=== PATIENT | male | born 1955 | race Caucasian/White ===

== ENCOUNTER 2017-01-03 08:00 | Outpatient (CLI) | payer BC, OTHER ==
[2017-01-03 13:47] LABS: ALBUMIN/GLOBULIN RATIO 1.7 (1.0-2.2); BILIRUBIN,TOTAL 0.7 mg/dL (0.2-1.0); BUN - BLOOD UREA NITROGEN 25 mg/dL (6-20); CALCIUM 9.2 mg/dL (8.5-10.3); CARBON DIOXIDE - CO2 28 mmol/L (21-32); CHLORIDE 103 mmol/L (101-111); CHOL/HDL RATIO 2.6 (<5.0); CHOLESTEROL 190 mg/dL; CREATININE 1.2 mg/dL (0.6-1.2); GFR - MDRD 61 (>89); GLUCOSE 89 mg/dL (70-100); HDL CHOLESTEROL 74 mg/dL; LDL/HDL RATIO 1.4 (<3.6); POTASSIUM 4.2 mmol/L (3.5-5.0); SODIUM 139 mmol/L (135-145); TOTAL PROTEIN 6.9 g/dL (6.7-8.2); TRIGLYCERIDES 58 mg/dL; VLDL CHOLESTEROL 12 mg/dL
== END 2017-01-03 08:01 | disposition home or self-care (01) ==
LOC: LAB.N 08:00
PROVIDERS: ATTEND Internal Medicine
DX: I10 Essential (primary) hypertension (principal); E78.2 Mixed hyperlipidemia; Z79.899 Other long term (current) drug therapy
CPT/HCPCS: 36415; 80053; 80061

== ENCOUNTER 2019-05-10 08:33 | Inpatient (IN) | payer MEDICARE, BC ==
[2019-05-10] MEDS ORDERED: SODIUM CHLORIDE 0.9% 1,000 ML IV ONE ×2 (08:39→09:16)
[2019-05-10] MEDS ORDERED: ONDANSETRON 4 MG/2 ML VIAL IVP STA (08:39)
[2019-05-10 08:54] LABS: BASOPHILS % (AUTO) 0.5 %; EOSINOPHILS % (AUTO) 0.4 %; HGB - HEMOGLOBIN 15.3 g/dL (14.0-18.0); LYMPHOCYTES % (AUTO) 1.9 %; MEAN CORPUSCULAR HEMOGLOBIN 31.7 pg (27.0-31.0); MEAN CORPUSCULAR HGB CONC 33.8 g/dL (32.0-36.0); MONOCYTES % (AUTO) 4.5 %; NEUTROPHILS % (AUTO) 92.2 %; PLT - PLATELET COUNT 323 10^3/uL (130-450); RED BLOOD COUNT 4.82 10^6/uL (4.70-6.10); RED CELL DISTRIBUTION WIDTH 13.5 % (12.0-15.0); WHITE BLOOD COUNT 11.3 x10^3/uL (4.8-10.8)
[2019-05-10 09:04] LABS: ALBUMIN 3.6 g/dL (3.2-5.5); ALBUMIN/GLOBULIN RATIO 0.9 (1.0-2.2); CALCIUM 8.6 mg/dL (8.5-10.3); CREATININE 2.5 mg/dL (0.6-1.2); TOTAL PROTEIN 7.5 g/dL (6.7-8.2)
[2019-05-10 09:29] LABS: ABNORMAL LYMPHS % (MANUAL) 0 %; BAND NEUTROPHILS % (MANUAL) 6 %; EOSINOPHILS # (MANUAL) 0.3 10^3/uL (0-0.7); LYMPHOCYTES # (MANUAL) 0.3 10^3/uL (1.5-3.5); LYMPHOCYTES % (MANUAL) 3 %; METAMYELOCYTES % (MANUAL) 3 %; MONOCYTES # (MANUAL) 0.5 10^3/uL (0.0-1.0); MYELOCYTES % (MANUAL) 1 %
[2019-05-10 09:30] LABS: DIFFERENTIAL COMMENT MANUAL DIFFERENTIAL; PLATELET ESTIMATE, MANUAL NORMAL (130-450,000) (NORMAL); PLATELET MORPHOLOGY NORMAL APPEARANCE (NORMAL); RBC MORPHOLOGY (MULTIPLE) NORMAL APPEARANCE (NORMAL)
[2019-05-10 09:37] LABS: GLUCOSE, URINE (UA) NEGATIVE (NEGATIVE); KETONES,URINE (UA) TRACE mg/dL (NEGATIVE); LEUKOCYTE ESTERASE, URINE NEGATIVE (NEGATIVE); NITRITE,URINE NEGATIVE (NEGATIVE); OCCULT BLOOD,URINE NEGATIVE (NEGATIVE); PROTEIN,URINE TRACE mg/dL (NEGATIVE); UROBILINOGEN,URINE 1 (NORMAL) E.U./dL (NORMAL)
[2019-05-10 09:39] LABS: CLARITY,URINE CLEAR (CLEAR)
[2019-05-10 09:40] LABS: BILIRUBIN,URINE NEGATIVE (NEGATIVE); ICTOTEST,URINE NEGATIVE
[2019-05-10] MEDS ORDERED: PIPERACILLIN/TAZOBACTAM 4.5 GM in SODIUM CHLORIDE 0.9% MINIBAG 100 ML IV STA (09:55)
--- NOTE | 2019-05-10 09:57 | CT Report ---
Reason: abdominal pain with distention. Procedure Date: 05/10/2019 Accession Number: [id number] / [id number] Procedure: CT - Abdomen/Pelvis WO CPT Code: FULL RESULT: EXAM: CT ABDOMEN AND PELVIS (CT KUB) EXAM DATE: 05/10/2019 09:41 AM. CLINICAL HISTORY: Abdominal pain and distention. COMPARISONS: None. TECHNIQUE: Routine axial helical CT imaging was performed through the abdomen and pelvis without IV contrast. Reconstructions: Coronal and sagittal. In accordance with CT protocol optimization, one or more of the following dose reduction techniques were utilized for this exam: automated exposure control, adjustment of mA and/or KV based on patient size, or use of iterative reconstructive technique. FINDINGS: Lung Bases: Mild calcified coronary artery disease is seen. Solid Organs: Noncontrast imaging of the solid organs demonstrates no acute findings. No hydronephrosis or organomegaly. Gallbladder/Bile Ducts: Unremarkable. Peritoneal Cavity: There is moderate free air scattered in the abdomen. The colon is moderately dilated and fluid-filled particularly the cecum. There is some wall thickening and fat stranding seen in the distal descending and proximal sigmoid colon, suspicious. Distal colectomy changes are noted further downstream. Small free fluid is seen in the abdominal quadrants. No loculated fluid collection is identified. Small ventral hernias are seen in the epigastric region containing air. No large hernia defect is seen. No adenopathy. Pelvic Organs: No bladder stones or wall thickening. Noncontrast images of the visualized pelvic organs are unremarkable. Vasculature: Infrarenal abdominal aortic aneurysm up to 3.9 cm is seen. Other: Degenerative changes and grade 1 anterolisthesis is seen at L5-S1 with pars defect. No acute osseous abnormality demonstrated. IMPRESSION: 1. Moderate free air and small free fluid in the abdomen consistent with viscus perforation, likely colonic, although exact location is unclear on the study. Suspicious wall thickening and stranding in the distal descending/proximal sigmoid colon is seen. Underlying colitis or malignancy may be present. 2. Colonic distention particularly the right hemicolon. Findings may represent colonic perforation secondary to underlying obstruction. 3. Infrarenal abdominal aortic and is on 3.9 cm. No evidence for rupture. RADIA The critical result notification system was initiated by Dr. Anne Ram at 09:51 AM on 05/10/2019. The above critical result findings were discussed with Beltran Kelly by Dr. Anne Ram at 09:55 AM on 05/10/2019.
--- NOTE | 2019-05-10 09:57 | ED Physician Documentation ---
PD HPI ABD PAIN - Stated complaint Stated Complaint: SOA/ABD PX - Chief complaint Chief Complaint: Abd Pain - History obtained from History obtained from: Patient - History of Present Illness Timing - onset: How many days ago (4) Timing - duration: Days (4) Timing - details: Still present (getting worse) Quality: Fullness/distended, Pain Location: All over / everywhere (right > left) Associated symptoms: Fever (low grade), Vomiting, Diarrhea Similar symptoms before: Has not had sx before Recently seen: Clinic (He was seen today initially in clinic, and was sent here for further evaluation and treatment.) - Additional information Additional information: The patient is a 64-year-old male who presents with abdominal pain that started 4 days ago and has been getting progressively worse. He has noticed low-grade fever, and has had vomiting and diarrhea. He denies dysuria, chest pain, or shortness of breath. He denies history of similar symptoms in the past. Past surgical history is significant for partial colectomy for diverticulitis. Review of Systems Constitutional: reports: Fever (Low-grade) Nose: denies: Congestion Throat: denies: Sore throat Cardiac: denies: Chest pain / pressure Respiratory: denies: Dyspnea, Cough GI: reports: Abdominal Pain, Nausea, Vomiting, Diarrhea : denies: Dysuria Skin: denies: Rash Musculoskeletal: denies: Back pain, Extremity pain Neurologic: denies: Headache PD PAST MEDICAL HISTORY - Past Medical History Cardiovascular: Hypertension GI: Diverticulitis Musculoskeletal: Other - Past Surgical History Past Surgical History: Yes General: Bowel surgery - Present Medications Home Medications: Ambulatory Orders Medication Instructions Recorded Confirmed Doxazosin Mesylate 4 mg PO DAILY 05/10/19 - Allergies Allergies/Adverse Reactions: Allergies Allergy/AdvReac Type Severity Reaction Status Date / Time No Known Drug Allergies Allergy Verified 05/10/19 08:48 - Social History Does the pt smoke?: No Smoking Status: Former smoker ETOH Use: Liquor Does the pt have substance abuse?: No - Immunizations Immunizations are current?: Yes - POLST Patient has POLST: No PD ED PE NORMAL - Vitals Vital signs reviewed: Yes (Tachycardic) - General General: Alert and oriented X 3, Well developed/nourished - HEENT HEENT: Atraumatic, Moist mucous membranes, Pharynx benign - Neck Neck: No adenopathy, No JVD - Cardiac Cardiac: Other (Rapid rate, regular rhythm.) - Respiratory Respiratory: No respiratory distress, Clear bilaterally, Other (Difficulty taking a full inspiratory breath due to abdominal pain.) - Abdomen Abdomen: Soft, Other (Bowel sounds present abdomen soft, distended, with tympany to percussion. Tenderness more on the right than the left.) - Back Back: No CVA TTP - Derm Derm: No rash - Extremities Extremities: No edema, No calf tenderness / cord - Neuro Neuro: Alert and oriented X 3, No motor deficit, Normal speech Results - Vitals Vitals: Vital Signs - 24 hr 05/10/19 05/10/19 05/10/19 08:36 08:59 09:15 Temperature 36.2 C L Heart Rate 103 H 102 H 101 H Heart Rate [ Monitoring electrodes] Respiratory 24 20 24 Rate Blood Pressure 151/83 H 151/83 H 142/81 H Blood Pressure [Right Brachial artery] O2 Saturation 96 96 98 05/10/19 05/10/19 05/10/19 09:46 10:08 10:32 Temperature Heart Rate 99 101 H 102 H Heart Rate [ Monitoring electrodes] Respiratory 25 H 23 21 Rate Blood Pressure 153/84 H 146/88 H 149/77 H Blood Pressure [Right Brachial artery] O2 Saturation 98 97 96 05/10/19 05/10/19 05/10/19 11:18 12:11 16:30 Temperature 37.1 C 36.6 C Heart Rate 109 H 108 H Heart Rate [ 102 H Monitoring electrodes] Respiratory 22 27 H 12 Rate Blood Pressure 147/87 H 141/82 H Blood Pressure 105/62 [Right Brachial artery] O2 Saturation 94 95 100 05/10/19 16:55 Temperature 36.8 C Heart Rate 98 Heart Rate [ Monitoring electrodes] Respiratory 14 Rate Blood Pressure 115/71 Blood Pressure [Right Brachial artery] O2 Saturation 100 Oxygen O2 Source Room air - Labs Labs: Laboratory Tests 05/10/19 05/10/19 05/10/19 08:44 08:44 09:22 WBC 11.3 H RBC 4.82 Hgb 15.3 Hct 45.3 MCV 94.0 MCH 31.7 H MCHC 33.8 RDW 13.5 Plt Count 323 MPV 9.0 Neut # (Auto) Not Reportable Lymph # (Auto) Not Reportable [place] # (Auto) Not Reportable Eos # (Auto) Not Reportable Baso # (Auto) Not Reportable Absolute Nucleated RBC Not Reportable Total Counted 100 Band Neuts % (Manual) 6 Abnorm Lymph % (Manual) 0 Metamyelocytes % 3 H Myelocytes % 1 H Nucleated RBC % Not Reportable Neutrophils # (Manual) 9.7 H Lymphocytes # (Manual) 0.3 L Monocytes # (Manual) 0.5 Eosinophils # (Manual) 0.3 Basophils # (Manual) 0.0 Differential Comment MANUAL DIFFERENTIAL Manual Slide Review Indicated Platelet Estimate NORMAL (130-450,000) Platelet Morphology NORMAL APPEARANCE RBC Morph Micro Appear NORMAL APPEARANCE Sodium 134 L Potassium 3.2 L Chloride 95 L Carbon Dioxide 25 Anion Gap 14.0 H BUN 34 H Creatinine 2.5 H Estimated GFR (MDRD) 26 L Glucose 139 H Lactic Acid Calcium 8.6 Total Bilirubin 1.0 AST 17 ALT 12 Alkaline Phosphatase 64 Total Protein 7.5 Albumin 3.6 Globulin 3.9 Albumin/Globulin Ratio 0.9 L Lipase 21 L Urine Color DARK YELLOW Urine Clarity CLEAR Urine pH 5.0 Ur Specific [place] >=1.030 H Urine Protein TRACE Urine Glucose (UA) NEGATIVE Urine Ketones TRACE Urine Occult Blood NEGATIVE Urine Nitrite NEGATIVE Urine Bilirubin NEGATIVE Urine Urobilinogen 1 (NORMAL) Ur Leukocyte Esterase NEGATIVE Ur Microscopic Review NOT INDICATED Urine Culture Comments NOT INDICATED 05/10/19 10:03 WBC RBC Hgb Hct MCV MCH MCHC RDW Plt Count MPV Neut # (Auto) Lymph # (Auto) [place] # (Auto) Eos # (Auto) Baso # (Auto) Absolute Nucleated RBC Total Counted Band Neuts % (Manual) Abnorm Lymph % (Manual) Metamyelocytes % Myelocytes % Nucleated RBC % Neutrophils # (Manual) Lymphocytes # (Manual) Monocytes # (Manual) Eosinophils # (Manual) Basophils # (Manual) Differential Comment Manual Slide Review Platelet Estimate Platelet Morphology RBC Morph Micro Appear Sodium Potassium Chloride Carbon Dioxide Anion Gap BUN Creatinine Estimated GFR (MDRD) Glucose Lactic Acid 1.9 Calcium Total Bilirubin AST ALT Alkaline Phosphatase Total Protein Albumin Globulin Albumin/Globulin Ratio Lipase Urine Color Urine Clarity Urine pH Ur Specific [place] Urine Protein Urine Glucose (UA) Urine Ketones Urine Occult Blood Urine Nitrite Urine Bilirubin Urine Urobilinogen Ur Leukocyte Esterase Ur Microscopic Review Urine Culture Comments - Rads (name of study) CT abd/pelvis Radiology: Prelim report reviewed, EMP read contemporaneously, See rad report (1) Moderate free air and small free fluid in the abdomen consistent with viscus perforation, likely colonic, although exact location is unclear on the study. Suspicious wall thickening and stranding in the distal descending/proximal sigmoid colon is seen. Underlying colitis or malignancy may be present. 2) Colonic distention particularly the right hemicolon. Findings may represent colonic perforation secondary to underlying obstruction. 3) Infrarenal abdominal aorta is 3.9 cm. No evidence for rupture.) PD MEDICAL DECISION MAKING - ED course Complexity details: reviewed results, re-evaluated patient, considered differential, d/w patient, d/w net developer consultant ED course: The patient's presentation is significant for bowel perforation with free air seen on CT scan. He is mildly tachycardic, but does not appear septic. His white count is mildly elevated at 11.3, with a normal lactate of 1.9. His BUN and creatinine are elevated at 34 and 2.5. Treatment in the emergency department included administration of normal saline IV, Zofran 4 mg IV, and Zosyn 4.5 g IV. I discussed his condition with Dr. Lopez who plans operative intervention. Departure - Departure Disposition: ED Transfer to [facility] Clinical Impression: Perforated bowel Condition: Serious Discharge Date/Time: 05/10/19 13:14
--- NOTE | 2019-05-10 11:19 | CONSULTATION NOTE ---
Referring Provider Name of Referring Provider:: Dr. Kelly Consult Date: 05/10/19 Chief Complaint - Chief Complaint Chief Complaint: Abdominal pain secondary to free air (perforated bowel) History of Present Illness - Admitted From Admitted From:: [facility]'s Emergency Department Room 7 - History Obtained From Records Reviewed: Yes History obtained from: Patient and Dr. Kelly Exam Limitations: None - History of Present Illness HPI Comment/Other: Patient is a very pleasant 64-year-old gentleman evaluated in room 7 at [facility]'s emergency department at the request of Dr. Kelly for free air. The patient had the abrupt onset of abdominal pain and distention. There is been no nausea and or vomiting. The pain is unremitting. The pain is less than one would expect with perforated bowel in the sense that motion does not exacerbate the pain tremendously. Additionally, percussion does not produce significant pain. In fact, the patient states he is having more difficulty breathing with the abdominal distention than anything else. Importantly, the patient had a previous colon resection by Dr. Edgar for diverticular disease in the distant past. History - Past Medical History Cardiovascular: reports: Hypertension GI: reports: Diverticulitis Musculoskeletal: reports: Other MRSA Hx?: No - Past Surgical History General: reports: Bowel surgery - POLST Patient has POLST: No Meds/Allgy - Home Medications Home Medications: Ambulatory Orders Medication Instructions Recorded Confirmed Doxazosin [Cardura] DAILY 05/10/19 - Allergies Allergies/Adverse Reactions: Allergies Allergy/AdvReac Type Severity Reaction Status Date / Time No Known Drug Allergies Allergy Verified 05/10/19 08:48 Review of Systems - Constitutional Constitutional: denies: Fatigue, Fever, Chills - Eyes Eyes: denies: Pain - Ears, Nose & Throat Ears, Nose & Throat: denies: Ear pain - Cardiovascular Cariovascular: denies: Irregular heart rate, Palpitations, Chest pain - Respiratory Respiratory: denies: Cough, Sputum production, Wheezing - Gastrointestinal Gastrointestinal: reports: Abdominal pain - Musculoskeletal Musculoskeletal: denies: Muscle pain, Back pain - Integumentary Integumentary: denies: Rash - Neurological Neurological: denies: General weakness, Focal weakness Exam - Vital Signs Reviewed Vital Signs: Yes Vital Signs: Vital Signs x48h Temp Pulse Resp BP Pulse Ox 05/10/19 10:32 102 H 21 149/77 H 96 05/10/19 10:08 101 H 23 146/88 H 97 05/10/19 09:46 99 25 H 153/84 H 98 05/10/19 09:15 101 H 24 142/81 H 98 05/10/19 08:59 102 H 20 151/83 H 96 05/10/19 08:36 36.2 C L 103 H 24 151/83 H 96 - Physical Exam General Appearance: positive: No acute distress Eyes Bilateral: positive: No lid inflammation, Conjunctivae nml, No scleral icterus ENT: positive: Dry mucous membranes Neck: positive: Trachea midline Respiratory: positive: Chest non-tender, No respiratory distress, Breath sounds nml Cardiovascular: positive: Regular rate & rhythm, Tachycardia Abdomen: positive: No organomegaly (Cannot appreciate due to distention), Abnml bowel sounds (Decreased), Other (Massively distended tympanitic abdomen with a ventral hernia supraumbilically, midline incision umbilically and infraumbilically well-healed without evidence of infection) Skin: positive: Color nml Extremities: positive: Non-tender, Nml appearance Neurologic/Psychiatric: positive: Oriented x3, Motor nml, Sensation nml, Mood/affect nml Conclusion/Plan - Diagnosis Diagnosis: Free air likely secondary to perforated viscus (exact reason for the perforated viscus is unclear) - Plan Plan: Exploratory laparotomy with possible ileostomy, possible colostomy, possible bowel resection (large and small), repair ventral hernia (primary). The indications, alternatives (none), and possible complications including but not limited to infection, bleeding with all of its risks including transfusion, and were fully explained to the patient and all questions answered. I explained that there is a high probability of the patient will have a nasogastric tube at the end of surgery. Additionally he will be admitted to the hospital postoperatively and he can expect a 3 to 7-day hospital stay awaiting to have bowel function return prior to feeding him. I explained that this will be dependent on how much he ambulates. I have asked him to let me know if there is any way we can make his stay at [facility] more comfortable. Additionally, he has already received 3.375 g Zosyn for prophylaxis against surgical infection. He will have teds and Venodyne's placed for prophylax against deep venous thrombosis. Dragon disclaimer: This document was created in part using voice recognition technology. Because of the inherent limitations of the system ([employer] user manual states that the licensee understands that speech recognition is a statistical p rocess and that recognition errors are inherent in the process), occasional same sounding word substitutions and grammatical errors do occur and persist despite proofreading. Please read this document for context. - Lab Results Lab results reviewed: Yes Fish Bones: 05/10/19 08:44 05/10/19 08:44
--- NOTE | 2019-05-10 11:33 | ANESTHESIA ---
Pre-Anesthesia VS, & Labs - Diagnosis Diagnosis Free air likely secondary to perforated viscus ( exact reason for the perforated viscus is unclear) - Procedure exploratory laparotomy, possible bowel resection, possible ileostomy, possible colostomy Vital Signs: Temp Pulse Resp BP Pulse Ox 36.2 C L 109 H 22 147/87 H 94 05/10/19 08:36 05/10/19 11:18 05/10/19 11:18 05/10/19 11:18 05/10/19 11:18 Height 5 ft 11 in Weight (kg) 72.575 kg Body Mass Index 22.3 - NPO >8 hours - Lab Results Current Lab Results: Laboratory Tests 05/10/19 10:03: Lactic Acid 1.9 05/10/19 08:44: Sodium 134 L, Potassium 3.2 L, Chloride 95 L, Carbon Dioxide 25, Anion Gap 14.0 H, BUN 34 H, Creatinine 2.5 H, Estimated GFR (MDRD) 26 L, Glucose 139 H, Calcium 8.6, Total Bilirubin 1.0, AST 17, ALT 12, Alkaline Phosphatase 64, Total Protein 7.5, Albumin 3.6, Globulin 3.9, Albumin/Globulin Ratio 0.9 L, Lipase 21 L 05/10/19 08:44: WBC 11.3 H, RBC 4.82, Hgb 15.3, Hct 45.3, MCV 94.0, MCH 31.7 H, MCHC 33.8, RDW 13.5, Plt Count 323, MPV 9.0, Neut # (Auto) Not Reportable, Lymph # (Auto) Not Reportable, [place] # (Auto) Not Reportable, Eos # (Auto) Not Reportable, Baso # (Auto) Not Reportable, Absolute Nucleated RBC Not Reportable, Total Counted 100, Band Neuts % (Manual) 6, Abnorm Lymph % (Manual) 0, Metamyelocytes % 3 H, Myelocytes % 1 H, Nucleated RBC % Not Reportable, Neutrophils # (Manual) 9.7 H, Lymphocytes # (Manual) 0.3 L, Monocytes # (Manual) 0.5, Eosinophils # (Manual) 0.3, Basophils # (Manual) 0.0, Differential Comment MANUAL DIFFERENTIAL, Manual Slide Review Indicated, Platelet Estimate NORMAL (130-450,000), Platelet Morphology NORMAL APPEARANCE, RBC Morph Micro Appear NORMAL APPEARANCE Fish Bones: 05/10/19 08:44 05/10/19 08:44 Home Medications and Allergies Home Medications: Ambulatory Orders Doxazosin Mesylate 4 mg PO DAILY 05/10/19 Active Medications Sodium Chloride (Normal Saline 0.9%) 1,000 mls @ 250 mls/hr IV .Q4H ONE Stop: 05/10/19 13:15 Last Admin: 05/10/19 09:42 Dose: 250 mls/hr Doxazosin Mesylate 4 mg PO DAILY 05/10/19 Allergies/Adverse Reactions: Allergies Allergy/AdvReac Type Severity Reaction Status Date / Time No Known Drug Allergies Allergy Verified 05/10/19 08:48 Anes History & Medical History - Anesthetic History Anesthesia Complications: reports: No previous complications - Medical History Cardiovascular: reports: Hypertension Gastrointestinal: reports: Diverticulitis Musculoskeletal: reports: Other Smoking Status: Former smoker - Surgical History General: Bowel surgery Exam General: Alert Dental: Loose/Frag (two on front bottom), Poor dentition Mouth Opening: Greater than 4 Fingerbreadths Neck Mobility: Normal Mallampati classification: II Thyromental Distance: greater than 6 cm Plan Anesthesia Type: General Consent for Procedure(s) Verified and Reviewed: Yes Code Status: Attempt Resuscitation ASA classification: 2-Mild systemic disease Is this case an emergency?: Yes
[2019-05-10] MEDS ORDERED: BUPIVACAINE 0.5%-EPI 1:200000 PF 10 ML VIAL ONE ×2 (12:03→12:05)
[2019-05-10] MEDS ORDERED: BUPIVACAINE 0.5% PF 10 ML VIAL ONE (12:04)
[2019-05-10] MEDS ORDERED: LACTATED RINGERS 1,000 ML IV ONE ×6 (14:04→15:57)
[2019-05-10] MEDS ORDERED: BUPIVACAINE 0.5% PF 30 ML VIAL INFIL ONE (14:04)
[2019-05-10] MEDS ORDERED: ONDANSETRON 4 MG/2 ML VIAL IVP PRN (14:39)
[2019-05-10] MEDS ORDERED: NALBUPHINE 10 MG/ML AMP IVP PRN (14:39)
[2019-05-10] MEDS ORDERED: diphenhydrAMINE INJ 50 MG/ML VIAL IVP PRN (14:39)
[2019-05-10] MEDS ORDERED: fent/BUPIV 2 MCG/0.125% 250 ML EP PRN (14:39)
[2019-05-10] MEDS ORDERED: fentaNYL 100 MCG/2 ML VIAL IVP ONE (15:19)
[2019-05-10] MEDS ORDERED: GLYCOPYRROLATE 1 MG/5 ML VIAL IVP ONE (15:19)
[2019-05-10] MEDS ORDERED: DEXMEDETOMIDINE 400 MCG/100 ML IV ONE (15:46)
[2019-05-10] MEDS ORDERED: SUGAMMADEX 200 MG/2 ML VIAL IVP ONE (15:49)
--- NOTE | 2019-05-10 16:53 | OPERATIVE REPORT ---
Operative Report - General Admit Date: 05/10/19 Planned Procedure: Exploratory laparotomy, possible bowel resection, possible ileostomy, possible colostomy Pre-Op Diagnosis: Free air, perforated viscus Procedure Performed: Extended right hemicolectomy to include the proximal transverse colon with end ileostomy Post Op Diagnosis: Perforated hepatic flexure with feculent peritonitis - Procedure Note Primary Surgeon: Jose Main MD Anesthesia Provider: Bony Lawrence MD IV Fluids (mL): 3,000 Estimated Blood Loss (mL): 200 Urine Output (mL): 175 Drain/Tube Type: Other (None.) Complications: None. - Other Other Information/Narrative: OPERATIVE DESCRIPTION/REPORT: After verbal and written informed consent was obtained detailing the risks of infection, bleeding requiring transfusion with its risks, nerve injury, and , and after I met with the patient confirming the surgery and the site of the surgery, the patient was brought to the operative suite and placed supine on the operating table. Great care was taken to avoid pressure points to prevent pressure necrosis or nerve injury. Monitoring devices were applied along with TEDs and pneumatic compressive stockings (to prevent DVT). The patient received preoperative antibiotics for surgical prophylaxis. Bony Lawrence MD sedated and anesthetized the patient for the entire procedure. The patient was prepped and draped in the usual sterile manner. A "time in" then confirmed that the patient was identified with 3 identifiers (name, date and medical record number), the history and physical was in the chart, the signed consent confirming the procedure was in the chart, the patient was in the correct position, the aforementioned prophylactic measures were in place or given, we had the correct personnel and equipment to complete the procedure and that anesthesia, surgery and nursing were given an opportunuty to express any concerns. With the agreement of everyone in the room, we proceeded with the o peration. Please note that an epidural was placed by anesthesia for long-term pain control. A midline incision was made encompassing the previous infraumbilical incision and tracing it up and over the umbilicus to approximately fpc to the xiphoid. Sharp dissection using scalpel as well as Bovie electrocautery was used to get down to the linea alba. The linea alba was incised using Bovie el ectrocautery and the peritoneum was incised using a knife getting entry into the abdomen without incident. The incision in the linea alba and the peritoneum were then lengthened to the length of my skin incision using Bovie electrocautery using my fingers to protect the bowel. Upon entering the abdomen, there was a significant amount of turbid fluid but it was not particularly foul-smelling. In addition there is quite a bit of fibrinous exudate throughout the abdomen but it was concentrated in the right upper quadrant. My initial thought was that the patient had perforated an ulcer due to these findings I commenced examining the epigastrium and right upper quadrant. The anterior portion of the stomach, liver, gallbladder, and duodenum were visibly and palpably normal. It was when I was examining the right colon that a small fecalith that was plugging a hole in the colon dislodged and the abdomen quickly filled with liquid stool. As best as we could we removed the stool and with the perforation found, set about resecting the right colon and performing an end ileostomy. A mesenteric opening was created at the very distal terminal ileum and a TRUDI 75 stapler was used to transect the very terminal ileum. I do wish note that the base of the appendix was included in the staple line and it was clear that he would need to be resected separately. With the terminal ileum able to be packed away the right colon was dissected free from the right abdominal wall along the white line of Toldt. This was done primarily using traction and counter-traction as well as Bovie electrocautery. In this manner I proceeded up the right colon, came across the hepatic flexure protecting the underlying bowel with my fingers and transected the omentum at the level of the of the middle colic in order to preserve the omentum with the distal colon resected with the proximal colon. And the middle colic vessel an application of the TRUDI-75 stapler transected the colon, and the mesentery bet ween the transected terminal ileum and the transected colon was taken using sequential application of the LigaSure device. The colon was then delivered from the operative field. The abdomen was then copiously irrigated using 3 L of warm sterile saline. The staple line on the distal portion of the transverse colon was then visually inspected noted be intact. The skin was then grasped in the right lower quadrant taking care to position the ileostomy away from any bony prominence and the wound. A small circular hole was made using a scalpel and the subcutaneous tissue was excised using Bovie electrocautery. A cruciate incision was made in the anterior fascia using Bovie electrocautery. The muscle was split and did not cut. A linear incision was made in the posterior fascia as well as the peritoneum. Please note my fingers were used on the inside to ensure that there was no injury to the bowel. This opening was opened to admit 2-1/2 of my fingers. The stapled end of the terminal ileum was then grasped through this ileostomy opening using 2 Babcocks and brought out through the skin taking care not to twist the bowel. The bowel was left in position in order to mature the ileostomy following wound closure. Please note the terminal ileum appeared to be pink and viable but it was a slightly darker color pink. It was peristalsing. The fascia at the midline wound was then closed using looped 0 PDS, starting superiorly and inferiorly and running to form complete fascial closure just below the umbilicus. The suture was tied, cut, and the knot was dunked. The subcutaneous tissues were then copiously irrigated using warm sterile saline and the skin was loosely approximated using interrupted 3-0 nylon mattress sutures. In between the sutures, cut 1 inch iodophor gauze was placed and this closure was covered so as maturing the ileostomy would not reseed this area with bowel contents. Now I directed my attention towards maturing the ileostomy and this was done in a circumferential manner using 3-0 Vicryl to create a Jocelyn ileostomy. Please note that the ostomy itself was dark pink at the completion of the ileostomy formation. An ileostomy device was placed and a dressing was applied on the midline wound. At this point a time out was performed that confirmed that all the counts were correct, the procedure that was performed, the blood loss, the IV fluids administered, and the patients condition. Having tolerated the procedure well, the patient was subsequently extubated and taken to recovery room in good and stable condition. Roamer disclaimer: This document was created in part using voice recognition technology. Because of the inherent limitations of the system ([employer]amer D[employer] user manual states that the licensee understands that speech recognition is a statistical process and that recognition errors are inherent in the process), occasional same sounding word substitutions and grammatical errors do occur and persist despite proofreading. Please read this document for context.
[2019-05-10] MEDS ORDERED: SODIUM CHLORIDE FLUSH 0.9% 10 ML SYRINGE ONE (17:17)
[2019-05-10] MEDS: D5NS W/20 MEQ KCL 1,000 ML IV SCH (17:44)
[2019-05-10] MEDS: SODIUM CHLORIDE FLUSH 0.9% 10 ML SYRINGE IVP SCH (17:45)
[2019-05-10] MEDS: ACETAMINOPHEN 1,000 MG/100 ML 100 ML IV SCH (17:50)
[2019-05-10] MEDS ORDERED: ROCURONIUM 50 MG/5 ML VIAL IVP ONE (17:57)
[2019-05-10] MEDS ORDERED: ONDANSETRON 4 MG/2 ML VIAL IVP ONE (17:57)
[2019-05-10] MEDS ORDERED: SUCCINYLCHOLINE 200 MG/10 ML VIAL IVP ONE (17:57)
[2019-05-10] MEDS ORDERED: MIDAZOLAM 2 MG/2 ML VIAL IVP ONE (17:57)
[2019-05-10] MEDS ORDERED: fentaNYL 250 MCG/5 ML VIAL IVP ONE (17:57)
[2019-05-10] MEDS ORDERED: NEOSTIGMINE 1 MG/1 ML 10 ML MDV IVP ONE (17:57)
[2019-05-10] MEDS ORDERED: PROPOFOL 200 MG/20 ML VIAL IVP ONE (17:57)
[2019-05-10] MEDS: PIPERACILLIN/TAZOBACTAM 3.375 GM in SODIUM CHLORIDE 0.9% MINIBAG 100 ML IV SCH (18:25)
[2019-05-10 18:38] LABS: CALCIUM 7.1 mg/dL (8.5-10.3); CREATININE 2.4 mg/dL (0.6-1.2)
--- NOTE | 2019-05-10 18:47 | XRAY Report ---
Reason: CENTRAL LINE PLACEMENT Procedure Date: 05/10/2019 Accession Number: [id number] / [id number] Procedure: XR - Chest for Line Placement CPT Code: FULL RESULT: EXAM: CHEST RADIOGRAPHY EXAM DATE: 05/10/2019 05:05 PM. CLINICAL HISTORY: CENTRAL LINE PLACEMENT. COMPARISON: 07/08/2010 12:45 PM. TECHNIQUE: 1 view. FINDINGS: Lungs/Pleura: No focal opacities evident. No pleural effusion. No pneumothorax. Mediastinum: Within exam limitations, the cardiomediastinal contour is normal. Other: None. IMPRESSION: 1. Right IJ line tip projects over the mid SVC. 2. Orogastric tube tip extends beyond the inferior margin of the film. 3. No evidence of lobar infiltrate or pneumothorax. RADIA
--- NOTE | 2019-05-10 21:04 | CONSULTATION NOTE ---
DATE OF SERVICE: 05/10/2019 Physician: Mickie Luna MD PRIMARY CARE PROVIDER: Dr. Bennett. ADMITTING PROVIDER: Mickie Luna MD REASON FOR CONSULTATION: General Surgery asking for overview of a postoperative patient who had a perforated viscus. HISTORY OF PRESENT ILLNESS: Patient is a 64-year-old white male who I am meeting as he is coming out of the operating room and going to ICU. He has had a previous colon resection due to diverticulitis in the with Dr. Edgar. His colon resection was done under elective conditions and he was out of the hospital in 3 days. With this admission, patient said that he started having abdominal pain on Monday, 05/05. Between Monday and now, he has gotten increasingly more uncomfortable. Almost no appetite, has been able to eat some soup maybe 1 day. Less and less flatus. On , his looked at his belly and said he is going to the doctor no matter what. He went to the urgent care clinic today and was sent to the emergency room. His belly was described as distended, bloated, with no bowel sounds. In our emergency room, he was evaluated and underwent CT scan, which showed a perforated viscus on the right side and abdominal contents full of stool and air. He was taken to the operating room by Dr. Main. He has undergone an extended right hemicolectomy to include the proximal transverse colon with end ileostomy. He was found to have a perforated hepatic flexure with feculent peritonitis. Dr. Main has asked me to see the patient in consultation. At this time, he is not on any pressors. He is maintaining a very good blood pressure in the 120 systolic. He does have an epidural in place with fentanyl and bupivacaine. Says that the main thing is feeling his lack of sensation in the left leg and "it feels weird." He is afebrile. Normal pulse. He says that other than being really tired and having a funny tingling sensation from the waist down he feels good. PAST MEDICAL HISTORY 1. Hypertension. 2. Right knee meniscus surgery. 3. Tonsillectomy. 4. History of palpitations 20 years ago with a normal sinus rhythm and right bundle-branch block on EKG. 5. Diverticulitis with elective sigmoid resection over 25 years ago. ALLERGIES: NO KNOWN DRUG ALLERGIES. MEDICATIONS: Doxazosin 4 mg daily. He was on vasopressin in the OR. SOCIAL HISTORY: He started smoking at the age of 11. That will be 1965. Smoked until 2014. Smokes up to 2 packs per day. He drinks about 3 to 4 beers a day. His primary care provider chart does note alcohol abuse. He has no history of recreational substance abuse. He is a second generation [place] man. 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 to his first . They have their own home. He is completely independent with his activities of daily living. PREVIOUS LEVEL OF FUNCTION: Completely independent with activities of daily living. Drives a car, pays his own bills, and his said that he is in excellent condition. FAMILY HISTORY: Father is 90. He has hypertension and glaucoma. Mother at age 58 of brain cancer. He has 1 sister who has thyroid disease and diabetes. He has 1 son who is healthy. REVIEW OF SYSTEMS GENERAL: Patient says that he is usually pretty healthy juan antonio. concurs. He has had no fevers, sweats, chills, unexpected weight changes until this last week. ENT: Denies glaucoma, cataracts, blurred vision. He denies problems with swallowing, teeth, or facial dysesthesias. PULMONARY: Denies coughing, wheezing, chest congestion. No phlegm production. CARDIOVASCULAR: Had the palpitations once many years ago, but he denies angina, valvular heart disease, was told that he had a heart murmur as a baby, but it went away. Denies edema, orthopnea. He did have some leg edema once when he was on Doxazosin and Norvasc. Norvasc was stopped. GASTROINTESTINAL: Usually has a great appetite and eats well. No recent change in bowel habits until this week. No blood in his stool. No history of ulcers. GENITOURINARY: Nocturia rarely. Occasional slow urine, but no dribbling, no urgency, no incontinence. No blood in his urine. No flank pain. 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 Said he has a few aches and pains in his back, hand joints, knee joints. He says it is well controlled. Really does not slow him down, just feels like he is getting older. DERMATOLOGIC: Denies rule out rashes, new lesions. PSYCHIATRIC: Denies depression, anxiety, hallucinations. 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 No seizures. No gait ataxia. No falling down episodes. No focal deficits. No facial paresthesias. PHYSICAL EXAMINATION VITAL SIGNS: Blood pressure is 134/70. Pulse is 106. Temperature is 36.9, respirations 13, and he is 97% on room air. On recorded urine output. At this time, over 500 mL are in his Rocha catheter bag. GENERAL: He is a lean, lanky male. Looks stated age. HEAD AND NECK: Unremarkable. Oral mucosa is little dry and he keeps on licking his lips to speak to me. Occasionally his lips we will get stuck on his teeth or gums. He has normal facial symmetry. Good skin color. Pupils are reactive. Sclerae nonicteric. Neck is supple with shotty anterior cervical adenopathy. No goiter or bruits. LUNGS: Clear to auscultation and percussion with slow, shallow and unlabored, respiration. ABDOMEN: Ostomy in place. No bowel sounds. EXTREMITIES: Without clubbing, cyanosis or edema. Good dorsalis pedis pulses. Capillary refill is less than 2 seconds, this is on his great toes. NEUROLOGIC: He is alert and oriented to person, place, time. He can follow 2- step directions. He is doing amazingly well mentally considering he has just come out of anesthesia and a major abdominal surgery. He cannot move his legs because they are numb, but toes are downgoing. LABORATORY DATA: Preoperatively, sodium was 134, potassium 3.2, BUN 34, creatinine 2.5. His usual baseline creatinine is 1.7. GFR is usually 41 to 61. Random glucose 139. Lactic acid 1.9. Liver enzymes normal. White cell count is 11.3. Hemoglobin 15.3. Usual hemoglobin is 13.2. MCV is 94. Platelets are 323. He has 3% metamyelocytes, 1% myelocytes, 6% bands. Urinalysis is dark yellow, negative for infection. IMAGING: CT of the abdomen and pelvis has lung bases showing mild calcified coronary artery disease. Moderate free air in the abdomen, moderately dilated and fluid filled, particularly in the cecum. Some wall thickening and fat stranding seen in the distal descending and proximal sigmoid colon. Distal colectomy. Small ventral hernias in the epigastric region containing air. Infrarenal abdominal aortic aneurysm at 3.9 cm. ASSESSMENT PLAN 1. Perforated viscus of the right bowel, hepatic flexure. Patient has already been seen by general surgery, taken to the operating room, and now in ICU. He has amazing hemodynamic stability now in spite of being on neosynephrine in the OR. Considering he is not on pressors and presented as a very sick gentleman. PLAN: We will continue to see this patient in consultation on a daily basis as surgery requests. We will be glad to follow the patient with you. ATTESTATION: The patient will be discharged within 96 hours. At this time, he is postop day 0. MEDICATIONS: Zosyn and Protonix and those will continue. 2. [id number] kidney disease, stage 3. We will follow daily. Avoid nephrotoxic agents. He should be able to recover this kidney function with hydration. No evidence of shock. 3. Hypertension history. At this time, no antihypertensives. His blood pressure is controlled. If he does not need any hypertensive medication, we will give topical Catapres. In the past, the patient does not seem to be tolerating Norvasc or Lisinopril. HE DOES NOT HAVE TRUE ALLERGIES, JUST NOT TOLERATED. 4. History of alcohol abuse. We will give a banana bag. Monitor CIWA protocol for withdrawal. He has never had a history of withdrawal or shakes. He has been seen in the past by Dr. Remington Lu, Oncology, for macrocytic anemia that Dr. Lu attributed to his alcohol use. 5. Macrocytic anemia. Already seen by Dr. Remington Lu in the past. His highest MCV has been 98, currently 94. As above we will supplement folate and vitamin B12 in a banana bag. 6. Hypokalemia seen preoperatively. He has gotten potassium in the bags that he had in the anesthesia suite. We will check stat BMP and replace if necessary. 7. Deep venous thrombosis prophylaxis will be with RAFAEL montesinos and Lovenox. 8. FULL CODE STATUS. TD: 05/10/2019 18:16 MTDAly
[2019-05-11] MEDS: ACETAMINOPHEN 1,000 MG/100 ML 100 ML IV SCH ×4 (00:15→19:55)
[2019-05-11] MEDS: PIPERACILLIN/TAZOBACTAM 3.375 GM in SODIUM CHLORIDE 0.9% MINIBAG 100 ML IV SCH ×3 (00:53→19:41)
[2019-05-11] MEDS: D5NS W/20 MEQ KCL 1,000 ML IV SCH ×2 (03:37→19:32)
[2019-05-11] MEDS: SODIUM CHLORIDE FLUSH 0.9% 10 ML SYRINGE IVP SCH ×3 (03:38→21:10)
[2019-05-11 04:37] LABS: BASOPHILS % (AUTO) 0.3 %; EOSINOPHILS # (AUTO) 0.3 10^3/uL (0.0-0.7); EOSINOPHILS % (AUTO) 4.2 %; LYMPHOCYTES # (AUTO) 0.2 10^3/uL (1.5-3.5); LYMPHOCYTES % (AUTO) 2.2 %; MEAN CORPUSCULAR HEMOGLOBIN 30.8 pg (27.0-31.0); MEAN CORPUSCULAR HGB CONC 32.4 g/dL (32.0-36.0); MEAN CORPUSCULAR VOLUME 95.1 fL (80.0-94.0); MEAN PLATELET VOLUME 9.1 fL (7.4-11.4); MONOCYTES # (AUTO) 0.5 10^3/uL (0.0-1.0); NEUTROPHILS # (AUTO) 5.7 10^3/uL (1.5-6.6); NEUTROPHILS % (AUTO) 85.6 %; PLT - PLATELET COUNT 211 10^3/uL (130-450); RED BLOOD COUNT 3.89 10^6/uL (4.70-6.10); RED CELL DISTRIBUTION WIDTH 13.9 % (12.0-15.0); WHITE BLOOD COUNT 6.7 x10^3/uL (4.8-10.8)
[2019-05-11 04:54] LABS: ALBUMIN 2.1 g/dL (3.2-5.5); ALBUMIN/GLOBULIN RATIO 0.7 (1.0-2.2); BILIRUBIN,TOTAL 0.5 mg/dL (0.2-1.0); CREATININE 2.4 mg/dL (0.6-1.2)
[2019-05-11] MEDS: PANTOPRAZOLE 40 MG VIAL IVP SCH (07:13)
[2019-05-11] MEDS: SODIUM CHLORIDE FLUSH 0.9% 10 ML SYRINGE IVP PRN ×3 (07:13→12:53)
--- NOTE | 2019-05-11 08:38 | PROVIDER PROGRESS NOTE ---
Subjective - General Admit Date: 05/10/19 Procedure Date: 05/10/19 Post Op Days: 1 Procedure Performed: Extended Right hemicolectomy with end ileostomy - Review of Systems Wound/Incisions: positive: Dressing dry and intact General: positive: No symptoms (States that he feels great - no complaints. Joking when he says "can I go home?") HEENT: positive: No symptoms Pulmonary: positive: No symptoms Cardiovascular: positive: No symptoms Gastrointestinal: positive: No symptoms Genitourinary: positive: No symptoms Musculoskeletal: positive: No symptoms Skin: positive: No symptoms Psychiatric: positive: No symptoms Objective - Patient Data Reviewed Vital Signs: Yes Vital Signs: Vital Signs x48h Temp Pulse Resp BP Pulse Ox 05/11/19 08:00 37.3 C 95 19 121/66 95 05/11/19 07:00 93 19 120/70 95 05/11/19 06:00 93 20 121/69 95 05/11/19 05:00 94 17 116/65 95 05/11/19 04:00 36.8 C 97 19 114/70 96 05/11/19 03:00 36.6 C 90 16 116/62 95 05/11/19 02:00 95 16 116/69 93 05/11/19 01:00 93 19 116/69 96 Weight: Weight 05/09/19 05/10/19 05/11/19 23:59 23:59 23:59 Weight (kg) 79 kg Intake & Output: Intake and Output Totals x24h 05/09/19 05/10/19 05/11/19 23:59 23:59 23:59 Intake Total 2426.667 1161.667 Output Total 485 580 Balance 1941.667 581.667 - Lab Results Lab Results: 05/11/19 04:25 05/11/19 04:25 Other Lab Results: Lab Results x24hrs 05/11/19 05/11/19 05/10/19 Range/Units 04:25 04:25 18:23 WBC 6.7 (4.8-10.8) x10^3/uL RBC 3.89 L (4.70-6.10) 10^6/uL Hgb 12.0 L (14.0-18.0) g/dL Hct 37.0 L (42.0-52.0) % MCV 95.1 H (80.0-94.0) fL MCH 30.8 (27.0-31.0) pg MCHC 32.4 (32.0-36.0) g/dL RDW 13.9 (12.0-15.0) % Plt Count 211 (130-450) 10^3/uL MPV 9.1 (7.4-11.4) fL Neut # (Auto) 5.7 Lymph # (Auto) 0.2 L [place] # (Auto) 0.5 Eos # (Auto) 0.3 Baso # (Auto) 0.0 Absolute Nucleated RBC 0.00 Total Counted Band Neuts % (Manual) (0 - 10) % Abnorm Lymph % (Manual) % Metamyelocytes % ( - 0) % Myelocytes % ( - 0) % Nucleated RBC % 0.0 Neutrophils # (Manual) (1.5-6.6) 10^3/uL Lymphocytes # (Manual) (1.5-3.5) 10^3/uL Monocytes # (Manual) (0.0-1.0) 10^3/uL Eosinophils # (Manual) (0-0.7) 10^3/uL Basophils # (Manual) (0-0.1) 10^3/uL Differential Comment Manual Slide Review Platelet Estimate (NORMAL) Platelet Morphology (NORMAL) RBC Morph Micro Appear (NORMAL) Sodium 138 135 (135-145) mmol/L Potassium 3.9 3.9 (3.5-5.0) mmol/L Chloride 105 100 L (101-111) mmol/L Carbon Dioxide 24 24 (21-32) mmol/L Anion Gap 9.0 11.0 (6-13) BUN 39 H 39 H (6-20) mg/dL Creatinine 2.4 H 2.4 H (0.6-1.2) mg/dL Estimated GFR (MDRD) 27 L 27 L (>89) Glucose 144 H 143 H (70-100) mg/dL Lactic Acid (0.5-2.2) mmol/L Calcium 7.0 L 7.1 L (8.5-10.3) mg/dL Total Bilirubin 0.5 (0.2-1.0) mg/dL AST 28 (10-42) IU/L ALT 38 (10-60) IU/L Alkaline Phosphatase 32 L (42-121) IU/L Total Protein 5.0 L (6.7-8.2) g/dL Albumin 2.1 L (3.2-5.5) g/dL Globulin 2.9 (2.1-4.2) g/dL Albumin/Globulin Ratio 0.7 L (1.0-2.2) Lipase (22-51) U/L Urine Color Urine Clarity (CLEAR) Urine pH (5.0-7.5) PH Ur Specific [place] (1.002-1.030) Urine Protein (NEGATIVE) mg/dL Urine Glucose (UA) (NEGATIVE) mg/dL Urine Ketones (NEGATIVE) mg/dL Urine Occult Blood (NEGATIVE) Urine Nitrite (NEGATIVE) Urine Bilirubin (NEGATIVE) Urine Urobilinogen (NORMAL) E.U./dL Ur Leukocyte Esterase (NEGATIVE) Ur Microscopic Review Urine Culture Comments Nasal Screen MRSA (PCR) (NEGATIVE) 05/10/19 05/10/19 05/10/19 Range/Units 17:15 10:03 09:22 WBC (4.8-10.8) x10^3/uL RBC (4.70-6.10) 10^6/uL Hgb (14.0-18.0) g/dL Hct (42.0-52.0) % MCV (80.0-94.0) fL MCH (27.0-31.0) pg MCHC (32.0-36.0) g/dL RDW (12.0-15.0) % Plt Count (130-450) 10^3/uL MPV (7.4-11.4) fL Neut # (Auto) Lymph # (Auto) [place] # (Auto) Eos # (Auto) Baso # (Auto) Absolute Nucleated RBC Total Counted Band Neuts % (Manual) (0 - 10) % Abnorm Lymph % (Manual) % Metamyelocytes % ( - 0) % Myelocytes % ( - 0) % Nucleated RBC % Neutrophils # (Manual) (1.5-6.6) 10^3/uL Lymphocytes # (Manual) (1.5-3.5) 10^3/uL Monocytes # (Manual) (0.0-1.0) 10^3/uL Eosinophils # (Manual) (0-0.7) 10^3/uL Basophils # (Manual) (0-0.1) 10^3/uL Differential Comment Manual Slide Review Platelet Estimate (NORMAL) Platelet Morphology (NORMAL) RBC Morph Micro Appear (NORMAL) Sodium (135-145) mmol/L Potassium (3.5-5.0) mmol/L Chloride (101-111) mmol/L Carbon Dioxide (21-32) mmol/L Anion Gap (6-13) BUN (6-20) mg/dL Creatinine (0.6-1.2) mg/dL Estimated GFR (MDRD) (>89) Glucose (70-100) mg/dL Lactic Acid 1.9 (0.5-2.2) mmol/L Calcium (8.5-10.3) mg/dL Total Bilirubin (0.2-1.0) mg/dL AST (10-42) IU/L ALT (10-60) IU/L Alkaline Phosphatase (42-121) IU/L Total Protein (6.7-8.2) g/dL Albumin (3.2-5.5) g/dL Globulin (2.1-4.2) g/dL Albumin/Globulin Ratio (1.0-2.2) Lipase (22-51) U/L Urine Color DARK YELLOW Urine Clarity CLEAR (CLEAR) Urine pH 5.0 (5.0-7.5) PH Ur Specific [place] >=1.030 H (1.002-1.030) Urine Protein TRACE (NEGATIVE) mg/dL Urine Glucose (UA) NEGATIVE (NEGATIVE) mg/dL Urine Ketones TRACE (NEGATIVE) mg/dL Urine Occult Blood NEGATIVE (NEGATIVE) Urine Nitrite NEGATIVE (NEGATIVE) Urine Bilirubin NEGATIVE (NEGATIVE) Urine Urobilinogen 1 (NORMAL) (NORMAL) E.U./dL Ur Leukocyte Esterase NEGATIVE (NEGATIVE) Ur Microscopic Review NOT INDICATED Urine Culture Comments NOT INDICATED Nasal Screen MRSA (PCR) NEGATIVE (NEGATIVE) 05/10/19 05/10/19 Range/Units 08:44 08:44 WBC 11.3 H (4.8-10.8) x10^3/uL RBC 4.82 (4.70-6.10) 10^6/uL Hgb 15.3 (14.0-18.0) g/dL Hct 45.3 (42.0-52.0) % MCV 94.0 (80.0-94.0) fL MCH 31.7 H (27.0-31.0) pg MCHC 33.8 (32.0-36.0) g/dL RDW 13.5 (12.0-15.0) % Plt Count 323 (130-450) 10^3/uL MPV 9.0 (7.4-11.4) fL Neut # (Auto) Not Reportable Lymph # (Auto) Not Reportable [place] # (Auto) Not Reportable Eos # (Auto) Not Reportable Baso # (Auto) Not Reportable Absolute Nucleated RBC Not Reportable Total Counted 100 Band Neuts % (Manual) 6 (0 - 10) % Abnorm Lymph % (Manual) 0 % Metamyelocytes % 3 H ( - 0) % Myelocytes % 1 H ( - 0) % Nucleated RBC % Not Reportable Neutrophils # (Manual) 9.7 H (1.5-6.6) 10^3/uL Lymphocytes # (Manual) 0.3 L (1.5-3.5) 10^3/uL Monocytes # (Manual) 0.5 (0.0-1.0) 10^3/uL Eosinophils # (Manual) 0.3 (0-0.7) 10^3/uL Basophils # (Manual) 0.0 (0-0.1) 10^3/uL Differential Comment MANUAL DIFFERENTIAL Manual Slide Review Indicated Platelet Estimate NORMAL (130-450,000) (NORMAL) Platelet Morphology NORMAL APPEARANCE (NORMAL) RBC Morph Micro Appear NORMAL APPEARANCE (NORMAL) Sodium 134 L (135-145) mmol/L Potassium 3.2 L (3.5-5.0) mmol/L Chloride 95 L (101-111) mmol/L Carbon Dioxide 25 (21-32) mmol/L Anion Gap 14.0 H (6-13) BUN 34 H (6-20) mg/dL Creatinine 2.5 H (0.6-1.2) mg/dL Estimated GFR (MDRD) 26 L (>89) Glucose 139 H (70-100) mg/dL Lactic Acid (0.5-2.2) mmol/L Calcium 8.6 (8.5-10.3) mg/dL Total Bilirubin 1.0 (0.2-1.0) mg/dL AST 17 (10-42) IU/L ALT 12 (10-60) IU/L Alkaline Phosphatase 64 (42-121) IU/L Total Protein 7.5 (6.7-8.2) g/dL Albumin 3.6 (3.2-5.5) g/dL Globulin 3.9 (2.1-4.2) g/dL Albumin/Globulin Ratio 0.9 L (1.0-2.2) Lipase 21 L (22-51) U/L Urine Color Urine Clarity (CLEAR) Urine pH (5.0-7.5) PH Ur Specific [place] (1.002-1.030) Urine Protein (NEGATIVE) mg/dL Urine Glucose (UA) (NEGATIVE) mg/dL Urine Ketones (NEGATIVE) mg/dL Urine Occult Blood (NEGATIVE) Urine Nitrite (NEGATIVE) Urine Bilirubin (NEGATIVE) Urine Urobilinogen (NORMAL) E.U./dL Ur Leukocyte Esterase (NEGATIVE) Ur Microscopic Review Urine Culture Comments Nasal Screen MRSA (PCR) (NEGATIVE) - Current Medications Current Medications: Current Medications Generic Name Dose Route Start Last Admin Trade Name Freq PRN Reason Stop Dose Admin Potassium Chloride/Dextrose/Sod Cl 1,000 mls @ 100 mls/hr 05/10/19 17:00 05/11/19 03:37 IV 100 mls/hr .Q10H ELEAZAR Administration Acetaminophen 100 mls @ 400 mls/hr 05/10/19 18:00 05/11/19 06:13 Ofirmev IV Infused Q6H ELEAZAR Infusion Piperacillin Sod/Tazobactam 100 mls @ 25 mls/hr 05/10/19 17:00 05/11/19 04:53 Sod 3.375 gm/ Sodium Chloride IV Infused Q8H ELEAZAR Infusion Pantoprazole Sodium 40 mg 05/11/19 07:00 05/11/19 07:13 Protonix IVP 40 mg QDAC ELEAZAR Administration Sodium Chloride 10 ml 05/10/19 17:00 05/11/19 03:38 Normal Saline Flush 0.9% IVP 10 ml 0100,0900,1700 ELEAZAR Administration Sodium Chloride 10 ml 05/10/19 16:57 05/11/19 07:13 Normal Saline Flush 0.9% IVP 10 ml PRN PRN Administration NEEDED PER PROVIDER ORDERS - Physical Exam General Appearance: positive: No acute distress Eyes Bilateral: positive: No lid inflammation, Conjunctivae nml, No scleral icterus ENT: positive: Dry mucous membranes, Other (NG in place.) Neck: positive: Trachea midline Respiratory: positive: Chest non-tender, Breath sounds nml Cardiovascular: positive: Regular rate & rhythm Abdomen: positive: Non-tender, No distention, Other (Ileosotmy appears dark and compromised. Still productive of succus entericus.) Skin: positive: Color nml Extremities: positive: Non-tender, Full ROM, Nml appearance Neurologic/Psychiatric: positive: Oriented x3, Motor nml, Sensation nml, Mood/affect nml ABX Reporting Has patient been on IV antibiotics over the past 48 hours?: Yes Impression/Plan - Problem List Problem List: D1 s/p extended RIGHT hemicolectomy for perforation and fecalent peritonitis, end ileostomy 1) FEN Continue IVF as written 2) ID D2/10 antibiotics (Zosyn) 3) DVT prophylaxis Continue TEDs and venadynes 4) Pain Excellent response to epidural 5) Pathology Pending. 6) Activity Out of bed today 7) Compromised ileostomy Whether due to the use of pressors, whether due to compromised vascular support, whether due to swelling leading to compromise vascular support the ileostomy does not appear as it should. Although this could just be mucosal sloughing, I am not willing to take that chance and explained this to the patient and his . Verbal and written consent was obtained for revision of the ileostomy. I explained that I would likely be using the same I would need to resect some small bowel.
[2019-05-11] MEDS ORDERED: D5NS W/20 MEQ KCL 1,000 ML IV SCH (09:00)
[2019-05-11] MEDS: MULTIVITAMIN 10 ML, THIAMINE INJ 100 MG, FOLIC ACID INJ 1 MG in D5.45NS W/20 MEQ KCL 1,... IV SCH (10:54)
[2019-05-11] MEDS ORDERED: LACTATED RINGERS 1,000 ML IV ONE ×2 (13:35→14:56)
[2019-05-11] MEDS ORDERED: SODIUM CHLORIDE FLUSH 0.9% 10 ML SYRINGE IVP PRN (15:11)
--- NOTE | 2019-05-11 15:22 | OPERATIVE REPORT ---
Operative Report - General Admit Date: 05/10/19 Procedure Date: 05/11/19 Planned Procedure: Revision ileostomy Pre-Op Diagnosis: Compromised ileostomy (looking necrotic) Procedure Performed: Exploratory laparotomy, adhesiolysis, revision ileostomy Post Op Diagnosis: Same - Procedure Note Primary Surgeon: Jose Main MD Anesthesia Provider: Brett Lawrence MD Anesthesia Technique: General ET tube, Other (Please note that an epidural was already in place) IV Fluids (mL): 1,000 Estimated Blood Loss (mL): 100 Urine Output (mL): 200 Drain/Tube Type: Other (None.) Complications: None. - Other Other Information/Narrative: OPERATIVE DESCRIPTION/REPORT: After verbal and written informed consent was obtained detailing the risks of infection, bleeding requiring transfusion with its risks, nerve injury, and , and after I met with the patient confirming the surgery and the site of the surgery, the patient was brought to the operative suite and placed supine on the operating table. Great care was taken to avoid pressure points to prevent pressure necrosis or nerve injury. Monitoring devices were applied along with TEDs and pneumatic compressive stockings (to prevent DVT). The patient received preoperative antibiotics for surgical prophylaxis. Bony Lawrence MD sedated and anesthetized the patient for the entire procedure. The packing in the midline wound was removed and the ostomy appliance was removed and the patient was prepped and draped in the usual sterile manner. A "time in" then confirmed that the paitient was identified with 3 identifiers (name, date and medical record number), the history and physical was in the chart, the signed consent confirming the procedure was in the chart, the patient was in the correct position, the aforementioned prophylactic measures were in place or given, we had the correct personnel and equipment to complete the procedure and that anesthesia, surgery and nursing were given an opportunuty to express any concerns. With the agreement of everyone in the room, we proceeded with the operation. The sutures holding the ostomy in place were cut with Metzenbaum scissors. At the skin level the base of the ostomy appeared to be necrotic or compromised. The sutures holding the fascia together at the midline or cut and the abdomen was opened without incident. Notably there was no soilage or pus in the abdomen. There was a small amount of fluid which was clean and clear and whether this was irrigant and that I did not remove from yesterday's operation or just serous fluid from the patient was unclear. The open ileostomy was resected using an application of a TRUDI-75 stapler in order to minimize spillage. Once it had been stapled the ostomy was then brought back into the abdomen. A [place] retractor was placed for improved visualization and the incision was lengthened inferiorly approximately an inch and a half for better visualization. In order to get additional length for the terminal ileum it was clear that every adhesion would have to be taken down. This was done using combination of sharp dissection with Metzenbaum scissors, finger dissection, and Bovie electrocautery. The ileum was adhesed into the patient's pelvis and these adhesions were difficult to free but were ultimately freed up and then it was clear that the ileum was now stuck to the left side of the patient's abdominal wall. Similarly these adhesions were taken down freeing the entire ileum. The bowel could be run from the ligament of Treitz all the way to the terminal ileum. Once these adhesions have been taken down it was clear that the distal 6 to 8 inches of ileum although not compromised were clearly far from "normal" with the numerous adhesions taken down. Rather than risk another compromised ileostomy I opted to resect this portion of the ileum. This was done using an application of the TRUDI 75 stapler and the mesentery was taken using serial application of the LigaSure. The cut end of the ileum was pink without ecchymosis or bruising or any indication that it would be or was compromised. The opening in the right lower quadrant was dilated just a bit more with my fingers to ensure that stenosis at this opening was not the cause of the ileostomy compromise. Just as it was yesterday the end of the ileum was grasped with a [place] and brought up through the opening in the right lower quadrant without any tension. Once this was through the opening it was clear that the mucosa was pink. The abdomen was then copiously irrigated using warm sterile saline and the effluent was noted to be clear. The nasogastric tube was again noted to be in good position in the stomach. Close examination of the abdomen failed to reveal anything that required any more surgical intervention. The fascia was closed using oh looped PDS starting inferiorly and superiorly and running to meet in the middle using a malleable retractor to protect the underlying bowel. Once these 2 sutures were tied together and the knot was dunked. The skin was loosely approximated using 3-0 nylon sutures and several areas in order to decrease how large the open wound was. In between the sutures this was packed with an antibacterial packing. A dressing was applied over this. The ileostomy was then matured using 2-0 Vicryl sutures circumferentially and an ostomy appliance was applied. Again, the ostomy was noted to be pink and patent. At this point a time out was performed that confirmed that all the counts were correct, the procedure that was performed, the blood loss, the IV fluids administered, and the patients condition. Having tolerated the procedure well, the patient was subsequently extubated and taken to the ICU in good and stable condition. [employer] disclaimer: This document was created in part using voice recognition technology. Because of the inherent limitations of the system ([employer] user manual states that the licensee understands that speech recognition is a statistical process and that recognition errors are inherent in the process), occasional same sounding word substitutions and grammatical errors do occur and persist despite proofreading. Please read this document for context.
[2019-05-11] MEDS ORDERED: LABETALOL 20 MG/4 ML SYRINGE IVP ONE (15:28)
[2019-05-11] MEDS ORDERED: SODIUM CHLORIDE FLUSH 0.9% 10 ML SYRINGE IVP SCH (17:00)
--- NOTE | 2019-05-11 18:13 | PROVIDER PROGRESS NOTE ---
Subjective - Prog Note Date Prog Note Date: 05/11/19 Prog Note Time: 18:11 - Subjective Subjective: this morning he was awake, alert, no real pain. But on exam his ostomy was dark and general surgery took him back to OR. His ileum had dropped into the left lower quadrant and was coming across the lower abdomen in a sharp angle. Then that was into his ostomy. More small bowel was resected, and a new ostomy was put in place. Current Medications - Current Medications Current Medications: Active Medications Diphenhydramine HCl (Benadryl Inj) 12.5 - 25 mg IVP Q6HR PRN PRN Reason: ITCHING Acetaminophen (Ofirmev) 100 mls @ 400 mls/hr IV Q6H [facility] Last Infusion: 05/11/19 12:14 Dose: Infused Piperacillin Sod/Tazobactam (Sod 3.375 gm/ Sodium Chloride) 100 mls @ 25 mls/hr IV Q8H [facility] Last Infusion: 05/11/19 13:00 Dose: Infused Fentanyl/Bupivacaine/Sodium Chlor (Fent/Bupiv 2 Mcg/0.125%) 250 mls @ 0 mls/hr EP .Q0M PRN; Protocol PRN Reason: PAIN Multivitamins 10 ml/ Thiamine HCl 100 mg/ Folic Acid 1 mg/Potassium Chloride/Dextrose/Sod Cl 1,011.2 mls @ 100 mls/hr IV DAILY [facility] Stop: 05/13/19 19:07 Last Infusion: 05/11/19 12:51 Dose: 0 mls/hr Potassium Chloride/Dextrose/Sod Cl () 1,000 mls @ 100 mls/hr IV .Q10H ELEAZAR Nalbuphine HCl (Nubain) 2.5 - 5 mg IVP Q4H PRN PRN Reason: Severe Itching Ondansetron HCl (Zofran Inj) 4 mg IVP Q6HR PRN PRN Reason: Nausea / Vomiting Pantoprazole Sodium (Protonix) 40 mg IVP QDAC [facility] Last Admin: 05/11/19 07:13 Dose: 40 mg Sodium Chloride (Normal Saline Flush 0.9%) 10 ml IVP 0100,0900,1700 [facility] Last Admin: 05/11/19 09:15 Dose: 30 ml Sodium Chloride (Normal Saline Flush 0.9%) 10 ml IVP PRN PRN PRN Reason: NEEDED PER PROVIDER ORDERS Last Admin: 05/11/19 12:53 Dose: 20 ml Doxazosin Mesylate 4 mg PO DAILY 05/10/19 Objective - Vital Signs/Intake & Output Reviewed Vital Signs: Yes Vital Signs: Vital Signs Temp Pulse Pulse Resp BP BP Pulse Ox 05/11/19 17:00 92 15 145/81 H 98 05/11/19 16:00 37.3 C 90 14 147/81 H 99 05/11/19 15:41 37.3 C 95 21 155/90 H 98 05/11/19 15:30 37.1 C 99 16 159/94 H 97 05/11/19 15:25 37.1 C 99 15 147/82 H 99 05/11/19 15:15 101 H 15 147/84 H 96 05/11/19 15:05 37.6 C H 128 H 17 168/96 H 130 H 05/11/19 14:55 122 H 20 172/82 H 100 05/11/19 14:50 37.5 C 122 H 17 183/85 H 100 Intake & Output: Intake & Output 05/08/19 05/09/19 05/10/19 05/11/19 23:59 23:59 23:59 23:59 Intake Total 2426.667 2282.267 Output Total 485 1130 Balance 6853.053 6614.267 - Objective General Appearance: positive: Alert Eyes Bilateral: positive: PERRL ENT: positive: Pharynx nml Neck: positive: No JVD. negative: Stiff neck, Carotid bruit Respiratory: positive: Chest non-tender. negative: Wheezes, Rales, Rhonchi Cardiovascular: positive: Regular rate & rhythm. negative: Systolic murmur, Gallop/S4, Friction rub Abdomen: positive: Other (no bowel sounds) Skin: positive: Warm, Dry Extremities: positive: Non-tender, No pedal edema Neurologic/Psychiatric: positive: Oriented x3, CN's nml (2-12), Motor nml - Lab Results Fish Bones: 05/11/19 04:25 05/11/19 04:25 Other Labs: Lab Results x24hrs 05/11/19 05/11/19 05/10/19 Range/Units 04:25 04:25 18:23 WBC 6.7 (4.8-10.8) x10^3/uL RBC 3.89 L (4.70-6.10) 10^6/uL Hgb 12.0 L (14.0-18.0) g/dL Hct 37.0 L (42.0-52.0) % MCV 95.1 H (80.0-94.0) fL MCH 30.8 (27.0-31.0) pg MCHC 32.4 (32.0-36.0) g/dL RDW 13.9 (12.0-15.0) % Plt Count 211 (130-450) 10^3/uL MPV 9.1 (7.4-11.4) fL Neut # (Auto) 5.7 (1.5-6.6) 10^3/uL Lymph # (Auto) 0.2 L (1.5-3.5) 10^3/uL [place] # (Auto) 0.5 (0.0-1.0) 10^3/uL Eos # (Auto) 0.3 (0.0-0.7) 10^3/uL Baso # (Auto) 0.0 (0.0-0.1) 10^3/uL Absolute Nucleated RBC 0.00 x10^3/uL Nucleated RBC % 0.0 /100WBC Sodium 138 135 (135-145) mmol/L Potassium 3.9 3.9 (3.5-5.0) mmol/L Chloride 105 100 L (101-111) mmol/L Carbon Dioxide 24 24 (21-32) mmol/L Anion Gap 9.0 11.0 (6-13) BUN 39 H 39 H (6-20) mg/dL Creatinine 2.4 H 2.4 H (0.6-1.2) mg/dL Estimated GFR (MDRD) 27 L 27 L (>89) Glucose 144 H 143 H (70-100) mg/dL Calcium 7.0 L 7.1 L (8.5-10.3) mg/dL Total Bilirubin 0.5 (0.2-1.0) mg/dL AST 28 (10-42) IU/L ALT 38 (10-60) IU/L Alkaline Phosphatase 32 L (42-121) IU/L Total Protein 5.0 L (6.7-8.2) g/dL Albumin 2.1 L (3.2-5.5) g/dL Globulin 2.9 (2.1-4.2) g/dL Albumin/Globulin Ratio 0.7 L (1.0-2.2) Nasal Screen MRSA (PCR) (NEGATIVE) 05/10/19 Range/Units 17:15 WBC (4.8-10.8) x10^3/uL RBC (4.70-6.10) 10^6/uL Hgb (14.0-18.0) g/dL Hct (42.0-52.0) % MCV (80.0-94.0) fL MCH (27.0-31.0) pg MCHC (32.0-36.0) g/dL RDW (12.0-15.0) % Plt Count (130-450) 10^3/uL MPV (7.4-11.4) fL Neut # (Auto) (1.5-6.6) 10^3/uL Lymph # (Auto) (1.5-3.5) 10^3/uL [place] # (Auto) (0.0-1.0) 10^3/uL Eos # (Auto) (0.0-0.7) 10^3/uL Baso # (Auto) (0.0-0.1) 10^3/uL Absolute Nucleated RBC x10^3/uL Nucleated RBC % /100WBC Sodium (135-145) mmol/L Potassium (3.5-5.0) mmol/L Chloride (101-111) mmol/L Carbon Dioxide (21-32) mmol/L Anion Gap (6-13) BUN (6-20) mg/dL Creatinine (0.6-1.2) mg/dL Estimated GFR (MDRD) (>89) Glucose (70-100) mg/dL Calcium (8.5-10.3) mg/dL Total Bilirubin (0.2-1.0) mg/dL AST (10-42) IU/L ALT (10-60) IU/L Alkaline Phosphatase (42-121) IU/L Total Protein (6.7-8.2) g/dL Albumin (3.2-5.5) g/dL Globulin (2.1-4.2) g/dL Albumin/Globulin Ratio (1.0-2.2) Nasal Screen MRSA (PCR) NEGATIVE (NEGATIVE) Assessment/Plan - Problem List (1) Perforated bowel Impression: POD #1 for first surgery and POD #0 for second surgery. Plan: continued close monitoring of bowel and vitals (2) Acute worsening of stage 3 chronic kidney disease Impression: creatinine on admit 2.5>2.4>2.4 today. stable avoid nephrotoxic agents continue to monitor (3) HTN (hypertension) Impression: systolic 145-155. he usually takes doxazosiin and has reaction of TARI. will use prn hydralazine. (4) Alcohol abuse Impression: banana bag (5) Hypokalemia Impression: resolved with supplementation
[2019-05-12] MEDS: fent/BUPIV 2 MCG/0.125% 250 ML EP PRN (01:35)
[2019-05-12] MEDS: SODIUM CHLORIDE FLUSH 0.9% 10 ML SYRINGE IVP SCH ×3 (02:03→17:47)
[2019-05-12] MEDS: ACETAMINOPHEN 1,000 MG/100 ML 100 ML IV SCH ×4 (02:06→20:13)
[2019-05-12] MEDS: PIPERACILLIN/TAZOBACTAM 3.375 GM in SODIUM CHLORIDE 0.9% MINIBAG 100 ML IV SCH ×3 (03:30→17:45)
[2019-05-12 05:26] LABS: BASOPHILS % (AUTO) 0.5 %; EOSINOPHILS # (AUTO) 0.1 10^3/uL (0.0-0.7); EOSINOPHILS % (AUTO) 0.7 %; HGB - HEMOGLOBIN 10.7 g/dL (14.0-18.0); LYMPHOCYTES # (AUTO) 0.3 10^3/uL (1.5-3.5); LYMPHOCYTES % (AUTO) 3.7 %; MEAN CORPUSCULAR HEMOGLOBIN 31.8 pg (27.0-31.0); MEAN CORPUSCULAR HGB CONC 33.2 g/dL (32.0-36.0); MEAN CORPUSCULAR VOLUME 95.5 fL (80.0-94.0); MEAN PLATELET VOLUME 9.4 fL (7.4-11.4); MONOCYTES # (AUTO) 0.6 10^3/uL (0.0-1.0); MONOCYTES % (AUTO) 8.2 %; NEUTROPHILS # (AUTO) 6.5 10^3/uL (1.5-6.6); NEUTROPHILS % (AUTO) 85.8 %; PLT - PLATELET COUNT 268 10^3/uL (130-450); RED BLOOD COUNT 3.37 10^6/uL (4.70-6.10); RED CELL DISTRIBUTION WIDTH 14.1 % (12.0-15.0); WHITE BLOOD COUNT 7.6 x10^3/uL (4.8-10.8)
[2019-05-12 05:45] LABS: ALBUMIN/GLOBULIN RATIO 0.6 (1.0-2.2); BILIRUBIN,TOTAL 0.3 mg/dL (0.2-1.0); CALCIUM 7.1 mg/dL (8.5-10.3); CREATININE 2.1 mg/dL (0.6-1.2); TOTAL PROTEIN 5.4 g/dL (6.7-8.2)
[2019-05-12] MEDS: PANTOPRAZOLE 40 MG VIAL IVP SCH (08:49)
--- NOTE | 2019-05-12 12:49 | ANESTHESIA POST OP EVALUATION ---
Anesthesia Post Eval - Post Anesthesia Eval CV Function Including HR & BP: positive: Stable Pain Control: positive: Adequate Nausea & Vomiting: positive: Negative Mental Status: positive: Appropriate Anesthesia Complications: positive: None (Epidural infusion at 8cc/hr, patient has minimal discomfort. Encouraged to use PCEA button when needed. Epidural catheter intact and site dry with intact tegaderm tape. Plan: will discuss with surgeon tomorrow if he would like D/C tomorrow or Monday.)
[2019-05-12] MEDS: MULTIVITAMIN 10 ML, THIAMINE INJ 100 MG, FOLIC ACID INJ 1 MG in D5.45NS W/20 MEQ KCL 1,... IV SCH (14:01)
--- NOTE | 2019-05-12 16:23 | PROVIDER PROGRESS NOTE ---
Subjective - General Admit Date: 05/10/19 Procedure Date: 05/11/19 Post Op Days: 1 Procedure Performed: Revision of ileostomy with adhesiolysis, POD 2 Extended RIGHT hemicolectomy - Review of Systems Wound/Incisions: positive: Dressing dry and intact General: positive: No symptoms (States that he feels great - no complaints. Joking when he says "can I go home?") HEENT: positive: No symptoms Pulmonary: positive: No symptoms Cardiovascular: positive: No symptoms Gastrointestinal: positive: No symptoms Genitourinary: positive: No symptoms Musculoskeletal: positive: No symptoms Skin: positive: No symptoms Psychiatric: positive: No symptoms Objective - Patient Data Reviewed Vital Signs: Yes Vital Signs: Vital Signs x48h Pulse Resp BP Pulse Ox 05/12/19 16:00 93 18 140/93 H 96 05/12/19 15:00 95 14 142/83 H 96 05/12/19 14:00 97 18 151/82 H 96 05/12/19 12:00 90 18 155/81 H 97 05/12/19 11:00 87 17 139/79 H 98 05/12/19 10:00 90 19 136/70 H 97 05/12/19 09:00 87 14 143/81 H 98 Weight: Weight 05/10/19 05/11/19 05/12/19 23:59 23:59 23:59 Weight (kg) 79 kg Intake & Output: Intake and Output Totals x24h 05/10/19 05/11/19 05/12/19 23:59 23:59 23:59 Intake Total 2426.667 2382.267 2416.2 Output Total 485 1325 920 Balance 9348.383 7718.267 1496.2 - Lab Results Lab Results: 05/12/19 04:45 05/12/19 04:45 Other Lab Results: Lab Results x24hrs 05/12/19 05/12/19 Range/Units 04:45 04:45 WBC 7.6 (4.8-10.8) x10^3/uL RBC 3.37 L (4.70-6.10) 10^6/uL Hgb 10.7 L (14.0-18.0) g/dL Hct 32.2 L (42.0-52.0) % MCV 95.5 H (80.0-94.0) fL MCH 31.8 H (27.0-31.0) pg MCHC 33.2 (32.0-36.0) g/dL RDW 14.1 (12.0-15.0) % Plt Count 268 (130-450) 10^3/uL MPV 9.4 (7.4-11.4) fL Neut # (Auto) 6.5 (1.5-6.6) 10^3/uL Lymph # (Auto) 0.3 L (1.5-3.5) 10^3/uL Burke # (Auto) 0.6 (0.0-1.0) 10^3/uL Eos # (Auto) 0.1 (0.0-0.7) 10^3/uL Baso # (Auto) 0.0 (0.0-0.1) 10^3/uL Absolute Nucleated RBC 0.00 x10^3/uL Nucleated RBC % 0.0 /100WBC Sodium 140 (135-145) mmol/L Potassium 4.1 (3.5-5.0) mmol/L Chloride 108 (101-111) mmol/L Carbon Dioxide 23 (21-32) mmol/L Anion Gap 9.0 (6-13) BUN 43 H (6-20) mg/dL Creatinine 2.1 H (0.6-1.2) mg/dL Estimated GFR (MDRD) 32 L (>89) Glucose 108 H (70-100) mg/dL Calcium 7.1 L (8.5-10.3) mg/dL Total Bilirubin 0.3 (0.2-1.0) mg/dL AST 21 (10-42) IU/L ALT 28 (10-60) IU/L Alkaline Phosphatase 37 L (42-121) IU/L Total Protein 5.4 L (6.7-8.2) g/dL Albumin 2.0 L (3.2-5.5) g/dL Globulin 3.4 (2.1-4.2) g/dL Albumin/Globulin Ratio 0.6 L (1.0-2.2) - Current Medications Current Medications: Current Medications Generic Name Dose Route Start Last Admin Trade Name Freq PRN Reason Stop Dose Admin Acetaminophen 100 mls @ 400 mls/hr 05/10/19 18:00 05/12/19 14:35 Ofirmev IV Infused Q6H E[facility] Infusion Piperacillin Sod/Tazobactam 100 mls @ 25 mls/hr 05/10/19 17:00 05/12/19 14:35 Sod 3.375 gm/ Sodium Chloride IV Infused Q8H [facility] Infusion Fentanyl/Bupivacaine/Sodium Chlor 250 mls @ 0 mls/hr 05/11/19 08:53 05/12/19 01:35 Fent/Bupiv 2 Mcg/0.125% EP 8 mls/hr .Q0M PRN Administration PAIN Protocol Per Protocol Multivitamins 10 ml/ Thiamine 1,011.2 mls @ 100 mls/hr 05/11/19 10:00 05/12/19 14:01 HCl 100 mg/ Folic Acid 1 mg/ IV 05/13/19 19:07 100 mls/hr Potassium Chloride/Dextrose/ DAILY ELEAZAR Administration Sod Cl Potassium Chloride/Dextrose/Sod Cl 1,000 mls @ 100 mls/hr 05/11/19 16:00 05/12/19 05:34 IV Infused .Q10H [facility] Infusion Pantoprazole Sodium 40 mg 05/11/19 07:00 05/12/19 08:49 Protonix IVP Not Given QDAC [facility] Sodium Chloride 10 ml 05/10/19 17:00 05/12/19 08:17 Normal Saline Flush 0.9% IVP 10 ml 0100,0900,1700 ELE[facility]AR Administration Sodium Chloride 10 ml 05/10/19 16:57 05/11/19 12:53 Normal Saline Flush 0.9% IVP 20 ml PRN PRN Administration NEEDED PER PROVIDER ORDERS - Physical Exam Wound/Incisions: positive: Dressing dry and intact General Appearance: positive: No acute distress, Other (Patient sitting in chair comfortably with his father sitting on the bed.) Eyes Bilateral: positive: No lid inflammation, Conjunctivae nml, No scleral icterus ENT: positive: Dry mucous membranes, Other (NG in place in RIGHT nostril.) Neck: positive: Trachea midline Respiratory: positive: Chest non-tender, Breath sounds nml Cardiovascular: positive: Regular rate & rhythm Abdomen: positive: Non-tender, No distention, Abnml bowel sounds (Slightly decreased.) Extremities: positive: Non-tender, Nml appearance Neurologic/Psychiatric: positive: Oriented x3, Motor nml, Sensation nml, Mood/affect nml ABX Reporting Has patient been on IV antibiotics over the past 48 hours?: Yes Impression/Plan - Problem List Problem List: D2 s/p extended RIGHT hemicolectomy for perforation and fecalent peritonitis, end ileostomy D1 s/p revision of ileostomy and adhesiolysis 1) FEN Continue IVF as written 2) ID D3/10 antibiotics (Zosyn) 3) DVT prophylaxis Continue TEDs and venadynes 4) Pain Excellent response to epidural. 5) Pathology Pending. 6) Activity Out of bed today - patient doing well. 7) Ileostomy Clearly no longer compromised. 8) EtOH Appears not to be going into withdrawal but [facility] decrease in his intake is definitely in his best interest. 9) Wound Start wet to dry dressing changes. Patient doing well enough to transfer to medical surgical floor from ICU.
--- NOTE | 2019-05-12 16:24 | PROVIDER PROGRESS NOTE ---
Subjective - Prog Note Date Prog Note Date: 05/12/19 Prog Note Time: 16:22 - Subjective Pt reports feeling: Improved Current Medications - Current Medications Current Medications: Active Medications Diphenhydramine HCl (Benadryl Inj) 12.5 - 25 mg IVP Q6HR PRN PRN Reason: ITCHING Hydromorphone HCl (Dilaudid (Vial)) 2 mg IVP Q2H PRN PRN Reason: PAIN Acetaminophen (Ofirmev) 100 mls @ 400 mls/hr IV Q6H [facility] Last Infusion: 05/12/19 14:35 Dose: Infused Piperacillin Sod/Tazobactam (Sod 3.375 gm/ Sodium Chloride) 100 mls @ 25 mls/hr IV Q8H [facility] Last Infusion: 05/12/19 14:35 Dose: Infused Fentanyl/Bupivacaine/Sodium Chlor (Fent/Bupiv 2 Mcg/0.125%) 250 mls @ 0 mls/hr EP .Q0M PRN; Protocol PRN Reason: PAIN Last Admin: 05/12/19 01:35 Dose: 8 mls/hr Multivitamins 10 ml/ Thiamine HCl 100 mg/ Folic Acid 1 mg/Potassium Chloride/Dextrose/Sod Cl 1,011.2 mls @ 100 mls/hr IV DAILY [facility] Stop: 05/13/19 19:07 Last Admin: 05/12/19 14:01 Dose: 100 mls/hr Potassium Chloride/Dextrose/Sod Cl () 1,000 mls @ 100 mls/hr IV .Q10H [facility] Last Infusion: 05/12/19 05:34 Dose: Infused Nalbuphine HCl (Nubain) 2.5 - 5 mg IVP Q4H PRN PRN Reason: Severe Itching Ondansetron HCl (Zofran Inj) 4 mg IVP Q6HR PRN PRN Reason: Nausea / Vomiting Pantoprazole Sodium (Protonix) [address] [facility] Last Admin: 05/12/19 08:49 Dose: Not Given Sodium Chloride (Normal Saline Flush 0.9%) 10 ml IVP 0100,0900,1700 [facility] Last Admin: 05/12/19 08:17 Dose: 10 ml Sodium Chloride (Normal Saline Flush 0.9%) 10 ml IVP PRN PRN PRN Reason: NEEDED PER PROVIDER ORDERS Last Admin: 05/11/19 12:53 Dose: 20 ml Doxazosin Mesylate 4 mg PO DAILY 05/10/19 Objective - Vital Signs/Intake & Output Reviewed Vital Signs: Yes Vital Signs: Vital Signs x48h Pulse Resp BP Pulse Ox 05/12/19 16:00 93 18 140/93 H 96 05/12/19 15:00 95 14 142/83 H 96 05/12/19 14:00 97 18 151/82 H 96 05/12/19 12:00 90 18 155/81 H 97 05/12/19 11:00 87 17 139/79 H 98 05/12/19 10:00 90 19 136/70 H 97 05/12/19 09:00 87 14 143/81 H 98 Intake & Output: Intake & Output 05/09/19 05/10/19 05/11/19 05/12/19 23:59 23:59 23:59 23:59 Intake Total 2426.667 2382.267 2416.2 Output Total 485 1325 920 Balance 2223.353 3660.267 1496.2 - Objective General Appearance: positive: No acute distress, Alert, Other (he is sitting in chair. feels a little weak in the legs but able to get up.) Eyes Bilateral: positive: PERRL, EOMI ENT: positive: Pharynx nml, Other (hates the NG) Neck: positive: No JVD Respiratory: positive: Chest non-tender. negative: Wheezes, Rales, Rhonchi Cardiovascular: positive: Regular rate & rhythm. negative: Bradycardia, JVD present, Gallop/S4, Friction rub Abdomen: positive: Non-tender, Other (no bowel sounds) Skin: positive: Warm, Dry Extremities: positive: Full ROM, No pedal edema Neurologic/Psychiatric: positive: Oriented x3, CN's nml (2-12), Motor nml - Lab Results Fish Bones: 05/12/19 04:45 05/12/19 04:45 Other Labs: Lab Results x24hrs 05/12/19 05/12/19 Range/Units 04:45 04:45 WBC 7.6 (4.8-10.8) x10^3/uL RBC 3.37 L (4.70-6.10) 10^6/uL Hgb 10.7 L (14.0-18.0) g/dL Hct 32.2 L (42.0-52.0) % MCV 95.5 H (80.0-94.0) fL MCH 31.8 H (27.0-31.0) pg MCHC 33.2 (32.0-36.0) g/dL RDW 14.1 (12.0-15.0) % Plt Count 268 (130-450) 10^3/uL MPV 9.4 (7.4-11.4) fL Neut # (Auto) 6.5 (1.5-6.6) 10^3/uL Lymph # (Auto) 0.3 L (1.5-3.5) 10^3/uL Benzie # (Auto) 0.6 (0.0-1.0) 10^3/uL Eos # (Auto) 0.1 (0.0-0.7) 10^3/uL Baso # (Auto) 0.0 (0.0-0.1) 10^3/uL Absolute Nucleated RBC 0.00 x10^3/uL Nucleated RBC % 0.0 /100WBC Sodium 140 (135-145) mmol/L Potassium 4.1 (3.5-5.0) mmol/L Chloride 108 (101-111) mmol/L Carbon Dioxide 23 (21-32) mmol/L Anion Gap 9.0 (6-13) BUN 43 H (6-20) mg/dL Creatinine 2.1 H (0.6-1.2) mg/dL Estimated GFR (MDRD) 32 L (>89) Glucose 108 H (70-100) mg/dL Calcium 7.1 L (8.5-10.3) mg/dL Total Bilirubin 0.3 (0.2-1.0) mg/dL AST 21 (10-42) IU/L ALT 28 (10-60) IU/L Alkaline Phosphatase 37 L (42-121) IU/L Total Protein 5.4 L (6.7-8.2) g/dL Albumin 2.0 L (3.2-5.5) g/dL Globulin 3.4 (2.1-4.2) g/dL Albumin/Globulin Ratio 0.6 L (1.0-2.2) ABX Reporting Has patient been on IV antibiotics over the past 48 hours?: Yes Assessment/Plan - Problem List (1) Perforated bowel Impression: POD #2 for first surgery and POD #1 for second surgery. Plan: Zosyn is since 05/10. Day 3 of 10. continued close monitoring of bowel and vitals he has scant output in the bag. pain is controlled. up in chair (2) Acute worsening of stage 3 chronic kidney disease Impression: creatinine on admit 2.5>2.4>2.4>2.1 today. stable avoid nephrotoxic agents continue to monitor (3) HTN (hypertension) Impression: systolic 139-155. he usually takes doxazosin and has reaction of TARI. will use prn hydralazine if needed. Since he is stable from a Medicine Service perspective we will sign off the case. Discussed with Dr. Main. (4) Alcohol abuse Impression: banana bag for 3 bags then dc patient encouraged to stop or at least cut back to 2/day (5) Hypokalemia Impression: resolved with supplementation
[2019-05-12] MEDS: D5NS W/20 MEQ KCL 1,000 ML IV SCH (19:35)
[2019-05-12] MEDS: SODIUM CHLORIDE FLUSH 0.9% 10 ML SYRINGE IVP PRN (20:14)
[2019-05-13] MEDS: PIPERACILLIN/TAZOBACTAM 3.375 GM in SODIUM CHLORIDE 0.9% MINIBAG 100 ML IV SCH ×3 (00:09→16:30)
[2019-05-13] MEDS: SODIUM CHLORIDE FLUSH 0.9% 10 ML SYRINGE IVP SCH ×3 (00:10→21:44)
[2019-05-13] MEDS: D5NS W/20 MEQ KCL 1,000 ML IV SCH ×3 (00:10→16:08)
[2019-05-13] MEDS: ACETAMINOPHEN 1,000 MG/100 ML 100 ML IV SCH ×3 (01:39→14:28)
[2019-05-13 05:50] LABS: BASOPHILS % (AUTO) 0.2 %; EOSINOPHILS # (AUTO) 0.3 10^3/uL (0.0-0.7); EOSINOPHILS % (AUTO) 2.3 %; HGB - HEMOGLOBIN 10.3 g/dL (14.0-18.0); LYMPHOCYTES # (AUTO) 0.5 10^3/uL (1.5-3.5); LYMPHOCYTES % (AUTO) 4.4 %; MEAN CORPUSCULAR HEMOGLOBIN 30.7 pg (27.0-31.0); MEAN CORPUSCULAR HGB CONC 31.8 g/dL (32.0-36.0); MEAN CORPUSCULAR VOLUME 96.7 fL (80.0-94.0); MEAN PLATELET VOLUME 9.4 fL (7.4-11.4); MONOCYTES # (AUTO) 0.9 10^3/uL (0.0-1.0); NEUTROPHILS # (AUTO) 9.7 10^3/uL (1.5-6.6); NEUTROPHILS % (AUTO) 84.1 %; PLT - PLATELET COUNT 276 10^3/uL (130-450); RED BLOOD COUNT 3.35 10^6/uL (4.70-6.10); RED CELL DISTRIBUTION WIDTH 14.7 % (12.0-15.0); WHITE BLOOD COUNT 11.5 x10^3/uL (4.8-10.8)
[2019-05-13 06:02] LABS: ALBUMIN 2.1 g/dL (3.2-5.5); ALBUMIN/GLOBULIN RATIO 0.6 (1.0-2.2); BILIRUBIN,TOTAL 0.4 mg/dL (0.2-1.0); CREATININE 1.6 mg/dL (0.6-1.2); TOTAL PROTEIN 5.6 g/dL (6.7-8.2)
[2019-05-13] MEDS: PANTOPRAZOLE 40 MG VIAL IVP SCH (06:21)
[2019-05-13] MEDS: SODIUM CHLORIDE FLUSH 0.9% 10 ML SYRINGE IVP PRN ×3 (06:22→20:22)
[2019-05-13] MEDS: fent/BUPIV 2 MCG/0.125% 250 ML EP PRN (06:43)
[2019-05-13] MEDS: MULTIVITAMIN 10 ML, THIAMINE INJ 100 MG, FOLIC ACID INJ 1 MG in D5.45NS W/20 MEQ KCL 1,... IV SCH (10:54)
--- NOTE | 2019-05-13 15:34 | ANESTHESIA POST OP EVALUATION ---
Anesthesia Post Eval - Post Anesthesia Eval CV Function Including HR & BP: positive: Stable Pain Control: positive: Adequate Nausea & Vomiting: positive: Negative Mental Status: positive: Appropriate Anesthesia Complications: positive: None (POD 2, pt wishes to have epidural removed so that he may regain full feeling to legs and abdomen (T10 sensory appreciated). Pt with no complaints of pain for the last 12 hours, has not used PCEA or had an oral pain medication. Pt able to lean up and forward in bed without assitance for epidural removal. Tape removed without incident and epidural removed with tip intact. Site is without redness/swelling. Pt tolerated the procedure without complaint/complication.)
--- NOTE | 2019-05-13 15:39 | PROVIDER PROGRESS NOTE ---
Subjective - General Admit Date: 05/10/19 Procedure Date: 05/11/19 Post Op Days: 2 Procedure Performed: Revision of ileostomy with adhesiolysis, POD 3 Extended RIGHT hemicolectomy - Review of Systems Wound/Incisions: positive: Dressing dry and intact (Jon straps in place.) General: positive: No symptoms (States that he feels great - no complaints. Joking when he says "can I go home?"), Other (Patient is hungry and wants to eat.) HEENT: positive: No symptoms Pulmonary: positive: No symptoms Cardiovascular: positive: No symptoms Gastrointestinal: positive: No symptoms Genitourinary: positive: No symptoms Musculoskeletal: positive: No symptoms Skin: positive: No symptoms Psychiatric: positive: No symptoms Objective - Patient Data Reviewed Vital Signs: Yes Vital Signs: Vital Signs x48h Temp Pulse Resp BP Pulse Ox 05/13/19 08:10 37.5 C 99 18 156/78 H 96 Intake & Output: Intake and Output Totals x24h 05/11/19 05/12/19 05/13/19 23:59 23:59 23:59 Intake Total 2382.267 3481.2 1546.2 Output Total 1325 1920 1875 Balance 2584.310 9366.2 -328.8 - Lab Results Lab Results: 05/13/19 05:30 05/13/19 05:30 Other Lab Results: Lab Results x24hrs 05/13/19 05/13/19 Range/Units 05:30 05:30 WBC 11.5 H (4.8-10.8) x10^3/uL RBC 3.35 L (4.70-6.10) 10^6/uL Hgb 10.3 L (14.0-18.0) g/dL Hct 32.4 L (42.0-52.0) % MCV 96.7 H (80.0-94.0) fL MCH 30.7 (27.0-31.0) pg MCHC 31.8 L (32.0-36.0) g/dL RDW 14.7 (12.0-15.0) % Plt Count 276 (130-450) 10^3/uL MPV 9.4 (7.4-11.4) fL Neut # (Auto) 9.7 H (1.5-6.6) 10^3/uL Lymph # (Auto) 0.5 L (1.5-3.5) 10^3/uL [place] # (Auto) 0.9 (0.0-1.0) 10^3/uL Eos # (Auto) 0.3 (0.0-0.7) 10^3/uL Baso # (Auto) 0.0 (0.0-0.1) 10^3/uL Absolute Nucleated RBC 0.00 x10^3/uL Nucleated RBC % 0.0 /100WBC Sodium 139 (135-145) mmol/L Potassium 3.9 (3.5-5.0) mmol/L Chloride 110 (101-111) mmol/L Carbon Dioxide 25 (21-32) mmol/L Anion Gap 4.0 L (6-13) BUN 32 H (6-20) mg/dL Creatinine 1.6 H (0.6-1.2) mg/dL Estimated GFR (MDRD) 44 L (>89) Glucose 106 H (70-100) mg/dL Calcium 8.0 L (8.5-10.3) mg/dL Total Bilirubin 0.4 (0.2-1.0) mg/dL AST 17 (10-42) IU/L ALT 23 (10-60) IU/L Alkaline Phosphatase 49 (42-121) IU/L Total Protein 5.6 L (6.7-8.2) g/dL Albumin 2.1 L (3.2-5.5) g/dL Globulin 3.5 (2.1-4.2) g/dL Albumin/Globulin Ratio 0.6 L (1.0-2.2) - Current Medications Current Medications: Current Medications Generic Name Dose Route Start Last Admin Trade Name Freq PRN Reason Stop Dose Admin Piperacillin Sod/Tazobactam 100 mls @ 25 mls/hr 05/10/19 17:00 05/13/19 14:30 Sod 3.375 gm/ Sodium Chloride IV Infused Q8H [facility] Infusion Fentanyl/Bupivacaine/Sodium Chlor 250 mls @ 0 mls/hr 05/11/19 08:53 05/13/19 06:43 Fent/Bupiv 2 Mcg/0.125% EP 8 mls/hr .Q0M PRN Administration PAIN Protocol Per Protocol Multivitamins 10 ml/ Thiamine 1,011.2 mls @ 100 mls/hr 05/11/19 10:00 05/13/19 10:54 HCl 100 mg/ Folic Acid 1 mg/ IV 05/13/19 19:07 100 mls/hr Potassium Chloride/Dextrose/ DAILY ELE[facility] Administration Sod Cl Potassium Chloride/Dextrose/Sod Cl 1,000 mls @ 100 mls/hr 05/11/19 16:00 05/13/19 11:14 IV Not Given .Q10H [facility] Acetaminophen 100 mls @ 400 mls/hr 05/12/19 20:00 05/13/19 14:28 Ofirmev IV Not Given Q6H [facility] Pantoprazole Sodium 40 mg 05/11/19 07:00 05/13/19 06:21 Protonix IVP 40 mg QDAC [facility] Administration Sodium Chloride 10 ml 05/10/19 17:00 05/13/19 11:15 Normal Saline Flush 0.9% IVP 20 ml 0100,0900,1700 E[facility] Administration Sodium Chloride 10 ml 05/10/19 16:57 05/13/19 06:22 Normal Saline Flush 0.9% IVP 10 ml PRN PRN Administration NEEDED PER PROVIDER ORDERS - Physical Exam Wound/Incisions: positive: Other (Mongomery straps in place. No erythema. No granulaion tissue yet.) General Appearance: positive: No acute distress (Again hungry.) Eyes Bilateral: positive: No lid inflammation, Conjunctivae nml, No scleral icterus ENT: positive: No signs of dehydration Neck: positive: Trachea midline Respiratory: positive: Chest non-tender, No respiratory distress, Breath sounds nml Cardiovascular: positive: Regular rate & rhythm Abdomen: positive: Nml bowel sounds, Other (Slight distention with tympany.) Skin: positive: Color nml Extremities: positive: Non-tender, Nml appearance Neurologic/Psychiatric: positive: Oriented x3, Motor nml, Sensation nml, Mood/affect nml ABX Reporting Has patient been on IV antibiotics over the past 48 hours?: Yes Impression/Plan - Problem List Problem List: D3 s/p extended RIGHT hemicolectomy for perforation and fecalent peritonitis, end ileostomy D2 s/p revision of ileostomy and adhesiolysis 1) FEN Decrease IVF and start regular diet. 2) ID D4/10 antibiotics (Zosyn) 3) DVT prophylaxis Continue TEDs and venadynes 4) Pain Epidural out - will switch to po pain medications. 5) Pathology Pending. 6) Activity Out of bed today - patient doing well. 7) Ileostomy Clearly no longer compromised. 8) EtOH Appears not to be going into withdrawal but assisted decrease in his intake is definitely in his best interest. 9) Wound Continue wet to dry dressing changes.
[2019-05-13] MEDS ORDERED: ACETAMINOPHEN 500 MG TABLET PO PRN (15:43)
[2019-05-13] MEDS: oxyCODONE 5 MG TABLET PO PRN (16:08)
[2019-05-14] MEDS: PIPERACILLIN/TAZOBACTAM 3.375 GM in SODIUM CHLORIDE 0.9% MINIBAG 100 ML IV SCH ×3 (00:31→17:16)
[2019-05-14] MEDS: SODIUM CHLORIDE FLUSH 0.9% 10 ML SYRINGE IVP SCH ×3 (02:48→17:24)
[2019-05-14] MEDS: SODIUM CHLORIDE FLUSH 0.9% 10 ML SYRINGE IVP PRN ×2 (05:36→21:26)
[2019-05-14] MEDS: PANTOPRAZOLE 40 MG VIAL IVP SCH (05:36)
[2019-05-14 06:15] LABS: BASOPHILS % (AUTO) 0.5 %; EOSINOPHILS % (AUTO) 1.6 %; HGB - HEMOGLOBIN 10.6 g/dL (14.0-18.0); LYMPHOCYTES % (AUTO) 4.7 %; MEAN PLATELET VOLUME 9.5 fL (7.4-11.4); MONOCYTES % (AUTO) 11.3 %; PLT - PLATELET COUNT 259 10^3/uL (130-450); RED BLOOD COUNT 3.31 10^6/uL (4.70-6.10); RED CELL DISTRIBUTION WIDTH 14.8 % (12.0-15.0); WHITE BLOOD COUNT 13.5 x10^3/uL (4.8-10.8)
[2019-05-14 06:18] LABS: ALBUMIN/GLOBULIN RATIO 0.5 (1.0-2.2); BILIRUBIN,TOTAL 0.5 mg/dL (0.2-1.0); CALCIUM 8.3 mg/dL (8.5-10.3); CREATININE 1.4 mg/dL (0.6-1.2); TOTAL PROTEIN 5.7 g/dL (6.7-8.2)
[2019-05-14 06:37] LABS: ABNORMAL LYMPHS % (MANUAL) 0 %; BAND NEUTROPHILS % (MANUAL) 0 %
[2019-05-14 06:52] LABS: EOSINOPHILS # (MANUAL) 0.1 10^3/uL (0-0.7); LYMPHOCYTES # (MANUAL) 1.5 10^3/uL (1.5-3.5); LYMPHOCYTES % (MANUAL) 11 %; MONOCYTES # (MANUAL) 1.4 10^3/uL (0.0-1.0); PLATELET ESTIMATE, MANUAL NORMAL (130-450,000) (NORMAL); PLATELET MORPHOLOGY NORMAL APPEARANCE (NORMAL); RBC MORPHOLOGY (MULTIPLE) NORMAL APPEARANCE (NORMAL)
[2019-05-14 06:53] LABS: DIFFERENTIAL COMMENT MANUAL DIFFERENTIAL
--- NOTE | 2019-05-14 10:36 | PROVIDER PROGRESS NOTE ---
Subjective - General Admit Date: 05/10/19 Procedure Date: 05/11/19 Post Op Days: 3 Procedure Performed: Revision of ileostomy with adhesiolysis, POD 3 Extended RIGHT hemicolectomy - Review of Systems Wound/Incisions: positive: Healing well, Other (Mongomery straps in place. No erythema. No granulaion tissue yet.) General: positive: No symptoms (States that he feels great - no complaints. Joking when he says "can I go home?"), Other (Patient is hungry and wants to eat.) HEENT: positive: No symptoms Pulmonary: positive: No symptoms Cardiovascular: positive: No symptoms Gastrointestinal: positive: No symptoms, Abdominal pain (Slightly increased today.) Genitourinary: positive: No symptoms Musculoskeletal: positive: No symptoms Skin: positive: No symptoms Psychiatric: positive: No symptoms Objective - Patient Data Reviewed Vital Signs: Yes Vital Signs: Vital Signs x48h Temp Pulse Resp BP Pulse Ox 05/14/19 07:45 36.7 C 99 18 184/79 H 96 05/14/19 03:25 37.6 C H 99 16 166/82 H 95 Intake & Output: Intake and Output Totals x24h 05/12/19 05/13/19 05/14/19 23:59 23:59 23:59 Intake Total 3481.2 3082.4 460 Output Total 1920 3200 1425 Balance 1561.2 -117.6 -965 - Lab Results Lab Results: 05/14/19 05:40 05/14/19 05:40 Other Lab Results: Lab Results x24hrs 05/14/19 05/14/19 Range/Units 05:40 05:40 WBC 13.5 H (4.8-10.8) x10^3/uL RBC 3.31 L (4.70-6.10) 10^6/uL Hgb 10.6 L (14.0-18.0) g/dL Hct 32.1 L (42.0-52.0) % MCV 97.0 H (80.0-94.0) fL MCH 32.0 H (27.0-31.0) pg MCHC 33.0 (32.0-36.0) g/dL RDW 14.8 (12.0-15.0) % Plt Count 259 (130-450) 10^3/uL MPV 9.5 (7.4-11.4) fL Neut # (Auto) Not Reportable Lymph # (Auto) Not Reportable [place]cl[place] # (Auto) Not Reportable Eos # (Auto) Not Reportable Baso # (Auto) Not Reportable Absolute Nucleated RBC Not Reportable Total Counted 100 Band Neuts % (Manual) 0 (0 - 10) % Abnorm Lymph % (Manual) 0 % Nucleated RBC % Not Reportable Neutrophils # (Manual) 10.5 H (1.5-6.6) 10^3/uL Lymphocytes # (Manual) 1.5 (1.5-3.5) 10^3/uL Monocytes # (Manual) 1.4 H (0.0-1.0) 10^3/uL Eosinophils # (Manual) 0.1 (0-0.7) 10^3/uL Basophils # (Manual) 0.0 (0-0.1) 10^3/uL Differential Comment MANUAL DIFFERENTIAL WBC Morphology NORMAL APPEARANCE (NORMAL) Platelet Estimate NORMAL (130-450,000) (NORMAL) Platelet Morphology NORMAL APPEARANCE (NORMAL) RBC Morph Micro Appear NORMAL APPEARANCE (NORMAL) Sodium 141 (135-145) mmol/L Potassium 3.8 (3.5-5.0) mmol/L Chloride 110 (101-111) mmol/L Carbon Dioxide 23 (21-32) mmol/L Anion Gap 8.0 (6-13) BUN 21 H (6-20) mg/dL Creatinine 1.4 H (0.6-1.2) mg/dL Estimated GFR (MDRD) 51 L (>89) Glucose 101 H (70-100) mg/dL Calcium 8.3 L (8.5-10.3) mg/dL Total Bilirubin 0.5 (0.2-1.0) mg/dL AST 22 (10-42) IU/L ALT 18 (10-60) IU/L Alkaline Phosphatase 65 (42-121) IU/L Total Protein 5.7 L (6.7-8.2) g/dL Albumin 2.0 L (3.2-5.5) g/dL Globulin 3.7 (2.1-4.2) g/dL Albumin/Globulin Ratio 0.5 L (1.0-2.2) - Current Medications Current Medications: Current Medications Generic Name Dose Route Start Last Admin Trade Name Freq PRN Reason Stop Dose Admin Piperacillin Sod/Tazobactam 100 mls @ 25 mls/hr 05/10/19 17:00 05/14/19 08:35 Sod 3.375 gm/ Sodium Chloride IV 25 mls/hr Q8H [facility] Administration Potassium Chloride/Dextrose/Sod Cl 1,000 mls @ 50 mls/hr 05/13/19 15:42 05/13/19 16:08 IV 50 mls/hr .Q20H [facility] Administration Oxycodone HCl 5 mg 05/13/19 15:42 05/13/19 16:08 Roxicodone PO 5 mg Q4HR PRN Administration PAIN Pantoprazole Sodium 40 mg 05/11/19 07:00 05/14/19 05:36 Protonix IVP 40 mg QDAC [facility] Administration Sodium Chloride 10 ml 05/10/19 17:00 05/14/19 08:35 Normal Saline Flush 0.9% IVP 20 ml 0100,0900,1700 ELEAZAR Administration Sodium Chloride 10 ml 05/10/19 16:57 05/13/19 06:22 Normal Saline Flush 0.9% IVP 10 ml PRN PRN Administration NEEDED PER PROVIDER ORDERS Sodium Chloride 20 ml 05/13/19 20:07 05/14/19 05:36 Normal Saline Flush 0.9% IVP 20 ml PRN PRN Administration After Blood Draw - Physical Exam Wound/Incisions: positive: Healing well, Other (W to D dressing change done.) General Appearance: positive: No acute distress Eyes Bilateral: positive: No lid inflammation, Conjunctivae nml, No scleral icterus ENT: positive: Dry mucous membranes Neck: positive: Trachea midline Respiratory: positive: Chest non-tender, No respiratory distress, Breath sounds nml Cardiovascular: positive: Regular rate & rhythm Abdomen: positive: Nml bowel sounds. negative: Tenderness Skin: positive: Color nml Extremities: positive: Non-tender, Nml appearance Neurologic/Psychiatric: positive: Oriented x3, Motor nml, Sensation nml, Mood/affect nml ABX Reporting Has patient been on IV antibiotics over the past 48 hours?: Yes Impression/Plan - Problem List Problem List: D4 s/p extended RIGHT hemicolectomy for perforation and fecalent peritonitis, end ileostomy D3 s/p revision of ileostomy and adhesiolysis 1) FEN Decrease IVF and start regular diet. 2) ID D5/10 antibiotics (Zosyn) WBC is the highest since the patient was hosp italized and patientis at risk for an abscess but it is too soon to repeat a CT scan. 3) DVT prophylaxis Continue TEDs and venadynes 4) Pain Slightly more pain iwth pain medication. 5) Pathology Pending. 6) Activity Out of bed today - patient doing well. 7) Ileostomy Clearly no longer compromised. 8) EtOH Appears not to be going into withdrawal but [facility] decrease in his intake is definitely in his best interest. 9) Wound Continue wet to dry dressing changes. 10) HTN Retarted his regular medication.
[2019-05-14] MEDS ORDERED: DOXAZOSIN 4 MG TABLET PO SCH (11:00)
[2019-05-14] MEDS: D5NS W/20 MEQ KCL 1,000 ML IV SCH (12:50)
[2019-05-14 13:03] LABS: MAGNESIUM 2.1 mg/dL (1.7-2.8); PHOSPHORUS 1.6 mg/dL (2.5-4.6)
[2019-05-15] MEDS: PIPERACILLIN/TAZOBACTAM 3.375 GM in SODIUM CHLORIDE 0.9% MINIBAG 100 ML IV SCH ×3 (00:40→17:04)
[2019-05-15] MEDS: oxyCODONE 5 MG TABLET PO PRN ×2 (00:58→17:13)
[2019-05-15] MEDS: SODIUM CHLORIDE FLUSH 0.9% 10 ML SYRINGE IVP SCH ×3 (02:11→17:11)
[2019-05-15] MEDS: PANTOPRAZOLE 40 MG VIAL IVP SCH (06:16)
[2019-05-15] MEDS: SODIUM CHLORIDE FLUSH 0.9% 10 ML SYRINGE IVP PRN (06:17)
[2019-05-15 06:39] LABS: BASOPHILS % (AUTO) 0.3 %; EOSINOPHILS # (AUTO) 0.2 10^3/uL (0.0-0.7); HGB - HEMOGLOBIN 10.4 g/dL (14.0-18.0); LYMPHOCYTES # (AUTO) 0.8 10^3/uL (1.5-3.5); MEAN CORPUSCULAR HEMOGLOBIN 31.5 pg (27.0-31.0); MEAN CORPUSCULAR HGB CONC 32.7 g/dL (32.0-36.0); MEAN CORPUSCULAR VOLUME 96.4 fL (80.0-94.0); MEAN PLATELET VOLUME 9.3 fL (7.4-11.4); MONOCYTES # (AUTO) 1.4 10^3/uL (0.0-1.0); MONOCYTES % (AUTO) 11.6 %; NEUTROPHILS # (AUTO) 9.1 10^3/uL (1.5-6.6); PLT - PLATELET COUNT 285 10^3/uL (130-450); RED CELL DISTRIBUTION WIDTH 14.7 % (12.0-15.0); WHITE BLOOD COUNT 11.8 x10^3/uL (4.8-10.8)
[2019-05-15 06:51] LABS: ALBUMIN 2.1 g/dL (3.2-5.5); ALBUMIN/GLOBULIN RATIO 0.5 (1.0-2.2); BILIRUBIN,TOTAL 0.4 mg/dL (0.2-1.0); CALCIUM 8.4 mg/dL (8.5-10.3); CREATININE 1.2 mg/dL (0.6-1.2); TOTAL PROTEIN 6.1 g/dL (6.7-8.2)
[2019-05-15] MEDS: D5NS W/20 MEQ KCL 1,000 ML IV SCH (09:20)
[2019-05-15] MEDS: DOXAZOSIN 4 MG TABLET PO SCH (20:27)
--- NOTE | 2019-05-16 00:12 | PROVIDER PROGRESS NOTE ---
Subjective - General Admit Date: 05/10/19 Procedure Date: 05/11/19 Post Op Days: 5 Procedure Performed: Revision of ileostomy with adhesiolysis, POD 3 Extended RIGHT hemicolectomy - Review of Systems Wound/Incisions: positive: Healing well, Other (W to D dressing change done.) General: positive: No symptoms (States that he feels great - no complaints. Joking when he says "can I go home?"), Other (Patient is feeling tired with all the activity) HEENT: positive: No symptoms Pulmonary: positive: No symptoms Cardiovascular: positive: No symptoms Gastrointestinal: positive: No symptoms, Abdominal pain (Slightly increased today.) Genitourinary: positive: No symptoms Musculoskeletal: positive: No symptoms Skin: positive: No symptoms Psychiatric: positive: No symptoms Objective - Patient Data Reviewed Vital Signs: Yes Vital Signs: Vital Signs x48h Temp Pulse Resp BP Pulse Ox 05/15/19 20:27 37.5 C 165/78 H 05/15/19 19:10 37.5 C 99 16 158/73 H 95 Intake & Output: Intake and Output Totals x24h 05/14/19 05/15/19 05/16/19 23:59 23:59 23:59 Intake Total 1920 2553.333 Output Total 3125 2925 Balance -1205 -371.667 - Lab Results Lab Results: 05/15/19 06:20 05/15/19 06:20 Other Lab Results: Lab Results x24hrs 05/15/19 05/15/19 05/15/19 Range/Units 06:20 06:20 06:20 WBC 11.8 H (4.8-10.8) x10^3/uL RBC 3.30 L (4.70-6.10) 10^6/uL Hgb 10.4 L (14.0-18.0) g/dL Hct 31.8 L (42.0-52.0) % MCV 96.4 H (80.0-94.0) fL MCH 31.5 H (27.0-31.0) pg MCHC 32.7 (32.0-36.0) g/dL RDW 14.7 (12.0-15.0) % Plt Count 285 (130-450) 10^3/uL MPV 9.3 (7.4-11.4) fL Neut # (Auto) 9.1 H (1.5-6.6) 10^3/uL Lymph # (Auto) 0.8 L (1.5-3.5) 10^3/uL Gulf # (Auto) 1.4 H (0.0-1.0) 10^3/uL Eos # (Auto) 0.2 (0.0-0.7) 10^3/uL Baso # (Auto) 0.0 (0.0-0.1) 10^3/uL Absolute Nucleated RBC 0.00 x10^3/uL Nucleated RBC % 0.0 /100WBC Sodium 141 (135-145) mmol/L Potassium 3.6 (3.5-5.0) mmol/L Chloride 109 (101-111) mmol/L Carbon Dioxide 23 (21-32) mmol/L Anion Gap 9.0 (6-13) BUN 18 (6-20) mg/dL Creatinine 1.2 (0.6-1.2) mg/dL Estimated GFR (MDRD) 61 L (>89) Glucose 103 H (70-100) mg/dL Calcium 8.4 L (8.5-10.3) mg/dL Total Bilirubin 0.4 (0.2-1.0) mg/dL AST 21 (10-42) IU/L ALT 20 (10-60) IU/L Alkaline Phosphatase 61 (42-121) IU/L Total Protein 6.1 L (6.7-8.2) g/dL Albumin 2.1 L (3.2-5.5) g/dL Globulin 4.0 (2.1-4.2) g/dL Albumin/Globulin Ratio 0.5 L (1.0-2.2) Vitamin B12 565 (180-914) pg/mL - Current Medications Current Medications: Current Medications Generic Name Dose Route Start Last Admin Trade Name Freq PRN Reason Stop Dose Admin Acetaminophen 500 mg 05/13/19 15:43 05/14/19 19:22 Tylenol PO 500 mg Q4HR PRN Administration Pain or Fever > 38C (100.4F) Doxazosin Mesylate 4 mg 05/15/19 21:00 05/15/19 20:27 Cardura PO 4 mg QPM ELEAZAR Administration Piperacillin Sod/Tazobactam 100 mls @ 25 mls/hr 05/10/19 17:00 05/15/19 20:59 Sod 3.375 gm/ Sodium Chloride IV Infused Q8H ELEAZAR Infusion Potassium Chloride/Dextrose/Sod Cl 1,000 mls @ 50 mls/hr 05/13/19 15:42 05/15/19 21:00 IV 50 mls/hr .Q20H ELEAZAR Infusion Oxycodone HCl 5 mg 05/13/19 15:42 05/15/19 17:13 Roxicodone PO 5 mg Q4HR PRN Administration PAIN Pantoprazole Sodium 40 mg 05/11/19 07:00 05/15/19 06:16 Protonix IVP 40 mg QDAC ELEAZAR Administration Sodium Chloride 10 ml 05/10/19 17:00 05/15/19 17:11 Normal Saline Flush 0.9% IVP Not Given 0100,0900,1700 ELEAZAR Sodium Chloride 10 ml 05/10/19 16:57 05/14/19 21:26 Normal Saline Flush 0.9% IVP 20 ml PRN PRN Administration NEEDED PER PROVIDER ORDERS Sodium Chloride 20 ml 05/13/19 20:07 05/15/19 06:17 Normal Saline Flush 0.9% IVP 20 ml PRN PRN Administration After Blood Draw - Physical Exam Wound/Incisions: positive: Healing well, No drainage General Appearance: positive: No acute distress, Other (Patient is tired feels little bit depressed.) Eyes Bilateral: positive: No lid inflammation, Conjunctivae nml, No scleral icterus ENT: positive: No signs of dehydration Neck: positive: Trachea midline Respiratory: positive: Chest non-tender, No respiratory distress, Breath sounds nml Cardiovascular: positive: Regular rate & rhythm Abdomen: positive: Non-tender, Nml bowel sounds, No distention Skin: positive: Color nml Extremities: positive: Non-tender, Nml appearance Neurologic/Psychiatric: positive: Oriented x3, Motor nml, Sensation nml, Depressed mood/affect ABX Reporting Has patient been on IV antibiotics over the past 48 hours?: Yes Impression/Plan - Problem List Problem List: D5 s/p extended RIGHT hemicolectomy for perforation and fecalent peritonitis, end ileostomy D4 s/p revision of ileostomy and adhesiolysis 1) FEN Continue IVF as patient is not terribly hungry and is not eating well. 2) ID D6/10 antibiotics (Zosyn) WBC decreased again today and I will hold off obtaining a CT scan to determine what the possible cause of the elevated white blood cell count is. Generally speaking patients do not have good bowel function if there is an intra-abdominal infectious process brewing. 3) DVT prophylaxis Continue TEDs and venadynes. Increase ambulation. 4) Pain Controlled with oral pain medication. 5) Pathology Pending. 6) Activity Out of bed today - patient doing well. 7) Ileostomy Clearly no longer compromised. 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 9) Wound Continue wet to dry dressing changes. 10) HTN Restarted his regular medication, but still with some systolic hypertension. Marcos disclaimer: This document was created in part using voice recognition technology. Because of the inherent limitations of the system ([employer]'s Dragon Dict[employer] user manual states that the licensee understands that speech recognition is a statistical process and that recognition errors are inherent in the process), occasional same sounding word substitutions and grammatical errors do occur and persist despite proofreading. Please read this document for context.
[2019-05-16] MEDS: PIPERACILLIN/TAZOBACTAM 3.375 GM in SODIUM CHLORIDE 0.9% MINIBAG 100 ML IV SCH ×3 (00:36→17:18)
[2019-05-16] MEDS: SODIUM CHLORIDE FLUSH 0.9% 10 ML SYRINGE IVP SCH ×3 (04:43→19:36)
[2019-05-16] MEDS: PANTOPRAZOLE 40 MG VIAL IVP SCH (06:21)
[2019-05-16] MEDS: D5NS W/20 MEQ KCL 1,000 ML IV SCH (06:25)
[2019-05-16] MEDS: HYDROmorphone 2 MG/ML VIAL IVP PRN ×2 (11:16→20:23)
--- NOTE | 2019-05-16 15:27 | PROVIDER PROGRESS NOTE ---
Subjective - General Admit Date: 05/10/19 Procedure Date: 05/11/19 Post Op Days: 9 Procedure Performed: Revision of ileostomy with adhesiolysis, POD 3 Extended RIGHT hemicolectomy - Review of Systems Wound/Incisions: positive: Healing well, No drainage General: positive: No symptoms (States that he feels great - no complaints. Joking when he says "can I go home?"), Other (Patient is feeling tired with all the activity) HEENT: positive: No symptoms Pulmonary: positive: No symptoms Cardiovascular: positive: No symptoms Gastrointestinal: positive: No symptoms, Abdominal pain (Slightly increased today.) Genitourinary: positive: No symptoms Musculoskeletal: positive: No symptoms Skin: positive: No symptoms Psychiatric: positive: No symptoms Objective - Patient Data Reviewed Vital Signs: Yes Vital Signs: Vital Signs x48h Temp Pulse Resp BP Pulse Ox 05/16/19 12:46 36.7 C 95 18 138/62 H 96 05/16/19 08:00 37.1 C 99 18 155/66 H 96 Intake & Output: Intake and Output Totals x24h 05/14/19 05/15/19 05/16/19 23:59 23:59 23:59 Intake Total 1920 2553.333 687.500 Output Total 3125 2925 1700 Balance -1205 -371.667 -1012.500 - Lab Results Lab Results: 05/17/19 05:05 05/17/19 05:05 - Current Medications Current Medications: Current Medications Generic Name Dose Route Start Last Admin Trade Name Freq PRN Reason Stop Dose Admin Acetaminophen 500 mg 05/13/19 15:43 05/14/19 19:22 Tylenol PO 500 mg Q4HR PRN Administration Pain or Fever > 38C (100.4F) Doxazosin Mesylate 4 mg 05/15/19 21:00 05/15/19 20:27 Cardura PO 4 mg QPM ELEAZAR Administration Hydromorphone HCl 2 mg 05/11/19 22:45 05/16/19 11:16 Dilaudid (Vial) IVP 2 mg Q2H PRN Administration PAIN Piperacillin Sod/Tazobactam 100 mls @ 25 mls/hr 05/10/19 17:00 05/16/19 12:56 Sod 3.375 gm/ Sodium Chloride IV Infused Q8H ELEAZAR Infusion Potassium Chloride/Dextrose/Sod Cl 1,000 mls @ 50 mls/hr 05/13/19 15:42 05/16/19 06:25 IV 50 mls/hr .Q20H ELEAZAR Administration Oxycodone HCl 5 mg 05/13/19 15:42 05/15/19 17:13 Roxicodone PO 5 mg Q4HR PRN Administration PAIN Pantoprazole Sodium 40 mg 05/11/19 07:00 05/16/19 06:21 Protonix IVP 40 mg QDAC ELEAZAR Administration Sodium Chloride 10 ml 05/10/19 17:00 05/16/19 08:52 Normal Saline Flush 0.9% IVP 10 ml 0100,0900,1700 ELEAZAR Administration Sodium Chloride 10 ml 05/10/19 16:57 05/14/19 21:26 Normal Saline Flush 0.9% IVP 20 ml PRN PRN Administration NEEDED PER PROVIDER ORDERS Sodium Chloride 20 ml 05/13/19 20:07 05/15/19 06:17 Normal Saline Flush 0.9% IVP 20 ml PRN PRN Administration After Blood Draw - Physical Exam General Appearance: positive: Mild distress Eyes Bilateral: positive: No lid inflammation, Conjunctivae nml, No scleral icterus ABX Reporting Has patient been on IV antibiotics over the past 48 hours?: Yes Impression/Plan - Problem List Problem List: D6 s/p extended RIGHT hemicolectomy for perforation and fecalent peritonitis, end ileostomy D5 s/p revision of ileostomy and adhesiolysis 1) FEN Continue IVF as patient is not terribly hungry and is not eating well. 2) ID D6/10 antibiotics (Zosyn) Did not check WBC today butpatient afebrile. Will check labs tomorrow. 3) DVT prophylaxis Continue TEDs and venadynes. Increase ambulation. 4) Pain Controlled with oral pain medication. 5) Pathology Diverticular perforation without malignancy. Ileostomy was clearly necrotic likely compromised surgically as a reason. Discussed with patient. 6) Activity Out of bed today - patient doing well. 7) Ileostomy Clearly no longer compromised. 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 9) Wound Continue wet to dry dressing changes. 10) HTN Markedly improved. Marcos disclaimer: This document was created in part using voice recognition technology. Because of the inherent limitations of the system ([employer]'s Dragon Dictate user manual states that the licensee understands that speech recognition is a statistical process and that recognition errors are inherent in the process), occasional same sounding word substitutions and grammatical errors do occur and persist despite proofreading. Please read this document for context.
[2019-05-16] MEDS: PRENATAL VITAMIN TABLET PO SCH (16:18)
[2019-05-16] MEDS: THIAMINE 100 MG TABLET PO SCH (17:18)
[2019-05-16] MEDS: DOXAZOSIN 4 MG TABLET PO SCH (20:24)
[2019-05-16] MEDS: SODIUM CHLORIDE FLUSH 0.9% 10 ML SYRINGE IVP PRN (20:25)
[2019-05-17] MEDS: D5NS W/20 MEQ KCL 1,000 ML IV SCH (01:22)
[2019-05-17] MEDS: PIPERACILLIN/TAZOBACTAM 3.375 GM in SODIUM CHLORIDE 0.9% MINIBAG 100 ML IV SCH ×2 (01:22→08:33)
[2019-05-17] MEDS: SODIUM CHLORIDE FLUSH 0.9% 10 ML SYRINGE IVP SCH ×2 (01:23→06:49)
[2019-05-17 05:24] LABS: BASOPHILS # (AUTO) 0.1 10^3/uL (0.0-0.1); BASOPHILS % (AUTO) 0.4 %; EOSINOPHILS # (AUTO) 0.3 10^3/uL (0.0-0.7); EOSINOPHILS % (AUTO) 1.7 %; HGB - HEMOGLOBIN 10.1 g/dL (14.0-18.0); LYMPHOCYTES # (AUTO) 0.8 10^3/uL (1.5-3.5); LYMPHOCYTES % (AUTO) 4.9 %; MEAN CORPUSCULAR HEMOGLOBIN 30.5 pg (27.0-31.0); MEAN CORPUSCULAR HGB CONC 31.1 g/dL (32.0-36.0); MEAN CORPUSCULAR VOLUME 98.2 fL (80.0-94.0); MEAN PLATELET VOLUME 9.8 fL (7.4-11.4); MONOCYTES # (AUTO) 1.1 10^3/uL (0.0-1.0); MONOCYTES % (AUTO) 6.6 %; NEUTROPHILS # (AUTO) 13.6 10^3/uL (1.5-6.6); NEUTROPHILS % (AUTO) 84.9 %; PLT - PLATELET COUNT 436 10^3/uL (130-450); RED BLOOD COUNT 3.31 10^6/uL (4.70-6.10); RED CELL DISTRIBUTION WIDTH 14.6 % (12.0-15.0)
[2019-05-17 05:35] LABS: ALBUMIN 2.2 g/dL (3.2-5.5); ALBUMIN/GLOBULIN RATIO 0.6 (1.0-2.2); BILIRUBIN,TOTAL 0.3 mg/dL (0.2-1.0); CALCIUM 8.9 mg/dL (8.5-10.3); CREATININE 1.2 mg/dL (0.6-1.2); TOTAL PROTEIN 5.9 g/dL (6.7-8.2)
[2019-05-17] MEDS: PANTOPRAZOLE 40 MG VIAL IVP SCH (06:49)
[2019-05-17] MEDS: THIAMINE 100 MG TABLET PO SCH (08:33)
[2019-05-17] MEDS: PRENATAL VITAMIN TABLET PO SCH (08:33)
[2019-05-17] MEDS ORDERED: IOVERSOL 320 100 ML VIAL IVP ONE ×2 (09:14→09:45)
--- NOTE | 2019-05-17 10:17 | CT Report ---
Reason: Leukocytosis following bowel perforation-R colecto Procedure Date: 05/17/2019 Accession Number: [id number] / [id number] Procedure: CT - Abdomen/Pelvis W CPT Code: FULL RESULT: EXAM: CT ABDOMEN AND PELVIS WITH IV CONTRAST EXAM DATE: 05/17/2019 09:44 AM. CLINICAL HISTORY: Leukocytosis following bowel perforation. Right colectomy. COMPARISONS: ABDOMEN/PELVIS W/O 05/10/2019 9:35 AM. TECHNIQUE: Routine helical CT imaging was performed through the abdomen and pelvis. IV contrast: OPTI 320, 90 mL. Enteric contrast: No. Reconstructions: Coronal and sagittal. In accordance with CT protocol optimization, one or more of the following dose reduction techniques were utilized for this exam: automated exposure control, adjustment of mA and/or KV based on patient size, or use of iterative reconstructive technique. FINDINGS: Lung Bases: Small to moderate low-density right pleural effusion with associated consolidation. Liver: Normal. No masses. Gallbladder/Bile Ducts: Cholelithiasis. Spleen: Normal. Pancreas: Normal. Adrenal Glands: Normal. Kidneys: Normal. No masses or hydronephrosis. Peritoneal Cavity/Bowel: There is free fluid, predominantly perihepatic and right lower quadrant with small quantities of extraperitoneal gas. Additionally, there is a loculated component to the fluid with peritoneal enhancement predominantly in the right lower quadrant, not a discretely formed fluid collection as yet. Pericolonic stranding is seen along the descending and sigmoid colon, abundant diverticulosis. The patient is status post interval right colectomy with ileostomy formation. Unchanged is an anastomotic chain suture in the low sigmoid colon, previous surgery. Prominent lymph nodes which do not meet size criteria are felt to be reactive. Pelvic Organs: Gas is seen within the bladder, and the left-sided superior bladder dome is intimately associated with the thickened sigmoid colon, see coronal image 28. Vasculature: At least moderate atherosclerotic disease of the abdominal aorta which is ectatic, up to 3.7 cm just below the level of the renal arteries. Bones: Grade 1 anterolisthesis of L5 on S1, unchanged from 05/10/2019. Other: None. IMPRESSION: Gas within the bladder with intimate relationship between bladder dome and sigmoid colon, inflamed-appearing sigmoid colon. Correlate to urinalysis and recent instrumentation to determine whether workup for potential fistulization is warranted. Minimal extraintestinal gas and mild to moderate free fluid predominantly in the right hemiabdomen. Partial loculation and peritoneal enhancement support degree of peritonitis. No discrete drainable fluid collection as yet. Ectatic abdominal atherosclerotic aorta. RADIA
[2019-05-17 12:15] VITALS: BP 149/58
--- NOTE | 2019-05-17 13:19 | DISCHARGE SUMMARY ---
"Discharge Summary Admit Date: 05/10/19 Discharge Date: 05/17/19 Discharging Provider: Jose Main MD Code Status: Attempt Resuscitation Condition at Discharge: Good Discharge Disposition: 01 Home, Self Care - DIAGNOSES Admission Diagnoses: Perforated colon - resected with end ileostomy Necrotic ileostomy - revised - HPI History of Present Illness: Patient is a 64 year old make who presented acutely with free air and clear bowelperforation. Patient taken urgently to OR where perforated colon was identified and resected. End ileostomy formed and abdomen washed out. Ileostomy 24 hours later was clearly compromised and patient returned to OR for revision of his ileostomy. Patient maintained on antibiotics throughout. Patient now wishes to go home despite WBC climbing to 16. Discussed the fact that this could mean that an abscess is forming. Discussed the fact that po antibiotics may not be as effective as IV. Discussed the fact that patient may need to return to the hospital for re-admission. Discussed the fact that his white blood cell count could be higher tomorrow. Patient would still like to go home. - CONSULTS | PROCEDURES Consultations: Etelvina Procedures: Extended RIGHT hemicolectomy with end ileostomy Revision of ileostomy - HOSPITAL COURSE Hospital Course: Slow but steady progress. Patient desperately wishes to go home. - ALLERGIES Allergies/Adverse Reactions: Allergies Allergy/AdvReac Type Severity Reaction Status Date / Time No Known Drug Allergies Allergy Verified 05/10/19 08:48 - MEDICATIONS Home Medications: Ambulatory Orders Medication Instructions Recorded Confirmed Doxazosin Mesylate 4 mg PO QPM 05/10/19 05/14/19 Home Medications Other | Comments: Patient will be sent home on a 10 day couse of [facility] . Pain medications ([place]) - PHYSICAL EXAM AT DISCHARGE General Appearance: positive: No acute distress Eyes Bilateral: positive: No lid inflammation, Conjunctivae nml, No scleral icterus ENT: positive: No signs of dehydration, Other (Extremely poor dentition - teeth should be removed and dentures fitted.) Neck: positive: Nml inspection, Trachea midline Respiratory: positive: Chest non-tender, No respiratory distress, Breath sounds nml Cardiovascular: positive: Regular rate & rhythm Abdomen: positive: Nml bowel sounds, Other (Mild distention.) Skin: positive: Color nml Extremities: positive: Non-tender, Nml appearance Neurologic/Psychiatric: positive: Oriented x3, Motor nml, Sensation nml, Depressed mood/affect (Mild.) - LABS Result Diagrams: 05/17/19 05:05 05/17/19 05:05 - DIAGNOSTIC IMAGING Diagnostic Imaging Results: Final report reviewed - SEPSIS Possible source of Sepsis: GI tract/intra-abdominal Sepsis Criteria: WBC count greater than 12,000 or less than 4000 - FOLLOW UP Follow Up: [facility] in 7-10 days - TIME SPENT Time Spent in Discharge (Minutes): 60"
--- NOTE | 2019-05-17 13:36 | Discharge Plan ---
Discharge Plan Problem Reviewed?: Yes Disposition: Home, Self Care Condition: Good Prescriptions: oxyCODONE [Roxicodone] 5 mg PO Q4HR PRN #20 tablet PRN Reason: Pain Levofloxacin [Levaquin] 500 mg PO DAILY 10 Days #10 tablet metroNIDAZOLE [Flagyl] 250 mg PO Q6H 10 Days #40 tablet Diet: Regular Activity Restrictions: No lifting >15 pounds. Shower Restrictions: No Driving Restrictions: Yes Weight Bearing: Full Weight Additional Instructions or Follow Up instructions: Can shower letting wound get wet. Follow-Up Care: [facility] - Wound/Ostomy No Smoking: If you smoke, Please STOP! Call for help. Follow-up with: Jose Main MD [Provider Admit Priv/Credential] -
== END 2019-05-17 15:20 | disposition home or self-care (01) | DRG 329 ==
LOC: ED 08:33 → ICU 11:15 → SDS 11:15 → ICU 16:57 → UNDOADMIN 16:57 → MS2 05-12 16:30 → ICU 05-12 17:17 → UNDODISIN 05-17 15:20
PROVIDERS: ADMIT Surgery; ATTEND Surgery
PROC: 0D1B0Z4 Bypass Ileum to Cutaneous, Open Approach (ICD-10-PCS; 2019-05-10)
PROC: 0DTF0ZZ Resection of Right Large Intestine, Open Approach (ICD-10-PCS; principal; 2019-05-10 12:00)
PROC: 0DBB0ZZ Excision of Ileum, Open Approach (ICD-10-PCS; 2019-05-11)
PROC: 0D1B0Z4 Bypass Ileum to Cutaneous, Open Approach (ICD-10-PCS; 2019-05-11)
DX: K63.1 Perforation of intestine (nontraumatic) (principal); I10 Essential (primary) hypertension; K57.20 Diverticulitis of large intestine with perforation and abscess without bleeding; K55.021 Focal (segmental) acute infarction of small intestine; Z87.891 Personal history of nicotine dependence; K65.9 Peritonitis, unspecified; K66.0 Peritoneal adhesions (postprocedural) (postinfection); K43.9 Ventral hernia without obstruction or gangrene; I12.9 Hypertensive chronic kidney disease with stage 1 through stage 4 chronic kidney disease, or unspecified chronic kidney disease; N18.3 Chronic kidney disease, stage 3 (moderate); D53.9 Nutritional anemia, unspecified; E87.6 Hypokalemia; F10.10 Alcohol abuse, uncomplicated; I71.4 Abdominal aortic aneurysm, without rupture; Z90.49 Acquired absence of other specified parts of digestive tract; Z79.899 Other long term (current) drug therapy; Z87.898 Personal history of other specified conditions
CPT/HCPCS: 36415; 74176; 74177; 80048; 80053; 81003; 82607; 83605; 83690; 83735; 84100; 85025; 87040; 87150; 88307; 96361; 96365; 96375; 99284; 99285; A9270; J0131; J0330; J1170; J3411; J7120; Q9967; 71045; 81001; 87086

== ENCOUNTER 2019-09-09 11:26 | Day surgery (SDC) | payer MEDICARE, BC ==
[2019-09-09] MEDS ORDERED: LACTATED RINGERS 1,000 ML IV ONE (11:42)
[2019-09-09] MEDS ORDERED: MIDAZOLAM 2 MG/2 ML VIAL IVP ONE (12:23)
[2019-09-09] MEDS ORDERED: fentaNYL 250 MCG/5 ML VIAL IVP ONE (12:23)
[2019-09-09 13:22] VITALS: BP 136/71
[2019-09-09] MEDS ORDERED: IOVERSOL 320 100 ML VIAL IVP ONE (17:01)
== END 2019-09-09 11:27 | disposition home or self-care (01) ==
LOC: SDS 11:26
PROVIDERS: ATTEND Internal Medicine Gastroenterology
PROC: 0DBE8ZX Excision of Large Intestine, Via Natural or Artificial Opening Endoscopic, Diagnostic (ICD-10-PCS; 2019-09-09)
PROC: 0DBN8ZZ Excision of Sigmoid Colon, Via Natural or Artificial Opening Endoscopic (ICD-10-PCS; principal; 2019-09-09 12:45)
DX: Z12.11 Encounter for screening for malignant neoplasm of colon (principal); Z09 Encounter for follow-up examination after completed treatment for conditions other than malignant neoplasm; K63.5 Polyp of colon; K52.89 Other specified noninfective gastroenteritis and colitis; I10 Essential (primary) hypertension; N28.9 Disorder of kidney and ureter, unspecified; Z93.2 Ileostomy status; Z90.49 Acquired absence of other specified parts of digestive tract; Z87.19 Personal history of other diseases of the digestive system; Z87.891 Personal history of nicotine dependence
CPT/HCPCS: 45380; J3010; J7120

== ENCOUNTER 2020-06-15 10:30 | Outpatient (CLI) | payer MEDICARE, BC ==
[2020-06-15 16:39] LABS: BASOPHILS # (AUTO) 0.1 10^3/uL (0.0-0.1); EOSINOPHILS # (AUTO) 0.3 10^3/uL (0.0-0.7); EOSINOPHILS % (AUTO) 5.2 %; HGB - HEMOGLOBIN 10.6 g/dL (14.0-18.0); LYMPHOCYTES # (AUTO) 1.2 10^3/uL (1.5-3.5); LYMPHOCYTES % (AUTO) 19.8 %; MEAN CORPUSCULAR HEMOGLOBIN 31.7 pg (27.0-31.0); MEAN CORPUSCULAR HGB CONC 32.7 g/dL (32.0-36.0); MEAN PLATELET VOLUME 10.2 fL (7.4-11.4); MONOCYTES # (AUTO) 0.7 10^3/uL (0.0-1.0); MONOCYTES % (AUTO) 11.4 %; NEUTROPHILS # (AUTO) 3.7 10^3/uL (1.5-6.6); NEUTROPHILS % (AUTO) 61.4 %; PLT - PLATELET COUNT 281 10^3/uL (130-450); RED BLOOD COUNT 3.34 10^6/uL (4.70-6.10); RED CELL DISTRIBUTION WIDTH 15.3 % (12.0-15.0)
[2020-06-15 16:55] LABS: ALBUMIN 3.5 g/dL (3.2-5.5); ALBUMIN/GLOBULIN RATIO 1.1 (1.0-2.2); BILIRUBIN,TOTAL 0.6 mg/dL (0.2-1.0); CALCIUM 9.1 mg/dL (8.5-10.3); CREATININE 1.4 mg/dL (0.6-1.2); MAGNESIUM 1.6 mg/dL (1.7-2.8); PHOSPHORUS 4.2 mg/dL (2.5-4.6); TOTAL PROTEIN 6.8 g/dL (6.7-8.2)
== END 2020-06-15 23:59 | disposition home or self-care (01) ==
LOC: LAB.R 10:30
PROVIDERS: ATTEND Surgery
DX: K55.019 Acute (reversible) ischemia of small intestine, extent unspecified (principal)
CPT/HCPCS: 80053; 83735; 84100; 85025

== ENCOUNTER 2020-06-25 07:13 | Day surgery (SDC) | payer MEDICARE, BC ==
[2020-06-25] MEDS ORDERED: MIDAZOLAM 2 MG/2 ML VIAL IVP ONE (07:14)
[2020-06-25] MEDS ORDERED: fentaNYL 250 MCG/5 ML VIAL IVP ONE (07:14)
[2020-06-25] MEDS ORDERED: LACTATED RINGERS 1,000 ML IV ONE ×2 (07:43→09:38)
[2020-06-25 10:05] VITALS: BP 124/65
[2020-06-25] MEDS ORDERED: IOVERSOL 320 100 ML VIAL IVP ONE (10:09)
[2020-06-25] MEDS ORDERED: IOVERSOL 320 50 ML VIAL ONE (10:09)
--- NOTE | 2020-06-25 12:51 | CT Report ---
PROCEDURE: Abdomen/Pelvis WO INDICATIONS: HX ISCHEMIC BOWEL, OBSTRUCTION AT 25CM ON COLONOSCOPY TECHNIQUE: Noncontrast 5 mm thick sections acquired from the diaphragms to the symphysis. 5 mm coronal and sagi ttal reformats were then performed. For radiation dose reduction, the following was used: automated exposure control, adjustment of mA and/or kV according to patient size. COMPARISON: None. FINDINGS: Image quality: Excellent. ABDOMEN: Lung bases: Included portions of the lung bases are clear. Solid organs: The unenhanced liver, spleen, pancreas, adrenal glands, and kidneys demonstrate no acut e abnormality. No significant change when compared with the patient's recent contrast enhanced CT of the abdomen and pelvis (04/22/2020). Peritoneum and bowel: Post surgical changes of partial small bowel resection with right lower quadran t ileostomy. Rectal contrast was administered. This opacifies the knee entirety of the colon to the l evel of the ileostomy. There is an approximately 8 cm length of sigmoid colon which demonstrates wall thickening and submucosal edema, in addition to adjacent fat stranding and inflammatory change. This is best appreciated on coronal series 6 images 27-35 and axial series 3 images 47-58. The wall thick ening and submucosal edema contribute to luminal narrowing. Thin wisp/strain of contrast does kameron e the stenotic segment of sigmoid colon, however. Nodes and vessels: Supra renal abdominal aortic aneurysm measuring approximately 4.2 cm (series 3 roger ge 35 and series 6 image 31). Diffuse aortic atherosclerosis. Unremarkable unenhanced IVC. No thresho ld enlarged retroperitoneal lymph node. Miscellaneous: No ventral hernias. PELVIS: Genitourinary: Bladder wall thickness is normal. Miscellaneous: No threshold enlarged pelvic or inguinal lymph node. No inguinal hernia.. Bones: No suspicious bony lesions. No vertebral body compression fractures. IMPRESSION: Approximately 8 cm length of sigmoid colon which demonstrates wall thickening with submucosal edema a nd adjacent inflammatory change, contributing to significant narrowing of the colon at this level. Th e findings are presumably infectious/inflammatory, although given the history of prior bowel ischemia , an ischemic cause cannot be strictly excluded. Neoplasm is considered unlikely given the lack of a discrete mass, long segment involvement, and adjacent inflammatory change. Reviewed by: Gil Khan MD on 06/25/2020 12:50 PM PST Approved by: Gil Khan MD on 06/25/2020 12:50 PM PST Station ID: [id number]
== END 2020-06-25 07:14 | disposition home or self-care (01) ==
LOC: SDS 07:13
PROVIDERS: ATTEND Surgery
DX: Z08 Encounter for follow-up examination after completed treatment for malignant neoplasm (principal); K56.609 Unspecified intestinal obstruction, unspecified as to partial versus complete obstruction; Z85.038 Personal history of other malignant neoplasm of large intestine; Z93.6 Other artificial openings of urinary tract status
CPT/HCPCS: 45330; 74176; J3010; J7120

== ENCOUNTER 2020-07-13 11:02 | Day surgery (SDC) | payer MEDICARE, BC ==
[2020-07-13] MEDS ORDERED: KETAMINE 500 MG/10 ML VIAL IVP ONE (11:03)
[2020-07-13] MEDS ORDERED: PROPOFOL 200 MG/20 ML VIAL IVP ONE (11:03)
[2020-07-13] MEDS ORDERED: LACTATED RINGERS 1,000 ML IV ONE ×2 (11:52→14:20)
--- NOTE | 2020-07-13 12:17 | ANESTHESIA ---
Pre-Anesthesia VS, & Labs - Diagnosis Iliostomy with stricture - Procedure Colonoscopy with Dilation Vital Signs: Temp Pulse Resp BP Pulse Ox 36.2 C L 94 12 159/81 H 97 07/13/20 11:52 07/13/20 11:52 07/13/20 11:52 07/13/20 11:52 07/13/20 11:52 Height: 6 ft Weight (kg): 83.7 kg Body Mass Index: 25.0 BMI Classification: Overweight - NPO >8 hours Home Medications and Allergies Doxazosin Mesylate 8 mg PO QPM 03/30/20 Allergies/Adverse Reactions: Allergies Allergy/AdvReac Type Severity Reaction Status Date / Time hydrochlorothiazide AdvReac lightheaded Verified 04/16/20 10:22 lisinopril AdvReac lightheaded Verified 04/16/20 10:22 lorazepam AdvReac Anxiety Verified 04/09/20 06:27 Anes History & Medical History - Anesthetic History Anesthesia Complications: reports: No previous complications Family history of Anesthesia Complications: Denies Family history of Malignant Hyperthermia: Denies - Medical History Cardiovascular: reports: Hypertension, Murmur Pulmonary: reports: None Gastrointestinal: reports: Diverticulitis, Other Urinary: reports: None Musculoskeletal: reports: Other Endocrine/Autoimmune: reports: None Skin: reports: None Smoking Status: Former smoker (Quit x6 years) Psychosocial: reports: Substance abuse, Alcohol (4-6 drinks a night at least) - Surgical History General: Bowel surgery, Colonoscopy Exam General: Alert, Oriented x3, Cooperative, No acute distress Dental: WNL Mouth Openin Fingerbreadth Neck Mobility: Reduced Mallampati classification: I Thyromental Distance: 4-6 cm Respiratory: Lungs clear Plan Anesthesia Type: MAC Consent for Procedure(s) Verified and Reviewed: Yes Code Status: Attempt Resuscitation ASA classification: 3-Severe systemic disease Is this case an emergency?: No (Discussed anesthetic, consent signed.)
--- NOTE | 2020-07-13 14:30 | ANESTHESIA POST OP EVALUATION ---
Anesthesia Post Eval - Post Anesthesia Eval Vitals: Last Vital Signs Temp 36.6 C 07/13/20 14:19 Pulse 91 07/13/20 14:19 Resp 12 07/13/20 14:19 BP 130/67 07/13/20 14:19 Pulse Ox 98 07/13/20 14:19 CV Function Including HR & BP: positive: Stable Pain Control: positive: Satisfactory Nausea & Vomiting: positive: Negative Mental Status: positive: Baseline Respiratory Status: Airway Patent Hydration Status: Satisfactory Anesthesia Complications: positive: None (Awake and alert.)
[2020-07-13 14:37] VITALS: BP 135/58
== END 2020-07-13 11:03 | disposition home or self-care (01) ==
LOC: SDS 11:02
PROVIDERS: ATTEND Surgery
PROC: 0DBP8ZZ Excision of Rectum, Via Natural or Artificial Opening Endoscopic (ICD-10-PCS; principal; 2020-07-13 12:45)
DX: K91.30 Postprocedural intestinal obstruction, unspecified as to partial versus complete (principal); Y83.6 Removal of other organ (partial) (total) as the cause of abnormal reaction of the patient, or of later complication, without mention of misadventure at the time of the procedure; K62.1 Rectal polyp; Z93.2 Ileostomy status; K57.32 Diverticulitis of large intestine without perforation or abscess without bleeding; I10 Essential (primary) hypertension; F10.10 Alcohol abuse, uncomplicated; Z20.828 Contact with and (suspected) exposure to other viral communicable diseases; Z79.82 Long term (current) use of aspirin; Z87.19 Personal history of other diseases of the digestive system; Z87.891 Personal history of nicotine dependence
CPT/HCPCS: 44388; 45380; 45386; 88305; J7120; U0004

== ENCOUNTER 2020-07-15 08:42 | Outpatient (CLI) | payer MEDICARE, BC ==
[2020-07-15] MEDS ORDERED: IOVERSOL 320 100 ML VIAL IVP ONE (08:52)
[2020-07-15] MEDS ORDERED: IOVERSOL 320 50 ML VIAL ONE (08:52)
--- NOTE | 2020-07-15 10:45 | CT Report ---
PROCEDURE: Abdomen/Pelvis W INDICATIONS: ILEOSTOMY REVERSAL CONTRAST: IV CONTRAST: Optiray 320 ml: 100 PO CONTRAST: *NO PO CONTRAST TECHNIQUE: After the administration of nonionic contrast, 5 mm thick sections acquired from the diaphragms to th e symphysis. 5 mm thick coronal and sagittal reformats were acquired. For radiation dose reduction, the following was used: automated exposure control, adjustment of mA and/or kV according to patient size. Rectal contrast was administered as discussed below. COMPARISON: Prior CT abdomen/pelvis 06/25/2020 and 04/22/2020. Also, prior CT angiogram of the abdomen/ pelvis 04/14/2020. FINDINGS: Image quality: Excellent. ABDOMEN: Lung bases: Lung bases are clear. Heart size is normal. Solid organs: Liver and spleen are normal in size and enhancement. Gallbladder appears normal Bili sameer system is non dilated. Pancreas enhances normally. No adrenal nodules. Kidneys demonstrate nor mal size and enhancement, without hydronephrosis. Peritoneum and bowel: Small bowel loops demonstrate normal wall thickness and caliber. There appears to have been a prior right colonic and transverse colonic resection, with a portion of the descending colon shifted diagonally within the peritoneal space to a ileocolonic anastomosis. Retrograde rectal contrast extends through that anastomosis and further rightward, cephalad, to intersect the subcutan eous course of what appears to be a [id number] anastomosis of the small bowel at the right upp er abdomen. Rectal contrast extended virtually to the ostomy opening, but is not seen extending direc tly into the ileostomy bag externally. See pelvis section below also. No free fluid or air. Nodes and vessels: No retroperitoneal or mesenteric adenopathy by size criteria. Lower aorta and inf erior vena cava are normal in size. The infrarenal mid aorta is aneurysmal, fusiform in morphology, m easuring up to 4.4 cm transverse and 4.1 cm AP. Miscellaneous: No ventral hernias. PELVIS: Genitourinary: Bladder wall thickness is normal. Miscellaneous: No inguinal hernias or adenopathy. Prior CT scanning has raises concern for inflamma tory or ischemic stricture of the sigmoid colon, versus coincidental detection of a sigmoid colon mas s lesion. The rectal contrast was administered and traversed cephalad 10 cm leftward and then cephala d. The descending colon at this point (2 a normal caliber, seen on CT series 3 image 47, and then ext ends cephalad through the area of the splenic flexure with what appears to be an end-to-and ileocolon ic anastomosis at the left upper quadrant, seen centered on series 3 image 30. Bones: No suspicious bony lesions. No vertebral body compression fractures. IMPRESSION: 1. This study involves intravenous contrast and retrograde rectal contrast with the retrograde extent of the contrast migration through the sigmoid colon cephalad within the left colon and rightward wit hin the splenic flexure of the transverse colon, where what appears to be an ileocolonic anastomosis can be seen. At that point the contrast traverses further rightward to the surface layer of the ileos jose at the left upper quadrant. 2. Along this retrograde course of the contrast note is made of a region of persistent proximal sigmo id colon stricturing with normal caliber of the sigmoid and below and above that site as discussed ab ove, potentially representing stricturing related to ischemic injury but also conceivably a manifesta tion of malignancy. 3. Infrarenal mid abdominal aortic aneurysm again noted, fusiform, measuring up to 4.4 cm without yanet dence of dissection or perianeurysmal fibrosis or aneurysm leak. Reviewed by: Phil Aviles MD on 07/15/2020 10:43 AM PST Approved by: Phil Aviles MD on 07/15/2020 10:43 AM PST Station ID: [id number]
[2020-07-15] MEDS: IOVERSOL 320 50 ML VIAL PO ONE (14:19)
[2020-07-15] MEDS: IOVERSOL 320 100 ML VIAL IVP ONE (14:19)
== END 2020-07-15 08:43 | disposition home or self-care (01) ==
LOC: DI 08:42
PROVIDERS: ATTEND Surgery
DX: K56.699 Other intestinal obstruction unspecified as to partial versus complete obstruction (principal); I71.4 Abdominal aortic aneurysm, without rupture
CPT/HCPCS: 74177; Q9967

== ENCOUNTER 2020-07-17 08:58 | Inpatient (IN) | payer MEDICARE, BC ==
[~2020-07-17 08:58] MED LIST: ACETAMINOPHEN 1,000 MG/100 ML 100 ML IV ONE; CELECOXIB 100 MG CAPSULE PO ONE; CIPROFLOXACIN 400 MG/200 ML 400 MG/200 ML BAG IV ONE; GABAPENTIN 400 MG CAPSULE ONE; metroNIDAZOLE 500 MG/100 ML 500 MG/100 ML BAG ONE
[2020-07-17] MEDS ORDERED: LACTATED RINGERS 1,000 ML IV ONE ×2 (09:00→14:04)
--- NOTE | 2020-07-17 10:35 | PHARMACY PROGRESS NOTE ---
- Best Possible Medication History Admit Date and Time: 07/17/20 0858 Processed by: Nursing Medication History completed: Yes Patient Interview: Completed As the person ultimately responsible for medication therapy, providers are able to order a medication from an existing home medication list in [facility] via the "Reconcile Routine" prior to Confirmation of that medication by product support sales representative. Such practice is discouraged except when the physician, in their clinical judg ment, deems that a medical need exists for a medication without regard to previous use.
--- NOTE | 2020-07-17 11:02 | ANESTHESIA ---
Pre-Anesthesia VS, & Labs - Diagnosis presence of ileostomy - Procedure ileostomy takedown Vital Signs: Temp Pulse Resp BP Pulse Ox 36.5 C 94 16 138/67 H 97 07/17/20 09:05 07/17/20 09:05 07/17/20 09:05 07/17/20 09:05 07/17/20 09:05 Height: 6 ft Weight (kg): 83.9 kg Body Mass Index: 25.0 BMI Classification: Overweight - NPO >8 hours - Lab Results Current Lab Results: Laboratory Tests 07/17/20 09:33: POC Whole Bld Glucose 101 H 06/16 10.6/32 hgb/hct: Cr-1.4 Lab results reviewed: Yes Home Medications and Allergies Doxazosin Mesylate 8 mg PO QPM 03/30/20 TPN at home Allergies/Adverse Reactions: Allergies Allergy/AdvReac Type Severity Reaction Status Date / Time hydrochlorothiazide AdvReac lightheaded Verified 07/17/20 09:49 lisinopril AdvReac lightheaded Verified 07/17/20 09:49 lorazepam AdvReac Anxiety Verified 07/17/20 09:49 Anes History & Medical History - Anesthetic History Anesthesia Complications: reports: No previous complications - Medical History Cardiovascular: reports: Hypertension, Murmur Pulmonary: reports: None Gastrointestinal: reports: Diverticulitis, Other Urinary: reports: Benign prostate hypertrophy, Other (Chronic kidney disease) Neuro: reports: None Musculoskeletal: reports: Other Endocrine/Autoimmune: reports: None Blood Disorders: reports: None Skin: reports: None Smoking Status: Former smoker (Quit x6 years) Psychosocial: reports: Alcohol (4-6 drinks per day) - Surgical History General: Bowel surgery, Colonoscopy Exam General: Alert, Oriented x3, Cooperative, No acute distress Dental: Poor dentition Mouth Openin Fingerbreadth Neck Mobility: Normal Mallampati classification: II Thyromental Distance: 4-6 cm Mental/Cognitive Status: Alert/Oriented X3, Normal for patient Plan Anesthesia Type: General Consent for Procedure(s) Verified and Reviewed: Yes Code Status: Attempt Resuscitation ASA classification: 3-Severe systemic disease Is this case an emergency?: No
[2020-07-17] MEDS ORDERED: BUPIVACAINE 0.5% PF 30 ML VIAL ONE (11:26)
[2020-07-17] MEDS ORDERED: BUPIVACAINE 0.5% PF 30 ML VIAL SUBQ ONE ×2 (11:46→13:41)
[2020-07-17] MEDS ORDERED: MORPHINE 2 MG/ML CARPUJECT IVP PRN (12:42)
[2020-07-17] MEDS ORDERED: ATROPINE ABBOJECT 1 MG/10 ML SYRINGE IVP PRN (12:42)
[2020-07-17] MEDS ORDERED: HYDROmorphone 0.5 MG/0.5 ML SYRINGE IVP PRN (12:42)
[2020-07-17] MEDS ORDERED: fentaNYL 100 MCG/2 ML VIAL IVP PRN (12:42)
[2020-07-17] MEDS ORDERED: ONDANSETRON 4 MG/2 ML VIAL IVP PRN ×3 (12:42→13:55)
[2020-07-17] MEDS ORDERED: NALOXONE 0.4 MG/ML VIAL IVP PRN (12:42)
[2020-07-17] MEDS ORDERED: LACTATED RINGERS 1,000 ML IV SCH (13:00)
[2020-07-17] MEDS ORDERED: polyethylene glycoL 3350 17 GM PACKET PO PRN (13:55)
[2020-07-17] MEDS ORDERED: oxyCODONE 5 MG TABLET PO PRN (13:55)
[2020-07-17] MEDS ORDERED: METOCLOPRAMIDE 10 MG/2 ML VIAL IVP PRN (13:55)
[2020-07-17] MEDS ORDERED: ACETAMINOPHEN 1,000 MG/100 ML 100 ML IV ONE (13:55)
[2020-07-17] MEDS ORDERED: MAGNESIUM SULFATE 2 GRAM 2 GM/50 ML BAG IV ONE (14:05)
[2020-07-17] MEDS ORDERED: diazePAM INJ 5 MG/ML SYRINGE IVP PRN (14:08)
--- NOTE | 2020-07-17 14:27 | OPERATIVE REPORT ---
Operative Report - General Admit Date: 07/17/20 Procedure Date: 07/17/20 Planned Procedure: 1. Loop ileostomy takedown 2. Small bowel resection 3. Parastomal hernia repair 4. Adhesiolysis Pre-Op Diagnosis: DLI, hx of multiple abdominal surgeries, hx of intestinal ischemia Procedure Performed: 1. Loop ileostomy takedown 2. Small bowel resection 3. Parastomal hernia repair 4. Adhesiolysis Post Op Diagnosis: Same, viable enteroenterostomy - Procedure Note Primary Surgeon: Oscar Secondary Surgeon: Sarai Anesthesia Provider: Walter Anesthesia Technique: General ET tube, Local Pathology: Loop ileostomy Estimated Blood Loss (mL): 50 Drain/Tube Type: Elton drain Indications: History of diverting loop ileostomy. Findings: 1. Adhesions, diffuse 2. Necessary adhesiolysis performed with no complications either by serosal or other bowel injury 3. Ileostomy taken down with functional end-to-end [id number] antiperistaltic enteroenterostomy constructed with stapler and common enterotomy is closed handsewn with running canal and Lembert's 4. Parastomal hernia repaired Complications: None - Other Other Information/Narrative: Final report pending
--- NOTE | 2020-07-17 14:48 | ANESTHESIA POST OP EVALUATION ---
Anesthesia Post Eval - Post Anesthesia Eval Vitals: Last Vital Signs Temp 36.4 C L 07/17/20 14:33 Pulse 77 07/17/20 14:33 Resp 11 L 07/17/20 14:33 BP 130/74 07/17/20 14:33 Pulse Ox 96 07/17/20 14:33 CV Function Including HR & BP: positive: Stable Pain Control: positive: Satisfactory Nausea & Vomiting: positive: Negative Mental Status: positive: Baseline Respiratory Status: Airway Patent Hydration Status: Satisfactory Anesthesia Complications: positive: None
[2020-07-17] MEDS: D5NS W/20 MEQ KCL 1,000 ML IV SCH (15:14)
[2020-07-17 15:20] LABS: BASOPHILS % (AUTO) 0.3 %; EOSINOPHILS # (AUTO) 0.1 10^3/uL (0.0-0.7); EOSINOPHILS % (AUTO) 1.6 %; HGB - HEMOGLOBIN 10.3 g/dL (14.0-18.0); LYMPHOCYTES # (AUTO) 0.5 10^3/uL (1.5-3.5); LYMPHOCYTES % (AUTO) 8.4 %; MEAN CORPUSCULAR HEMOGLOBIN 30.7 pg (27.0-31.0); MEAN CORPUSCULAR HGB CONC 32.2 g/dL (32.0-36.0); MEAN CORPUSCULAR VOLUME 95.2 fL (80.0-94.0); MONOCYTES # (AUTO) 0.3 10^3/uL (0.0-1.0); MONOCYTES % (AUTO) 4.4 %; NEUTROPHILS # (AUTO) 5.4 10^3/uL (1.5-6.6); NEUTROPHILS % (AUTO) 84.8 %; PLT - PLATELET COUNT 180 10^3/uL (130-450); RED BLOOD COUNT 3.36 10^6/uL (4.70-6.10); RED CELL DISTRIBUTION WIDTH 13.9 % (12.0-15.0); WHITE BLOOD COUNT 6.3 x10^3/uL (4.8-10.8)
[2020-07-17 15:26] LABS: INR 1.1 (0.8-1.2); PT - PROTHROMBIN TIME 12.5 secs (9.9-12.6)
[2020-07-17 15:41] LABS: ALBUMIN 3.2 g/dL (3.2-5.5); ALBUMIN/GLOBULIN RATIO 0.9 (1.0-2.2); BILIRUBIN,TOTAL 0.6 mg/dL (0.2-1.0); CALCIUM 8.4 mg/dL (8.5-10.3); CREATININE 1.5 mg/dL (0.6-1.2); TOTAL PROTEIN 6.7 g/dL (6.7-8.2)
[2020-07-17] MEDS: METOCLOPRAMIDE 10 MG/2 ML VIAL IVP SCH ×2 (18:01→23:30)
[2020-07-17] MEDS: methocarbamoL 500 MG TABLET PO SCH ×2 (18:01→23:33)
[2020-07-17] MEDS: KETOROLAC 30 MG/ML VIAL IVP SCH ×2 (18:02→23:28)
[2020-07-17] MEDS: metroNIDAZOLE 500 MG/100 ML 500 MG/100 ML BAG IV SCH (19:50)
[2020-07-17] MEDS: DOCUSATE SODIUM 100 MG CAPSULE PO SCH (20:14)
[2020-07-17] MEDS: polyethylene glycoL 3350 17 GM PACKET PO SCH (20:14)
[2020-07-17] MEDS: CIPROFLOXACIN 400 MG/200 ML 400 MG/200 ML BAG IV SCH (23:28)
[2020-07-18] MEDS: D5NS W/20 MEQ KCL 1,000 ML IV SCH ×4 (00:57→22:13)
[2020-07-18] MEDS: methocarbamoL 500 MG TABLET PO SCH ×4 (00:57→17:03)
[2020-07-18] MEDS: metroNIDAZOLE 500 MG/100 ML 500 MG/100 ML BAG IV SCH ×2 (03:56→12:41)
[2020-07-18] MEDS: PANTOPRAZOLE 40 MG TABLET PO SCH (06:22)
[2020-07-18] MEDS: METOCLOPRAMIDE 10 MG/2 ML VIAL IVP SCH ×3 (06:23→17:03)
[2020-07-18] MEDS: KETOROLAC 30 MG/ML VIAL IVP SCH ×3 (06:23→17:03)
[2020-07-18] MEDS: PRENATAL VITAMIN TABLET PO SCH (08:23)
[2020-07-18] MEDS: ENOXAPARIN 40 MG/0.4 ML SYRINGE SUBQ SCH (08:24)
[2020-07-18] MEDS: THIAMINE 100 MG TABLET PO SCH (08:24)
[2020-07-18] MEDS: DOCUSATE SODIUM 100 MG CAPSULE PO SCH ×2 (08:24→20:16)
[2020-07-18] MEDS: polyethylene glycoL 3350 17 GM PACKET PO SCH ×2 (08:25→20:16)
[2020-07-18] MEDS: CIPROFLOXACIN 400 MG/200 ML 400 MG/200 ML BAG IV SCH (11:33)
[2020-07-18] MEDS: MULTIVITAMIN 10 ML, THIAMINE INJ 100 MG, FOLIC ACID INJ 1 MG in SODIUM CHLORIDE 0.9% 1,... IV SCH (12:34)
[2020-07-18] MEDS: HYDROmorphone 0.5 MG/0.5 ML SYRINGE IVP PRN (17:55)
--- NOTE | 2020-07-18 19:10 | PROVIDER PROGRESS NOTE ---
Progress Note Subjective Postoperative day #1 status post below listed procedures. Patient without nausea without vomiting. Patient voiding spontaneously. Patient out of bed. Patient with single bowel movement this a.m. Distended. Procedure Performed: 1. Ileostomy takedown 2. Small bowel resection 3. Adhesiolysis 4. Hernia pair for parastomal hernia at site of historic loop ileostomy Objective Hypertension. No tachycardia. General Appearance: positive: No acute distress Eyes Bilateral: positive: Normal inspection ENT: positive: ENT inspection nml Neck: positive: Nml inspection Respiratory: positive: Chest non-tender, No respiratory distress, Breath sounds nml. negative: Wheezes, Rales, Rhonchi Cardiovascular: positive: Regular rate & rhythm Abdomen: positive: No distention, Other. negative: Guarding, Rebound Extremities: positive: Non-tender, Full ROM, Nml appearance Neurologic/Psychiatric: positive: Oriented x3, CN's nml (2-12) Historic ileostomy site dressed with serosanguineous drainage. No palpable hernia. Dressing intact. Impression/Plan Postoperative day #1 status post above listed procedure. Distended thus will avoid advancing diet. No episodes of delirium tremens; both patient and have confirmed patient has not been consuming alcohol recently. We will likely transfer out of the ICU tomorrow morning. Awaiting full resumption of bowel function. (1) GI - DC IVF, bowel regimen, anticipate ileus, slowly advance diet as tolerated and will maintain on clears at this time. GI ppx. Opiate sparring analgesia. (2) SURGERY - Daily wound packing to historic ileostomy site with iodoform . (3) Renal/Lytes - continue IVF. Renal indices at baseline. Will discontinue Toradol given historic chronic renal failure. (4) Respiratory - O2 as necessary. Continue IS. (5) Heme - Will continue with DVT ppx. H/H stable. (6) Cardiovascular - hemodynamically acceptable will resume patient's Cardura.. (7) Neuro - Opiate sparring analgesia. Antispasmodics with Robaxin. Discontinued Toradol secondary to the patient's history of chronic renal insufficiency. Neuropathic agents. No evidence of delirium tremens during ICU evaluation. (8) Immune/Infectious Disease - 24 hours of antibiotics discontinued. (9) DISPO - will likely transfer out of the ICU in the a.m. Awaiting full resumption of bowel function thus unable to determine anticipated discharge at this time.
[2020-07-19] MEDS: methocarbamoL 500 MG TABLET PO SCH ×4 (00:43→17:31)
[2020-07-19] MEDS: PREGABALIN 100 MG CAPSULE PO SCH ×3 (00:44→21:14)
[2020-07-19] MEDS: ACETAMINOPHEN 325 MG TABLET PO SCH ×6 (00:44→21:14)
[2020-07-19] MEDS: METOCLOPRAMIDE 10 MG/2 ML VIAL IVP SCH ×4 (00:44→17:31)
[2020-07-19] MEDS: HYDROmorphone 0.5 MG/0.5 ML SYRINGE IVP PRN (04:19)
[2020-07-19] MEDS: PANTOPRAZOLE 40 MG TABLET PO SCH (06:15)
[2020-07-19] MEDS ORDERED: MIDAZOLAM 2 MG/2 ML VIAL IVP ONE (08:04)
[2020-07-19] MEDS ORDERED: DEXAMETHASONE 4 MG/ML VIAL IVP ONE (08:04)
[2020-07-19] MEDS ORDERED: KETAMINE 500 MG/10 ML VIAL IVP ONE (08:04)
[2020-07-19] MEDS ORDERED: ROCURONIUM 50 MG/5 ML VIAL IVP ONE (08:04)
[2020-07-19] MEDS ORDERED: LIDOCAINE-MPF 2% 5 ML VIAL IM ONE (08:04)
[2020-07-19] MEDS ORDERED: ONDANSETRON 4 MG/2 ML VIAL IVP ONE (08:04)
[2020-07-19] MEDS ORDERED: KETOROLAC 30 MG/ML VIAL IVP ONE (08:04)
[2020-07-19] MEDS ORDERED: ePHEDrine 50 MG/ML VIAL IVP ONE (08:04)
[2020-07-19] MEDS ORDERED: SUCCINYLCHOLINE 200 MG/10 ML VIAL IVP ONE (08:04)
[2020-07-19] MEDS ORDERED: fentaNYL 100 MCG/2 ML VIAL IVP ONE (08:04)
[2020-07-19] MEDS ORDERED: PROPOFOL 200 MG/20 ML VIAL IVP ONE (08:04)
[2020-07-19] MEDS ORDERED: ACETAMINOPHEN 1,000 MG/100 ML 100 ML IV ONE (08:04)
[2020-07-19] MEDS: ENOXAPARIN 40 MG/0.4 ML SYRINGE SUBQ SCH (08:57)
[2020-07-19] MEDS: DOCUSATE SODIUM 100 MG CAPSULE PO SCH ×2 (08:58→21:14)
[2020-07-19] MEDS: THIAMINE 100 MG TABLET PO SCH (08:59)
[2020-07-19] MEDS: PRENATAL VITAMIN TABLET PO SCH (08:59)
[2020-07-19] MEDS: polyethylene glycoL 3350 17 GM PACKET PO SCH ×2 (09:00→21:14)
[2020-07-19 13:13] LABS: BASOPHILS % (AUTO) 0.5 %; EOSINOPHILS # (AUTO) 0.2 10^3/uL (0.0-0.7); EOSINOPHILS % (AUTO) 3.5 %; HGB - HEMOGLOBIN 11.2 g/dL (14.0-18.0); LYMPHOCYTES % (AUTO) 15.2 %; MEAN CORPUSCULAR HEMOGLOBIN 31.1 pg (27.0-31.0); MEAN CORPUSCULAR HGB CONC 32.1 g/dL (32.0-36.0); MEAN CORPUSCULAR VOLUME 96.9 fL (80.0-94.0); MEAN PLATELET VOLUME 9.4 fL (7.4-11.4); MONOCYTES # (AUTO) 0.7 10^3/uL (0.0-1.0); MONOCYTES % (AUTO) 10.5 %; NEUTROPHILS # (AUTO) 4.6 10^3/uL (1.5-6.6); NEUTROPHILS % (AUTO) 69.4 %; PLT - PLATELET COUNT 245 10^3/uL (130-450); RED CELL DISTRIBUTION WIDTH 13.7 % (12.0-15.0); WHITE BLOOD COUNT 6.7 x10^3/uL (4.8-10.8)
[2020-07-19] MEDS: MULTIVITAMIN 10 ML, THIAMINE INJ 100 MG, FOLIC ACID INJ 1 MG in SODIUM CHLORIDE 0.9% 1,... IV SCH (13:24)
--- NOTE | 2020-07-19 18:50 | PROVIDER PROGRESS NOTE ---
Progress Note Subjective Postoperative day #2 status post below listed procedures. Patient With nausea and episodic emesis with resolution of symptoms. Feeling increasing distention. CHIP in place. Patient voiding spontaneously. Patient out of bed. Patient Continues with bowel movements. Procedure Performed: 1. Ileostomy takedown 2. Small bowel resection 3. Adhesiolysis 4. Hernia pair for parastomal hernia at site of historic loop ileostomy Objective Hypertension. No tachycardia. General Appearance: positive: No acute distress Eyes Bilateral: positive: Normal inspection ENT: positive: ENT inspection nml Neck: positive: Nml inspection Respiratory: positive: Chest non-tender, No respiratory distress, Breath sounds nml. negative: Wheezes, Rales, Rhonchi Cardiovascular: positive: Regular rate & rhythm Abdomen: positive: INCREASED distention, Other. negative: Guarding, Rebound Extremities: positive: Non-tender, Full ROM, Nml appearance Neurologic/Psychiatric: positive: Oriented x3, CN's nml (2-12) Historic ileostomy site dressed with serosanguineous drainage. No palpable hernia. Dressing intact. Impression/Plan Postoperative day #2 status post above listed procedure. Distended thus will avoid advancing diet. No episodes of delirium tremens; both patient and have confirmed patient has not been consuming alcohol recently. Transfer out of the ICU tomorrow morning. Awaiting full resumption of bowel function. (1) GI - DC IVF, bowel regimen, anticipate ileus, slowly advance diet as tolerated and will maintain on clears at this time. GI ppx. Opiate sparring analgesia. (2) SURGERY - Daily wound packing to historic ileostomy site with iodoform . (3) Renal/Lytes - Discontinue IV fluids. Renal indices at baseline. No Toradol given chronic renal insufficiency. (4) Respiratory - O2 as necessary. Continue IS. (5) Heme - Will continue with DVT ppx. H/H stable. (6) Cardiovascular - hemodynamically acceptable will resume patient's Cardura.. (7) Neuro - Opiate sparring analgesia. Antispasmodics with Robaxin. Discontinued Toradol secondary to the patient's history of chronic renal insufficiency. Neuropathic agents. No evidence of delirium tremens during ICU evaluation. (8) Immune/Infectious Disease - 24 hours of antibiotics discontinued. (9) DISPO - transfer out of the ICU in the a.m. Awaiting full resumption of bowel function thus unable to determine anticipated discharge at this time.
[2020-07-19] MEDS: DOXAZOSIN 4 MG TABLET PO SCH (21:18)
[2020-07-20] MEDS: methocarbamoL 500 MG TABLET PO SCH ×5 (00:08→23:51)
[2020-07-20] MEDS: ACETAMINOPHEN 325 MG TABLET PO SCH ×6 (00:18→21:07)
[2020-07-20] MEDS: METOCLOPRAMIDE 10 MG/2 ML VIAL IVP SCH ×5 (00:18→23:59)
[2020-07-20 05:11] LABS: ALBUMIN 3.3 g/dL (3.2-5.5); ALBUMIN/GLOBULIN RATIO 0.9 (1.0-2.2); BILIRUBIN,TOTAL 0.9 mg/dL (0.2-1.0); CALCIUM 9.1 mg/dL (8.5-10.3); CREATININE 1.4 mg/dL (0.6-1.2); TOTAL PROTEIN 6.8 g/dL (6.7-8.2)
[2020-07-20] MEDS: PANTOPRAZOLE 40 MG TABLET PO SCH (06:53)
[2020-07-20] MEDS: THIAMINE 100 MG TABLET PO SCH (08:26)
[2020-07-20] MEDS: PRENATAL VITAMIN TABLET PO SCH (08:26)
[2020-07-20] MEDS: PREGABALIN 100 MG CAPSULE PO SCH ×2 (08:26→21:08)
[2020-07-20] MEDS: DOCUSATE SODIUM 100 MG CAPSULE PO SCH ×2 (08:26→21:07)
[2020-07-20] MEDS: polyethylene glycoL 3350 17 GM PACKET PO SCH ×2 (08:26→21:07)
[2020-07-20] MEDS: ENOXAPARIN 40 MG/0.4 ML SYRINGE SUBQ SCH (08:51)
[2020-07-20] MEDS ORDERED: NON FORMULARY MED PO SCH (09:00)
[2020-07-20] MEDS ORDERED: LUBIPROSTONE 24 MCG CAPSULE PO ONE (09:00)
[2020-07-20] MEDS: DOXAZOSIN 4 MG TABLET PO SCH (21:12)
[2020-07-21] MEDS ORDERED: SODIUM CHLORIDE FLUSH 0.9% 10 ML SYRINGE IVP PRN ×2 (01:21)
[2020-07-21] MEDS: ACETAMINOPHEN 325 MG TABLET PO SCH ×6 (01:23→20:53)
[2020-07-21] MEDS: PANTOPRAZOLE 40 MG TABLET PO SCH (06:51)
[2020-07-21] MEDS: methocarbamoL 500 MG TABLET PO SCH ×3 (06:51→17:00)
[2020-07-21] MEDS: METOCLOPRAMIDE 10 MG/2 ML VIAL IVP SCH ×3 (06:51→17:00)
[2020-07-21] MEDS: DOCUSATE SODIUM 100 MG CAPSULE PO SCH ×2 (08:23→20:54)
[2020-07-21] MEDS: THIAMINE 100 MG TABLET PO SCH (08:24)
[2020-07-21] MEDS: PRENATAL VITAMIN TABLET PO SCH (08:25)
[2020-07-21] MEDS: PREGABALIN 100 MG CAPSULE PO SCH ×2 (08:25→20:54)
[2020-07-21] MEDS: ENOXAPARIN 40 MG/0.4 ML SYRINGE SUBQ SCH (08:26)
[2020-07-21] MEDS: polyethylene glycoL 3350 17 GM PACKET PO SCH ×2 (08:26→20:54)
[2020-07-21] MEDS: SACCHAROMYCES BOULARDII 250 MG CAPSULE PO SCH (16:35)
--- NOTE | 2020-07-21 17:31 | PROVIDER PROGRESS NOTE ---
Progress Note Subjective Postoperative day #3 status post below listed procedures. Feeling much much better today. Reports copious liquid stool and no longer has the feeling of "backing up". Very hungry and very much wants to try food. Denies feeling distended. Procedure Performed: 1. Ileostomy takedown 2. Small bowel resection 3. Adhesiolysis 4. Hernia pair for parastomal hernia at site of historic loop ileostomy Objective Hypertension. No tachycardia. General Appearance: positive: No acute distress Eyes Bilateral: positive: Normal inspection ENT: positive: ENT inspection nml Neck: positive: Nml inspection Respiratory: positive: Chest non-tender, No respiratory distress, Breath sounds nml. negative: Wheezes, Rales, Rhonchi Cardiovascular: positive: Regular rate & rhythm Abdomen: positive: INCREASED distention, Other. negative: Guarding, Rebound Extremities: positive: Non-tender, Full ROM, Nml appearance Neurologic/Psychiatric: positive: Oriented x3, CN's nml (2-12) Historic ileostomy site dressed with serosanguineous drainage. No palpable hernia. Dressing intact. Impression/Plan Postoperative day #2 status post above listed procedure. Distended thus will avoid advancing diet. No episodes of delirium tremens; both patient and have confirmed patient has not been consuming alcohol recently. Transfer out of the ICU tomorrow morning. Awaiting full resumption of bowel function. (1) GI - DC IVF, symkptoms are much improved - will advance diet and add a probiotic (2) SURGERY - Daily wound packing to historic ileostomy site with iodoform . Healing well (3) Renal/Lytes - Discontinue IV fluids. Renal indices at baseline. No Toradol given chronic renal insufficiency. (4) Respiratory - O2 as necessary. Continue IS. (5) Heme - Will continue with DVT ppx. H/H stable. (6) Cardiovascular - hemodynamically acceptable will resume patient's Cardura.. (7) Neuro - Opiate sparring analgesia. Antispasmodics with Robaxin. Discontinued Toradol secondary to the patient's history of chronic renal insufficiency. Neuropathic agents. No evidence of delirium tremens during ICU evaluation. Pain is well controlled (8) Immune/Infectious Disease - 24 hours of antibiotics discontinued.
[2020-07-21] MEDS: DOXAZOSIN 4 MG TABLET PO SCH (20:47)
[2020-07-22] MEDS: METOCLOPRAMIDE 10 MG/2 ML VIAL IVP SCH ×3 (01:18→14:21)
[2020-07-22] MEDS: ACETAMINOPHEN 325 MG TABLET PO SCH ×4 (01:18→14:19)
[2020-07-22] MEDS: methocarbamoL 500 MG TABLET PO SCH ×3 (01:18→14:20)
[2020-07-22] MEDS: PANTOPRAZOLE 40 MG TABLET PO SCH (06:12)
[2020-07-22] MEDS: DOCUSATE SODIUM 100 MG CAPSULE PO SCH (10:50)
[2020-07-22] MEDS: PREGABALIN 100 MG CAPSULE PO SCH (10:50)
[2020-07-22] MEDS: polyethylene glycoL 3350 17 GM PACKET PO SCH (10:50)
[2020-07-22] MEDS: ENOXAPARIN 40 MG/0.4 ML SYRINGE SUBQ SCH (10:52)
[2020-07-22] MEDS: THIAMINE 100 MG TABLET PO SCH (10:52)
[2020-07-22] MEDS: SACCHAROMYCES BOULARDII 250 MG CAPSULE PO SCH (10:52)
[2020-07-22] MEDS: PRENATAL VITAMIN TABLET PO SCH (10:52)
--- NOTE | 2020-07-22 12:47 | Discharge Plan ---
Discharge Plan Problem Reviewed?: Yes Disposition: Home, Self Care Condition: Stable Prescriptions: Saccharomyces Boulardii [Florastor] 250 mg PO BIDWM #60 capsule Diet: Regular Activity Restrictions: 10 pound lifting restrict Shower Restrictions: No Driving Restrictions: Yes (2 weeks) Weight Bearing: Full Weight No Smoking: If you smoke, Please STOP! Call for help. Follow-up with: Genaro Carreon MD [Provider Admit Priv/Credential] -
--- NOTE | 2020-07-22 12:48 | DISCHARGE SUMMARY ---
"Discharge Summary Admit Date: 08/16/20 Discharge Date: 07/22/20 Discharging Provider: Lauri Code Status: Attempt Resuscitation Condition at Discharge: Stable Discharge Disposition: 01 Home, Self Care - DIAGNOSES Admission Diagnoses: Ileostomy status Discharge Diagnoses with Status of Each Condition: Ileostomy status - continuity of the GI tract re-established - HPI History of Present Illness: 65 year old gentleman with a history of intra-abdominal catastrophe necessitating ileostomy. Admitted for uneventful reversal procedure following colonoscopy revealing a patent anastamosis - CONSULTS | PROCEDURES Consultations: None Procedures: Ileostomy reversal - HOSPITAL COURSE Hospital Course: Surgery took place on the date of admission and was uneventful. The patient was returned to the med surg unit for convalescence and supportive care. Nausea was initially an issue but resolved after a couple of days. Mr. Zacarias denies any nausea or pain and is tolerating a general diet and having regular bowel movements. He has a right lower quadrant wound at the historic ostomy site and has been taught to pack it at home. He states his is comfortable with this and has plenty of supplies. He is discharged to his home in the care of his family. He will follow up with me in 1 week at my office. - ALLERGIES Allergies/Adverse Reactions: Allergies Allergy/AdvReac Type Severity Reaction Status Date / Time hydrochlorothiazide AdvReac lightheaded Verified 07/17/20 09:49 lisinopril AdvReac lightheaded Verified 07/17/20 09:49 lorazepam AdvReac Anxiety Verified 07/17/20 09:49 - MEDICATIONS Home Medications: Ambulatory Orders Medication Instructions Recorded Confirmed Doxazosin Mesylate 8 mg PO QPM 03/30/20 07/17/20 Docusate Sodium 100Mg Capsule 100 mg PO BID capsule 07/22/20 [Colace 100Mg Capsule] Saccharomyces Boulardii [Florastor] 250 mg PO BIDWM #60 capsule 07/22/20 - PHYSICAL EXAM AT DISCHARGE General Appearance: positive: No acute distress, Alert Eyes Bilateral: positive: Normal inspection, PERRL, EOMI ENT: positive: ENT inspection nml, No signs of dehydration Neck: positive: Nml inspection, Trachea midline Respiratory: positive: Chest non-tender, No respiratory distress, Breath sounds nml Cardiovascular: positive: Regular rate & rhythm, No murmur, No gallop Peripheral Pulses: positive: 0 Abdomen: positive: Nml bowel sounds, No distention, Other (Wounds clean and dry and dressed. Drain removed) Extremities: positive: Non-tender Neurologic/Psychiatric: positive: Oriented x3 - LABS Result Diagrams: 07/19/20 13:08 07/20/20 04:50 - QUALITY (Female Hip Fx Only) Was patient sent home on osteoporosis medication?: No - FOLLOW UP Follow Up: Dr. Carreon in 2 weeks - TIME SPENT Time Spent in Discharge (Minutes): 20"
[2020-07-22] MEDS ORDERED: METOCLOPRAMIDE 10 MG/2 ML VIAL IVP SCH (13:00)
[2020-07-22 16:04] VITALS: BP 155/83
== END 2020-07-22 16:00 | disposition home or self-care (01) | DRG 331 ==
LOC: MS2 08:58 → ICU 14:05 → MS2 07-20 16:17
PROVIDERS: ADMIT Surgery; ATTEND Surgery
PROC: 0WQF0ZZ Repair Abdominal Wall, Open Approach (ICD-10-PCS; 2020-07-17)
PROC: 0DSB0ZZ Reposition Ileum, Open Approach (ICD-10-PCS; principal; 2020-07-17 10:00)
DX: Z43.2 Encounter for attention to ileostomy (principal); Z87.19 Personal history of other diseases of the digestive system; I10 Essential (primary) hypertension; K91.0 Vomiting following gastrointestinal surgery; Z87.891 Personal history of nicotine dependence; Z20.828 Contact with and (suspected) exposure to other viral communicable diseases
CPT/HCPCS: 36415; 80053; 85025; 85610; 87150; A9270; J0131; J0330; J1170; J1650; J2765; J3411; J7120

== ENCOUNTER 2020-08-03 08:24 | Inpatient (IN) | payer MEDICARE, BC ==
[2020-08-03] MEDS ORDERED: SODIUM CHLORIDE FLUSH 0.9% 10 ML SYRINGE IVP PRN (08:25)
[2020-08-03] MEDS ORDERED: ONDANSETRON 4 MG/2 ML VIAL IVP PRN (08:25)
[2020-08-03] MEDS: SODIUM CHLORIDE FLUSH 0.9% 10 ML SYRINGE IVP SCH ×2 (09:29→22:07)
[2020-08-03] MEDS: DEXTROSE 5%-0.45% NACL 1,000 ML IV SCH ×2 (09:29→20:16)
[2020-08-03] MEDS ORDERED: IOVERSOL 320 100 ML VIAL IVP ONE ×2 (09:30→15:15)
[2020-08-03] MEDS ORDERED: IOVERSOL 320 50 ML VIAL ONE (11:57)
--- NOTE | 2020-08-03 12:56 | PHARMACY PROGRESS NOTE ---
- Best Possible Medication History Admit Date and Time: 08/03/20 0844 Processed by: Pharmacy Medication History completed: Yes Patient Interview: Completed Secondary Source(s): Pharmacy records (PATIENT INTERVIEWED BY ASSEMBLER CARDS AND ANNOUNCEMENTS. PATIENT ABLE TO CONFIRM HOME MEDICATIONS ), Insurance records As the person ultimately responsible for medication therapy, providers are able to order a medication from an existing home medication list in [facility] via the "Reconcile Routine" prior to Confirmation of that medication by support service tech. Such practice is discouraged except when the physician, in their clinical judgment, deems that a medical need exists for a medication without regard to previous use.
--- NOTE | 2020-08-03 13:29 | ANESTHESIA PROCEDURE NOTE ---
Anesth Central Line Template - Central Line Central Line Preparation: Consent Obtained, Time out completed, Ultrasound used, Sterile prep and drape Central line location: Right Basilic Central line type: PICC Double Lumen Central line catheter tip site resides: Superior vena cava (SVC) Central line aftercare: Secured, Placement confirmed, No complications, Bundle checklist complete, Pt tolerated well
--- NOTE | 2020-08-03 13:34 | XRAY Report ---
PROCEDURE: Chest for Line Placement INDICATIONS: Check PICC line placement TECHNIQUE: One view of the chest was acquired. COMPARISON: 04/10/2020 FINDINGS: Surgical changes and devices: Right upper extremity PICC terminates at the cavoatrial junction. Lungs and pleura: No pleural effusions or pneumothorax. Lungs are clear. Mediastinum: Mediastinal contours appear normal. Heart size is normal. Bones and chest wall: No suspicious bony lesions. Overlying soft tissues appear unremarkable. IMPRESSION: Adequate position of right upper extremity PICC Reviewed by: Gil Khan MD on 08/03/2020 12:32 PM [place] Approved by: Gil Khan MD on 08/03/2020 12:32 PM [place] Station ID: [id number]
--- NOTE | 2020-08-03 14:52 | SURGERY HX AND PHYSICAL(T) ---
Surgical History & Physical - Chief Complaint/HPI Chief Complaint: Wound problem History of Present Illness: Mars is a pleasant 65-year-old gentleman who is well-known to our service. He was initially admitted some months ago for a perforated colon. He subsequently Underwent ostomy reversal which reverse resulted in a prolonged hospital stay due to ileal , repeat operation, sepsis, and diverting ostomy. 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 Approximately 2 weeks ago he was readmitted To address the protective diversion from his Third operation and to reestablish continuity of the GI tract. This was done and he initially did well. Unfortunately, he reports that he is began to drain stool from one of his historic ostomy sites in the right lower quadrant. He is not been febrile at home.He has been able to control the drainage with ostomy pouch. - PMH/PSH/Social Hx Does the pt have a hx of MRSA?: No Neurological History: None Eyes, Ears, Nose, Throat: Chronic vision loss Cardiovascular: Hypertension, Murmur Respiratory: None Skin: None Endocrine/Autoimmune: None Gastrointestinal: Diverticulitis, Other Urinary: Benign prostate hypertrophy, Other Musculoskeletal: Other Blood Disorders: None Psychiatric: None General: Bowel surgery, Colonoscopy Smoking Status: Former smoker Frequency: Daily Number: 2 Amount/day: Drinks/day Does the pt have substance abuse?: No - Home Meds and Allergies Home Medications: Doxazosin Mesylate 8 mg PO QPM 03/30/20 Allergies/Adverse Reactions: Allergies Allergy/AdvReac Type Severity Reaction Status Date / Time hydrochlorothiazide AdvReac lightheaded Verified 07/17/20 09:49 lisinopril AdvReac lightheaded Verified 07/17/20 09:49 lorazepam AdvReac Anxiety Verified 07/17/20 09:49 - Vital Signs Temperature: 37.3 C Respiratory Rate: 20 O2 Saturation: 95 Weight (kg): 72.5 kg Height: 1.83 m - Physical Exam General Appearance: positive: No acute distress, Alert Eyes Bilatera: positive: Normal inspection, PERRL, EOMI ENT: positive: ENT inspection nml, Pharynx nml Neck: positive: Nml inspection Respiratory: positive: Chest non-tender, No respiratory distress, Breath sounds nml Cardiovascular: positive: Regular rate & rhythm Peripheral Pulses: positive: 0 Abdomen: positive: Other (Rotund but soft. Active bowel sounds. The right upper quadrant ostomy site is healing with granulation tissue at the base. The right lower quadrant ostomy site is covered with an ostomy device. There is scant drainage in the bag.Patient reports it was just changed.) Neurologic/Psychiatric: positive: Oriented x3 - Patient Review Patient Review: Problems were reviewed with the patient during this visit. Medications were reviewed with the patient during this visit. Allergies were reviewed this patient during this visit. Pertinent Tests Reviewed: All pertitent test for this patient were reviewed. 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 I reviewed the CAT scan with the radiologist and this appears to be a's very tiny small bowel fistula at the site of the prior ostomy. He will be admitted today with PICC line placement, labs, and plans for discharge hopefully tomorrow with total parenteral nutrition. The wound ostomy nurses also been consulted and has already seen him today. Dietitian Glen and nutrition will address his TPN later today.
[2020-08-03 15:15] LABS: BASOPHILS % (AUTO) 0.5 %; EOSINOPHILS # (AUTO) 0.2 10^3/uL (0.0-0.7); EOSINOPHILS % (AUTO) 3.1 %; LYMPHOCYTES # (AUTO) 1.3 10^3/uL (1.5-3.5); LYMPHOCYTES % (AUTO) 17.5 %; MEAN CORPUSCULAR HEMOGLOBIN 29.5 pg (27.0-31.0); MEAN CORPUSCULAR HGB CONC 32.4 g/dL (32.0-36.0); MEAN CORPUSCULAR VOLUME 91.2 fL (80.0-94.0); MONOCYTES % (AUTO) 13.5 %; NEUTROPHILS # (AUTO) 4.9 10^3/uL (1.5-6.6); NEUTROPHILS % (AUTO) 64.2 %; PLT - PLATELET COUNT 381 10^3/uL (130-450); RED BLOOD COUNT 3.73 10^6/uL (4.70-6.10); RED CELL DISTRIBUTION WIDTH 13.4 % (12.0-15.0); WHITE BLOOD COUNT 7.7 x10^3/uL (4.8-10.8)
[2020-08-03] MEDS ORDERED: IOVERSOL 320 50 ML VIAL PO ONE (15:16)
[2020-08-03 15:23] LABS: ALBUMIN 2.9 g/dL (3.2-5.5); ALBUMIN/GLOBULIN RATIO 0.7 (1.0-2.2); BILIRUBIN,TOTAL 0.5 mg/dL (0.2-1.0); CALCIUM 8.7 mg/dL (8.5-10.3); CREATININE 1.5 mg/dL (0.6-1.2); TOTAL PROTEIN 6.8 g/dL (6.7-8.2)
--- NOTE | 2020-08-03 15:23 | CT Report ---
PROCEDURE: Abdomen/Pelvis W INDICATIONS: New enterocutaneous fistula CONTRAST: IV CONTRAST: Optiray 320 ml: 100 PO CONTRAST: Optiray 320 ml50 TECHNIQUE: After the administration of oral and intravenous contrast, 5 mm thick sections acquired from the diap hragms to the symphysis. 5 mm thick coronal and sagittal reformats were acquired. For radiation dos e reduction, the following was used: automated exposure control, adjustment of mA and/or kV accordin g to patient size. COMPARISON: CT abdomen pelvis 04/22/2020, 07/15/2020 FINDINGS: Image quality: Excellent. ABDOMEN: Lung bases: Lung bases are clear. Heart size is normal. Solid organs: Liver and spleen are normal in size and enhancement. Gallbladder is contracted. Bili sameer system is non dilated. Pancreas enhances normally. No adrenal nodules. Kidneys demonstrate nor mal size and enhancement, without hydronephrosis. Peritoneum and bowel: Surgical changes reflecting prior partial small bowel resection is noted. There is a thickened appearance with stranding within the descending colon with punctate areas of adjacent soft tissue nodularity. Superior slightly more prominent when compared to prior exam. There are flui d-filled loops of mildly prominent both small and large bowel. A right lower quadrant ostomy site is present. There appears to be a small punctate appearance of contrast adjacent to the small bowel at t he inferior right lower quadrant ostomy site extending to the skin surface. 9 mm focus of fat containing lesion within the jejunum, unchanged and suggestive of small lipoma. Nodes and vessels: No retroperitoneal or mesenteric adenopathy by size criteria. Aorta and inferior vena cava are normal in size. Miscellaneous: No ventral hernias. PELVIS: Genitourinary: Bladder wall thickness is normal. Miscellaneous: No inguinal hernias or adenopathy. Bones: No suspicious bony lesions. No vertebral body compression fractures. IMPRESSION: 1. Postsurgical changes as above. Mild appearance of contrast appearing to extend from small bowel ad jacent to the inferior right lower quadrant ostomy site suggestive of enteric cutaneous fistula. No v isualized associated abscess. 2. Interval worsening of thickening and surrounding inflammatory change and adjacent nodules within a focal loop of descending colon as above. This could be secondary to colitis. However, chronic underl ariana inflammatory condition they also account for appearance. Additionally, appearance of thickened b owel with adjacent nodules always raises concern for neoplasm and further evaluation is recommended a s indicated. The above findings were discussed with Dr. Concepción Carreon on 08/03/2028 at 2:30 PM. Reviewed by: Yaa An MD on 08/03/2020 3:22 PM PST Approved by: Yaa An MD on 08/03/2020 3:22 PM PST Station ID: [id number]
[2020-08-04] MEDS: SODIUM CHLORIDE FLUSH 0.9% 10 ML SYRINGE IVP SCH ×2 (01:01→10:12)
[2020-08-04] MEDS: DEXTROSE 5%-0.45% NACL 1,000 ML IV SCH (05:54)
[2020-08-04 06:10] LABS: BASOPHILS % (AUTO) 0.6 %; EOSINOPHILS # (AUTO) 0.3 10^3/uL (0.0-0.7); EOSINOPHILS % (AUTO) 3.8 %; HGB - HEMOGLOBIN 10.8 g/dL (14.0-18.0); LYMPHOCYTES % (AUTO) 14.8 %; MEAN CORPUSCULAR HEMOGLOBIN 30.1 pg (27.0-31.0); MEAN CORPUSCULAR HGB CONC 33.3 g/dL (32.0-36.0); MEAN CORPUSCULAR VOLUME 90.3 fL (80.0-94.0); MONOCYTES # (AUTO) 1.1 10^3/uL (0.0-1.0); MONOCYTES % (AUTO) 15.8 %; NEUTROPHILS # (AUTO) 4.4 10^3/uL (1.5-6.6); NEUTROPHILS % (AUTO) 63.4 %; PLT - PLATELET COUNT 356 10^3/uL (130-450); RED BLOOD COUNT 3.59 10^6/uL (4.70-6.10); RED CELL DISTRIBUTION WIDTH 13.3 % (12.0-15.0); WHITE BLOOD COUNT 6.9 x10^3/uL (4.8-10.8)
[2020-08-04 06:40] LABS: ALBUMIN 2.7 g/dL (3.2-5.5); ALBUMIN/GLOBULIN RATIO 0.7 (1.0-2.2); BILIRUBIN,TOTAL 0.3 mg/dL (0.2-1.0); CALCIUM 8.7 mg/dL (8.5-10.3); CREATININE 1.3 mg/dL (0.6-1.2); MAGNESIUM 1.8 mg/dL (1.7-2.8); TOTAL PROTEIN 6.4 g/dL (6.7-8.2)
[2020-08-04 08:29] VITALS: BP 122/62
--- NOTE | 2020-08-04 12:32 | Discharge Plan ---
Discharge Plan Problem Reviewed?: Yes Disposition: Home Health Service Condition: Stable Prescriptions: Saccharomyces Boulardii [Florastor] 250 mg PO BIDWM #60 capsule Simethicone 180 mg PO BID PRN #60 capsule PRN Reason: Gas Activity Restrictions: 10# lifting limit Shower Restrictions: No Driving Restrictions: No Weight Bearing: Full Weight Follow-Up Care: Home Health - RN, [facility] - Wound/Ostomy (Monday with Jaky Noriega) No Smoking: If you smoke, Please STOP! Call for help. Follow-up with: Genaro Carreon MD [Provider Admit Priv/Credential] -
--- NOTE | 2020-08-04 12:36 | DISCHARGE SUMMARY ---
"Discharge Summary Admit Date: 08/03/20 Discharge Date: 08/04/20 Discharging Provider: Lauri Code Status: Attempt Resuscitation Condition at Discharge: Stable Discharge Disposition: Home Health Service - DIAGNOSES Admission Diagnoses: 1. Enterocutaneous fistula 2. Malnutrition Discharge Diagnoses with Status of Each Condition: Controlled - HPI History of Present Illness: Mars is a pleasant 65-year-old gentleman who is well-known to our service. He was initially admitted some months ago for a perforated colon. He subsequently Underwent ostomy reversal which reverse resulted in a prolonged hospital stay due to ileal , repeat operation, sepsis, and diverting ostomy. 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 Approximately 2 weeks ago he was readmitted To address the protective diversion from his Third operation and to reestablish continuity of the GI tract. This was done and he initially did well. Unfortunately, he reports that he is began to drain stool from one of his historic ostomy sites in the right lower quadrant. He is not been febrile at home.He has been able to control the drainage with ostomy pouch. - CONSULTS | PROCEDURES Consultations: Wound ostomy nurse, Medical nutrition and dietetics Procedures: CT scan of abd and pelvis - HOSPITAL COURSE Hospital Course: The patient was admitted and labs and imaging obtained. CT shows mid to distal ileal fistula and otherwise no evidence of infection or abscess and no additional intra-abdominal pathology. PICC line was established to facilitate TPN and the Dietetics and Nutrition consulted. TPN formulation was recommended. The wound ostomy nurse saw the patient in house and placed a more fitted and controlling device. Our plan is to continue TPN with clear liquid diet until the wound closes. This will take approximately 3-4 months. No additional surgical intervention is planned. - ALLERGIES Allergies/Adverse Reactions: Allergies Allergy/AdvReac Type Severity Reaction Status Date / Time hydrochlorothiazide AdvReac lightheaded Verified 07/17/20 09:49 lisinopril AdvReac lightheaded Verified 07/17/20 09:49 lorazepam AdvReac Anxiety Verified 07/17/20 09:49 - MEDICATIONS Home Medications: Ambulatory Orders Medication Instructions Recorded Confirmed Doxazosin Mesylate 8 mg PO QPM 03/30/20 08/03/20 Saccharomyces Boulardii [Florastor] 250 mg PO BIDWM #60 capsule 08/04/20 Simethicone 180 mg PO BID PRN #60 capsule 08/04/20 Home Medications Other | Comments: TPN for at least 3 months with [facility] - PHYSICAL EXAM AT DISCHARGE General Appearance: positive: No acute distress, Alert Eyes Bilateral: positive: Normal inspection, PERRL, EOMI ENT: positive: ENT inspection nml Neck: positive: Thyroid nml, Trachea midline Respiratory: positive: Chest non-tender, No respiratory distress. negative: Wheezes, Rales Cardiovascular: positive: Regular rate & rhythm Peripheral Pulses: positive: 0 Abdomen: positive: Nml bowel sounds, Tenderness, Other (Fistula is noted in the right lower quadrant. Right upper quadrant wound is healing. ) Back: negative: CVA tenderness (R), CVA tenderness (L) Skin: positive: Color nml Extremities: positive: Non-tender - LABS Result Diagrams: 08/04/20 06:00 08/04/20 06:00 - DIAGNOSTIC IMAGING Diagnostic Imaging Results: Final report reviewed Diagnostic Imaging Results Comments: CT as discussed above - QUALITY (Female Hip Fx Only) Was patient sent home on osteoporosis medication?: No - FOLLOW UP Follow Up: Follow up with the wound ostomy nurse on Monday Follow up in surgery clinic in 2 weeks. - TIME SPENT Time Spent in Discharge (Minutes): 25"
== END 2020-08-04 13:30 | disposition home health service (06) | DRG 394 ==
LOC: MS2 08:44
PROVIDERS: ADMIT Surgery; ATTEND Surgery
PROC: 02HV33Z Insertion of Infusion Device into Superior Vena Cava, Percutaneous Approach (ICD-10-PCS; principal; 2020-08-03)
DX: K63.2 Fistula of intestine (principal); E46 Unspecified protein-calorie malnutrition; Z68.21 Body mass index [BMI] 21.0-21.9, adult; I10 Essential (primary) hypertension; R01.1 Cardiac murmur, unspecified; H54.7 Unspecified visual loss; N40.0 Benign prostatic hyperplasia without lower urinary tract symptoms; Z90.49 Acquired absence of other specified parts of digestive tract; Z87.19 Personal history of other diseases of the digestive system; Z87.891 Personal history of nicotine dependence; Z79.899 Other long term (current) drug therapy
CPT/HCPCS: 36415; 71045; 74177; 80053; 82607; 82746; 83735; 84134; 85025; C1751; Q9967

== ENCOUNTER 2020-09-03 12:55 | Inpatient (IN) | payer MEDICARE, BC ==
[~2020-09-03 12:55] MED LIST changes: -ACETAMINOPHEN 1,000 MG/100 ML 100 ML IV ONE; -CELECOXIB 100 MG CAPSULE PO ONE; -CIPROFLOXACIN 400 MG/200 ML 400 MG/200 ML BAG IV ONE; -GABAPENTIN 400 MG CAPSULE ONE; +KETAMINE 500 MG/10 ML VIAL ONE; +LIDOCAINE-MPF 2% 5 ML VIAL ONE; +MIDAZOLAM 2 MG/2 ML VIAL ONE; +PROPOFOL 200 MG/20 ML VIAL IVP ONE; -metroNIDAZOLE 500 MG/100 ML 500 MG/100 ML BAG ONE
[2020-09-03] MEDS ORDERED: LACTATED RINGERS 1,000 ML IV ONE ×3 (13:25→15:54)
--- NOTE | 2020-09-03 14:10 | ANESTHESIA ---
Pre-Anesthesia VS, & Labs - Diagnosis anal stricture - Procedure colonoscopy w/dilitation Vital Signs: Temp Pulse Resp BP Pulse Ox 36.1 C L 85 16 162/86 H 97 09/03/20 13:10 09/03/20 13:10 09/03/20 13:10 09/03/20 13:10 09/03/20 13:10 Height: 6 ft Weight (kg): 79.3 kg Body Mass Index: 23.7 BMI Classification: Healthy weight - NPO >8 hours - Lab Results Lab results reviewed: Yes Home Medications and Allergies Doxazosin Mesylate 8 mg PO DAILY 03/30/20 Allergies/Adverse Reactions: Allergies Allergy/AdvReac Type Severity Reaction Status Date / Time hydrochlorothiazide AdvReac lightheaded Verified 07/17/20 09:49 lisinopril AdvReac lightheaded Verified 07/17/20 09:49 lorazepam AdvReac Anxiety Verified 07/17/20 09:49 Anes History & Medical History - Anesthetic History Anesthesia Complications: reports: No previous complications Family history of Anesthesia Complications: Denies Family history of Malignant Hyperthermia: Denies - Medical History Cardiovascular: reports: Hypertension, Murmur Pulmonary: reports: None Gastrointestinal: reports: Diverticulitis, Other Urinary: reports: Benign prostate hypertrophy, Other Neuro: reports: None Musculoskeletal: reports: Other Endocrine/Autoimmune: reports: None Blood Disorders: reports: None Skin: reports: None Smoking Status: Former smoker - Surgical History General: Bowel surgery, Colonoscopy, Other Exam General: Alert, Oriented x3, Cooperative Dental: Poor dentition Mouth Openin Fingerbreadth Neck Mobility: Normal Mallampati classification: II Thyromental Distance: greater than 6 cm Respiratory: Lungs clear, Normal breath sounds, No respiratory distress Cardiovascular: Regular rate Neurological: Normal speech Cognitive Status: Within normal limits Plan Anesthesia Type: MAC Consent for Procedure(s) Verified and Reviewed: Yes Code Status: Attempt Resuscitation ASA classification: 3-Severe systemic disease Is this case an emergency?: No
--- NOTE | 2020-09-03 14:32 | SURGERY HX AND PHYSICAL(T) ---
Surgical History & Physical - Chief Complaint/HPI History of Present Illness: 65-year-old male with a complicated surgical history. Multiple comorbid states. Please note the patient is significant for past history of sigmoid resection which ultimately was a [id number] functional end-to-end colocolostomy. Thereafter the patient presented with acute peritonitis unrelated that was addressed with a right colectomy patient had necessary reoperative intervention in the acute setting as a function of what was reported as stoma dysfunction and ischemia. He was referred for ileostomy reversal this was performed laparoscopically with an ileotransverse colostomy. Patient developed a postoperative fistula presumably's secondary to ischemic complications in the setting of an end enterostomy although there was no evidence of vascular compromise. Reoperative intervention consisted of anastomotic revision and proximal loop ileostomy for which the patient was evaluated in anticipation of anabaptism of continuity and stool per anus by CT scan. CAT scan showed anastomotic stricture and patient was necessarily dilated endoscopically. Interval CAT scan per rectum showed no evidence of anastomotic leak and patient was taken to the operating room for ileostomy takedown and was advised of the risk as it relates to incontinence, need for further anastomotic dilation amongst others. He is status post ileostomy takedown. He has developed a fistula in the interim. Maintained on TPN. He has been intolerant of food recently likely secondary to his historic colocolostomy and associated anastomotic/colonic stricture. He is presented for endoscopic evaluation and possible dilation. - PMH/PSH/Social Hx Does the pt have a hx of MRSA?: No Neurological History: None Eyes, Ears, Nose, Throat: Chronic vision loss Cardiovascular: Hypertension, Murmur Respiratory: None Skin: None Endocrine/Autoimmune: None Gastrointestinal: Diverticulitis, Other Urinary: Benign prostate hypertrophy, Other Musculoskeletal: Other Blood Disorders: None Psychiatric: None General: Bowel surgery, Colonoscopy, Other Smoking Status: Former smoker Frequency: Daily Number: 2 Amount/day: Drinks/day Does the pt have substance abuse?: No - Home Meds and Allergies Home Medications: Doxazosin Mesylate 8 mg PO DAILY 03/30/20 Allergies/Adverse Reactions: Allergies Allergy/AdvReac Type Severity Reaction Status Date / Time hydrochlorothiazide AdvReac lightheaded Verified 07/17/20 09:49 lisinopril AdvReac lightheaded Verified 07/17/20 09:49 lorazepam AdvReac Anxiety Verified 07/17/20 09:49 - Review of Systems Gastrointestinal: Nausea, Vomiting, Other (Right lower quadrant fistula, worsening distention.) - Vital Signs Heart Rate: 85 Blood Pressure: 162/86 Temperature: 36.1 C Respiratory Rate: 16 O2 Saturation: 97 Weight (kg): 79.3 kg Height: 1.83 m - Physical Exam General Appearance: positive: No acute distress, Alert, Mild distress Eyes Bilatera: positive: Normal inspection, PERRL, EOMI ENT: positive: ENT inspection nml Neck: positive: Nml inspection Respiratory: positive: Chest non-tender, No respiratory distress, Breath sounds nml. negative: Wheezes, Rales, Rhonchi Cardiovascular: positive: Regular rate & rhythm Abdomen: positive: Non-tender, No organomegaly, Nml bowel sounds, No distention, Other (Right lower quadrant fistula Large ventral hernia). negative: Tenderness Extremities: positive: Non-tender, Full ROM, Nml appearance Neurologic/Psychiatric: positive: Oriented x3, CN's nml (2-12), Motor nml, Sensation nml, Mood/affect nml, Disoriented to person - Patient Review Patient Review: Problems were reviewed with the patient during this visit. Medications were reviewed with the patient during this visit. Allergies were reviewed this patient during this visit. Pertinent Tests Reviewed: All pertitent test for this patient were reviewed. - Assessment & Plan Assessment and Plan: Colonic stricture indicated for endoscopic evaluation. Colonoscopy indicated for likely pneumatic dilation. Symptoms are as follows distention, decreased bowel movements, and propagation of proximal fistula. Risks and benefits discussed at length. Informed consent obtained. Risks include but are not limited to, bleeding, infection, perforation, missed lesions, injury to local structures, need for further surgeries, and the periprocedural/sedation risks of heart attack stroke and . Patient was advised if any concerning areas were noted these would be sampled if too big to resect or performed for excision if within reasonable limits for endoscopic intervention. Please note that voice recognition software was used to transcribe this note and inadvertent errors might persist in spite of review and editing. I am obliged to you for your attention. I am thankful to you for allowing me to participate with you in this care of this patient.
[2020-09-03] MEDS ORDERED: PROPOFOL 200 MG/20 ML VIAL IVP ONE (14:53)
[2020-09-03] MEDS ORDERED: HYDROmorphone 0.5 MG/0.5 ML SYRINGE IVP PRN (15:40)
[2020-09-03] MEDS ORDERED: PEG 3350/NA SULF,BICARB,CL/KCL 4,000 ML BOTTLE PO ONE (15:40)
[2020-09-03] MEDS ORDERED: ALBUTEROL NEB 2.5 MG/3 ML INH PRN (15:47)
--- NOTE | 2020-09-03 15:47 | PROVIDER PROGRESS NOTE ---
Progress Note 65-year-old male patient with complex surgical history to include left colectomy with historic side to side colocolostomy; he is had history of ischemic colitis, requiring segmental colectomy with right-sided enterostomy, post operative course complicated by recurrent peritonitis necessitating reoperative intervention. He ultimately underwent stoma takedown, laparoscopic, complicated by fistula which required reoperative intervention with temporary loop ileostomy. He ultimately was evaluated preoperatively endoscopically and by CT imaging; the former was worrisome for stricturing which was addressed by pneumatic dilation with ultimate uatsdin of bowel function following stoma reversal. 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 He was attempted today for colonoscopy and dilatation of his historic left colonic anastomosis. Findings were as follows: 1. Area of stricturing easily traversed with wire pneumatically dilated without any complication 2. Dilated area of concern which was traversed with extensive retained stool upstream; this was achieved with a 15mm to 18 mm [id number] balloon dilator. 3. During insufflation and dilation patient was already placed for NG tube prophylactically given his abdominal distention however he has been n.p.o. on TPN for several weeks. 4. He did indeed suffer emesis in spite of nasogastric decompression and ultimately procedure was aborted. 5. Plan for admission, full bowel prep, and reattempt at endoscopic evaluation. Plan going forward is as follows: A. Continue n.p.o. with NG tube decompression B. Bowel prep done NG tube with MiraLAX C. Antibiotics prophylactically for aspiration; x-rays without any infiltrates or evidence of pneumonitis D. Reattempt colonoscopy tomorrow; will likely require endotracheal intubation to protect airway. Please note that voice recognition software was used to transcribe this note and inadvertent errors might persist in spite of review and editing. I am obliged to you for your attention. I am thankful to you for allowing me to participate with you in this care of this patient.
--- NOTE | 2020-09-03 16:02 | XRAY Report ---
PROCEDURE: No-Charge 1V Abdomen INDICATIONS: POST NGT ABDOMINAL XR TECHNIQUE: 1 view of the abdomen were acquired. COMPARISON: 08/03/2020 CT abdomen pelvis FINDINGS: Enteric tube terminates in the proximal stomach. Multiple dilated loops of bowel are present. IMPRESSION: Appropriate position of enteric tube. Multiple dilated loops of bowel, nonspecific Reviewed by: Gil Khan MD on 09/03/2020 4:01 PM PST Approved by: Gil Khan MD on 09/03/2020 4:01 PM PST Station ID: [id number]
--- NOTE | 2020-09-03 16:02 | XRAY Report ---
PROCEDURE: Chest 1 View X-Ray INDICATIONS: Evaluation for aspiration, bowel obstruction TECHNIQUE: One view of the chest was acquired. COMPARISON: 08/03/2020 chest radiograph FINDINGS: Surgical changes and devices: Right upper extremity PICC is unchanged terminating in the right atrium . Enteric tube terminates below the diaphragm and out of the field of view Lungs and pleura: No pleural effusions or pneumothorax. Lungs are clear. Mediastinum: Mediastinal contours appear normal. Heart size is normal. Bones and chest wall: No suspicious bony lesions. Overlying soft tissues appear unremarkable. IMPRESSION: No acute cardiopulmonary process demonstrated radiographically. Reviewed by: Gil Khan MD on 09/03/2020 4:00 PM PST Approved by: Gil Khan MD on 09/03/2020 4:00 PM PST Station ID: [id number]
[2020-09-03 16:45] LABS: MAGNESIUM 1.8 mg/dL (1.7-2.8); PHOSPHORUS 4.3 mg/dL (2.5-4.6)
[2020-09-03] MEDS: PIPERACILLIN/TAZOBACTAM 3.375 GM in SODIUM CHLORIDE 0.9% MINIBAG 100 ML IV SCH ×2 (16:58→23:17)
[2020-09-03] MEDS: polyethylene glycoL 3350 17 GM PACKET NG SCH ×7 (16:58→23:17)
[2020-09-03] MEDS: D5NS W/20 MEQ KCL 1,000 ML IV SCH (16:58)
[2020-09-03] MEDS: SODIUM CHLORIDE FLUSH 0.9% 10 ML SYRINGE IVP SCH (16:59)
[2020-09-03] MEDS ORDERED: ACETAMINOPHEN 1,000 MG/100 ML 100 ML IV PRN (18:00)
[2020-09-03] MEDS: METOCLOPRAMIDE 10 MG/2 ML VIAL IVP SCH (18:16)
[2020-09-03] MEDS ORDERED: IPRATROPIUM 0.2 MG/ML NEB INH SCH (19:00)
[2020-09-03] MEDS: HEPARIN 5,000 UNIT/ML VIAL SUBQ SCH (22:00)
[2020-09-04] MEDS: polyethylene glycoL 3350 17 GM PACKET NG SCH ×7 (00:13→06:43)
[2020-09-04] MEDS: METOCLOPRAMIDE 10 MG/2 ML VIAL IVP SCH ×4 (00:13→17:55)
[2020-09-04] MEDS: SODIUM CHLORIDE FLUSH 0.9% 10 ML SYRINGE IVP SCH ×3 (00:14→16:47)
[2020-09-04] MEDS: D5NS W/20 MEQ KCL 1,000 ML IV SCH ×3 (02:17→21:17)
[2020-09-04 05:17] LABS: BASOPHILS % (AUTO) 0.6 %; EOSINOPHILS # (AUTO) 0.2 10^3/uL (0.0-0.7); EOSINOPHILS % (AUTO) 2.9 %; HCT - HEMATOCRIT 33.5 % (42.0-52.0); HGB - HEMOGLOBIN 10.6 g/dL (14.0-18.0); LYMPHOCYTES # (AUTO) 0.8 10^3/uL (1.5-3.5); LYMPHOCYTES % (AUTO) 11.2 %; MEAN CORPUSCULAR HEMOGLOBIN 28.3 pg (27.0-31.0); MEAN CORPUSCULAR HGB CONC 31.6 g/dL (32.0-36.0); MEAN CORPUSCULAR VOLUME 89.3 fL (80.0-94.0); MONOCYTES # (AUTO) 0.8 10^3/uL (0.0-1.0); MONOCYTES % (AUTO) 11.3 %; NEUTROPHILS % (AUTO) 73.6 %; PLT - PLATELET COUNT 259 10^3/uL (130-450); RED BLOOD COUNT 3.75 10^6/uL (4.70-6.10); RED CELL DISTRIBUTION WIDTH 14.1 % (12.0-15.0); WHITE BLOOD COUNT 6.8 x10^3/uL (4.8-10.8)
[2020-09-04] MEDS: PIPERACILLIN/TAZOBACTAM 3.375 GM in SODIUM CHLORIDE 0.9% MINIBAG 100 ML IV SCH ×3 (05:22→16:47)
[2020-09-04 05:30] LABS: ALBUMIN 2.8 g/dL (3.2-5.5); ALBUMIN/GLOBULIN RATIO 0.9 (1.0-2.2); BILIRUBIN,TOTAL 0.8 mg/dL (0.2-1.0); CALCIUM 8.5 mg/dL (8.5-10.3); CREATININE 1.3 mg/dL (0.6-1.2); MAGNESIUM 1.9 mg/dL (1.7-2.8); POTASSIUM 3.7 mmol/L (3.5-5.0)
[2020-09-04] MEDS: HEPARIN 5,000 UNIT/ML VIAL SUBQ SCH ×2 (09:29→21:10)
--- NOTE | 2020-09-04 10:06 | ANESTHESIA ---
Pre-Anesthesia VS, & Labs - Diagnosis Colon strictures - Procedure colonoscopy with dilation Vital Signs: Temp Pulse Resp BP Pulse Ox 36.9 C 80 16 140/71 H 95 09/04/20 08:00 09/04/20 08:00 09/04/20 08:00 09/04/20 08:00 09/04/20 08:00 Height: 6 ft Weight (kg): 79.3 kg Body Mass Index: 23.7 BMI Classification: Healthy weight - NPO >8 hours, Other (NGT to suction. Bowel prep) - Lab Results Current Lab Results: Laboratory Tests 09/04/20 04:23: Sodium 136, Potassium 3.7, Chloride 103, Carbon Dioxide 26, Anion Gap 7.0, BUN 27 H, Creatinine 1.3 H, Estimated GFR (MDRD) 55 L, Glucose 135 H, Calcium 8.5, Phosphorus 4.0, Magnesium 1.9, Total Bilirubin 0.8, AST 23, ALT 22, Alkaline Phosphatase 78, Total Protein 6.0 L, Albumin 2.8 L, Globulin 3.2, Albumin/Globulin Ratio 0.9 L 09/04/20 04:23: WBC 6.8, RBC 3.75 L, Hgb 10.6 L, Hct 33.5 L, MCV 89.3, MCH 28.3, MCHC 31.6 L, RDW 14.1, Plt Count 259, MPV 10.0, Neut # (Auto) 5.0, Lymph # (Auto) 0.8 L, [place] # (Auto) 0.8, Eos # (Auto) 0.2, Baso # (Auto) 0.0, Absolute Nucleated RBC 0.00, Nucleated RBC % 0.0 09/03/20 14:09: Phosphorus 4.3, Magnesium 1.8 Fish Bones: 09/04/20 04:23 09/04/20 04:23 Home Medications and Allergies Home Medications: Ambulatory Orders Aspirin [Artur] 325 mg PO DAILY 09/03/20 Active Medications Albuterol (Albuterol Neb 2.5 Mg/3 Ml) 2.5 mg INH RTQ4H PRN PRN Reason: Wheezing Heparin Sodium (Porcine) (Heparin 5,000 Unit/Ml Vial) 5,000 unit SUBQ BID ELEAZAR Last Admin: 09/04/20 09:29 Dose: 5,000 unit Documented by: Hydromorphone HCl (Hydromorphone 0.5 Mg/0.5 Ml Syringe) 0.5 mg IVP Q2H PRN PRN Reason: PAIN Piperacillin Sod/Tazobactam (Sod 3.375 gm/ Sodium Chloride) 100 mls @ 200 mls/hr IV Q6H [facility] Last Infusion: 09/04/20 05:52 Dose: Infused Documented by: Acetaminophen (Ofirmev) 100 mls @ 400 mls/hr IV Q6HR PRN PRN Reason: PAIN Potassium Chloride/Dextrose/Sod Cl () 1,000 mls @ 125 mls/hr IV .Q8H [facility] Last Admin: 09/04/20 09:31 Dose: 125 mls/hr Documented by: Metoclopramide HCl (Metoclopramide 10 Mg/2 Ml Vial) 10 mg IVP Q6HR [facility] Last Admin: 09/04/20 06:43 Dose: 10 mg Documented by: Sodium Chloride (Sodium Chloride Flush 0.9% 10 Ml Syringe) 10 ml IVP 0100,0900,1700 [facility] Last Admin: 09/04/20 09:33 Dose: Not Given Documented by: Sodium Chloride (Sodium Chloride Flush 0.9% 10 Ml Syringe) 10 ml IVP PRN PRN PRN Reason: NEEDED PER PROVIDER ORDERS Doxazosin Mesylate 8 mg PO DAILY 03/30/20 Aspirin [Artur] 325 mg PO DAILY 09/03/20 Allergies/Adverse Reactions: Allergies Allergy/AdvReac Type Severity Reaction Status Date / Time hydrochlorothiazide AdvReac lightheaded Verified 07/17/20 09:49 lisinopril AdvReac lightheaded Verified 07/17/20 09:49 lorazepam AdvReac Anxiety Verified 07/17/20 09:49 Anes History & Medical History - Anesthetic History Anesthesia Complications: reports: No previous complications - Medical History Cardiovascular: reports: Hypertension, Murmur Pulmonary: reports: None Gastrointestinal: reports: Diverticulitis, Other (Abdominal distension) Urinary: reports: Benign prostate hypertrophy, Other Neuro: reports: None Musculoskeletal: reports: Other Endocrine/Autoimmune: reports: None Blood Disorders: reports: None Skin: reports: None Smoking Status: Former smoker - Surgical History General: Bowel surgery, Colonoscopy, Other Exam General: Alert, Oriented x3, Cooperative, No acute distress Dental: Poor dentition Mouth Openin Fingerbreadth Neck Mobility: Normal Mallampati classification: II Thyromental Distance: greater than 6 cm Respiratory: Lungs clear, Normal breath sounds, No respiratory distress, No accessory muscle use Cardiovascular: Regular rate, Normal S1, Normal S2, No murmurs Abdomen: Other (Abdomen distended, NGT) Mental/Cognitive Status: Alert/Oriented X3, Normal for patient Cognitive Status: Within normal limits Plan Anesthesia Type: General (RSI with NG decompression.) Consent for Procedure(s) Verified and Reviewed: Yes Code Status: Attempt Resuscitation ASA classification: 3-Severe systemic disease Is this case an emergency?: No
--- NOTE | 2020-09-04 11:25 | PHARMACY PROGRESS NOTE ---
- Best Possible Medication History Admit Date and Time: 09/03/20 1533 Processed by: Pharmacy Medication History completed: Yes Patient Interview: Completed Secondary Source(s): Physician records, Pharmacy records, Insurance records (PATIENT INTERVIEWED BY REAL ESTATE SPECIALIST. PATIENT ABLE TO CONFIRM HOME MEDICATIONS ) As the person ultimately responsible for medication therapy, providers are able to order a medication from an existing home medication list in [facility] via the "Reconcile Routine" prior to Confirmation of that medication by child support officer. Such practice is discouraged except when the physician, in their clinical judgment, deems that a medical need exists for a medication without regard to previous use.
[2020-09-04] MEDS ORDERED: fentaNYL 100 MCG/2 ML VIAL ONE (11:42)
[2020-09-04] MEDS ORDERED: MIDAZOLAM 2 MG/2 ML VIAL ONE (11:42)
[2020-09-04] MEDS ORDERED: LIDOCAINE-MPF 2% 5 ML VIAL ONE (11:46)
[2020-09-04] MEDS ORDERED: PROPOFOL 200 MG/20 ML VIAL IVP ONE (11:46)
[2020-09-04] MEDS ORDERED: ONDANSETRON 4 MG/2 ML VIAL ONE (11:47)
--- NOTE | 2020-09-04 13:36 | PROVIDER PROGRESS NOTE ---
Progress Note S/P attempted C scope yesterday, however aborted secondary to emesis, absent prep. Concern for aspiration. Prepped overnight. NGT in place. Plane GETA for procedure. Agree with initial H&P, no others changes. Risks & Benefits discussed.
--- NOTE | 2020-09-04 14:22 | PROVIDER PROGRESS NOTE ---
Progress Note 65-year-old male patient with complex surgical history to include left colectomy with historic side to side colocolostomy; he is had history of ischemic colitis, requiring segmental colectomy with right-sided enterostomy, post operative course complicated by recurrent peritonitis necessitating reoperative intervention. He ultimately underwent stoma takedown, laparoscopic, complicated by fistula which required reoperative intervention with temporary loop ileostomy. He ultimately was evaluated preoperatively endoscopically and by CT imaging; the former was worrisome for stricturing which was addressed by pneumatic dilation with ultimate denominational of bowel function following stoma reversal. 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 He was attempted yesterday for colonoscopy and dilatation of his historic left colonic anastomosis. Findings were as follows: 1. Area of stricturing easily traversed with wire pneumatically dilated without any complication 2. Dilated area of concern which was traversed with extensive retained stool upstream; this was achieved with a 15mm to 18 mm [id number] balloon dilator. 3. During insufflation and dilation patient was already placed for NG tube prophylactically given his abdominal distention however he has been n.p.o. on TPN for several weeks. 4. He did indeed suffer emesis in spite of nasogastric decompression and ultimately procedure was aborted. 5. Plan for admission, full bowel prep, and reattempt at endoscopic evaluation. Today he underwent repeat colonoscopy, it was noted that the patient's prep failed to progress to the colon or rectum the majority was noted within the fistula. He was intubated to protect against aspiration and findings are as per below: 1. Colocolonic anastomosis with associated stricturing traverse following dilation yesterday. 2. Descending colonic stricturing which was traversed and ultimately dilated upon completion 3. Ileal colonic anastomosis widely patent ultimately biopsied 4. The small bowel enteroenterostomy status post loop ileostomy takedown 5. Proximal small bowel was clipped and biopsied however without any enteritis. 6. Multiple clips placed as follows as markers in anticipation of CT scan abdomen pelvis: A. Proximal ileum at extent reach B. Clip at small bowel enteroenterostomy likely site of the patient's historic ileostomy takedown C. No further clips placed 7. Biopsies as follows: A. Proximal ileum biopsy B. Ileocolonic anastomosis C. Proximal colonic biopsy D. Descending colonic stricture biopsy E. Colocolonic anastomotic biopsy Plan going forward is as follows: A. Continue n.p.o. with NG tube decompression B. CT scan p.o. and IV contrast C. Antibiotics prophylactically for aspiration; x-rays without any infiltrates or evidence of pneumonitis D. Continue TPN with nutrition consult. Please note that voice recognition software was used to transcribe this note and inadvertent errors might persist in spite of review and editing. I am obliged to you for your attention. I am thankful to you for allowing me to participate with you in this care of this patient.
[2020-09-04] MEDS ORDERED: IOVERSOL 320 50 ML VIAL ONE (14:50)
--- NOTE | 2020-09-04 15:14 | ANESTHESIA POST OP EVALUATION ---
Anesthesia Post Eval - Post Anesthesia Eval Vitals: Last Vital Signs Temp 36.8 C 09/04/20 14:45 Pulse 90 09/04/20 14:45 Resp 18 09/04/20 14:45 BP 145/76 H 09/04/20 14:45 Pulse Ox 96 09/04/20 14:45 CV Function Including HR & BP: positive: Stable Pain Control: positive: Satisfactory Nausea & Vomiting: positive: Negative Mental Status: positive: Baseline Respiratory Status: Airway Patent Hydration Status: Satisfactory Anesthesia Complications: positive: None
[2020-09-04] MEDS ORDERED: IOVERSOL 320 100 ML VIAL IVP ONE ×2 (17:31→18:46)
[2020-09-04] MEDS ORDERED: IOVERSOL 320 50 ML VIAL PO ONE (18:47)
--- NOTE | 2020-09-04 18:47 | CT Report ---
PROCEDURE: Abdomen/Pelvis W INDICATIONS: EVALUATE FOR FISTULA AND OBSTRUCTION CONTRAST: IV CONTRAST: Optiray 320 ml: 100 PO CONTRAST: Optiray 320 ml50 TECHNIQUE: After the administration of intravenous contrast, 5 mm thick sections acquired from the diaphragms to the symphysis. 5 mm thick coronal and sagittal reformats were acquired. For radiation dose reducti on, the following was used: automated exposure control, adjustment of mA and/or kV according to stephanie ent size. COMPARISON: 08/03/2020 CT abdomen and pelvis.. FINDINGS: Image quality: Excellent. ABDOMEN: Included portions of the lung bases are clear. There are numerous dilated loops of small bowel measuring up to 6 cm. Small bowel is dilated to the l evel of the right lower quadrant anastomosis and ostomy. Beyond the anastomosis the bowel is relative ly decompressed. Contrast does not progress beyond the distal small bowel. There is no pneumoperitone um. Trace fluid fluid in the right lower quadrant abdomen. Mild fat stranding adjacent to this short segment of mid sigmoid colon. There is no or definitive CT evidence of into enterocutaneous or entero enteric fistula formation. Normal CT appearance of the liver, spleen, gallbladder, pancreas, adrenal glands, and kidneys. Infrar enal abdominal aortic aneurysm measuring up to 4.5 cm. Atherosclerotic disease at the aortic bifurcat ion extending into the iliac artery branches. PELVIS: Urinary bladder is distended but otherwise unremarkable. Prostate is within normal limits no structur al enlarged pelvic or inguinal lymph nodes. No suspicious lytic or blastic osseous lesion. Degenerati ve changes of the lumbar spine. IMPRESSION: Numerous threshold dilated loops of small bowel proximal to anastomosis an ostomy in the right lower quadrant, consistent with obstruction. No evidence of fistula formation by CT. Mildly enlarged mesenteric lymph nodes are presumably reactive. Reviewed by: Gil Khan MD on 09/04/2020 6:46 PM PST Approved by: Gil Khan MD on 09/04/2020 6:46 PM PST Station ID: [id number]
[2020-09-04] MEDS: TPN IV SCH ×3 (19:19)
[2020-09-04] MEDS: FAT EMULSION 20% 250 ML IV SCH (19:19)
[2020-09-04] MEDS: TRACE ELEMENTS V IV SCH ×3 (19:19)
[2020-09-04] MEDS: MULTIVITAMIN IV SCH ×3 (19:19)
[2020-09-05] MEDS: METOCLOPRAMIDE 10 MG/2 ML VIAL IVP SCH ×4 (00:55→17:20)
[2020-09-05] MEDS: PIPERACILLIN/TAZOBACTAM 3.375 GM in SODIUM CHLORIDE 0.9% MINIBAG 100 ML IV SCH ×5 (00:55→22:53)
[2020-09-05] MEDS: SODIUM CHLORIDE FLUSH 0.9% 10 ML SYRINGE IVP SCH ×3 (00:56→17:20)
[2020-09-05] MEDS: D5NS W/20 MEQ KCL 1,000 ML IV SCH ×4 (05:17→20:57)
[2020-09-05 05:23] LABS: BASOPHILS % (AUTO) 0.5 %; EOSINOPHILS # (AUTO) 0.3 10^3/uL (0.0-0.7); EOSINOPHILS % (AUTO) 5.7 %; HCT - HEMATOCRIT 35.4 % (42.0-52.0); HGB - HEMOGLOBIN 11.3 g/dL (14.0-18.0); LYMPHOCYTES # (AUTO) 0.9 10^3/uL (1.5-3.5); LYMPHOCYTES % (AUTO) 16.4 %; MEAN CORPUSCULAR HGB CONC 31.9 g/dL (32.0-36.0); MEAN CORPUSCULAR VOLUME 90.8 fL (80.0-94.0); MEAN PLATELET VOLUME 9.5 fL (7.4-11.4); MONOCYTES # (AUTO) 0.7 10^3/uL (0.0-1.0); MONOCYTES % (AUTO) 12.3 %; NEUTROPHILS # (AUTO) 3.6 10^3/uL (1.5-6.6); NEUTROPHILS % (AUTO) 64.4 %; PLT - PLATELET COUNT 255 10^3/uL (130-450); RED CELL DISTRIBUTION WIDTH 13.9 % (12.0-15.0); WHITE BLOOD COUNT 5.6 x10^3/uL (4.8-10.8)
[2020-09-05 05:42] LABS: ALBUMIN 2.8 g/dL (3.2-5.5); ALBUMIN/GLOBULIN RATIO 0.9 (1.0-2.2); BILIRUBIN,TOTAL 0.5 mg/dL (0.2-1.0); CALCIUM 8.3 mg/dL (8.5-10.3); CREATININE 1.3 mg/dL (0.6-1.2); MAGNESIUM 1.9 mg/dL (1.7-2.8); POTASSIUM 3.9 mmol/L (3.5-5.0); TOTAL PROTEIN 5.9 g/dL (6.7-8.2)
[2020-09-05] MEDS: SODIUM CHLORIDE FLUSH 0.9% 10 ML SYRINGE IVP PRN (06:27)
--- NOTE | 2020-09-05 10:14 | PROVIDER PROGRESS NOTE ---
Progress Note Subjective 65-year-old male patient with complex surgical history to include left colectomy with historic side to side colocolostomy; he is had history of ischemic colitis, requiring segmental colectomy with right-sided enterostomy, post operative course complicated by recurrent peritonitis necessitating reoperative intervention. He ultimately underwent stoma takedown, laparoscopic, complicated by fistula which required reoperative intervention with temporary loop ileostomy. He ultimately was evaluated preoperatively endoscopically and by CT imaging; the former was worrisome for stricturing which was addressed by pneumatic dilation with ultimate restorationism of bowel function following stoma reversal. 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 He was attempted yesterday for colonoscopy and dilatation of his historic left colonic anastomosis. Findings were as follows: 1. Area of stricturing easily traversed with wire pneumatically dilated without any complication 2. Dilated area of concern which was traversed with extensive retained stool upstream; this was achieved with a 15mm to 18 mm [id number] balloon dilator. 3. During insufflation and dilation patient was already placed for NG tube prophylactically given his abdominal distention however he has been n.p.o. on TPN for several weeks. 4. He did indeed suffer emesis in spite of nasogastric decompression and ultimately procedure was aborted. 5. Plan for admission, full bowel prep, and reattempt at endoscopic evaluation. Today he underwent repeat colonoscopy, it was noted that the patient's prep failed to progress to the colon or rectum the majority was noted within the fistula. He was intubated to protect against aspiration and findings are as per below: 1. Colocolonic anastomosis with associated stricturing traverse following dilation yesterday. 2. Descending colonic stricturing which was traversed and ultimately dilated upon completion 3. Ileal colonic anastomosis widely patent ultimately biopsied 4. The small bowel enteroenterostomy status post loop ileostomy takedown 5. Proximal small bowel was clipped and biopsied however without any enteritis. 6. Multiple clips placed as follows as markers in anticipation of CT scan a bdomen pelvis: A. Proximal ileum at extent reach B. Clip at small bowel enteroenterostomy likely site of the patient's historic ileostomy takedown C. No further clips placed 7. Biopsies as follows: A. Proximal ileum biopsy B. Ileocolonic anastomosis C. Proximal colonic biopsy D. Descending colonic stricture biopsy E. Colocolonic anastomotic biopsy Interval history: Still denies any stool per rectum. Status post CT scan with evident small bowel obstruction. NG tube in place with no nausea no vomiting. Patient denies any abdominal pain. Ordered plain abdominal film to evaluate for migration of contrast. Objective General Appearance: positive: No acute distress Eyes Bilateral: positive: Normal inspection ENT: positive: ENT inspection nml Neck: positive: Nml inspection Respiratory: positive: Chest non-tender, No respiratory distress, Breath sounds nml. negative: Wheezes, Rales, Rhonchi Cardiovascular: positive: Regular rate & rhythm Abdomen: positive: positive distention, Other. 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 Complex surgical history. Discussed case with spouse today. Will need to be on chronic TPN. Plan going forward is as follows. (1) GI - TPN, bowel rest with NGT, advance diet as tolerated. GI ppx. N.p.o. notably in the setting of the patient's historic fistula (2) SURGERY - Hostile abdomen with complicated surgical history. Would defer any acute intervention given the patient is stable. Attempt to manage nonoperatively. Chronic obstruction with fistula. (3) Renal/Lytes - continue IVF. Renal indices within normal limits. (4) Respiratory - O2 as necessary. Continue IS. (5) Heme - Will continue with DVT ppx. H/H stable. (6) Cardiovascular - HD acceptable. (7) Neuro - Opiate sparring analgesia. (8) Immune/Infectious Disease - Antibiotics empirically for presumptive aspiration. (9) May consider discharge planning with some resolution of obstructive symptoms and restorationism of bowel function per anus. Patient however understands that we will need to be n.p.o. towards addressing fistula long-term.
[2020-09-05] MEDS: HEPARIN 5,000 UNIT/ML VIAL SUBQ SCH ×2 (10:22→20:54)
--- NOTE | 2020-09-05 11:12 | XRAY Report ---
PROCEDURE: Abdomen 1 View X-Ray INDICATIONS: evaluate for migration of contrast from CT scan TECHNIQUE: 1 view of the abdomen were acquired. COMPARISON: CT abdomen pelvis 09/04/2020 FINDINGS: Surgical changes and devices: Nasogastric tube is present with distal tip projecting below the left h emidiaphragm. Bowel: No pneumoperitoneum. The bowel gas pattern demonstrates moderate dilation of small bowel loo ps with air-fluid levels. Overall appearance is similar versus minimally less prominent compared to p rior exam. Soft tissues: No masses; visualized solid organ contours appear normal in size. No suspicious abdom inal calcifications. Bones: No suspicious bony abnormalities. IMPRESSION: Persistent appearance of partial small bowel obstruction similar versus minimally improv ed compared to prior exam. The above findings are concordant with preliminary report. Reviewed by: Yaa An MD on 09/05/2020 11:11 AM PST Approved by: Yaa An MD on 09/05/2020 11:11 AM PST Station ID: [id number]
[2020-09-05] MEDS: MULTIVITAMIN IV SCH ×3 (18:24)
[2020-09-05] MEDS: TRACE ELEMENTS V IV SCH ×3 (18:24)
[2020-09-05] MEDS: TPN IV SCH ×3 (18:24)
[2020-09-05] MEDS: FAT EMULSION 20% 250 ML IV SCH (18:29)
[2020-09-06] MEDS: SODIUM CHLORIDE FLUSH 0.9% 10 ML SYRINGE IVP SCH ×3 (01:05→17:04)
[2020-09-06] MEDS: METOCLOPRAMIDE 10 MG/2 ML VIAL IVP SCH ×4 (01:05→18:20)
[2020-09-06] MEDS: PIPERACILLIN/TAZOBACTAM 3.375 GM in SODIUM CHLORIDE 0.9% MINIBAG 100 ML IV SCH ×4 (05:18→23:04)
[2020-09-06] MEDS: D5NS W/20 MEQ KCL 1,000 ML IV SCH ×3 (05:19→22:43)
[2020-09-06 05:27] LABS: BASOPHILS % (AUTO) 0.5 %; EOSINOPHILS # (AUTO) 0.4 10^3/uL (0.0-0.7); EOSINOPHILS % (AUTO) 6.4 %; HCT - HEMATOCRIT 35.4 % (42.0-52.0); HGB - HEMOGLOBIN 10.8 g/dL (14.0-18.0); LYMPHOCYTES # (AUTO) 0.8 10^3/uL (1.5-3.5); LYMPHOCYTES % (AUTO) 14.1 %; MEAN CORPUSCULAR HEMOGLOBIN 28.3 pg (27.0-31.0); MEAN CORPUSCULAR HGB CONC 30.5 g/dL (32.0-36.0); MEAN CORPUSCULAR VOLUME 92.7 fL (80.0-94.0); MEAN PLATELET VOLUME 9.8 fL (7.4-11.4); MONOCYTES # (AUTO) 0.7 10^3/uL (0.0-1.0); MONOCYTES % (AUTO) 11.7 %; NEUTROPHILS # (AUTO) 3.9 10^3/uL (1.5-6.6); NEUTROPHILS % (AUTO) 66.6 %; PLT - PLATELET COUNT 259 10^3/uL (130-450); RED BLOOD COUNT 3.82 10^6/uL (4.70-6.10); WHITE BLOOD COUNT 5.8 x10^3/uL (4.8-10.8)
[2020-09-06 05:50] LABS: ALBUMIN 2.5 g/dL (3.2-5.5); ALBUMIN/GLOBULIN RATIO 0.8 (1.0-2.2); BILIRUBIN,TOTAL 0.4 mg/dL (0.2-1.0); CALCIUM 8.3 mg/dL (8.5-10.3); CREATININE 1.2 mg/dL (0.6-1.2); MAGNESIUM 1.8 mg/dL (1.7-2.8); PHOSPHORUS 3.9 mg/dL (2.5-4.6); POTASSIUM 3.9 mmol/L (3.5-5.0); TOTAL PROTEIN 5.8 g/dL (6.7-8.2)
[2020-09-06] MEDS: SODIUM CHLORIDE FLUSH 0.9% 10 ML SYRINGE IVP PRN ×2 (06:42→12:32)
[2020-09-06] MEDS: HEPARIN 5,000 UNIT/ML VIAL SUBQ SCH ×2 (08:37→21:10)
--- NOTE | 2020-09-06 12:01 | PROVIDER PROGRESS NOTE ---
Subjective - Subjective Pt reports feeling: No change (would like to go home. comfortable) Objective - Vital Signs/Intake & Output Reviewed Vital Signs: Yes Vital Signs: Vital Signs x48h Temp Pulse Pulse Resp BP Pulse Ox 09/06/20 11:27 36.5 C 75 16 97 09/06/20 09:00 75 16 09/06/20 07:49 36.5 C 80 17 158/66 H 95 09/06/20 05:50 36.7 C 81 20 145/69 H 95 Intake & Output: Intake & Output 09/03/20 09/04/20 09/05/20 09/06/20 23:59 23:59 23:59 23:59 Intake Total 9829.442 3927.000 6108.117 2121.117 Output Total 725 1225 4100 2300 Balance 8085.569 5536.000 2008.117 -178.883 - Objective General Appearance: positive: No acute distress, Alert Eyes Bilateral: positive: Normal inspection, PERRL, EOMI Respiratory: positive: No respiratory distress Abdomen: positive: Non-tender, Other (soft however moderately distended no erythema) - Lab Results Fish Bones: 09/06/20 04:42 09/06/20 04:42 Other Labs: Lab Results x24hrs 09/06/20 09/06/20 09/06/20 Range/Units 05:45 04:42 04:42 WBC 5.8 (4.8-10.8) x10^3/uL RBC 3.82 L (4.70-6.10) 10^6/uL Hgb 10.8 L (14.0-18.0) g/dL Hct 35.4 L (42.0-52.0) % MCV 92.7 (80.0-94.0) fL MCH 28.3 (27.0-31.0) pg MCHC 30.5 L (32.0-36.0) g/dL RDW 14.0 (12.0-15.0) % Plt Count 259 (130-450) 10^3/uL MPV 9.8 (7.4-11.4) fL Neut # (Auto) 3.9 (1.5-6.6) 10^3/uL Lymph # (Auto) 0.8 L (1.5-3.5) 10^3/uL [place] # (Auto) 0.7 (0.0-1.0) 10^3/uL Eos # (Auto) 0.4 (0.0-0.7) 10^3/uL Baso # (Auto) 0.0 (0.0-0.1) 10^3/uL Absolute Nucleated RBC 0.00 x10^3/uL Nucleated RBC % 0.0 /100WBC Sodium 137 (135-145) mmol/L Potassium 3.9 (3.5-5.0) mmol/L Chloride 103 (101-111) mmol/L Carbon Dioxide 28 (21-32) mmol/L Anion Gap 6.0 (6-13) BUN 17 (6-20) mg/dL Creatinine 1.2 (0.6-1.2) mg/dL Estimated GFR (MDRD) 61 L (>89) Glucose 142 H (70-100) mg/dL POC Whole Bld Glucose 133 H (70 - 100) mg/dL Calcium 8.3 L (8.5-10.3) mg/dL Phosphorus 3.9 (2.5-4.6) mg/dL Magnesium 1.8 (1.7-2.8) mg/dL Total Bilirubin 0.4 (0.2-1.0) mg/dL AST 10 (10-42) IU/L ALT 18 (10-60) IU/L Alkaline Phosphatase 70 (42-121) IU/L Total Protein 5.8 L (6.7-8.2) g/dL Albumin 2.5 L (3.2-5.5) g/dL Globulin 3.3 (2.1-4.2) g/dL Albumin/Globulin Ratio 0.8 L (1.0-2.2) 09/05/20 09/05/20 09/05/20 Range/Units 23:57 17:32 14:20 WBC (4.8-10.8) x10^3/uL RBC (4.70-6.10) 10^6/uL Hgb (14.0-18.0) g/dL Hct (42.0-52.0) % MCV (80.0-94.0) fL MCH (27.0-31.0) pg MCHC (32.0-36.0) g/dL RDW (12.0-15.0) % Plt Count (130-450) 10^3/uL MPV (7.4-11.4) fL Neut # (Auto) (1.5-6.6) 10^3/uL Lymph # (Auto) (1.5-3.5) 10^3/uL [place] # (Auto) (0.0-1.0) 10^3/uL Eos # (Auto) (0.0-0.7) 10^3/uL Baso # (Auto) (0.0-0.1) 10^3/uL Absolute Nucleated RBC x10^3/uL Nucleated RBC % /100WBC Sodium (135-145) mmol/L Potassium (3.5-5.0) mmol/L Chloride (101-111) mmol/L Carbon Dioxide (21-32) mmol/L Anion Gap (6-13) BUN (6-20) mg/dL Creatinine (0.6-1.2) mg/dL Estimated GFR (MDRD) (>89) Glucose (70-100) mg/dL POC Whole Bld Glucose 128 H 128 H 136 H (70 - 100) mg/dL Calcium (8.5-10.3) mg/dL Phosphorus (2.5-4.6) mg/dL Magnesium (1.7-2.8) mg/dL Total Bilirubin (0.2-1.0) mg/dL AST (10-42) IU/L ALT (10-60) IU/L Alkaline Phosphatase (42-121) IU/L Total Protein (6.7-8.2) g/dL Albumin (3.2-5.5) g/dL Globulin (2.1-4.2) g/dL Albumin/Globulin Ratio (1.0-2.2) Assessment/Plan - Problem List (1) Cutaneous fistula Impression: He currently has high ng tube output. He is comfortable, no fever, normal wbc. Plan d/c home with home tpn once the ngt output is improved. I explained, I don't believe he will do well at this time without the ngt to suction
[2020-09-06] MEDS: FAT EMULSION 20% 250 ML IV SCH (19:03)
[2020-09-06] MEDS: TRACE ELEMENTS V IV SCH ×3 (19:08)
[2020-09-06] MEDS: TPN IV SCH ×3 (19:08)
[2020-09-06] MEDS: MULTIVITAMIN IV SCH ×3 (19:08)
[2020-09-07] MEDS: METOCLOPRAMIDE 10 MG/2 ML VIAL IVP SCH ×4 (01:05→17:52)
[2020-09-07] MEDS: SODIUM CHLORIDE FLUSH 0.9% 10 ML SYRINGE IVP SCH ×3 (01:05→16:35)
[2020-09-07] MEDS: SODIUM CHLORIDE FLUSH 0.9% 10 ML SYRINGE IVP PRN ×3 (01:14→17:52)
[2020-09-07] MEDS: PIPERACILLIN/TAZOBACTAM 3.375 GM in SODIUM CHLORIDE 0.9% MINIBAG 100 ML IV SCH ×4 (05:13→22:56)
[2020-09-07 05:53] LABS: BASOPHILS % (AUTO) 0.7 %; EOSINOPHILS # (AUTO) 0.5 10^3/uL (0.0-0.7); EOSINOPHILS % (AUTO) 8.9 %; HCT - HEMATOCRIT 35.2 % (42.0-52.0); HGB - HEMOGLOBIN 11.1 g/dL (14.0-18.0); LYMPHOCYTES # (AUTO) 0.8 10^3/uL (1.5-3.5); LYMPHOCYTES % (AUTO) 13.9 %; MEAN CORPUSCULAR HEMOGLOBIN 28.7 pg (27.0-31.0); MEAN CORPUSCULAR HGB CONC 31.5 g/dL (32.0-36.0); MEAN PLATELET VOLUME 9.7 fL (7.4-11.4); MONOCYTES # (AUTO) 0.6 10^3/uL (0.0-1.0); MONOCYTES % (AUTO) 10.9 %; NEUTROPHILS # (AUTO) 3.6 10^3/uL (1.5-6.6); NEUTROPHILS % (AUTO) 64.7 %; PLT - PLATELET COUNT 264 10^3/uL (130-450); RED BLOOD COUNT 3.87 10^6/uL (4.70-6.10); RED CELL DISTRIBUTION WIDTH 13.8 % (12.0-15.0); WHITE BLOOD COUNT 5.6 x10^3/uL (4.8-10.8)
[2020-09-07 06:06] LABS: ALBUMIN 2.4 g/dL (3.2-5.5); ALBUMIN/GLOBULIN RATIO 0.8 (1.0-2.2); BILIRUBIN,TOTAL 0.4 mg/dL (0.2-1.0); CALCIUM 8.4 mg/dL (8.5-10.3); CREATININE 1.1 mg/dL (0.6-1.2); MAGNESIUM 1.6 mg/dL (1.7-2.8); PHOSPHORUS 3.9 mg/dL (2.5-4.6); POTASSIUM 4.1 mmol/L (3.5-5.0); TOTAL PROTEIN 5.6 g/dL (6.7-8.2)
[2020-09-07] MEDS: D5NS W/20 MEQ KCL 1,000 ML IV SCH ×2 (08:00→15:58)
[2020-09-07] MEDS: HEPARIN 5,000 UNIT/ML VIAL SUBQ SCH ×2 (08:01→20:49)
--- NOTE | 2020-09-07 12:02 | OPERATIVE REPORT ---
Operative Report - General Admit Date: 09/04/20 Procedure Date: 09/03/20 Planned Procedure: 1. Therapeutic colonoscopy 2. Nasogastric tube placement 3. Planned pneumatic dilatation Pre-Op Diagnosis: Large bowel obstruction; complicated surgical history Procedure Performed: 1. Therapeutic colonoscopy; aborted 2. Nasogastric tube placement 3. Anastomotic pneumatic dilatation Post Op Diagnosis: Suspected aspiration; successful dilation of anastomotic stricture - Procedure Note Primary Surgeon: Oscar Secondary Surgeon: Sarai Anesthesia Provider: Daniel Anesthesia Technique: MAC Pathology: None Estimated Blood Loss (mL): 0 Indications: 65-year-old male patient with complex surgical history to include left colectomy with historic side to side colocolostomy; he is had history of ischemic colitis, requiring segmental colectomy with right-sided enterostomy, post operative course complicated by recurrent peritonitis necessitating reoperative intervention. He ultimately underwent stoma takedown, laparoscopic, complicated by fistula which required reoperative intervention with temporary loop ileostomy. He ultimately was evaluated preoperatively endoscopically and by CT imaging; the former was worrisome for stricturing which was addressed by pneumatic dilation with ultimate adventist of bowel function following stoma reversal. 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 Findings: He was attempted today for colonoscopy and dilatation of his historic left colonic anastomosis. Findings were as follows: 1. Area of stricturing easily traversed with wire pneumatically dilated without any complication 2. Dilated area of concern which was traversed with extensive retained stool upstream; this was achieved with a 15mm to 18 mm [id number] balloon dilator. 3. During insufflation and dilation patient was already placed for NG tube prophylactically given his abdominal distention however he has been n.p.o. on TPN for several weeks. 4. He did indeed suffer emesis in spite of nasogastric decompression and ultimately procedure was aborted. 5. Plan for admission, full bowel prep, and reattempt at endoscopic evaluation. Complications: None - Other Other Information/Narrative: Please note we attempted to perform documentation through [employer] software however this was not accessible. Also this program is in-house only and not available remotely. Thus this report is dictated. Images will be uploaded at the soonest. Patient was taken to the endoscopy suite. Timeout was called and agreed to by all the room. Informed consent was already obtained. Patient was placed for an nasogastric tube given his obvious distention. The patient was deferred for bowel prep given anticipated intolerance of it. At this time, the patient was performed for a digital rectal, which was notable for pertinent positives as listed above under brief procedural findings. The patient, thereafter, was then inserted for the colonoscope, which was passed as stated above with noted necessary postural changes or counter-pressure as mentioned in the above listed procedural findings. Prep was as noted above as well. Findings were see below. Biopsies were not taken. Please note the patient was attempted for dilation of the historic left sided anastomotic stricture from his remote segmental colectomy with subsequent colocolostomy anastomosis. It appeared that this area was interfering with his ability to resume normal bowel function per anus and had been evaluated preoperatively as well. Patient was already placed from nasogastric tube. After dilating as per below patient started with some emesis and although we successfully traversed this historic anastomosis and progressed to the patient's descending colonic stricture as well we deferred further and aborted the procedure to avoid any risk of aspiration and anticipated reattempt with general endotracheal. Patient underwent x-ray postoperatively with no evidence of aspiration. He was attempted today for colonoscopy and dilatation of his historic left colonic anastomosis. Findings were as follows: 1. Area of stricturing easily traversed with wire pneumatically dilated without any complication 2. Dilated area of concern which was traversed with extensive retained stool upstream; this was achieved with a 15mm to 18 mm [id number] balloon dilator. 3. During insufflation and dilation patient was already placed for NG tube prophylactically given his abdominal distention however he has been n.p.o. on TPN for several weeks. 4. He did indeed suffer emesis in spite of nasogastric decompression and ultimately procedure was aborted. 5. Plan for admission, full bowel prep, and reattempt at endoscopic evaluation. Plan going forward is as follows: A. Continue n.p.o. with NG tube decompression B. Bowel prep done NG tube with MiraLAX C. Antibiotics prophylactically for aspiration; x-rays without any infiltrates or evidence of pneumonitis D. Reattempt colonoscopy tomorrow; will likely require endotracheal intubation to protect airway. Please note that voice recognition software was used to transcribe this note and inadvertent errors might persist in spite of review and editing. I am obliged to you for your attention. I am thankful to you for allowing me to participate with you in this care of this patient.
--- NOTE | 2020-09-07 12:18 | OPERATIVE REPORT ---
Operative Report - General Admit Date: 09/04/20 Procedure Date: 09/04/20 Planned Procedure: 1. General endotracheal anesthesia 2. Therapeutic endoscopy 3. Ileoscopy 4. Random multiple biopsies 5. Multiple planned dilations of both anastomosis of the colocolostomy and descending colon stricture Pre-Op Diagnosis: Chronic bowel obstruction; complex surgical history Procedure Performed: 1. General endotracheal anesthesia 2. Therapeutic endoscopy 3. Ileoscopy 4. Random multiple biopsies 5. Multiple dilations of both anastomosis of the colocolostomy and descending colon stricture Post Op Diagnosis: Chronic bowel obstruction; complex surgical history - Procedure Note Primary Surgeon: Oscar Secondary Surgeon: Sarai Anesthesia Provider: Peng Anesthesia Technique: General ET tube Pathology: Biopsies as follows: A. Proximal ileum biopsy B. Ileocolonic anastomosis C. Proximal colonic biopsy D. Descending colonic stricture biopsy E. Colocolonic anastomotic biopsy Estimated Blood Loss (mL): 0 Indications: 65-year-old male patient with complex surgical history to include left colectomy with historic side to side colocolostomy; he is had history of ischemic colitis, requiring segmental colectomy with right-sided enterostomy, post operative course complicated by recurrent peritonitis necessitating reoperative intervention. He ultimately underwent stoma takedown, laparoscopic, complicated by fistula which required reoperative intervention with temporary loop ileostomy. He ultimately was evaluated preoperatively endoscopically and by CT imaging; the former was worrisome for stricturing which was addressed by pneumatic dilation with ultimate buddhist of bowel function following stoma reversal. 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 He was attempted yesterday for colonoscopy and dilatation of his historic left colonic anastomosis. Findings were as follows: 1. Area of stricturing easily traversed with wire pneumatically dilated without any complication 2. Dilated area of concern which was traversed with extensive retained stool upstream; this was achieved with a 15mm to 18 mm [id number]-[id number] balloon dilator. 3. During insufflation and dilation patient was already placed for NG tube prophylactically given his abdominal distention however he has been n.p.o. on TPN for several weeks. 4. He did indeed suffer emesis in spite of nasogastric decompression and ultimately procedure was aborted. 5. Plan for admission, full bowel prep, and reattempt at endoscopic evaluation. Again attempted therapeutic colonoscopy however failed to tolerate secondary to partial bowel obstruction, emesis in spite of nasogastric tube and concern for aspiration. Thus deferred for today. Findings: He was intubated to protect against aspiration and findings are as per below: 1. Colocolonic anastomosis with associated stricturing traverse following dilation yesterday. 2. Descending colonic stricturing which was traversed and ultimately dilated upon completion 3. Ileal colonic anastomosis widely patent ultimately biopsied 4. The small bowel enteroenterostomy status post loop ileostomy takedown 5. Proximal small bowel was clipped and biopsied however without any enteritis. 6. Multiple clips placed as follows as markers in anticipation of CT scan abdomen pelvis: A. Proximal ileum at extent reach B. Clip at small bowel enteroenterostomy likely site of the patient's historic ileostomy takedown C. No further clips placed 7. Biopsies as follows: A. Proximal ileum biopsy B. Ileocolonic anastomosis C. Proximal colonic biopsy D. Descending colonic stricture biopsy E. Colocolonic anastomotic biopsy Complications: NONE - Other Other Information/Narrative: Please note we attempted to perform documentation through [employer] software however this was not accessible. Also this program is in-house alone and not available remotely. Thus this report is dictated. Images will be uploaded at the soonest. Patient was taken to the endoscopy suite. Timeout was called and agreed to by all the room. Informed consent was already obtained. Today he underwent repeat colonoscopy, it was noted that the patient's prep failed to progress to the colon or rectum the majority was noted within the fistula. Patient was taken to the endoscopy suite. Informed consent was already obtained and confirmed. H&P update was achieved. At this time, the patient was performed for a digital rectal, which was notable for pertinent positives as listed above under brief procedural findings. The patient, thereafter, was then inserted for the colonoscope, which was passed as stated above with noted necessary postural changes or counter-pressure as mentioned in the above listed procedural findings. Prep was as noted above as well. We achieved proximal enteroenterostomy from the historic ileostomy takedown site. This was widely patent. The proximal small bowel was viable biopsies taken to rule out any occult pathology. We slowly withdrew having already dilated the colocolostomy from the patient's historic anastomosis during the day prior therapeutic endoscopy. We also plan t o perform dilation of the descending colonic stricture as well. We proceeded to evaluate the patient's historic enterocolostomy which was without any complication. Please see below for further interventions and findings. Thereafter, careful circumferential colonoscopic evaluation commenced starting at the level of the caecum and continuing through to the rectosigmoid junction with notable findings as reported above, and polyps or biopsies performed as per above as well. On continued slow withdrawal of the colonoscope the rectosigmoid junction was achieved and rectal findings are as listed above as well. Retroflexion if performed was noted for above listed findings. Findings on retroflexion unremarkable. The patient tolerated the procedure well for which there was no complication. He was intubated to protect against aspiration and findings are as per below: 1. Colocolonic anastomosis with associated stricturing traverse following dilation yesterday. 2. Descending colonic stricturing which was traversed and ultimately dilated upon completion 3. Ileal colonic anastomosis widely patent ultimately biopsied 4. The small bowel enteroenterostomy status post loop ileostomy takedown 5. Proximal small bowel was clipped and biopsied however without any enteritis. 6. Multiple clips placed as follows as markers in anticipation of CT scan abdomen pelvis: A. Proximal ileum at extent reach B. Clip at small bowel enteroenterostomy likely site of the patient's historic ileostomy takedown C. No further clips placed 7. Biopsies as follows: A. Proximal ileum biopsy B. Ileocolonic anastomosis C. Proximal colonic biopsy D. Descending colonic stricture biopsy E. Colocolonic anastomotic biopsy At the conclusion of this case the patient was taken extubated to postanesthesia care unit. The plan was to perform CT scan with slow administration of enteric contents through the nasogastric tube. Plan going forward is as follows: A. Continue n.p.o. with NG tube decompression B. CT scan p.o. and IV contrast C. Antibiotics prophylactically for aspiration; x-rays without any infiltrates or evidence of pneumonitis D. Continue TPN with nutrition consult. Please note that voice recognition software was used to transcribe this note and inadvertent errors might persist in spite of review and editing. I am obliged to you for your attention. I am thankful to you for allowing me to participate with you in this care of this patient.
[2020-09-07] MEDS ORDERED: TPN (CLINIMIX E 5/15) 2,000 ML IV SCH (16:05)
--- NOTE | 2020-09-07 17:04 | PROVIDER PROGRESS NOTE ---
Subjective - Prog Note Date Prog Note Date: 09/07/20 - Subjective Pt reports feeling: No change (no complaints other than wants to go home. he is comfortable) Objective - Vital Signs/Intake & Output Vital Signs: Vital Signs x48h Temp Pulse Resp BP Pulse Ox 09/07/20 16:08 36.7 C 77 20 146/73 H 96 09/07/20 10:00 36.6 C 81 17 140/75 H 96 Intake & Output: Intake & Output 09/04/20 09/05/20 09/06/20 09/07/20 23:59 23:59 23:59 23:59 Intake Total 2505.000 6108.117 5294.217 4070.134 Output Total 1225 4100 3250 1195 Balance 2669.371 4170.117 2044.217 2875.134 - Objective General Appearance: positive: No acute distress, Alert Eyes Bilateral: positive: Normal inspection ENT: positive: No signs of dehydration Neck: positive: No JVD Respiratory: positive: No respiratory distress Abdomen: positive: Other (soft however distended ngt fairly thick brown) Neurologic/Psychiatric: positive: Oriented x3 - Lab Results Fish Bones: 09/07/20 05:24 09/07/20 05:24 Other Labs: Lab Results x24hrs 09/07/20 09/07/20 09/06/20 Range/Units 05:24 05:24 23:37 WBC 5.6 (4.8-10.8) x10^3/uL RBC 3.87 L (4.70-6.10) 10^6/uL Hgb 11.1 L (14.0-18.0) g/dL Hct 35.2 L (42.0-52.0) % MCV 91.0 (80.0-94.0) fL MCH 28.7 (27.0-31.0) pg MCHC 31.5 L (32.0-36.0) g/dL RDW 13.8 (12.0-15.0) % Plt Count 264 (130-450) 10^3/uL MPV 9.7 (7.4-11.4) fL Neut # (Auto) 3.6 (1.5-6.6) 10^3/uL Lymph # (Auto) 0.8 L (1.5-3.5) 10^3/uL [place] # (Auto) 0.6 (0.0-1.0) 10^3/uL Eos # (Auto) 0.5 (0.0-0.7) 10^3/uL Baso # (Auto) 0.0 (0.0-0.1) 10^3/uL Absolute Nucleated RBC 0.00 x10^3/uL Nucleated RBC % 0.0 /100WBC Sodium 139 (135-145) mmol/L Potassium 4.1 (3.5-5.0) mmol/L Chloride 106 (101-111) mmol/L Carbon Dioxide 25 (21-32) mmol/L Anion Gap 8.0 (6-13) BUN 16 (6-20) mg/dL Creatinine 1.1 (0.6-1.2) mg/dL Estimated GFR (MDRD) 67 L (>89) Glucose 133 H (70-100) mg/dL POC Whole Bld Glucose 98 (70 - 100) mg/dL Calcium 8.4 L (8.5-10.3) mg/dL Phosphorus 3.9 (2.5-4.6) mg/dL Magnesium 1.6 L (1.7-2.8) mg/dL Total Bilirubin 0.4 (0.2-1.0) mg/dL AST 16 (10-42) IU/L ALT 18 (10-60) IU/L Alkaline Phosphatase 67 (42-121) IU/L Total Protein 5.6 L (6.7-8.2) g/dL Albumin 2.4 L (3.2-5.5) g/dL Globulin 3.2 (2.1-4.2) g/dL Albumin/Globulin Ratio 0.8 L (1.0-2.2) Prealbumin 16 L (18-45) mg/dL Triglycerides 121 ( - 149) mg/dL 09/06/20 Range/Units 19:02 WBC (4.8-10.8) x10^3/uL RBC (4.70-6.10) 10^6/uL Hgb (14.0-18.0) g/dL Hct (42.0-52.0) % MCV (80.0-94.0) fL MCH (27.0-31.0) pg MCHC (32.0-36.0) g/dL RDW (12.0-15.0) % Plt Count (130-450) 10^3/uL MPV (7.4-11.4) fL Neut # (Auto) (1.5-6.6) 10^3/uL Lymph # (Auto) (1.5-3.5) 10^3/uL [place] # (Auto) (0.0-1.0) 10^3/uL Eos # (Auto) (0.0-0.7) 10^3/uL Baso # (Auto) (0.0-0.1) 10^3/uL Absolute Nucleated RBC x10^3/uL Nucleated RBC % /100WBC Sodium (135-145) mmol/L Potassium (3.5-5.0) mmol/L Chloride (101-111) mmol/L Carbon Dioxide (21-32) mmol/L Anion Gap (6-13) BUN (6-20) mg/dL Creatinine (0.6-1.2) mg/dL Estimated GFR (MDRD) (>89) Glucose (70-100) mg/dL POC Whole Bld Glucose 81 (70 - 100) mg/dL Calcium (8.5-10.3) mg/dL Phosphorus (2.5-4.6) mg/dL Magnesium (1.7-2.8) mg/dL Total Bilirubin (0.2-1.0) mg/dL AST (10-42) IU/L ALT (10-60) IU/L Alkaline Phosphatase (42-121) IU/L Total Protein (6.7-8.2) g/dL Albumin (3.2-5.5) g/dL Globulin (2.1-4.2) g/dL Albumin/Globulin Ratio (1.0-2.2) Prealbumin (18-45) mg/dL Triglycerides ( - 149) mg/dL Assessment/Plan - Problem List (1) Cutaneous fistula Impression: He continues to have too high ng tube output to go home. will check with d/c planning if home ng tube care is possible
[2020-09-07] MEDS: FAT EMULSION 20% 250 ML IV SCH (18:46)
[2020-09-08] MEDS: SODIUM CHLORIDE FLUSH 0.9% 10 ML SYRINGE IVP SCH ×4 (00:30→23:56)
[2020-09-08] MEDS: D5NS W/20 MEQ KCL 1,000 ML IV SCH ×3 (00:30→18:53)
[2020-09-08] MEDS: METOCLOPRAMIDE 10 MG/2 ML VIAL IVP SCH ×4 (00:30→18:54)
[2020-09-08] MEDS: PIPERACILLIN/TAZOBACTAM 3.375 GM in SODIUM CHLORIDE 0.9% MINIBAG 100 ML IV SCH ×4 (05:21→23:49)
[2020-09-08] MEDS: HEPARIN 5,000 UNIT/ML VIAL SUBQ SCH ×2 (08:10→20:41)
[2020-09-08] MEDS: SODIUM CHLORIDE FLUSH 0.9% 10 ML SYRINGE IVP PRN ×2 (10:38→12:49)
--- NOTE | 2020-09-08 18:56 | CONSULTATION NOTE ---
Consultation Report: Called to evaluate PICC line by manager data warehouse. Reported pt pulled PICC line out slightly. Old PICC line dressing d/c'd and PICC line and right upper arm cleaned with chloraprep. Sterile technique used to advance PICC line approximately 3cm. PICC secured and new sterile dressing applied. Pt tolerated well. STAT portable CXR ordered. Dr. Moore at the bedside and portable CXR reviewed. tip of PICC at Aortocaval junction.
[2020-09-08] MEDS: FAT EMULSION 20% 250 ML IV SCH (19:00)
[2020-09-08] MEDS ORDERED: TPN IV SCH ×3 (19:00)
[2020-09-08] MEDS ORDERED: TRACE ELEMENTS IV SCH ×3 (19:00)
--- NOTE | 2020-09-08 19:05 | XRAY Report ---
PROCEDURE: Abdomen 1 View X-Ray INDICATIONS: sbo follow up TECHNIQUE: 1 view of the abdomen were acquired. COMPARISON: Abdomen x-ray 09/05/2020 FINDINGS: Surgical changes and devices: Nasogastric tube. Bowel: No pneumoperitoneum. The bowel gas pattern demonstrates interval resolution of previous air- fluid levels. Left hemiabdomen is not fully included within the [id number]. There is minimal promi nence of bowel loops. Soft tissues: No masses; visualized solid organ contours appear normal in size. No suspicious abdom inal calcifications. Bones: No suspicious bony abnormalities. IMPRESSION: Minimal nonspecific prominence of bowel loops with interval resolution of previous fluid levels. Reviewed by: Yaa An MD on 09/08/2020 7:04 PM PST Approved by: Yaa An MD on 09/08/2020 7:04 PM PST Station ID: [id number]
--- NOTE | 2020-09-08 19:07 | XRAY Report ---
PROCEDURE: Chest for Line Placement INDICATIONS: verify tip of PICC line placement TECHNIQUE: One view of the chest was acquired. COMPARISON: Chest x-ray 09/03/2020 FINDINGS: Surgical changes and devices: Right-sided PICC line is present with distal tip projecting over the di stal SVC.Nasogastric tube is noted slightly coiled back on itself near the gastroesophageal junction. Lungs and pleura: No pleural effusions or pneumothorax. Lungs are clear. Mediastinum: Mediastinal contours appear normal. Heart size is normal. Bones and chest wall: No suspicious bony lesions. Overlying soft tissues appear unremarkable. IMPRESSION: 1. Right-sided PICC line as above. 2. Nasogastric tube appears to be somewhat coiled back upon itself at the gastroesophageal junction. Forward advancement is recommended. Reviewed by: Yaa An MD on 09/08/2020 7:05 PM PST Approved by: Yaa An MD on 09/08/2020 7:05 PM PST Station ID: [id number]
--- NOTE | 2020-09-08 20:13 | PROVIDER PROGRESS NOTE ---
Progress Note Subjective Hospital day 6 admitted following complex colonoscopy and enteroscopy with ultimate diagnosis of likely chronic small bowel obstruction after large bowel obstruction ruled out endoscopically and by imaging. and patient frustrated with regard to reported lack of communication among members of the surgical team. A great deal of time was spent addressing these concerns and reassuring the patient and his spouse, Concepción. Objective Afebrile hemodynamically acceptable General Appearance: positive: No acute distress Eyes Bilateral: positive: Normal inspection ENT: positive: ENT inspection nml Neck: positive: Nml inspection Respiratory: positive: Chest non-tender, No respiratory distress, Breath sounds nml. negative: Wheezes, Rales, Rhonchi Cardiovascular: positive: Regular rate & rhythm Abdomen: positive: Softly distended, fistula stoma appliance with trace output, no rebound, no guarding, no tenderness to palpation, super umbilical ventral hernia with no tenderness, or concerns for complication. Nasogastric tube in place Extremities: positive: Non-tender, Full ROM, Nml appearance Neurologic/Psychiatric: positive: Oriented x3, CN's nml (2-12) Labs: No leukocytosis with normal white count, stable H&H, and no thrombocytopenia or other evidence of acute inflammatory response. Imaging: Repeat abdominal x-ray with resolution of the patient's air-fluid levels. 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 He ultimately underwent laparoscopic ileostomy reversal with ileotransverse colostomy that was complicated by contained leak with fistula necessitating anastomotic revision and proximal diversion; patient developed fistula proximal to loop ileostomy at potentially an stricturoplasty site. He ultimately was worked up prior to ileostomy takedown with no evidence of recurrent fistula clinically or radiographically and preop colonoscopy. Postoperatively he has had late recurrence of enterocutaneous fistula and progressive intolerance of oral intake. He was attempted for endoscopic intervention for presumptive's large bowel obstruction however after the colon was cleared in approximately clipped at the mid ileum there was no evidence of residual colonic stricturing following endoscopic intervention. CT scan ultimately revealed high-grade small bowel obstruction with associated obstipation. No peritoneal signs at this time. It is very likely that the patient had chronic signs of small bowel obstruction which propagated his fistula which currently has no output. Patient has high NG tube output and our plan going forward is as follows. Plan as follows: 1. Bowel rest, nasogastric decompression, IV fluid resuscitation. Will proceed with clamping trial this evening. 2. Serial abdominal exams, plain film imaging, possible repeat imaging with CT and contrast challenge. 3. Will defer any acute operative intervention as long as possible given an anticipated hostile abdomen and potentially undiagnosed inflammatory bowel disease given recent small bowel biopsies. We will also seek to forward all historic pathology for second opinion. Will follow closely. 4. Electrolytes normal at this time we will continue to monitor them with daily lab draws. 5. Nearly 90 minutes were spent answering questions with the patient and his on speaker phone through conference, addressing concerns as a relates to team communication and answering all questions as well as reassuring them of their concerns.
[2020-09-09] MEDS: METOCLOPRAMIDE 10 MG/2 ML VIAL IVP SCH ×3 (00:44→11:27)
[2020-09-09] MEDS: D5NS W/20 MEQ KCL 1,000 ML IV SCH ×2 (02:51→11:32)
[2020-09-09] MEDS: PIPERACILLIN/TAZOBACTAM 3.375 GM in SODIUM CHLORIDE 0.9% MINIBAG 100 ML IV SCH ×2 (05:47→11:31)
[2020-09-09 05:55] LABS: ALBUMIN 2.7 g/dL (3.2-5.5); ALBUMIN/GLOBULIN RATIO 0.8 (1.0-2.2); BILIRUBIN,TOTAL 0.4 mg/dL (0.2-1.0); CALCIUM 8.6 mg/dL (8.5-10.3); CREATININE 1.2 mg/dL (0.6-1.2); MAGNESIUM 1.9 mg/dL (1.7-2.8); PHOSPHORUS 4.4 mg/dL (2.5-4.6); POTASSIUM 4.3 mmol/L (3.5-5.0)
[2020-09-09] MEDS: HEPARIN 5,000 UNIT/ML VIAL SUBQ SCH (08:51)
[2020-09-09] MEDS: SODIUM CHLORIDE FLUSH 0.9% 10 ML SYRINGE IVP SCH (08:52)
[2020-09-09] MEDS: SODIUM CHLORIDE FLUSH 0.9% 10 ML SYRINGE IVP PRN ×3 (11:27→15:17)
[2020-09-09 15:13] VITALS: BP 148/72
--- NOTE | 2020-09-09 15:24 | Discharge Plan ---
Discharge Plan Problem Reviewed?: Yes Disposition: Home, Self Care Condition: Good Prescriptions: Metoclopramide [Reglan] 10 mg PO AC #90 tablet Activity Restrictions: No Restrictions Shower Restrictions: No Driving Restrictions: No Weight Bearing: Full Weight Instruction Topics: Obstruction Sm Bowel, Obstruction Large Bowel Health Concerns: 1. Dehydration 2. Severe protein malnutrition 3. Bowel obstruction, chronic 4. Small bowel fistula Plan of Treatment: Patient with complex surgical history. Admitted with small bowel obstruction. Managed with nasogastric decompression and bowel rest. Passed clamping trial. No nausea no vomiting at this time. Appropriate for discharge to home with continued bowel rest and continued home TPN. Plan is as follows: 1. Strict n.p.o. until advance to clears on follow-up 2. Follow-up with me next week in the clinic 3. Outpatient sits marker study then thereafter small bowel follow-through with fluoroscopy to be scheduled 4. Continue home TPN 5. Continue Reglan 6. Call first concerning features. Assessment: Subjective NG tube clamped. Residual 40 cc after 4 hours. NG tube removed. No nausea no vomiting overnight. Continues with bowel function. Objective Afebrile hemodynamically acceptable General Appearance: positive: No acute distress Eyes Bilateral: positive: Normal inspection ENT: positive: ENT inspection nml Neck: positive: Nml inspection Respiratory: positive: Chest non-tender, No respiratory distress, Breath sounds nml. negative: Wheezes, Rales, Rhonchi Cardiovascular: positive: Regular rate & rhythm Abdomen: positive: No distention, Other. negative: Guarding, Rebound Extremities: positive: Non-tender, Full ROM, Nml appearance Neurologic/Psychiatric: positive: Oriented x3, CN's nml (2-12) No leukocytosis. CMP within normal limits other than severe protein malnutrition. Impression/Plan 65yo M Patient with complex surgical history. Admitted with small bowel obstruction. Managed with nasogastric decompression and bowel rest. Passed clamping trial. No nausea no vomiting at this time. Appropriate for discharge to home with continued bowel rest and continued home TPN. Plan is as follows: 1. Strict n.p.o. until advance to clears on follow-up 2. Follow-up with me next week in the clinic 3. Outpatient sits marker study then thereafter small bowel follow-through with fluoroscopy to be scheduled 4. Continue home TPN 5. Continue Reglan 6. Call first concerning features. Additional Instructions or Follow Up instructions: DISCHARGE INSTRUCTIONS TEMPLATE: No heavy lifting, pushing, or pulling. Stairs are allowed, no strenuous/exertional activities. 5-10lbs weight carrying limit (i.e. gallon of milk) If provided, abdominal binder while out of bed and while ambulating. Call or proceed to clinic/ER for fevers, severe pain, nausea, vomiting, inability to pass flatus/stool, bleeding, wound redness/discharge, weakness, exc essively loose stool/diarrhea, or for any other reasonably worrisome symptom or concern. STRICT NPO EXCEPT FOR MEDICATIONS. HOLD CLEAR LIQUIDS UNTIL DISCUSS. May shower, no submersive bathing. Follow up in clinic in [address] while taking narcotic pain medications. Follow up with primary care provider and/or medical subspecialist following discharge as well. No Smoking: If you smoke, Please STOP! Call for help. Follow-up with: Thomas Moore MD [Provider Admit Priv/Credential] -
--- NOTE | 2020-09-09 15:41 | DISCHARGE SUMMARY ---
"Discharge Summary Admit Date: 09/03/20 Discharge Date: 09/09/20 Discharging Provider: Oscar Code Status: Attempt Resuscitation Condition at Discharge: Good Discharge Disposition: 06 Home Health Service - DIAGNOSES Admission Diagnoses: 1. Dehydration 2. Severe protein malnutrition 3. Bowel obstruction, chronic 4. Small bowel fistula Discharge Diagnoses with Status of Each Condition: 1. Dehydration - RESOLVED 2. Severe protein malnutrition - RESOLVED 3. Bowel obstruction, chronic - RESOLVED 4. Small bowel fistula - FOLLOWING/PERSISTENT - HPI History of Present Illness: 65-year-old male with a complicated surgical history. Multiple comorbid states. Please note the patient is significant for past history of sigmoid resection which ultimately was a [id number] functional end-to-end colocolostomy. Thereafter the patient presented with acute peritonitis unrelated that was addressed with a right colectomy patient had necessary reoperative intervention in the acute setting as a function of what was reported as stoma dysfunction and ischemia. He was referred for ileostomy reversal this was performed laparoscopically with an ileotransverse colostomy. Patient developed a postoperative fistula presumably's secondary to ischemic complications in the setting of an end enterostomy although there was no evidence of vascular compromise. Reoperative intervention consisted of anastomotic revision and proximal loop ileostomy for which the patient was evaluated in anticipation of quaker of continuity and stool per anus by CT scan. CAT scan showed anastomotic stricture and patient was necessarily dilated endoscopically. Interval CAT scan per rectum showed no evidence of anastomotic leak and patient was taken to the operating room for ileostomy takedown and was advised of the risk as it relates to incontinence, need for further anastomotic dilation amongst others. He is status post ileostomy takedown. He has developed a fistula in the interim. Maintained on TPN. He has been intolerant of food recently likely secondary to his historic colocolostomy and associated anastomotic/colonic stricture. He presents for endoscopic evaluation and possible dilation. Colonic stricture suspected and indicated for endoscopic evaluation. Colonoscopy indicated for likely pneumatic dilation. Symptoms are as follows d istention, decreased bowel movements, and propagation of proximal fistula. Risks and benefits discussed at length. Informed consent obtained. Risks include but are not limited to, bleeding, infection, perforation, missed lesions, injury to local structures, need for further surgeries, and the per iprocedural/sedation risks of heart attack stroke and . Patient was advised if any concerning areas were noted these would be sampled if too big to resect or performed for excision if within reasonable limits for endoscopic intervention. Please note that voice recognition software was used to transcribe this note and inadvertent errors might persist in spite of review and editing. I am obliged to you for your attention. I am thankful to you for allowing me to participate with you in this care of this patient. - CONSULTS | PROCEDURES Consultations: NONE Procedures: Inititial diagnostic/therapeutic colonoscopy with findings were as follows: 1. Area of stricturing easily traversed with wire pneumatically dilated without any complication 2. Dilated area of concern which was traversed with extensive retained stool upstream; this was achieved with a 15mm to 18 mm [id number]-[id number] balloon dilator. 3. During insufflation and dilation patient was already placed for NG tube prophylactically given his abdominal distention however he has been n.p.o. on TPN for several weeks. 4. He did indeed suffer emesis in spite of nasogastric decompression and ultimately procedure was aborted. 5. Plan for admission, full bowel prep, and reattempt at endoscopic evaluation. Admitted; plan going forward is as follows: A. Continue n.p.o. with NG tube decompression B. Bowel prep done NG tube with MiraLAX C. Antibiotics prophylactically for aspiration; x-rays without any infiltrates or evidence of pneumonitis D. Reattempt colonoscopy tomorrow; will likely require endotracheal intubation to protect airway. Subsequent colonsocopy: Pre-Op Diagnosis: Chronic bowel obstruction; complex surgical history Procedure Performed: 1. General endotracheal anesthesia 2. Therapeutic endoscopy 3. Ileoscopy 4. Random multiple biopsies 5. Multiple dilations of both anastomosis of the colocolostomy and descending colon stricture Post Op Diagnosis: Chronic bowel obstruction; complex surgical history Findings: He was intubated to protect against aspiration and findings are as per below: 1. Colocolonic anastomosis with associated stricturing traverse following dilation yesterday. 2. Descending colonic stricturing which was traversed and ultimately dilated upon completion 3. Ileal colonic anastomosis widely patent ultimately biopsied 4. The small bowel enteroenterostomy status post loop ileostomy takedown 5. Proximal small bowel was clipped and biopsied however without any enteritis. 6. Multiple clips placed as follows as markers in anticipation of CT scan abdomen pelvis: A. Proximal ileum at extent reach B. Clip at small bowel enteroenterostomy likely site of the patient's historic ileostomy takedown C. No further clips placed 7. Biopsies as follows: A. Proximal ileum biopsy B. Ileocolonic anastomosis C. Proximal colonic biopsy D. Descending colonic stricture biopsy E. Colocolonic anastomotic biopsy Please note that voice recognition software was used to transcribe this note and inadvertent errors might persist in spite of review and editing. I am obliged to you for your attention. I am thankful to you for allowing me to participate with you in this care of this patient. - HOSPITAL COURSE Hospital Course: 65-year-old male patient with complex surgical history to include left colectomy with historic side to side colocolostomy; had history of ischemic colitis, requiring segmental colectomy with right-sided enterostomy, post operative course complicated by recurrent peritonitis necessitating reoperative intervention. He ultimately underwent stoma takedown, laparoscopic, complicated by fistula which required reoperative intervention with temporary loop ileostomy. He ultimately was evaluated preoperatively endoscopically and by CT imaging; the former was worrisome for stricturing which was addressed by pneumatic dilation with ultimate quaker of bowel function following stoma reversal. 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 Uncertain whether any element of inflammatory bowel disease. Initial diagnostic and therapeutic colonoscopy deferred secondary to emesis during this admission. Presumptive bowel obstruction. After prep through NGT, he was attempted for endoscopic intervention for presumptive's large bowel obstruction however after the colon was cleared in approximately clipped at the mid ileum there was no evidence of residual colonic stricturing following endoscopic intervention. CT scan ultimately revealed high-grade small bowel obstruction with associated obstipation. No peritoneal signs at this time. It is very likely that the patient had chronic signs of small bowel obstruction which propagated his fistula which currently has no output. Patient has high NG tube output and our plan going forward is as follows. He was admitted with the following for acute on chronic small bowel obstruction: 1. Bowel rest, nasogastric decompression, IV fluid resuscitation. Will proceed with clamping trial this evening. 2. Serial abdominal exams, plain film imaging, possible repeat imaging with CT and contrast challenge. 3. Will defer any acute operative intervention as long as possible given an anticipated hostile abdomen and potentially undiagnosed inflammatory bowel disease given recent small bowel biopsies. 4. We will also seek to forward all historic pathology for second opinion. Will follow closely. 5. Electrolytes normal at this time we will continue to monitor them with daily lab draws. 6. Nearly 90 minutes were spent answering questions with the patient and his on speaker phone through conference, addressing concerns as a relates to team communication. He was maintained bowel rest and nasogastric tube decompression. For several days he was continued for parenteral nutrition. He was monitored for his fistula output as well as his NG tube output which remained elevated. He was maintained and monitored and managed in the manner consistent with a small bowel obstruction which was noted on imaging. His imaging was reviewed with radiology at length. He was ultimately plan for his NG tube with tolerance and minimal residual. He was performed for serial abdominal x-rays with resolution. At this time the patient was advised of the importance of maintaining nothing p.o. and continuing parenteral nutrition in anticipation of resolution of his chronic obstruction and healing of his fistula. This was discussed at length with the patient and his . - ALLERGIES Allergies/Adverse Reactions: Allergies Allergy/AdvReac Type Severity Reaction Status Date / Time hydrochlorothiazide AdvReac lightheaded Verified 07/17/20 09:49 lisinopril AdvReac lightheaded Verified 07/17/20 09:49 lorazepam AdvReac Anxiety Verified 07/17/20 09:49 - MEDICATIONS Home Medications: Ambulatory Orders Medication Instructions Recorded Confirmed Doxazosin Mesylate 8 mg PO DAILY 03/30/20 09/03/20 Aspirin [Artur] 325 mg PO DAILY 09/03/20 09/04/20 Metoclopramide [Reglan] 10 mg PO AC #90 tablet 09/09/20 - PHYSICAL EXAM AT DISCHARGE General Appearance: positive: No acute distress, Alert Eyes Bilateral: positive: Normal inspection, PERRL, EOMI ENT: positive: ENT inspection nml Neck: positive: Nml inspection Respiratory: positive: Chest non-tender. negative: Wheezes, Rales, Rhonchi Cardiovascular: positive: Regular rate & rhythm Abdomen: positive: Non-tender, Other (Distended with palpable upper midline hernia, no tenderness, no rebound, no guarding. Well-healed scar. Right lower quadrant sinus tract placed for stoma appliance.). negative: Guarding, Rebound Skin: positive: Color nml Extremities: positive: Non-tender, Full ROM, Nml appearance Neurologic/Psychiatric: positive: Oriented x3, CN's nml (2-12), Motor nml, Sensation nml, Mood/affect nml - LABS Result Diagrams: 09/07/20 05:24 09/09/20 04:40 - DIAGNOSTIC IMAGING Diagnostic Imaging Results: Discussed with radiologist - SEPSIS Current Stage of Sepsis: Ruled out - FOLLOW UP Follow Up: 65yo M Patient with complex surgical history. Admitted with small bowel obstruction. Managed with nasogastric decompression and bowel rest. Passed clamping trial. No nausea no vomiting at this time. Appropriate for discharge to home with continued bowel rest and continued home TPN. Plan is as follows: 1. Strict n.p.o. until advance to clears on follow-up 2. Follow-up with me next week in the clinic 3. Outpatient sits marker study then thereafter small bowel follow-through with fluoroscopy to be scheduled 4. Continue home TPN 5. Continue Reglan 6. Call first concerning features. - TIME SPENT Time Spent in Discharge (Minutes): 90"
== END 2020-09-09 15:45 | disposition home health service (06) | DRG 388 ==
LOC: SDS 12:55 → MS3 15:33 → SDS 15:33 → OBSVTOIN 09-04 22:48
PROVIDERS: ADMIT Surgery; ATTEND Surgery
PROC: 0DBM8ZX Excision of Descending Colon, Via Natural or Artificial Opening Endoscopic, Diagnostic (ICD-10-PCS; principal; 2020-09-04 12:15)
DX: K91.89 Other postprocedural complications and disorders of digestive system (principal); Y83.2 Surgical operation with anastomosis, bypass or graft as the cause of abnormal reaction of the patient, or of later complication, without mention of misadventure at the time of the procedure; K56.609 Unspecified intestinal obstruction, unspecified as to partial versus complete obstruction; K56.600 Partial intestinal obstruction, unspecified as to cause; E43 Unspecified severe protein-calorie malnutrition; T81.83XA Persistent postprocedural fistula, initial encounter; K63.2 Fistula of intestine; R11.10 Vomiting, unspecified; I10 Essential (primary) hypertension; N40.0 Benign prostatic hyperplasia without lower urinary tract symptoms; H54.7 Unspecified visual loss; R01.1 Cardiac murmur, unspecified; E86.0 Dehydration; Z79.899 Other long term (current) drug therapy; Z87.891 Personal history of nicotine dependence; Z87.19 Personal history of other diseases of the digestive system; Z68.22 Body mass index [BMI] 22.0-22.9, adult; Z90.49 Acquired absence of other specified parts of digestive tract
CPT/HCPCS: 36415; 45380; 45386; 71045; 74018; 74177; 80053; 83735; 84100; 84134; 84478; 85025; 88305; 96372; A9270; G0378; J2765; J3490; J7120; Q9967

== ENCOUNTER 2020-10-15 13:43 | Day surgery (SDC) | payer MEDICARE, BC ==
[2020-10-15 15:50] VITALS: BP 160/74
--- NOTE | 2020-10-15 15:55 | ANESTHESIA PROCEDURE NOTE ---
Diagnosis: enterocutanous fistula Procedure: PICC Insertion Consent for Procedure(s) Verified and Reviewed: Yes Height and Weight: Height 6 ft Body Mass Index 23.7 Vital Signs: Temp Pulse Resp BP Pulse Ox 36.4 C L 81 16 160/74 H 98 10/15/20 15:47 10/15/20 15:47 10/15/20 15:47 10/15/20 15:47 10/15/20 15:47 Allergies hydrochlorothiazide Adverse Reaction (Verified 07/17/20 09:49) lightheaded lisinopril Adverse Reaction (Verified 07/17/20 09:49) lightheaded lightheaded lorazepam Adverse Reaction (Verified 07/17/20 09:49) Anxiety Requesting Provider: Oscar Location: Preop Is this case an emergency?: No Anes. Procedure Start Time: 14:35 Anes. Procedure Stop Time: 15:35 Procedure Notes: attempted to rewire over existing Right picc, met resistance so pulled existing Right picc. Placed new 5 Fr, double lumen PICC in left basilic vein with US guidance. Trimmed catheter to 45 cm, 0 cm exposed at skin. PICC dressed, good blood return and flush. CXR confirmed placement. Pt tolerated procedure well.
--- NOTE | 2020-10-16 10:56 | XRAY Report ---
PROCEDURE: Chest for Line Placement INDICATIONS: PICC TECHNIQUE: One view of the chest was acquired. COMPARISON: 09/08/2020 FINDINGS: Surgical changes and devices: The tip of the left upper extremity PICC projects over the inferior por tion of the SVC, at a location just superior to the expected location of the cavoatrial junction. Lungs and pleura: No pleural effusions or pneumothorax. Lungs are clear. Mediastinum: Mediastinal contours appear normal. Heart size is normal. Bones and chest wall: No suspicious bony lesions. Overlying soft tissues appear unremarkable. IMPRESSION: Left upper extremity PICC tip projects over the inferior SVC. Reviewed by: Gil Khan MD on 10/16/2020 10:55 AM [facility] Approved by: Gil Khan MD on 10/16/2020 10:55 AM [facility] Station ID: [id number]
== END 2020-10-15 13:44 | disposition home or self-care (01) ==
LOC: SDS 13:43
PROVIDERS: ATTEND Surgery
DX: K63.2 Fistula of intestine (principal)
CPT/HCPCS: 36569; 71045; C1751

== ENCOUNTER 2022-01-18 15:25 | Outpatient (CLI) | payer MEDICARE, BC ==
[2022-01-18] MEDS ORDERED: DIATR MEGLU/DIATRIZOATE SODIUM 120 ML BOTTLE PO ONE (17:05)
--- NOTE | 2022-01-18 18:51 | CT Report ---
PROCEDURE: CT abdomen and pelvis without contrast INDICATIONS: ABD SURGICAL WOUND INFECTION, pain TECHNIQUE: Noncontrast 5 mm thick sections acquired from the diaphragms to the symphysis. 5 mm coronal and sagi ttal reformats were then performed. For radiation dose reduction, the following was used: automated exposure control, adjustment of mA and/or kV according to patient size. COMPARISON: None. FINDINGS: Lower thorax: The lung bases are clear. Heart size normal. No hiatal hernia. Liver: Normal in size and attenuation. No contour deformity present. Biliary system: No calcified cholelithiasis or pericholecystic inflammation. No evidence of bile du ct dilatation. Pancreas: Unremarkable without mass or inflammation evident. Spleen: Normal in size and density. Adrenals: Normal morphology and density. Reproductive system: Unremarkable as visualized. Urinary system: Normal renal size and attenuation. No renal calculi, hydronephrosis, or solid mass p resent. Urinary bladder unremarkable. Gastrointestinal system: Colectomy with ileorectal anastomosis. Right upper quadrant ostomy present a s well. No evidence of bowel obstruction. Appendix: No findings to suggest acute appendicitis. Peritoneal spaces: There is now a presacral encapsulated fluid collection measuring 8.5 x 6.4 x 11.0 cm, posterior to the rectum Vasculature: Stable infrarenal abdominal aortic aneurysm. Bowel wall: Right upper quadrant ileostomy noted. There is a midline dehiscent wound associated with minimal soft tissue air and inflammatory change, but no significant abscess. The deep fascia appears intact. Musculoskeletal: Normal bone mineralization. No acute fractures. L5 spondylolysis with grade 2 ant erior spinal listhesis present at L5-S1, similar to the prior IMPRESSION: Encapsulated pelvic presacral fluid collection, most consistent with abscess. Fluid would be amendabl e to percutaneous CT-guided drainage Dehiscent anterior abdominal wall wound with minimal soft tissue air and inflammatory change, but no significant drainable abscess Intrarenal abdominal aortic aneurysm, stable Reviewed by: Julio Cesar Warner MD on 01/18/2022 5:50 PM [facility] Approved by: Julio Cesar Warner MD on 01/18/2022 5:50 PM [facility] Station ID: [id number]
== END 2022-01-18 15:26 | disposition home or self-care (01) ==
LOC: DI 15:25
PROVIDERS: ATTEND Surgery
DX: T81.89XA Other complications of procedures, not elsewhere classified, initial encounter (principal); I71.4 Abdominal aortic aneurysm, without rupture
CPT/HCPCS: 74176; Q9963

== ENCOUNTER 2022-05-18 13:16 | Outpatient (CLI) | payer MEDICARE, BC ==
[2022-05-18] MEDS ORDERED: DIATRIZOATE MEGLU/DIATRIZO SOD 30 ML BOTTLE PO ONE (14:27)
--- NOTE | 2022-05-18 17:37 | CT Report ---
PROCEDURE: Abdomen/Pelvis WO INDICATIONS: ABDOMINAL DISTENSION TECHNIQUE: Noncontrast 5 mm thick sections acquired from the diaphragms to the symphysis. 5 mm coronal and sagi ttal reformats were then performed. For radiation dose reduction, the following was used: automated exposure control, adjustment of mA and/or kV according to patient size. COMPARISON: None. FINDINGS: Image quality: Excellent. ABDOMEN: Lower thorax: Cluster of nodular consolidation of the right lower lobe with surrounding infiltrate an d associated small right pleural effusion suggests infectious etiology Liver: There is a suggestion of intrahepatic mass lesions which are difficult to evaluate without con trast. Small subcapsular left hepatic fluid noted as well. Biliary system: No calcified cholelithiasis or pericholecystic inflammation. No evidence of bile du ct dilatation. Pancreas: Unremarkable without mass or inflammation evident. Spleen: Normal in size and density. Adrenals: Normal morphology and density. Reproductive system: Unremarkable as visualized. Urinary system: Normal renal size and attenuation. No renal calculi, hydronephrosis, or solid mass p resent. Urinary bladder unremarkable. Gastrointestinal system: The bowel appears unremarkable with no evidence of bowel obstruction or inf lammation. The stomach appears unremarkable. Multiple diverticula arise from the sigmoid colon withou t evidence of diverticulitis. Colectomy noted with reversal prior right-sided ostomy. Appendix: No findings to suggest acute appendicitis. Peritoneal spaces: Presacral fluid has nearly resolved and now measures 4.3 x 1.1 cm Vasculature: Stable infrarenal abdominal aortic aneurysm measures up to 5 cm Musculoskeletal: Normal bone mineralization. No acute fractures. Abdominal wall intact without yanet dence of ventral or inguinal hernias. Grade 2 anterior spinal listhesis at L5-S1 associated with L5 l ateral pars defects IMPRESSION: 1. Hepatic distention with possible underlying mass lesions. Recommend follow-up contrast CT or MRI. 2. Right lower lobe nodular consolidation with surrounding infiltrate. Infectious and/or neoplastic e tiologies considered. Associated right lower lobe pleural effusion. 3. Infrarenal abdominal aortic aneurysm, 5 cm stable Reviewed by: Julio Cesar Warner MD on 05/18/2022 4:36 PM [facility] Approved by: Julio Cesar Warner MD on 05/18/2022 4:36 PM [facility] Station ID: [id number]
== END 2022-05-18 13:17 | disposition home or self-care (01) ==
LOC: LAB 13:16
PROVIDERS: ATTEND Surgery
DX: K76.89 Other specified diseases of liver (principal); R91.8 Other nonspecific abnormal finding of lung field; J90 Pleural effusion, not elsewhere classified; I71.4 Abdominal aortic aneurysm, without rupture; R14.0 Abdominal distension (gaseous)
CPT/HCPCS: 36415; 74176; 82565; Q9963

== ENCOUNTER 2022-05-20 11:34 | Inpatient (IN) | payer MEDICARE, BC ==
[2022-05-20 12:06] LABS: BASOPHILS % (AUTO) 0.2 %; HCT - HEMATOCRIT 32.9 % (42.0-52.0); HGB - HEMOGLOBIN 10.9 g/dL (14.0-18.0); LYMPHOCYTES # (AUTO) 0.4 10^3/uL (1.5-3.5); LYMPHOCYTES % (AUTO) 6.9 %; MEAN CORPUSCULAR HEMOGLOBIN 29.4 pg (27.0-31.0); MEAN CORPUSCULAR HGB CONC 33.1 g/dL (32.0-36.0); MEAN CORPUSCULAR VOLUME 88.7 fL (80.0-94.0); MEAN PLATELET VOLUME 9.7 fL (7.4-11.4); MONOCYTES # (AUTO) 0.8 10^3/uL (0.0-1.0); MONOCYTES % (AUTO) 15.5 %; NEUTROPHILS # (AUTO) 4.2 10^3/uL (1.5-6.6); NEUTROPHILS % (AUTO) 77.2 %; PLT - PLATELET COUNT 289 10^3/uL (130-450); RED BLOOD COUNT 3.71 10^6/uL (4.70-6.10); RED CELL DISTRIBUTION WIDTH 13.8 % (12.0-15.0); WHITE BLOOD COUNT 5.4 x10^3/uL (4.8-10.8)
[2022-05-20 12:18] LABS: ALBUMIN/GLOBULIN RATIO 0.8 (1.0-2.2); BILIRUBIN,TOTAL 0.9 mg/dL (0.2-1.0); CALCIUM 8.8 mg/dL (8.5-10.3); CREATININE 2.9 mg/dL (0.6-1.2); POTASSIUM 4.1 mmol/L (3.5-5.0); TOTAL PROTEIN 6.7 g/dL (6.7-8.2)
--- NOTE | 2022-05-20 12:38 | XRAY Report ---
PROCEDURE: Chest 1 View X-Ray INDICATIONS: chest pain TECHNIQUE: One view of the chest was acquired. COMPARISON: 10/15/2020 FINDINGS: Surgical changes and devices: None. Lungs and pleura: Masslike infrahilar right-sided nodules surrounding pulmonary infiltrate noted. Mi nimal blunting the right costophrenic angle. Left lung and pleural space clear. Mediastinum: Mediastinal contours appear normal. Heart size is normal. Bones and chest wall: No suspicious bony lesions. Overlying soft tissues appear unremarkable. IMPRESSION: Multifocal right infrahilar nodules with surrounding infiltrate. Differential would include neoplasm. Consider follow-up contrast CT chest abdomen pelvis Reviewed by: Julio Cesar Warner MD on 05/20/2022 11:36 AM [facility] Approved by: Julio Cesar Warner MD on 05/20/2022 11:36 AM [facility] Station ID: [id number]
--- NOTE | 2022-05-20 13:24 | ED Physician Documentation ---
History of Present Illness - Stated complaint Stated Complaint: FLUID IN LUNGS - Chief complaint Chief Complaint: Abd Pain - Additonal information Additional information: 67-year-old male presents emergency department at the request of his physician to be evaluated for worsening shortness of air. The patient reports that about 3 weeks ago he had a very productive cough. His also had the same. Over the last few weeks he has had improving cough but now finds that he is persistently dyspneic. He has been seen recently by her local surgeon for evaluation of a distended and rigid abdomen. A CT scan completed 2 days ago showed a pleural effusion as well as a right lower lobe infiltrate. Given these findings he was advised to present to the ER for evaluation. Review of Systems Constitutional: reports: Fatigue. denies: Fever, Chills Eyes: reports: Reviewed and negative Nose: reports: Reviewed and negative Cardiac: denies: Chest pain / pressure, Palpitations, Pedal edema Respiratory: reports: Dyspnea, Cough GI: reports: Abdominal Pain, Nausea. denies: Vomiting : reports: Reviewed and negative Skin: reports: Reviewed and negative Musculoskeletal: reports: Reviewed and negative PD PAST MEDICAL HISTORY - Past Medical History Cardiovascular: Hypertension, Murmur Respiratory: None Neuro: None Endocrine/Autoimmune: None GI: Diverticulitis, Other (Abdominal distension) : Benign prostate hypertrophy, Other HEENT: Chronic vision loss Psych: None Musculoskeletal: Other Derm: None - Past Surgical History Past Surgical History: Yes General: Bowel surgery, Colonoscopy, Other - Present Medications Home Medications: Ambulatory Orders Medication Instructions Recorded Confirmed Doxazosin [Cardura] 4 mg PO DAILY 05/20/22 - Allergies Allergies/Adverse Reactions: Allergies Allergy/AdvReac Type Severity Reaction Status Date / Time hydrochlorothiazide AdvReac lightheaded Verified 05/20/22 12:07 lisinopril AdvReac lightheaded Verified 05/20/22 12:07 lorazepam AdvReac Anxiety Verified 05/20/22 12:07 - Social History Does the pt smoke?: No Smoking Status: Former smoker Does the pt have substance abuse?: No - Immunizations Immunizations are current?: Yes - POLST Patient has POLST: No PD ED PE NORMAL - General General: Alert and oriented X 3. No: No acute distress (Mildly dyspneic at rest) - HEENT HEENT: Atraumatic, Moist mucous membranes - Neck Neck: Supple, no meningeal sign, No adenopathy - Cardiac Cardiac: RRR, No murmur - Respiratory Respiratory: No respiratory distress, Clear bilaterally (Room air saturations 97%. Patient is however dyspneic and mildly tachypneic at rest with respiratory rate about 24) - Abdomen Abdomen: No: Non distended (Distended tense abdomen though nonperitoneal and no pain elicited. 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 Eye Opening: Spontaneous Motor: Obeys Commands Verbal: Oriented GCS Score: 15 Results - Vitals Vitals: Vital Signs - 24 hr 05/20/22 12:04 Temperature 36.3 C L Heart Rate 95 Respiratory 17 Rate Blood Pressure 153/65 H O2 Saturation 97 Oxygen O2 Source Room air - Labs Labs: Laboratory Tests 05/20/22 05/20/22 05/20/22 11:54 11:54 11:54 WBC 5.4 RBC 3.71 L Hgb 10.9 L Hct 32.9 L MCV 88.7 MCH 29.4 MCHC 33.1 RDW 13.8 Plt Count 289 MPV 9.7 Neut # (Auto) 4.2 Lymph # (Auto) 0.4 L Juncos # (Auto) 0.8 Eos # (Auto) 0.0 Baso # (Auto) 0.0 Absolute Nucleated RBC 0.00 Nucleated RBC % 0.0 Sodium 132 L Potassium 4.1 Chloride 95 L Carbon Dioxide 21 Anion Gap 16.0 H BUN 46 H Creatinine 2.9 H Estimated GFR (MDRD) 22 L Glucose 101 H Lactic Acid Calcium 8.8 Total Bilirubin 0.9 AST 193 H ALT 134 H Alkaline Phosphatase 400 H B-Natriuretic Peptide Total Protein 6.7 Albumin 3.0 L Globulin 3.7 Albumin/Globulin Ratio 0.8 L Procalcitonin 3.89 H* 05/20/22 05/20/22 11:54 11:57 WBC RBC Hgb Hct MCV MCH MCHC RDW Plt Count MPV Neut # (Auto) Lymph # (Auto) Juncos # (Auto) Eos # (Auto) Baso # (Auto) Absolute Nucleated RBC Nucleated RBC % Sodium Potassium Chloride Carbon Dioxide Anion Gap BUN Creatinine Estimated GFR (MDRD) Glucose Lactic Acid 1.5 Calcium Total Bilirubin AST ALT Alkaline Phosphatase B-Natriuretic Peptide 56 Total Protein Albumin Globulin Albumin/Globulin Ratio Procalcitonin - Rads (name of study) cxr Radiology: Final report received (Multifocal right Infrahilar nodules with surrounding infiltrate. Differential would include neoplasm. CONSIDER follow- up CT contrast chest abdomen pelvis) PD MEDICAL DECISION MAKING - ED course Complexity details: reviewed results, re-evaluated patient, considered differential, d/w patient ED course: 67-year-old male was advised to come to the emergency department for evaluation of worsening dyspnea that began about 3 weeks ago after he developed a cough. He also has been battling with abdominal distention and has a surgical history that includes significant colectomy for multiple perforations. A recent CT scan done at the behest of his surgeon 2 days ago showed a right lower lobe nodular consolidation with surrounding infiltrate. This coupled with worsening dyspnea he was advised to come to the ER for further evaluation treatment and likely admission for treatment of the pneumonia. Unfortunately the CT scan also showed likely hepatic distention and possible underlying mass lesions which may be further contributing to his symptoms. Here in the emergency department he is afebrile and has no leukocytosis. We do note a markedly elevated procalcitonin at 3.8. Blood cultures are pending. Given the infiltrate seen on CT and recent chest x-ray he was administered ceftriaxone and azithromycin. COVID screen is pending. We do note moderate chronic kidney disease, Which does appear unchanged from baseline. I spoke with Dr. Simon who agrees to further admit the patient for treatment of his likely underlying neoplasm as well as significant kidney disease and pneumonia. Departure - Departure Disposition: 65 [facility] DC/Xfer Clinical Impression: Pneumonia Qualifiers: Pneumonia type: due to unspecified organism Laterality: right Lung location: middle lobe of lung Qualified Code(s): J18.9 - Pneumonia, unspecified organism Dyspnea Qualifiers: Dyspnea type: dyspnea on exertion Qualified Code(s): R06.09 - Other forms of dyspnea Chronic kidney disease Qualifiers: Chronic kidney disease stage: stage 3 (moderate) Chronic kidney disease stage 3 subtype: unspecified whether 3a or 3b Qualified Code(s): N18.30 - Chronic kidney disease, stage 3 unspecified Discharge Date/Time: 05/20/22 15:16
[2022-05-20] MEDS ORDERED: ONDANSETRON 4 MG/2 ML VIAL IVP PRN (13:25)
[2022-05-20] MEDS ORDERED: ONDANSETRON ODT 4 MG TABLET TL PRN (13:25)
[2022-05-20] MEDS ORDERED: SODIUM CHLORIDE FLUSH 0.9% 10 ML SYRINGE IVP PRN (13:25)
[2022-05-20] MEDS ORDERED: cefTRIAXone 2 GM VIAL IVP STA (13:25)
[2022-05-20] MEDS ORDERED: AZITHROMYCIN INJ 500 MG in SODIUM CHLORIDE 0.9% 250 ML IV STA (13:26)
[2022-05-20] MEDS ORDERED: ALBUTEROL NEB 2.5 MG/3 ML INH PRN (13:29)
[2022-05-20 13:46] LABS: GLUCOSE, URINE (UA) NEGATIVE (NEGATIVE); KETONES,URINE (UA) TRACE mg/dL (NEGATIVE); LEUKOCYTE ESTERASE, URINE NEGATIVE (NEGATIVE); NITRITE,URINE NEGATIVE (NEGATIVE); OCCULT BLOOD,URINE NEGATIVE (NEGATIVE); PROTEIN,URINE 30 mg/dL (NEGATIVE); UROBILINOGEN,URINE 0.2 (NORMAL) E.U./dL (NORMAL)
[2022-05-20 13:47] LABS: CLARITY,URINE HAZY (CLEAR)
[2022-05-20 13:49] LABS: BILIRUBIN,URINE NEGATIVE (NEGATIVE); ICTOTEST,URINE NEGATIVE
[2022-05-20 14:00] LABS: BACTERIA,URINE Rare /HPF (None Seen); RBC,URINE 0-5 /HPF (0-5); SQUAMOUS EPITHELIAL CELL,UR NONE SEEN (<= Few); WBC,URINE >25 /HPF (0-3)
[2022-05-20] MEDS: SODIUM CHLORIDE 0.9% 1,000 ML IV SCH (15:55)
[2022-05-20] MEDS: SACCHAROMYCES BOULARDII 250 MG CAPSULE PO SCH (17:20)
[2022-05-20] MEDS: SODIUM CHLORIDE FLUSH 0.9% 10 ML SYRINGE IVP SCH (17:20)
--- NOTE | 2022-05-20 17:57 | HISTORY & PHYSICAL EXAMINATION ---
Chief Complaint - Chief Complaint Chief Complaint: Abdominal distention and bloating, severe History of Present Illness - Admitted From Admitted From:: Home via EMS - History Obtained From Records Reviewed: [facility] History obtained from: patient, Dr. main, EMR Exam Limitations: none - History of Present Illness HPI Comment/Other: This [place] gentleman has a markedly positive surgical history with regards to his colon. He had diverticulitis in the that was treated with a colon resection by Dr. Sher Edgar.. In April 2019 he presented to the emergency room with abrupt onset of abdominal pain. He was taken to the operating room and underwent an extended right hemicolectomy that included the proximal transverse colon with end ileostomy. He was found to have a perforated hepatic flexure with feculent peritonitis. 24 hours later he decompensated and end ileostomy was compromised and he was returned to the OR for revision of his ileostomy. The patient did not want to stay in the hospital once he was feeling better and was discharged within 7 days. He then returned in March 2020 and wanted to be seen for an ileostomy reversal. Colonoscopy had already been done in August 2019 in preparation for the reversal. Colonoscopy was described as "normal". This gentleman stayed in the hospital from March 31 through April 24. His first surgery on March 30 was a laparoscopy with ileostomy takedown. Small bowel resection. Splenic flexure mobilization, mini laparotomy. He had laparoscopic adhesiolysis of adhesions to the anterior abdominal wall. Open adhesiolysis of the omentum and to the small bowel interloop adhesions. Parastomal hernia repair. [id number] functional end-to-end antiperistaltic anastomosis. An omental flap drain placement. He had a second exploratory laparotomy on April 06, 2020, abdominal washout, takedown of an anastomotic cutaneous fistula, anastomotic revision secondary to small bowel ischemia, stricturoplasty secondary to dense adhesions, omental flap creation, partial omentectomy, a stapled [id number] functional end-to-end isoperistaltic anastomosis, extensive open adhesiolysis because of an anastomotic leak, free air. He did go to [place] via ambulance to have a drain placed and was returned to our care. He was discharged. Postoperatively developed anastomotic stricture and he was dilated endoscopically in the outpatient setting. He then returned on July 17, 2020 for a takedown of a diverting loop colostomy. Had another small bowel resection. Parastomal hernia repair. Drain placement. He had dilations of the anastomosis of the colocolostomy and descending colon stricture August 2020. The first attempt was aborted because of emesis during nasogastric decompression. He then underwent a subsequent colonoscopy. With that admission it was September 03, 2020 through September 09, 2020. This unfortunate gentleman continue to have problems with fistulas, poor wound healing. He was referred to the [facility] and had multiple procedures that I am unaware of what they were. They eventually ended up closing his intra-abdominal wall with mesh. He has been followed up locally by Dr. Jose Dietz's office for wound care. He underwent a CT of the abdomen January 18, 2022 because of continued fluid drainage. He was found to have a presacral peritoneal encapsulated fluid collection, posterior to the rectum. He also had a stable infrarenal abdominal aortic aneurysm. [facility] drain that. They also noted dehiscent anterior abdominal wall wound with minimal soft tissue air inflammatory changes on that CT. He has slowly come back from severe protein calorie malnutrition. He continues to have mild drainage from the anterior abdominal wound. He continues to see Dr. Main. In those months that he was with bowel issues he was on TPN. He is gradually graduated to eating food and has been slowly gaining weight and improving his nutrition. 3 weeks ago he developed rhinorrhea, coryza, a productive cough. The cough has been gradually improving. But he states that it induced some back pain. The constant coughing really strained his abdominal wall muscles and he would pro tect them and spasm in his back. He does not really remember having fever or chills. No sore throat. He has constant dumping from his constant bowel resections so he is used to a daily diarrhea. This last week stool has been semiformed. He is not had any emesis, blood in his stool. He has become persistently short of breath with this cough. Then he started feeling as if his belly was getting more and more distended. It stretched tight as a drum and looks like he has a basketball in his upper abdomen. He does have a history of alcohol abuse but that issue has not been present since before his surgery. He is passing gas. He denies fever, chills. A repeat CT was done on May [address] showed a new cluster of nodular consolidations of the right lower lobe with surrounding infiltrate and associated small right pleural effusions suggesting infectious etiology. He also had intrahepatic mass lesions which were difficult to evaluate without contrast. He does small subcapsular left hepatic fluid noted. There is no mention of the distended belly. The bowel appeared unremarkable without bowel obstruction. The stomach appeared unremarkable. Labs were done with a creatinine of 3.0. I asked that she did not get contrast with that CT. He was seen in Dr. Main office today and the patient was dehydrated, very uncomfortable with his distended belly, and coughing. He was sent to the emergency room for evaluation and he is not hypoxic, but definitely has a markedly distended abdomen that this quite impressive. He does look like he has a basketball in his upper abdomen stretching his skin to the limits. He is coughing, afebrile, and 97% on room air. He has newly elevated liver enzymes with an AST of 183, ALT 134, alk phos 400. BNP is 56. Procalcitonin is 3.89. White cell count is normal at 5.4. Hemoglobin 10.9. He is COVID-positive. History - Past Medical History Cardiovascular: reports: Hypertension, Murmur, Other ( Palpitations in the with normal sinus rhythm a right bundle branch block on EKG) Respiratory: reports: None Neuro: reports: None Endocrine/Autoimmune: reports: None GI: reports: Diverticulitis, Other : reports: Benign prostate hypertrophy, Other HEENT: reports: Chronic vision loss Psych: reports: None Musculoskeletal: reports: Osteoarthritis, Other Derm: reports: None MRSA Hx?: No Other Past Medical History: LL branch block heart - Past Surgical History General: reports: Bowel surgery, Colonoscopy, Other Ortho: reports: Other (menisectomy) HEENT: reports: Tonsil/Adenoidectomy - Family & Social History Family History Comment/Other: Father in the 90s with hypertension and glaucoma. Mom at age 58 with brain cancer. 1 sister had thyroid disease and diabetes. 1 son who is healthy Living arrangement: At home Living Situation: With spouse/s.o. Social History Notes: Started smoking at the age of 11. This that would be 1966. Smoked until 2014. Smoked up to 2 packs/day. Was drinking up to 4 beers a day until his surgery. 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 to his first . They have their own home. Currently independent with activities of daily living. - Substance History Use: Uses substance without health or social issues: NONE Abuse: Recurrent use of substance despite neg consequences: NONE Dependence: Experiences withdrawal or developed tolerances: NONE - POLST Patient has POLST: No POLST Status: Full Code Meds/Allgy - Home Medications Home Medications: Ambulatory Orders Medication Instructions Recorded Confirmed Doxazosin [Cardura] 4 mg PO DAILY 05/20/22 - Allergies Allergies/Adverse Reactions: Allergies Allergy/AdvReac Type Severity Reaction Status Date / Time hydrochlorothiazide AdvReac lightheaded Verified 05/20/22 12:07 lisinopril AdvReac lightheaded Verified 05/20/22 12:07 lorazepam AdvReac Anxiety Verified 05/20/22 12:07 Review of Systems - Constitutional Constitutional: reports: Fatigue, Poor appetite - Eyes Eyes: reports: Vision loss - Ears, Nose & Throat Ears, Nose & Throat: reports: Hearing loss. denies: Nasal pain, Nasal discharge, Sore throat, Hoarseness - Cardiovascular Cariovascular: reports: Exertional dyspnea. denies: Irregular heart rate, Palpitations, Chest pain, Edema - Respiratory Respiratory: reports: Cough, Sputum production, SOB with exertion - Gastrointestinal Gastrointestinal: reports: Abdominal distention (severe), Diarrhea, Bloating, Poor appetite. denies: Black stools, Bloody stools, Nausea, Vomiting, Coffee grounds emesis, Reflux/heartburn - Genitourinary Genitourinary: denies: Dysuria, Frequency, Urgency, Hematuria, Nocturia - Musculoskeletal Musculoskeletal: reports: Muscle pain, Joint pain - Integumentary Integumentary: denies: Rash, Pruritis, Lesions, Dryness - Neurological Neurological: denies: General weakness, Focal weakness, Headache, Dizziness - Psychiatric Psychiatric: reports: Depression - Endocrine Endocrine: denies: Polyuria, Polydypsia, Polyphagia, Intolerance to cold - Hematologic/Lymphatic Hematologic/Lymphatic: denies: Anemia, Bruising, Petechiae Exam - Vital Signs Reviewed Vital Signs: Yes Vital Signs: Vital Signs x48h Temp Pulse Pulse Resp BP BP BP 05/20/22 17:14 36.7 C 97 20 144/70 H 05/20/22 14:46 36.3 C L 90 16 149/65 H 05/20/22 14:07 73 15 117/76 05/20/22 12:04 36.3 C L 95 17 153/65 H Pulse Ox 05/20/22 17:14 97 05/20/22 14:46 100 05/20/22 14:07 100 05/20/22 12:04 97 - Physical Exam General Appearance: positive: Alert, Mild distress (Uncomfortable from the distended abdomen), Other (Thin male, able to lay on his back, minimal cough) Eyes Bilateral: positive: PERRL, EOMI ENT: positive: No signs of dehydration Neck: positive: No JVD. negative: Stiff neck Respiratory: positive: No respiratory distress, Rales (RLL), Rhonchi (RLL). negative: Wheezes Cardiovascular: positive: Regular rate & rhythm Abdomen: positive: No organomegaly (Right upper quadrant this seems to be palpable as liver. But is not tender.), Other (midline scars that are horizontally across by other scars. Umbilicus deformed. Drainage to the right of the umbilicus. But there is no redness, heat, fluctuance. The upper abdomen is completely distended and firm and almost rigid with the distention. He has hypoactive bowel sounds. Tympanitic.) Skin: positive: Warm, Dry Extremities: positive: Full ROM, No pedal edema Neurologic/Psychiatric: positive: Oriented x3, CN's nml (2-12), Motor nml Conclusion/Plan - Problem List (1) Shortness of breath Conclusion/Plan: The usual differential diagnosis does not really apply in this man. I am not thinking that he has consolidative community-acquired pneumonia, nor do I think he is congestive heart failure, but he has nonspecific inflammatory nodules of the right lower lobe. Combined that with severe distention and I am sure he has pressure up against his diaphragm and is not able to breathe very well. He did have COVID-pneumonia 2 or 3 weeks ago but I do not think that is what the issue is now. He is not hypoxic. I reviewed the CT with radiology. Plan is to treat this patient empirically as community-acquired pneumonia although it does not present as such on CT. I need to hydrate him, get his creatinine better, and then repeat CT chest, abdomen/pelvis. At that time I will review the CT again to decide if this gentleman needs lung biopsy or liver biopsy. (2) Elevated liver enzymes Conclusion/Plan: This is a gentleman whose had small bowel resections, multiple anastomoses, and I am not really quite sure what his anatomy is. In reviewing all of his admissions, he has never had liver enzymes elevated before. Plan: In addition to the CT of the chest, abdomen/pelvis, I will be ordering an ultrasound. Checking hepatitis panels. (3) Dehydration Conclusion/Plan: He describes poor p.o. intake, and anorexia for the last few days. He while he does have chronic kidney disease his creatinine is usually below 2. At this time he seems to have element of acute kidney injury. Again I will need to hydrate him to improve his creatinine status before I can do CT with dye. (4) Abdominal mass, right upper quadrant Conclusion/Plan: Even though I reviewed the CAT scan with the radiologist, there is no mention of a distended stomach. I cannot tell from and anatomy perspective what I am seeing. This is a tense tympanitic ball underneath this gentleman's abdomen that is stretched his skin. He said this is new. I can feel his liver as it compresses up against the anterior abdominal wall. Nontender. Nevertheless liver enzymes are elevated without white cell count or peritoneal findings. Ultrasound will be done and I will discuss with general surgery (5) Lab test positive for detection of COVID-19 virus Conclusion/Plan: He does have a cough, but I think his shortness of breath is more from the compression from the lower abdomen going up into his diaphragm and lower chest wall. I do not think he is actively infected with COVID at this time and has residual testing positive from illness 3 weeks ago. As such no remdesivir or monoclonal antibody (6) BPH (benign prostatic hyperplasia) Conclusion/Plan: He is on doxazosin at home, and will use this while here Qualifiers: Lower urinary tract symptom presence: symptoms present (7) Hypertension Conclusion/Plan: He is hypertensive. Systolic is 144, 149, 153. Will resume doxazosin Qualifiers: Hypertension type: primary hypertension Qualified Code(s): I10 - Essential (primary) hypertension (8) Non-healing surgical wound Conclusion/Plan: This gentleman is followed closely by [facility] as well as Dr. Main. For the last year they have been diligently reexamining him. By Dr. Hassapis's description, the wound is getting smaller, and much improved for note has been a year ago. We will continue to watch while is here, clean wound, but no dressings required Qualifiers: Encounter type: sequela Qualified Code(s): T81.89XS - Other complications of procedures, not elsewhere classified, sequela - Lab Results Lab results reviewed: Yes Fish Bones: 05/20/22 11:54 05/20/22 11:54 - Diagnostic Imaging Results Diagnostic Imaging Results: positive: Final report reviewed - EKG Results EKG Interpreted Independently: No Core Measures - Anticipated LOS I expect patient to be DC'd or transferred within 96 hours.: Yes - DVT/VTE - Prophylaxis VTE/DVT Prophylaxis med ordered at admit?: Yes
[2022-05-20] MEDS: DOXAZOSIN 4 MG TABLET PO SCH (21:06)
[2022-05-20] MEDS: ACETAMINOPHEN 325 MG TABLET PO PRN (21:07)
[2022-05-21] MEDS: SODIUM CHLORIDE 0.9% 1,000 ML IV SCH ×3 (00:19→19:48)
[2022-05-21] MEDS: SODIUM CHLORIDE FLUSH 0.9% 10 ML SYRINGE IVP SCH ×3 (01:04→17:01)
[2022-05-21] MEDS: oxyCODONE 5 MG TABLET PO PRN ×4 (01:08→18:37)
[2022-05-21] MEDS: ACETAMINOPHEN 325 MG TABLET PO PRN (01:08)
[2022-05-21 04:54] LABS: BASOPHILS % (AUTO) 0.2 %; EOSINOPHILS % (AUTO) 0.6 %; HCT - HEMATOCRIT 29.5 % (42.0-52.0); HGB - HEMOGLOBIN 9.9 g/dL (14.0-18.0); LYMPHOCYTES # (AUTO) 0.4 10^3/uL (1.5-3.5); LYMPHOCYTES % (AUTO) 8.2 %; MEAN CORPUSCULAR HEMOGLOBIN 29.1 pg (27.0-31.0); MEAN CORPUSCULAR HGB CONC 33.6 g/dL (32.0-36.0); MEAN CORPUSCULAR VOLUME 86.8 fL (80.0-94.0); MEAN PLATELET VOLUME 9.5 fL (7.4-11.4); MONOCYTES % (AUTO) 19.1 %; NEUTROPHILS # (AUTO) 3.8 10^3/uL (1.5-6.6); NEUTROPHILS % (AUTO) 71.3 %; PLT - PLATELET COUNT 249 10^3/uL (130-450); RED CELL DISTRIBUTION WIDTH 13.8 % (12.0-15.0); WHITE BLOOD COUNT 5.3 x10^3/uL (4.8-10.8)
[2022-05-21 05:02] LABS: CALCIUM 8.1 mg/dL (8.5-10.3); CREATININE 2.7 mg/dL (0.6-1.2); POTASSIUM 3.8 mmol/L (3.5-5.0)
[2022-05-21] MEDS: cefTRIAXone 1 GM in SODIUM CHLORIDE 0.9% MINIBAG 100 ML IV SCH (08:46)
[2022-05-21] MEDS: SACCHAROMYCES BOULARDII 250 MG CAPSULE PO SCH ×2 (08:57→17:00)
--- NOTE | 2022-05-21 09:20 | PHARMACY PROGRESS NOTE ---
- Best Possible Medication History Admit Date and Time: 05/20/22 6071 Processed by: Pharmacy Medication History completed: Yes Patient Interview: Completed Secondary Source(s): Pharmacy records, Insurance records As the person ultimately responsible for medication therapy, providers are able to order a medication from an existing home medication list in [facility] via the "Reconcile Routine" prior to Confirmation of that medication by web support engineer. Such practice is discouraged except when the physician, in their clinical judgment, deems that a medical need exists for a medication without regard to previous use.
[2022-05-21] MEDS: AZITHROMYCIN INJ 500 MG in SODIUM CHLORIDE 0.9% 250 ML IV SCH (09:38)
--- NOTE | 2022-05-21 11:52 | PROVIDER PROGRESS NOTE ---
Subjective - Prog Note Date Prog Note Date: 05/21/22 Prog Note Time: 11:52 - Subjective Subjective: Shortness of breath is better. Cough is better. He has not had a fever. He continues to have a normal white cell count. Belly is still uncomfortably dis tended with that ball of gas. He is having bowel movements and he is having stool. I had spoken at length radiology yesterday to look at the films and we really could not see on CT what physical exam showed. I want to do a CT of chest abdomen and pelvis again but his creatinine is particularly high. I am waiting for creatinine to drop down before I will reach CT him. I discussed that with him yesterday and reiterated that today. I called [facility] to discuss the case with his surgeon, Dr.Mika Mcgarry. After about 3 phone calls and 3 different residents, I was able to speak to the attending construction carpenters helper today which is Dr. Sweet. Mr. Zacarias had a takedown ileostomy in March. Dr. Sweet was able to review the CT scans that I pushed from our facility. Those were the last 2 including the May 18 one. He suspects that this patient may be having abscesses. The liver on the left lobe is much, much, much larger than it was before. There may be microabscesses or small abscesses in that liver causing that growth. But since it is a noncontrast CAT scan is difficult to assess. He did ask why we did not do a contrast CT and I explained it was because of a creatinine. His recommendation is to continue IV antibiotics. Repeat the CT with contrast. And then call them back Current Medications - Current Medications Current Medications: Active Medications Acetaminophen (Acetaminophen 325 Mg Tablet) 650 mg PO Q4HR PRN PRN Reason: Pain 1 to 4, or Fever Last Admin: 05/21/22 01:08 Dose: 650 mg Albuterol (Albuterol Neb 2.5 Mg/3 Ml) 2.5 mg INH Q4HR PRN PRN Reason: Wheezing Stop: 05/24/22 13:28 Doxazosin Mesylate (Doxazosin 4 Mg Tablet) 4 mg PO QPM ELEAZAR Last Admin: 05/20/22 21:06 Dose: 4 mg Azithromycin 500 mg/ Sodium (Chloride) 250 mls @ 250 mls/hr IV DAILY [facility] Stop: 05/22/22 09:59 Last Admin: 05/21/22 09:38 Dose: 250 mls/hr Ceftriaxone Sodium 1 gm/ (Sodium Chloride) 100 mls @ 200 mls/hr IV DAILY [facility] Stop: 05/25/22 09:29 Last Infusion: 05/21/22 09:38 Dose: Infused Sodium Chloride (Normal Saline 0.9%) 1,000 mls @ 125 mls/hr IV .Q8H [facility] Last Admin: 05/21/22 09:38 Dose: 125 mls/hr Ondansetron HCl (Ondansetron Odt 4 Mg Tablet) 4 mg TL Q6HR PRN PRN Reason: Nausea / Vomiting Ondansetron HCl (Ondansetron 4 Mg/2 Ml Vial) 4 mg IVP Q6HR PRN PRN Reason: Nausea / Vomiting Oxycodone HCl (Oxycodone 5 Mg Tablet) 5 mg PO Q4HR PRN PRN Reason: Pain 5 to 7 Last Admin: 05/21/22 07:49 Dose: 5 mg Saccharomyces Boulardii (Saccharomyces Boulardii 250 Mg Capsule) 250 mg PO BIDWM [facility] Last Admin: 05/21/22 08:57 Dose: 250 mg Sodium Chloride (Sodium Chloride Flush 0.9% 10 Ml Syringe) 10 ml IVP PRN PRN PRN Reason: NEEDED PER PROVIDER ORDERS Sodium Chloride (Sodium Chloride Flush 0.9% 10 Ml Syringe) 10 ml IVP 0100,0900,1700 [facility] Last Admin: 05/21/22 08:58 Dose: Not Given Doxazosin [Cardura] 4 mg PO QPM 05/20/22 Objective - Vital Signs/Intake & Output Reviewed Vital Signs: Yes Vital Signs: Vital Signs x48h Temp Pulse Resp BP Pulse Ox 05/21/22 09:09 36.3 C L 90 16 128/61 94 Intake & Output: Intake & Output 05/18/22 05/19/22 05/20/22 05/21/22 23:59 23:59 23:59 23:59 Intake Total 1477.893 1691.833 Balance 9915.995 7481.833 - Objective General Appearance: positive: No acute distress, Alert, Other (Laying comfortably in bed, arms up, elbows bent, hands behind his head. Watching TV. Shortness of breath is much better. Abdominal distention is about the same.) Eyes Bilateral: positive: PERRL, EOMI ENT: positive: No signs of dehydration Neck: positive: No JVD. negative: Stiff neck Respiratory: positive: No respiratory distress. negative: Wheezes, Rales, Rhonchi Cardiovascular: positive: Regular rate & rhythm Abdomen: positive: Other (Still an exquisitely distended abdomen. Tympanitic. Most of the masslike bulbous balloon effect is in the right upper quadrant and epigastrium and goes almost to the anterior suprapubic bone. Left side abdomen soft, no masses. Hypoactive bowel sounds. No rebound or guarding. He is uncomfortabl) Skin: positive: Warm, Dry Extremities: positive: Full ROM, No pedal edema Neurologic/Psychiatric: positive: Oriented x3, CN's nml (2-12), Motor nml - Lab Results Fish Bones: 05/21/22 04:46 05/21/22 04:46 Other Labs: Lab Results x24hrs 05/21/22 05/21/22 05/20/22 Range/Units 04:46 04:46 13:29 WBC 5.3 (4.8-10.8) x10^3/uL RBC 3.40 L (4.70-6.10) 10^6/uL Hgb 9.9 L (14.0-18.0) g/dL Hct 29.5 L (42.0-52.0) % MCV 86.8 (80.0-94.0) fL MCH 29.1 (27.0-31.0) pg MCHC 33.6 (32.0-36.0) g/dL RDW 13.8 (12.0-15.0) % Plt Count 249 (130-450) 10^3/uL MPV 9.5 (7.4-11.4) fL Neut # (Auto) 3.8 (1.5-6.6) 10^3/uL Lymph # (Auto) 0.4 L (1.5-3.5) 10^3/uL [place] # (Auto) 1.0 (0.0-1.0) 10^3/uL Eos # (Auto) 0.0 (0.0-0.7) 10^3/uL Baso # (Auto) 0.0 (0.0-0.1) 10^3/uL Absolute Nucleated RBC 0.00 x10^3/uL Nucleated RBC % 0.0 /100WBC Sodium 133 L (135-145) mmol/L Potassium 3.8 (3.5-5.0) mmol/L Chloride 101 (101-111) mmol/L Carbon Dioxide 19 L (21-32) mmol/L Anion Gap 13.0 (6-13) BUN 50 H (6-20) mg/dL Creatinine 2.7 H (0.6-1.2) mg/dL Estimated GFR (MDRD) 24 L (>89) Glucose 93 (70-100) mg/dL Lactic Acid (0.5-2.2) mmol/L Calcium 8.1 L (8.5-10.3) mg/dL Total Bilirubin (0.2-1.0) mg/dL AST (10-42) IU/L ALT (10-60) IU/L Alkaline Phosphatase (42-121) IU/L B-Natriuretic Peptide (5-100) pg/mL Total Protein (6.7-8.2) g/dL Albumin (3.2-5.5) g/dL Globulin (2.1-4.2) g/dL Albumin/Globulin Ratio (1.0-2.2) Procalcitonin (<0.5) ng/mL Urine Color YELLOW Urine Clarity HAZY (CLEAR) Urine pH 6.0 (5.0-7.5) PH Ur Specific [place] 1.025 (1.002-1.030) Urine Protein 30 H (NEGATIVE) mg/dL Urine Glucose (UA) NEGATIVE (NEGATIVE) mg/dL Urine Ketones TRACE (NEGATIVE) mg/dL Urine Occult Blood NEGATIVE (NEGATIVE) Urine Nitrite NEGATIVE (NEGATIVE) Urine Bilirubin NEGATIVE (NEGATIVE) Urine Urobilinogen 0.2 (NORMAL) (NORMAL) E.U./dL Ur Leukocyte Esterase NEGATIVE (NEGATIVE) Urine RBC 0-5 (0-5) /HPF Urine WBC >25 H (0-3) /HPF Ur Squamous Epith Cells NONE SEEN (<= Few) Urine Bacteria Rare (None Seen) /HPF Urine Casts 0-2 Hyaline Casts /LPF Urine Culture Comments NOT INDICATED SARS-CoV-2 (PCR) 05/20/22 05/20/22 05/20/22 Range/Units 13:26 11:57 11:54 WBC (4.8-10.8) x10^3/uL RBC (4.70-6.10) 10^6/uL Hgb (14.0-18.0) g/dL Hct (42.0-52.0) % MCV (80.0-94.0) fL MCH (27.0-31.0) pg MCHC (32.0-36.0) g/dL RDW (12.0-15.0) % Plt Count (130-450) 10^3/uL MPV (7.4-11.4) fL Neut # (Auto) (1.5-6.6) 10^3/uL Lymph # (Auto) (1.5-3.5) 10^3/uL [place] # (Auto) (0.0-1.0) 10^3/uL Eos # (Auto) (0.0-0.7) 10^3/uL Baso # (Auto) (0.0-0.1) 10^3/uL Absolute Nucleated RBC x10^3/uL Nucleated RBC % /100WBC Sodium (135-145) mmol/L Potassium (3.5-5.0) mmol/L Chloride (101-111) mmol/L Carbon Dioxide (21-32) mmol/L Anion Gap (6-13) BUN (6-20) mg/dL Creatinine (0.6-1.2) mg/dL Estimated GFR (MDRD) (>89) Glucose (70-100) mg/dL Lactic Acid 1.5 (0.5-2.2) mmol/L Calcium (8.5-10.3) mg/dL Total Bilirubin (0.2-1.0) mg/dL AST (10-42) IU/L ALT (10-60) IU/L Alkaline Phosphatase (42-121) IU/L B-Natriuretic Peptide 56 (5-100) pg/mL Total Protein (6.7-8.2) g/dL Albumin (3.2-5.5) g/dL Globulin (2.1-4.2) g/dL Albumin/Globulin Ratio (1.0-2.2) Procalcitonin (<0.5) ng/mL Urine Color Urine Clarity (CLEAR) Urine pH (5.0-7.5) PH Ur Specific [place] (1.002-1.030) Urine Protein (NEGATIVE) mg/dL Urine Glucose (UA) (NEGATIVE) mg/dL Urine Ketones (NEGATIVE) mg/dL Urine Occult Blood (NEGATIVE) Urine Nitrite (NEGATIVE) Urine Bilirubin (NEGATIVE) Urine Urobilinogen (NORMAL) E.U./dL Ur Leukocyte Esterase (NEGATIVE) Urine RBC (0-5) /HPF Urine WBC (0-3) /HPF Ur Squamous Epith Cells (<= Few) Urine Bacteria (None Seen) /HPF Urine Casts /LPF Urine Culture Comments SARS-CoV-2 (PCR) DETECTED A 05/20/22 05/20/22 05/20/22 Range/Units 11:54 11:54 11:54 WBC 5.4 (4.8-10.8) x10^3/uL RBC 3.71 L (4.70-6.10) 10^6/uL Hgb 10.9 L (14.0-18.0) g/dL Hct 32.9 L (42.0-52.0) % MCV 88.7 (80.0-94.0) fL MCH 29.4 (27.0-31.0) pg MCHC 33.1 (32.0-36.0) g/dL RDW 13.8 (12.0-15.0) % Plt Count 289 (130-450) 10^3/uL MPV 9.7 (7.4-11.4) fL Neut # (Auto) 4.2 (1.5-6.6) 10^3/uL Lymph # (Auto) 0.4 L (1.5-3.5) 10^3/uL [place] # (Auto) 0.8 (0.0-1.0) 10^3/uL Eos # (Auto) 0.0 (0.0-0.7) 10^3/uL Baso # (Auto) 0.0 (0.0-0.1) 10^3/uL Absolute Nucleated RBC 0.00 x10^3/uL Nucleated RBC % 0.0 /100WBC Sodium 132 L (135-145) mmol/L Potassium 4.1 (3.5-5.0) mmol/L Chloride 95 L (101-111) mmol/L Carbon Dioxide 21 (21-32) mmol/L Anion Gap 16.0 H (6-13) BUN 46 H (6-20) mg/dL Creatinine 2.9 H (0.6-1.2) mg/dL Estimated GFR (MDRD) 22 L (>89) Glucose 101 H (70-100) mg/dL Lactic Acid (0.5-2.2) mmol/L Calcium 8.8 (8.5-10.3) mg/dL Total Bilirubin 0.9 (0.2-1.0) mg/dL AST 193 H (10-42) IU/L ALT 134 H (10-60) IU/L Alkaline Phosphatase 400 H (42-121) IU/L B-Natriuretic Peptide (5-100) pg/mL Total Protein 6.7 (6.7-8.2) g/dL Albumin 3.0 L (3.2-5.5) g/dL Globulin 3.7 (2.1-4.2) g/dL Albumin/Globulin Ratio 0.8 L (1.0-2.2) Procalcitonin 3.89 H* (<0.5) ng/mL Urine Color Urine Clarity (CLEAR) Urine pH (5.0-7.5) PH Ur Specific [place] (1.002-1.030) Urine Protein (NEGATIVE) mg/dL Urine Glucose (UA) (NEGATIVE) mg/dL Urine Ketones (NEGATIVE) mg/dL Urine Occult Blood (NEGATIVE) Urine Nitrite (NEGATIVE) Urine Bilirubin (NEGATIVE) Urine Urobilinogen (NORMAL) E.U./dL Ur Leukocyte Esterase (NEGATIVE) Urine RBC (0-5) /HPF Urine WBC (0-3) /HPF Ur Squamous Epith Cells (<= Few) Urine Bacteria (None Seen) /HPF Urine Casts /LPF Urine Culture Comments SARS-CoV-2 (PCR) ABX Reporting Has patient been on IV antibiotics over the past 48 hours?: Yes Assessment/Plan - Problem List (1) Shortness of breath Impression: The usual differential diagnosis does not really apply in this man. I am not thinking that he has consolidative community-acquired pneumonia, nor do I think he has congestive heart failure, but he has nonspecific inflammatory nodules of the right lower lobe. Combined that with severe distention and I am sure he has pressure up against his diaphragm and is not able to breathe very well. He did have COVID-pneumonia 2 or 3 weeks ago but I do not think that is what the issue is now. He is not hypoxic. I reviewed the CT with radiology 05/20. I am still treating him empirically as a community-acquired pneumonia because of the inflammatory right lower lobe nodules. I am hydrating him to get the creatinine down to be able to repeat the CT and do a CT of the chest, abdomen/pelvis. Radiology concurs with the repeat plan. He does not know if these nodules are big enough to biopsy. (2) Elevated liver enzymes Conclusion/Plan: This is a gentleman whose had small bowel resections, multiple anastomoses, and I am not really quite sure what his anatomy is. In reviewing all of his admissions, he has never had liver enzymes elevated before.In speaking to Dr. Sweet, on-call for the surgeon that did his ileostomy takedown in March, he may have abscesses in his liver. Plan: In addition to the CT of the chest, abdomen/pelvis, I did order an abdominal ultrasound. It was done yesterday. But because is not ordered stat it is not red. It may take another day. I will be calling the sap technical architect to please push it as a stat to the radiologist construction carpenters helper and have it read. Plan is to repeat the CT scan. Once I get that CT scan I can then see if radiology can drain it on Monday when they get back on campus or do I need to transfer. Metronidazole is a drug of choice for liver abscess. I will add Flagyl. (3) Dehydration Conclusion/Plan: He describes poor p.o. intake, and anorexia for the last few days. He while he does have chronic kidney disease his creatinine is usually below 2. At this time he seems to have element of acute kidney injury. Again I will need to hydrate him to improve his creatinine status before I can do CT with dye. BUN and creatinine were 46 and 2.9 yesterday. Today he is 50 and 2.7. Plan: Continue IV hydration (4) Abdominal mass, right upper quadrant Conclusion/Plan: Even though I reviewed the CAT scan with the radiologist, there is no mention of a distended stomach. I cannot tell from an anatomy perspective what I am seeing. This is a tense tympanitic ball underneath this gentleman's abdomen that is stretched his skin. He said this is new. I can feel his liver as it compresses up against the anterior abdominal wall. Nontender. Nevertheless liver enzymes are elevated without white cell count or peritoneal findings. Ultrasound has been done and I need to have it read. Now I have an idea of what were dealing with since surgery at is reading this is possible abscesses. Plan is as above (5) Lab test positive for detection of COVID-19 virus Conclusion/Plan: He does have a cough, but I think his shortness of breath is more from the compression from the lower abdomen going up into his diaphragm and lower chest wall. I do not think he is actively infected with COVID at this time and has residual testing positive from illness 3 weeks ago. As such no remdesivir or monoclonal antibody (6) BPH (benign prostatic hyperplasia) Conclusion/Plan: He is on doxazosin at home, and will use this while here Qualifiers: Lower urinary tract symptom presence: symptoms present (7) Hypertension Conclusion/Plan: He is hypertensive on admission. Systolic is 144, 149, 153. Doxazosin resumed. Blood pressure 135 last night. 128 today. Qualifiers: Hypertension type: primary hypertension Qualified Code(s): I10 - Essential (primary) hypertension (8) Non-healing surgical wound Conclusion/Plan: This gentleman is followed closely by [facility] as well as Dr. Main. For the last year they have been diligently reexamining him. By Dr. Main's description, the wound is getting smaller, and much improved for note has been a year ago. We will continue to watch while is here, clean wound, but no dressings required Qualifiers: Encounter type: sequela Qualified Code(s): T81.89XS - Other complications of procedures, not elsewhere classified, sequela (7) Hypertension Qualifiers: Hypertension type: primary hypertension Qualified Code(s): I10 - Essential (primary) hypertension (8) Non-healing surgical wound Qualifiers: Encounter type: sequela Qualified Code(s): T81.89XS - Other complications of procedures, not elsewhere classified, sequela
[2022-05-21] MEDS: metroNIDAZOLE 500 MG/100 ML 500 MG/100 ML BAG IV SCH (17:00)
[2022-05-21] MEDS: DOXAZOSIN 4 MG TABLET PO SCH (19:51)
[2022-05-22] MEDS: oxyCODONE 5 MG TABLET PO PRN ×4 (01:16→19:48)
[2022-05-22] MEDS: metroNIDAZOLE 500 MG/100 ML 500 MG/100 ML BAG IV SCH ×3 (01:17→16:29)
[2022-05-22] MEDS: SODIUM CHLORIDE FLUSH 0.9% 10 ML SYRINGE IVP SCH ×3 (01:20→16:51)
[2022-05-22] MEDS: ACETAMINOPHEN 325 MG TABLET PO PRN (01:23)
[2022-05-22] MEDS: SODIUM CHLORIDE 0.9% 1,000 ML IV SCH ×3 (04:23→19:42)
[2022-05-22 05:00] LABS: BASOPHILS % (AUTO) 0.5 %; EOSINOPHILS % (AUTO) 0.7 %; HCT - HEMATOCRIT 29.8 % (42.0-52.0); HGB - HEMOGLOBIN 9.6 g/dL (14.0-18.0); LYMPHOCYTES # (AUTO) 0.6 10^3/uL (1.5-3.5); LYMPHOCYTES % (AUTO) 9.3 %; MEAN CORPUSCULAR HEMOGLOBIN 28.7 pg (27.0-31.0); MEAN CORPUSCULAR HGB CONC 32.2 g/dL (32.0-36.0); MEAN PLATELET VOLUME 9.7 fL (7.4-11.4); MONOCYTES # (AUTO) 1.3 10^3/uL (0.0-1.0); MONOCYTES % (AUTO) 20.4 %; NEUTROPHILS # (AUTO) 4.2 10^3/uL (1.5-6.6); NEUTROPHILS % (AUTO) 68.8 %; PLT - PLATELET COUNT 266 10^3/uL (130-450); RED BLOOD COUNT 3.35 10^6/uL (4.70-6.10); RED CELL DISTRIBUTION WIDTH 14.1 % (12.0-15.0); WHITE BLOOD COUNT 6.1 x10^3/uL (4.8-10.8)
[2022-05-22 05:11] LABS: CALCIUM 8.3 mg/dL (8.5-10.3); CREATININE 2.2 mg/dL (0.6-1.2); POTASSIUM 3.9 mmol/L (3.5-5.0)
[2022-05-22] MEDS: SACCHAROMYCES BOULARDII 250 MG CAPSULE PO SCH ×2 (08:10→16:51)
[2022-05-22] MEDS: cefTRIAXone 1 GM in SODIUM CHLORIDE 0.9% MINIBAG 100 ML IV SCH (08:12)
[2022-05-22] MEDS: AZITHROMYCIN INJ 500 MG in SODIUM CHLORIDE 0.9% 250 ML IV SCH (10:03)
--- NOTE | 2022-05-22 11:20 | Ultrasound Report ---
PROCEDURE: Abdomen Complete INDICATIONS: elevated LFT, basketball stomach distension TECHNIQUE: Real-time scanning was performed of the abdominal and retroperitoneal organs, with image documentatio n. COMPARISON: CT abdomen pelvis 05/18/2022 FINDINGS: Liver: Multifocal solid mass lesions noted throughout the liver with internal vascularity. Liver is e nlarged at 22 cm. Gallbladder: Probable biliary sludge with focal calculus present. Gallbladder is contracted Biliary ducts: Intrahepatic bile ducts are non-dilated. Extrahepatic bile duct caliber measures 10 mm. Normal is 6-7 mm or less in diameter, or 10 mm or less post-cholecystectomy. Pancreas: Visualized portions of the pancreas are sonographically normal. Spleen: Splenomegaly, 12.5 cm Kidneys: Kidneys are normal in size and echotexture. Right kidney measures 9.8 cm long; left kidney measures 9.6 cm long. No hydronephrosis or nephrolithiasis. No solid masses. Aorta: Distal abdominal aortic aneurysm measures 5 cm Iliacs: Not well visualized IVC: Not well visualized Miscellaneous: No free abdominal fluid. IMPRESSION: 1. Hepatomegaly associated with multiple intrahepatic nodular solid mass lesions. Recommend follow-up MR or contrast CT. 2. Cholelithiasis and dilated CBD 10 mm. Follow-up MR could further evaluate. No 3. Distal abdominal aortic aneurysm, 5 cm Reviewed by: Julio Cesar Warner MD on 05/22/2022 10:19 AM ABDI Approved by: Julio Cesar Warner MD on 05/22/2022 10:19 AM ABDI Station ID: [id number]
--- NOTE | 2022-05-22 11:44 | PROVIDER PROGRESS NOTE ---
Subjective - Prog Note Date Prog Note Date: 05/22/22 Prog Note Time: 11:42 - Subjective Subjective: Shortness of breath is improved from his stay here. But the constant of his abdominal distention remains the same. No fever spikes. Having bowel movement s. He discomfort is with distention but not true abdominal pain. He says he knows a difference because when he has had anastomotic leaks, or his acute peritonitis from all of his previous surgeries, he knows what the difference is. We discussed the fact that he may have an infection in his liver with bacteria forming abscesses and a fluid collection. We discussed the need for possible drainage once we repeat the second CT scan. Current Medications - Current Medications Current Medications: Active Medications Generic Name Dose Route Start Last Admin Trade Name Freq PRN Reason Stop Dose Admin Acetaminophen 650 mg 05/20/22 13:25 05/22/22 01:23 Acetaminophen 325 Mg Tablet PO 650 mg Q4HR PRN Administration Pain 1 to 4, or Fever Albuterol 2.5 mg 05/20/22 13:29 Albuterol Neb 2.5 Mg/3 Ml INH 05/24/22 13:28 Q4HR PRN Wheezing Doxazosin Mesylate 4 mg 05/20/22 21:00 05/21/22 19:51 Doxazosin 4 Mg Tablet PO 4 mg QPM ELEAZAR Administration Ceftriaxone Sodium 1 gm/ 100 mls @ 200 mls/hr 05/21/22 09:00 05/22/22 09:54 Sodium Chloride IV 05/25/22 09:29 Infused DAILY ELEAZAR Infusion Metronidazole 500 mg in 100 mls @ 100 mls/hr 05/21/22 16:00 05/22/22 09:55 Flagyl 500 Mg/100 Ml IV Infused Q8H ELEAZAR Infusion Sodium Chloride 1,000 mls @ 150 mls/hr 05/22/22 11:39 Normal Saline 0.9% IV .Q6H40M ELEAZAR Ondansetron HCl 4 mg 05/20/22 13:25 Ondansetron Odt 4 Mg Tablet TL Q6HR PRN Nausea / Vomiting Ondansetron HCl 4 mg 05/20/22 13:25 Ondansetron 4 Mg/2 Ml Vial IVP Q6HR PRN Nausea / Vomiting Oxycodone HCl 5 mg 05/20/22 13:25 05/22/22 05:33 Oxycodone 5 Mg Tablet PO 5 mg Q4HR PRN Administration Pain 5 to 7 Saccharomyces Boulardii 250 mg 05/20/22 17:00 05/22/22 08:10 Saccharomyces Boulardii 250 Mg Capsule PO 250 mg BIDWM ELEAZAR Administration Sodium Chloride 10 ml 05/20/22 13:25 Sodium Chloride Flush 0.9% 10 Ml Syringe IVP PRN PRN NEEDED PER PROVIDER ORDERS Sodium Chloride 10 ml 05/20/22 17:00 05/22/22 10:05 Sodium Chloride Flush 0.9% 10 Ml Syringe IVP Not Given 0100,0900,1700 ELEAZAR Doxazosin [Cardura] 4 mg PO QPM 05/20/22 Objective - Vital Signs/Intake & Output Reviewed Vital Signs: Yes Vital Signs: Vital Signs x48h Temp Pulse Resp BP Pulse Ox 05/22/22 07:50 36.6 C 94 17 132/65 H 95 Intake & Output: Intake & Output 05/19/22 05/20/22 05/21/22 05/22/22 23:59 23:59 23:59 23:59 Intake Total 4120.241 7738.833 1400 Balance 2852.863 7410.833 1400 - Objective General Appearance: positive: No acute distress, Alert, Other (Has eaten breakfast. Is comfortable. Watching TV. Mutes the TV when I come in the room to greet me. Alert, [place] man) Eyes Bilateral: positive: PERRL, EOMI ENT: positive: Pharynx nml Neck: positive: No JVD. negative: Stiff neck Respiratory: positive: No respiratory distress. negative: Wheezes, Rales, Rhonchi Cardiovascular: positive: Regular rate & rhythm Abdomen: positive: Non-tender, Nml bowel sounds, Hepatomegaly, Other (I think the distention is slightly less today. But his skin is still stretched tight. Most of the fullness is epigastrium into the right upper quadrant and I can march out his liver with my fingers. The liver size goes almost down to the anterior superior iliac crest. But it is not tender. T). negative: Tenderness (Still has slight drainage below the umbilicus. Scar tissue from multiple previous surgeries in the anterior abdominal wall.) Skin: positive: Warm, Dry. negative: Pallor Extremities: positive: Full ROM, No pedal edema Neurologic/Psychiatric: positive: Oriented x3, CN's nml (2-12), Motor nml - Lab Results Fish Bones: 05/22/22 04:33 05/22/22 04:33 Other Labs: Lab Results x24hrs 05/22/22 05/22/22 Range/Units 04:33 04:33 WBC 6.1 (4.8-10.8) x10^3/uL RBC 3.35 L (4.70-6.10) 10^6/uL Hgb 9.6 L (14.0-18.0) g/dL Hct 29.8 L (42.0-52.0) % MCV 89.0 (80.0-94.0) fL MCH 28.7 (27.0-31.0) pg MCHC 32.2 (32.0-36.0) g/dL RDW 14.1 (12.0-15.0) % Plt Count 266 (130-450) 10^3/uL MPV 9.7 (7.4-11.4) fL Neut # (Auto) 4.2 (1.5-6.6) 10^3/uL Lymph # (Auto) 0.6 L (1.5-3.5) 10^3/uL [place] # (Auto) 1.3 H (0.0-1.0) 10^3/uL Eos # (Auto) 0.0 (0.0-0.7) 10^3/uL Baso # (Auto) 0.0 (0.0-0.1) 10^3/uL Absolute Nucleated RBC 0.00 x10^3/uL Nucleated RBC % 0.0 /100WBC Sodium 133 L (135-145) mmol/L Potassium 3.9 (3.5-5.0) mmol/L Chloride 104 (101-111) mmol/L Carbon Dioxide 19 L (21-32) mmol/L Anion Gap 10.0 (6-13) BUN 46 H (6-20) mg/dL Creatinine 2.2 H (0.6-1.2) mg/dL Estimated GFR (MDRD) 30 L (>89) Glucose 88 (70-100) mg/dL Calcium 8.3 L (8.5-10.3) mg/dL ABX Reporting Has patient been on IV antibiotics over the past 48 hours?: Yes Assessment/Plan - Problem List (1) Shortness of breath Impression: The usual differential diagnosis does not really apply in this man. I am not thinking that he has consolidative community-acquired pneumonia, nor do I think he has congestive heart failure, but he has nonspecific inflammatory nodules of the right lower lobe. Combined that with severe distention and I am sure he has pressure up against his diaphragm and is not able to breathe very well. He did have COVID-pneumonia 2 or 3 weeks ago but I do not think that is what the issue is now. He is not hypoxic. I reviewed the CT with radiology 05/20. Our presumptive diagnosis is pneumonia because of the right lower lobe nodularity and surrounding inflammation. It is an atypical infiltrate. He did have COVID 2 to 3 weeks ago but those symptoms resolved except for the lingering shortness of breath and slight cough. He feels improved from this standpoint. But I think most of his shortness of breath is due to the compression of his diaphragm from the liver enlargement. Plan: Day #3 of antibiotics. (2) Elevated liver enzymes Conclusion/Plan: This is a gentleman whose had small bowel resections, multiple anastomoses, and I am not really quite sure what his anatomy is. In reviewing all of his admissi ons, he has never had liver enzymes elevated before. In speaking to Dr. Sweet 05/21, on-call for the surgeon For Dr. Black who did the patient's ileostomy takedown in March 2022, he may have abscesses in his liver. Dr. Sweet notes that the left lobe of the liver is much larger than the CT scan he has from his institution in February. He also notes that he has a fluid collection between the liver and the anterior wall that could possibly be drained. Abdominal ultrasound was finally done this morning and he has hepatomegaly associated with multiple intrahepatic nodular solid mass lesions. He has cholelithiasis and a dilated common bile duct. Distal aortic aneurysm of 5 cm. There is no hydronephrosis. Flagyl was added for liver abscesses in addition to the antibiotics for pneumonia. Today is day 2 of Flagyl. Plan: Plan is to repeat the CT scan. But only once his GFR is acceptable. I will discuss with radiology if they want a CT scan or an MRI. I know we need drainage of the fluid and will ask him to do that. But I also want to see what technique the marijuana use for a liver biopsy. (3) Dehydration Conclusion/Plan: He describes poor p.o. intake, and anorexia for the last few days. He while he does have chronic kidney disease his creatinine is usually below 2. At this time he seems to have element of acute kidney injury. Again I will need to hydrate him to improve his creatinine status before I can do CT with dye. BUN and creatinine were 46 and 2.9>>50 and 2.7>>46 and 2.2 today Plan: Continue IV hydration But increase the rate to 150 cc an hour from 125 cc an hour. (4) Abdominal mass, right upper quadrant Conclusion/Plan: When I reviewed the CT with the radiologist there is no stomach distention. There was no mention of the increased liver size. It was the surgeon with that has remarked that the mass I am probably feeling is the very large liver. Unfortunately it is filled with solid masses according to ultrasound, and the question is whether this is going to be neoplasm or abscess. I am currently treating him for abscess but I am fearful that this may be neoplasm. (5) Lab test positive for detection of COVID-19 virus Conclusion/Plan: He does have a cough, but I think his shortness of breath is more from the compression from the lower abdomen going up into his diaphragm and lower chest wall. I do not think he is actively infected with COVID at this time and has residual testing positive from illness 3 weeks ago. As such no remdesivir or monoclonal antibody (6) BPH (benign prostatic hyperplasia) Conclusion/Plan: He is on doxazosin at home, and will use this while here Qualifiers: Lower urinary tract symptom presence: symptoms present (7) Hypertension Conclusion/Plan: He is hypertensive on admission. Systolic is 144, 149, 153. Doxazosin resumed. With resumption of his doxazosin, blood pressure has come down nicely. He is 128 and 132 today. Qualifiers: Hypertension type: primary hypertension Qualified Code(s): I10 - Essential (primary) hypertension (8) Non-healing surgical wound Conclusion/Plan: This gentleman is followed closely by [facility] as well as Dr. Main. For the last year they have been diligently reexamining him. By Dr. Main's description, the wound is getting smaller, and much improved for note has been a year ago. We will continue to watch while is here, clean wound, but no dressings required Qualifiers: Encounter type: sequela Qualified Code(s): T81.89XS - Other complications of procedures, not elsewhere classified, sequela (7) Hypertension Qualifiers: Hypertension type: primary hypertension Qualified Code(s): I10 - Essential (primary) hypertension (8) Non-healing surgical wound Qualifiers: Encounter type: sequela Qualified Code(s): T81.89XS - Other complications of procedures, not elsewhere classified, sequela
[2022-05-22] MEDS: DOXAZOSIN 4 MG TABLET PO SCH (19:48)
[2022-05-23] MEDS: oxyCODONE 5 MG TABLET PO PRN ×4 (00:40→17:30)
[2022-05-23] MEDS: metroNIDAZOLE 500 MG/100 ML 500 MG/100 ML BAG IV SCH ×3 (00:40→16:23)
[2022-05-23] MEDS: ACETAMINOPHEN 325 MG TABLET PO PRN ×4 (00:42→17:29)
[2022-05-23] MEDS: SODIUM CHLORIDE FLUSH 0.9% 10 ML SYRINGE IVP SCH ×3 (01:32→17:30)
[2022-05-23] MEDS: SODIUM CHLORIDE 0.9% 1,000 ML IV SCH ×2 (03:30→14:49)
[2022-05-23 06:23] LABS: BASOPHILS % (AUTO) 0.4 %; EOSINOPHILS # (AUTO) 0.1 10^3/uL (0.0-0.7); EOSINOPHILS % (AUTO) 1.1 %; HCT - HEMATOCRIT 30.3 % (42.0-52.0); HGB - HEMOGLOBIN 9.6 g/dL (14.0-18.0); LYMPHOCYTES # (AUTO) 0.6 10^3/uL (1.5-3.5); LYMPHOCYTES % (AUTO) 10.9 %; MEAN CORPUSCULAR HEMOGLOBIN 29.1 pg (27.0-31.0); MEAN CORPUSCULAR HGB CONC 31.7 g/dL (32.0-36.0); MEAN CORPUSCULAR VOLUME 91.8 fL (80.0-94.0); MEAN PLATELET VOLUME 10.1 fL (7.4-11.4); MONOCYTES # (AUTO) 1.2 10^3/uL (0.0-1.0); MONOCYTES % (AUTO) 21.4 %; NEUTROPHILS # (AUTO) 3.6 10^3/uL (1.5-6.6); NEUTROPHILS % (AUTO) 65.8 %; PLT - PLATELET COUNT 273 10^3/uL (130-450); RED CELL DISTRIBUTION WIDTH 14.5 % (12.0-15.0); WHITE BLOOD COUNT 5.4 x10^3/uL (4.8-10.8)
[2022-05-23 06:48] LABS: ALBUMIN 2.4 g/dL (3.2-5.5); BILIRUBIN,DIRECT 0.4 mg/dL (0.1-0.5); BILIRUBIN,TOTAL 0.8 mg/dL (0.2-1.0); CALCIUM 8.3 mg/dL (8.5-10.3); CREATININE 1.8 mg/dL (0.6-1.2); POTASSIUM 4.2 mmol/L (3.5-5.0); TOTAL PROTEIN 5.4 g/dL (6.7-8.2)
[2022-05-23] MEDS: SACCHAROMYCES BOULARDII 250 MG CAPSULE PO SCH ×2 (08:41→17:30)
[2022-05-23] MEDS ORDERED: DIATRIZOATE MEGLU/DIATRIZO SOD 30 ML BOTTLE PO ONE ×2 (09:43→17:05)
[2022-05-23] MEDS: cefTRIAXone 1 GM in SODIUM CHLORIDE 0.9% MINIBAG 100 ML IV SCH (09:53)
--- NOTE | 2022-05-23 14:06 | CT Report ---
PROCEDURE: CT abdomen pelvis with and without contrast INDICATIONS: LIVER MASSES, FLUID COLLECTION, TAKEDOWN ILLEOSTOMY 04/11, 4 PHASE CONTRAST: IV CONTRAST: Optiray 320 ml: 100 PO CONTRAST: Optiray 320 ml50 TECHNIQUE: Noncontrast 5 mm thick sections acquired from the diaphragms to the symphysis. 5 mm coronal and sagi ttal reformats were then performed. After the administration of oral and intravenous contrast, 5 mm thick sections acquired from the diaphragms to the symphysis. 5 mm thick coronal and sagittal reform ats were acquired. For radiation dose reduction, the following was used: automated exposure control , adjustment of mA and/or kV according to patient size. COMPARISON: 05/18/2022 FINDINGS: Lower thorax: The nodular consolidation in the right lower lobe associated with moderate right pleura l effusion suspicious for neoplastic disease, partially imaged. Smaller left pleural effusion. Liver: Diffuse multifocal hepatic metastatic nodules associated with hepatomegaly measuring 28.1 cm. Biliary system: No calcified cholelithiasis or pericholecystic inflammation. No evidence of bile du ct dilatation. Pancreas: Unremarkable without mass or inflammation evident. Spleen: Normal in size and density. Adrenals: Normal morphology and density. Reproductive system: Unremarkable as visualized. Urinary system: Normal renal size and attenuation. No renal calculi, hydronephrosis, or solid mass p resent. Urinary bladder unremarkable. Gastrointestinal system: The bowel appears unremarkable with no evidence of bowel obstruction or inf lammation. The stomach appears unremarkable. Right hemicolectomy with ileocolic anastomosis and right lower quadrant ostomy scarring noted. Multiple diverticuli impression the sigmoid colon. Peritoneal spaces: No mesenteric or retroperitoneal adenopathy. No free air. No free fluid. Vasculature: Infrarenal abdominal aortic aneurysm measures 5.1 cm Musculoskeletal: Normal bone mineralization. No acute fractures. Abdominal wall intact without yanet dence of ventral or inguinal hernias. Grade 2 anterior spondylolisthesis at L5-S1 associated with sanchez ateral L5 pars defects. Diffuse subcutaneous edema associated with small amount of free fluid in the pelvis. IMPRESSION: 1. Diffuse hepatic metastatic disease resulting in hepatomegaly, 28.1 cm. 2. Nodular mass lesions in the right lower lobe, partially imaged, also consistent with metastatic di sease. 3. Bibasilar pleural effusions, diffuse subcutaneous edema and small amount of free fluid in the pelv is, probably related to fluid balance. 4. Infrarenal abdominal aortic aneurysm Reviewed by: Julio Cesar Warner MD on 05/23/2022 1:04 PM ABDI Approved by: Julio Cesar Warner MD on 05/23/2022 1:04 PM ABDI Station ID: [id number]
--- NOTE | 2022-05-23 17:07 | PROVIDER PROGRESS NOTE ---
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 30 minutes was spent in the patient's room. All questions were answered. He is understandably depressed. He has been through so much since his original surgery for bowel perforation, and suffered through many emergency surgeries, to finally get to the other side and feels like things were getting be stable. I discussed the CT results with radiology. Lesions are amenable to CT-guided biopsy. Patient states that he is willing to do that to find out what type of cancer it is so that he can make decisions for down the road.Even though he has been eating solid food for the last few weeks, nutrition services notes that he has lost 10 kg since November of this year. Patient is surprised and says he just was not aware he was losing that much weight. He attributed it to the stress of his recent takedown ileostomy. But he denies blood in his stool. He did not have any abdominal pain until this distention presented itself. Current Medications - Current Medications Current Medications: Active Medications Acetaminophen (Acetaminophen 325 Mg Tablet) 650 mg PO Q4HR PRN PRN Reason: Pain 1 to 4, or Fever Last Admin: 05/23/22 11:42 Dose: 650 mg Albuterol (Albuterol Neb 2.5 Mg/3 Ml) 2.5 mg INH Q4HR PRN PRN Reason: Wheezing Stop: 05/24/22 13:28 Doxazosin Mesylate (Doxazosin 4 Mg Tablet) 4 mg PO QPM [facility] Last Admin: 05/22/22 19:48 Dose: 4 mg Ceftriaxone Sodium 1 gm/ (Sodium Chloride) 100 mls @ 200 mls/hr IV DAILY ELEAZAR Stop: 05/25/22 09:29 Last Infusion: 05/23/22 10:25 Dose: Infused Metronidazole (Flagyl 500 Mg/100 Ml) 500 mg in 100 mls @ 100 mls/hr IV Q8H [facility] Last Admin: 05/23/22 16:23 Dose: 100 mls/hr Ondansetron HCl (Ondansetron Odt 4 Mg Tablet) 4 mg TL Q6HR PRN PRN Reason: Nausea / Vomiting Ondansetron HCl (Ondansetron 4 Mg/2 Ml Vial) 4 mg IVP Q6HR PRN PRN Reason: Nausea / Vomiting Oxycodone HCl (Oxycodone 5 Mg Tablet) 5 mg PO Q4HR PRN PRN Reason: Pain 5 to 7 Last Admin: 05/23/22 11:42 Dose: 5 mg Saccharomyces Boulardii (Saccharomyces Boulardii 250 Mg Capsule) 250 mg PO BIDWM [facility] Last Admin: 05/23/22 08:41 Dose: 250 mg Sodium Chloride (Sodium Chloride Flush 0.9% 10 Ml Syringe) 10 ml IVP PRN PRN PRN Reason: NEEDED PER PROVIDER ORDERS Sodium Chloride (Sodium Chloride Flush 0.9% 10 Ml Syringe) 10 ml IVP 0100,0900,1700 [facility] Last Admin: 05/23/22 08:42 Dose: Not Given Doxazosin [Cardura] 4 mg PO QPM 05/20/22 Objective - Vital Signs/Intake & Output Reviewed Vital Signs: Yes Intake & Output: Intake & Output 05/20/22 05/21/22 05/22/22 05/23/22 23:59 23:59 23:59 23:59 Intake Total 5801.960 0416.833 4328 1717.5 Balance 4617.327 7497.833 4328 1717.5 - Objective General Appearance: positive: Alert, Other (Thin white male who looks stated age, normal speech, stung by the news and almost wordless because of it) ENT: positive: No signs of dehydration Neck: positive: No JVD, Stiff neck Respiratory: positive: No respiratory distress. negative: Wheezes, Rales, Rhonchi Cardiovascular: positive: Regular rate & rhythm Abdomen: positive: Other (Unchanged. Epigastric to right upper quadrant masslike effect of a large distended liver. He started develop scrotal edema because of the aggressive IV fluid.) Skin: positive: Warm, Dry Extremities: positive: Full ROM, No pedal edema Neurologic/Psychiatric: positive: Oriented x3, CN's nml (2-12), Motor nml - Lab Results Fish Bones: 05/23/22 05:49 05/23/22 05:49 Other Labs: Lab Results x24hrs 05/23/22 05/23/22 05/23/22 Range/Units 09:15 05:49 05:49 WBC 5.4 (4.8-10.8) x10^3/uL RBC 3.30 L (4.70-6.10) 10^6/uL Hgb 9.6 L (14.0-18.0) g/dL Hct 30.3 L (42.0-52.0) % MCV 91.8 (80.0-94.0) fL MCH 29.1 (27.0-31.0) pg MCHC 31.7 L (32.0-36.0) g/dL RDW 14.5 (12.0-15.0) % Plt Count 273 (130-450) 10^3/uL MPV 10.1 (7.4-11.4) fL Neut # (Auto) 3.6 (1.5-6.6) 10^3/uL Lymph # (Auto) 0.6 L (1.5-3.5) 10^3/uL [place] # (Auto) 1.2 H (0.0-1.0) 10^3/uL Eos # (Auto) 0.1 (0.0-0.7) 10^3/uL Baso # (Auto) 0.0 (0.0-0.1) 10^3/uL Absolute Nucleated RBC 0.00 x10^3/uL Nucleated RBC % 0.0 /100WBC Sodium 135 (135-145) mmol/L Potassium 4.2 (3.5-5.0) mmol/L Chloride 109 (101-111) mmol/L Carbon Dioxide 18 L (21-32) mmol/L Anion Gap 8.0 (6-13) BUN 41 H (6-20) mg/dL Creatinine 1.8 H (0.6-1.2) mg/dL Estimated GFR (MDRD) 38 L (>89) Glucose 87 (70-100) mg/dL Calcium 8.3 L (8.5-10.3) mg/dL Total Bilirubin 0.8 (0.2-1.0) mg/dL Direct Bilirubin 0.4 (0.1-0.5) mg/dL AST 257 H (10-42) IU/L ALT 155 H (10-60) IU/L Alkaline Phosphatase 406 H (42-121) IU/L Total Protein 5.4 L (6.7-8.2) g/dL Albumin 2.4 L (3.2-5.5) g/dL Globulin 3.0 (2.1-4.2) g/dL Procalcitonin 4.80 H* (<0.5) ng/mL ABX Reporting Has patient been on IV antibiotics over the past 48 hours?: Yes Assessment/Plan - Problem List (1) Shortness of breath Impression: The usual differential diagnosis does not really apply in this man. I am not thinking that he has consolidative community-acquired pneumonia, nor do I think he has congestive heart failure, but he has nonspecific inflammatory nodules of the right lower lobe. Combined that with severe distention and I am sure he has pressure up against his diaphragm and is not able to breathe very well. He did have COVID-pneumonia 2 or 3 weeks ago but I do not think that is what the issue is now. He is not hypoxic. I reviewed the CT with radiology 05/20. Our presumptive diagnosis is pneumonia because of the right lower lobe nodularity and surrounding inflammation. It is an atypical infiltrate. He did have COVID 2 to 3 weeks ago but those symptoms resolved except for the lingering shortness of breath and slight cough. He feels improved from this standpoint. But I think most of his shortness of breath is due to the compression of his diaphragm from the liver enlargement. Now with the new CT from today showing possible neoplasm. And it is clear that the right lower lobe nodules are neoplasm, those are shared with the patient. Plan: Day #4 of antibiotics.Those will be stopped today. (2) Elevated liver enzymes Conclusion/Plan: This is a gentleman whose had small bowel resections, multiple anastomoses, and I am not really quite sure what his anatomy is. In reviewing all of his admissions, he has never had liver enzymes elevated before. In speaking to Dr. Sweet 05/21, on-call for the surgeon For Dr. Black who did the patient's ileostomy takedown in March 2022, he may have abscesses in his liver. Dr. Jaswinder gonzales notes that the left lobe of the liver is much larger than the CT scan he has from his institution in February. He also notes that he has a fluid collection between the liver and the anterior wall that could possibly be drained. Abdominal ultrasound was finally done this morning and he has hepatomegaly associated with multiple intrahepatic nodular solid mass lesions. He has cholelithiasis and a dilated common bile duct. Distal aortic aneurysm of 5 cm. There is no hydronephrosis. Flagyl was added for liver abscesses in addition to the antibiotics for pneumonia. Today is day 3 of Flagyl. Plan: With repeat CT scan showing tumor as the cause of his elevated liver enzymes we will stop Flagyl. Check pro time and INR in preparation for liver biopsy (3) Dehydration Conclusion/Plan: He describes poor p.o. intake, and anorexia for the last few days. He while he does have chronic kidney disease his creatinine is usually below 2. At this time he seems to have element of acute kidney injury. Again I will need to hydrate him to improve his creatinine status before I can do CT with dye. BUN and creatinine were 46 and 2.9>>50 and 2.7>>46>>2.2>>1.8 today Four-phase contrast CT done of liver today. Plan: He really wants the IV fluids stopped. I am willing to do that as long as he pushes p.o. (4) Abdominal mass, right upper quadrant Conclusion/Plan: When I reviewed the CT with the radiologist there is no stomach distention. There was no mention of the increased liver size. It was the surgeon with that has remarked that the mass I am probably feeling is the very large liver. Unfortunately it is filled with solid masses according to ultrasound, and the question is whether this is going to be neoplasm or abscess. I was treating him for abscess. However new CT confirms that it is neoplasm. Stop Flagyl. (5) Lab test positive for detection of COVID-19 virus Conclusion/Plan: He does have a cough, but I think his shortness of breath is more from the compression from the lower abdomen going up into his diaphragm and lower chest wall. I do not think he is actively infected with COVID at this time and has residual testing positive from illness 3 weeks ago. As such no remdesivir or monoclonal antibody (6) BPH (benign prostatic hyperplasia) Conclusion/Plan: He is on doxazosin at home, and will use this while here Qualifiers: Lower urinary tract symptom presence: symptoms present (7) Hypertension Conclusion/Plan: He is hypertensive on admission. Systolic is 144, 149, 153. Doxazosin resumed. With resumption of his doxazosin, blood pressure has come down nicely. Qualifiers: Hypertension type: primary hypertension Qualified Code(s): I10 - Essential (primary) hypertension (8) Non-healing surgical wound Conclusion/Plan: This gentleman is followed closely by [facility] as well as Dr. Main. For the last year they have been diligently reexamining him. By Dr. Main's description, the wound is getting smaller, and much improved for note has been a year ago. We will continue to watch while is here, clean wound, but no dressings required Qualifiers: Encounter type: sequela Qualified Code(s): T81.89XS - Other complications of procedures, not elsewhere classified, sequela (7) Hypertension Qualifiers: Hypertension type: primary hypertension Qualified Code(s): I10 - Essential (primary) hypertension (8) Non-healing surgical wound Qualifiers: Encounter type: sequela Qualified Code(s): T81.89XS - Other complications of procedures, not elsewhere classified, sequela
[2022-05-23 17:23] LABS: INR 1.7 (0.8-1.2)
[2022-05-23] MEDS: DOXAZOSIN 4 MG TABLET PO SCH (20:24)
[2022-05-24] MEDS: ACETAMINOPHEN 325 MG TABLET PO PRN ×2 (00:49→14:17)
[2022-05-24] MEDS: oxyCODONE 5 MG TABLET PO PRN ×3 (00:49→14:16)
[2022-05-24] MEDS: SODIUM CHLORIDE FLUSH 0.9% 10 ML SYRINGE IVP SCH ×3 (00:49→16:59)
[2022-05-24] MEDS: SACCHAROMYCES BOULARDII 250 MG CAPSULE PO SCH ×2 (08:34→16:59)
[2022-05-24] MEDS ORDERED: lidocaine 1% 20 ML MDV ONE (14:21)
--- NOTE | 2022-05-24 17:07 | Discharge Plan ---
Discharge Plan Problem Reviewed?: Yes Disposition: Home, Self Care Condition: Fair Prescriptions: oxyCODONE [Roxicodone] 5 mg PO Q4HR PRN #6 tab PRN Reason: Severe Pain Diet: Low Sodium Activity Restrictions: No lifting more than 5 lb Shower Restrictions: No Health Concerns: You were hospitalized to evaluate shortness of breath and abdominal enlargement. The findings are that of liver mass and lung mass which could be cancerous. The liver mass was biopsied today. The results will not be available for several days. You are being discharged today and advised to see your Primary Care Provider as soon as possible, to get biopsy results and he will manage the next steps. Please resume all your usual pre-hospital medications. A new prescription for oxycodone to use for severe pain, has been electronically prescribed to your [facility] pharmacy in [place]. Plan of Treatment: As above. Care Goals: Improvement in symptoms and stabilization of the goals. Assessment: Patient understands the plan. Additional Instructions or Follow Up instructions: If you have new or worsening symptoms, call your PCP for advice or come to the ER. No Smoking: If you smoke, Please STOP! Call for help. Follow-up with: Sean Mcgarry MD [Physician No Access] -
--- NOTE | 2022-05-24 17:13 | DISCHARGE SUMMARY ---
Discharge Summary Admit Date: 05/20/22 Discharge Date: 05/24/22 Discharging Provider: Dr. Maria A Livingston Primary Care Provider: Dr. Romero Mcgarry Condition at Discharge: Fair Discharge Disposition: 01 Home, Self Care - HPI History of Present Illness: This [place] gentleman has a markedly positive surgical history with regards to his colon. He had diverticulitis in the that was treated with a colon resection by Dr. Sher Edgar.. In April 2019 he presented to the emergen cy room with abrupt onset of abdominal pain. He was taken to the operating room and underwent an extended right hemicolectomy that included the proximal transverse colon with end ileostomy. He was found to have a perforated hepatic flexure with feculent peritonitis. 24 hours later he decompensated and end ileostomy was compromised and he was returned to the OR for revision of his ileostomy. The patient did not want to stay in the hospital once he was feeling better and was discharged within 7 days. He then returned in March 2020 and wanted to be seen for an ileostomy reversal. Colonoscopy had already been done in August 2019 in preparation for the reversal. Colonoscopy was described as "normal". This gentleman stayed in the hospital from March 31 through April 24. His first surgery on March 30 was a laparoscopy with ileostomy takedown. Small bowel resection. Splenic flexure mobilization, mini laparotomy. He had laparoscopic adhesiolysis of adhesions to the anterior abdominal wall. Open adhesiolysis of the omentum and to the small bowel interloop adhesions. Parastomal hernia repair. [id number] functional end-to-end antiperistaltic anastomosis. An omental flap drain placement. He had a second exploratory laparotomy on April 06, 2020, abdominal washout, takedown of an anastomotic cutaneous fistula, anastomotic revision secondary to small bowel ischemia, stricturoplasty secondary to dense adhesions, omental flap creation, partial omentectomy, a stapled [id number] functional end-to-end isoperistaltic anastomosis, extensive open adhesiolysis because of an anastomotic leak, free air. He did go to [place] via ambulance to have a drain placed and was returned to our care. He was discharged. Postoperatively developed anastomotic stricture and he was dilated endoscopically in the outpatient setting. He then returned on July 17, 2020 for a takedown of a diverting loop colostomy. Had another small bowel resection. Parastomal hernia repair. Drain placement. He had dilations of the anastomosis of the colocolostomy and descending colon stricture August 2020. The first attempt was aborted because of emesis during nasogastric deco mpression. He then underwent a subsequent colonoscopy. With that admission it was September 03, 2020 through September 09, 2020. This unfortunate gentleman continue to have problems with fistulas, poor wound healing. He was referred to the [facility] and had multiple procedures that I am unaware of what they were. They eventually ended up closing his intra-abdominal wall with mesh. He has been followed up locally by Dr. Jose Dietz's office for wound care. He underwent a CT of the abdomen January 18, 2022 because of continued fluid drainage. He was found to have a presacral peritoneal encapsulated fluid collection, posterior to the rectum. He also had a stable infrarenal abdominal aortic aneurysm. [facility] drain that. They also noted dehiscent anterior abdominal wall wound with minimal soft tissue air inflammatory changes on that CT. He has slowly come back from severe protein calorie malnutrition. He continues to have mild drainage from the anterior abdominal wound. He continues to see Dr. Main. In those months that he was with bowel issues he was on TPN. He is gradually graduated to eating food and has been slowly gaining weight and improving his nutrition. 3 weeks ago he developed rhinorrhea, coryza, a productive cough. The cough has been gradually improving. But he states that it induced some back pain. The constant coughing really strained his abdominal wall muscles and he would protect them and spasm in his back. He does not really remember having fever or chills. No sore throat. He has constant dumping from his constant bowel resections so he is used to a daily diarrhea. This last week stool has been semiformed. He is not had any emesis, blood in his stool. He has become persistently short of breath with this cough. Then he started feeling as if his belly was getting more and more distended. It stretched tight as a drum and looks like he has a basketball in his upper abdomen. He does have a history of alcohol abuse but that issue has not been present since before his surgery. He is passing gas. He denies fever, chills. A repeat CT was done on May [address] showed a new cluster of nodular consolidations of the right lower lobe with surrounding infiltrate and associated small right pleural effusions suggesting infectious etiology. He also had intrahepatic mass lesions which were difficult to evaluate without contrast. He does small subcapsular left hepatic fluid noted. There is no m ention of the distended belly. The bowel appeared unremarkable without bowel obstruction. The stomach appeared unremarkable. Labs were done with a creatinine of 3.0. I asked that she did not get contrast with that CT. He was seen in Dr. Main office today and the patient was dehydrated, very uncomfortable with his distended belly, and coughing. He was sent to the emergency room for evaluation and he is not hypoxic, but definitely has a markedly distended abdomen that this quite impressive. He does look like he has a basketball in his upper abdomen stretching his skin to the limits. He is coughing, afebrile, and 97% on room air. He has newly elevated liver enzymes with an AST of 183, ALT 134, alk phos 400. BNP is 56. Procalcitonin is 3.89. White cell count is normal at 5.4. Hemoglobin 10.9. He is COVID-positive. - HOSPITAL COURSE Hospital Course: (1) Shortness of breath He did have COVID-pneumonia 2 - 3 weeks previously. There is no history of CHF or COPD. Our presumptive diagnosis was pneumonia because of the right lower lobe nodularity and surrounding inflammation on CXR. He did get 5 days of empiric antibiotics. Likely most of his shortness of breath is due to the compression of his diaphragm from the liver enlargement, however. (2) Tumor of liver It was the surgeon with (see #4) that remarked that the mass we feel and abdominal distension is due to his very large liver. The liver is filled with solid masses according to ultrasound, and he was empirically treated with antibx for abscess. However a repeat, 4-stage CT confirmed that it is neoplasm. We stopped Flagyl. On 05/24/22, he underwent a CT-guided liver biopsy. He was advised to have follow-up soon with his PCP, Dr Mcgarry. (3) Lung tumor The findings on chest imaging were more compatible with lung tumor than with lobar consolidation. This will also need further work-up in outpatient management. (4) Elevated liver enzymes He has had small bowel resections, multiple anastomoses, but he has never had liver enzymes elevated before. In speaking to Dr. Sweet on 05/21/22, on-call for the surgeon Dr. Mcgarry who did the patient's ileostomy takedown in March 2022, Dr. Sweet noted that the left lobe of the liver is much larger than the CT scan he had from their institution done this February. He also noted that he has a fluid collection between the liver and the anterior wall that could possibly be drained. An abdominal ultrasound was done and found hepatomegaly associated with multiple intrahepatic nodular solid mass lesions. He also has cholelithiasis and a dilated common bile duct, a distal aortic aneurysm of 5 cm. There is no hydronephrosis. Flagyl had been added for treating possible liver abscesses in addition to the antibiotics for pneumonia, which was stopped. At discharge his AST was 257, ALT 155, alk phos 4 6, normal bilirubin. (5) Dehydration He described poor p.o. intake, and anorexia for the previous few days. He received iv fluids for several days. (6) Acute kidney injury. His elevated BUN/creat of 46/2.9 was felt to be from volume depletion. His labs improved with IV hydration. He was then able to undergo the CT with contrast. Creat on the day before discharge was 1.8. (7) Lab test positive for detection of COVID-19 virus He did have a mild cough, but his shortness of breath was more likely from compression of chest from the abdominal mass. He was not hypoxic, as such he got no remdesivir or monoclonal antibody. Isolation was ordered and discontinued on 05/24/22. (8) BPH (benign prostatic hyperplasia) He is on doxazosin at home, and ordered this while here (9) Hypertension Doxazosin was ordered and blood pressure came down nicely. (10) Non-healing surgical wound This gentleman is followed closely by [facility] as well as Dr. Main on [facility]. For the last year they have been diligently reexamining him. By Dr. Main's description, the wound is getting smaller, and much improved. We will continue to watch while is here, clean wound, but no dressings required - ALLERGIES Allergies/Adverse Reactions: Allergies Allergy/AdvReac Type Severity Reaction Status Date / Time hydrochlorothiazide AdvReac lightheaded Verified 05/20/22 12:07 lisinopril AdvReac lightheaded Verified 05/20/22 12:07 lorazepam AdvReac Anxiety Verified 05/20/22 12:07 - MEDICATIONS Home Medications: Ambulatory Orders Medication Instructions Recorded Confirmed Doxazosin [Cardura] 4 mg PO QPM 05/20/22 05/21/22 Acetaminophen [Tylenol] 650 mg PO Q4HR PRN tab 05/24/22 oxyCODONE [Roxicodone] 5 mg PO Q4HR PRN #6 tab 05/24/22 - PHYSICAL EXAM AT DISCHARGE General Appearance: positive: No acute distress, Alert, Other (Thin) Eyes Bilateral: positive: Normal inspection, EOMI ENT: positive: ENT inspection nml, No signs of dehydration Neck: positive: Nml inspection, No JVD Respiratory: positive: No respiratory distress, Breath sounds nml Cardiovascular: positive: Regular rate & rhythm, No murmur Abdomen: positive: Non-tender, Other (Moderately distended and firm. Umbilicus deformed. Scars healed. Drainage to the right of the umbilicus.) Skin: positive: Warm, Dry Extremities: positive: Non-tender, No pedal edema Neurologic/Psychiatric: positive: Oriented x3 (Non-focal, no tremor) - LABS Result Diagrams: 05/23/22 05:49 05/23/22 05:49 - DIAGNOSTIC IMAGING Diagnostic Imaging Results: Final report reviewed - FOLLOW UP Follow Up: See PCP Dr Mcgarry in next 5-7 days. - TIME SPENT Time Spent in Discharge (Minutes): 30
[2022-05-24 18:13] VITALS: BP 148/61
--- NOTE | 2022-05-25 11:08 | CT Report ---
PROCEDURE: LIVER BX PERC INDICATIONS: LIVER MASSES TECHNIQUE: The indications, alternatives, benefits, risks, and possible complications of the procedure were comm unicated to the patient. Informed written consent from the patient was obtained and placed in the art. Continuous EKG and hemodynamic monitoring was started by trained personnel. For radiation dose reduction, the following was used: automated exposure control, adjustment of mA and/or kV according to patient size. The patient was brought to the CT suite and organ pipe maker metal spiral CT imaging was performed with localization g rid. The appropriate site for percutaneous access to the biopsy target was marked, was prepped and d raped sterilely, and was infused with local anaesthesia. Under CT guidance, a core biopsy trocar and needle set was advanced to the biopsy target, and specimen(s) were obtained. The trocar and needle were then removed, and the patient was sent for post-procedure monitoring. COMPARISON: None. FINDINGS: Biopsy site: Anterior left hepatic lobe Needle: 18 gauge biopsy needle with introducer trocar. Number of passes: Three Medications: 1% lidocaine for local anaesthesia. Complications: None. IMPRESSION: Successful CT-guided biopsy of anterior left hepatic lobe mass. Reviewed by: Gil Khan MD on 05/25/2022 11:07 AM PDT Approved by: Gil Khan MD on 05/25/2022 11:07 AM PDT Station ID: [id number]
[2022-05-25] MEDS ORDERED: lidocaine 1% 20 ML MDV SUBQ ONE (16:43)
== END 2022-05-24 18:25 | disposition home or self-care (01) | DRG 435 ==
LOC: ED 11:34 → MS2 13:25
PROVIDERS: ADMIT Specialist; ATTEND Internal Medicine
DX: J18.9 Pneumonia, unspecified organism (principal); D37.6 Neoplasm of uncertain behavior of liver, gallbladder and bile ducts; I12.9 Hypertensive chronic kidney disease with stage 1 through stage 4 chronic kidney disease, or unspecified chronic kidney disease; N18.30 Chronic kidney disease, stage 3 unspecified; U07.1 COVID-19; N17.9 Acute kidney failure, unspecified; D38.1 Neoplasm of uncertain behavior of trachea, bronchus and lung; R74.01 Elevation of levels of liver transaminase levels; E86.0 Dehydration; N40.0 Benign prostatic hyperplasia without lower urinary tract symptoms; I10 Essential (primary) hypertension; T81.89XA Other complications of procedures, not elsewhere classified, initial encounter; F32.A Depression, unspecified; Z79.899 Other long term (current) drug therapy; Z87.01 Personal history of pneumonia (recurrent); Z87.891 Personal history of nicotine dependence; Z90.49 Acquired absence of other specified parts of digestive tract
CPT/HCPCS: 36415; 47000; 71045; 74178; 76700; 77012; 80048; 80053; 80076; 81001; 83605; 83880; 84145; 85025; 85610; 87040; 87635; 99283; 99285; A9270; Q9963; Q9967; 87086

== ENCOUNTER 2022-05-26 11:47 | Outpatient (CLI) | payer MEDICARE, BC | END 2022-05-26 11:48 | disposition critical access hospital (66) | LOC: EMS 11:47 | DX: R06.02 Shortness of breath (principal) | CPT/HCPCS: A0425; A0429 ==

== ENCOUNTER 2022-05-26 12:14 | Emergency (ER) | payer MEDICARE, BC ==
[2022-05-26] MEDS ORDERED: MORPHINE 10 MG/ML VIAL IVP STA (12:27)
--- NOTE | 2022-05-26 12:36 | ED Physician Documentation ---
PD HPI DYSPNEA - Stated complaint Stated Complaint: SOA - Chief complaint Chief Complaint: Resp - History obtained from History obtained from: Patient, EMS - Additional information Additional information: 67-year-old gentleman with very complicated intra-abdominal surgical history. See Dr. Livingston's excellent discharge summary from 2 days ago. More recently he develops significant growth of liver masses and actually had a CT-guided biopsy yesterday. He was discharged in the hospital in the last couple of days and returns because of shortness of breath related to abdominal swelling. He does not feel like he is worse Than when he left the hospital, but he is not better either. He has some abdominal pain. I reviewed the records from his recent admission and also talk with Dr main who is very familiar with his case. They have put a bonilla on his pathology results which should be available later this afternoon. That said it is clear that it is very likely that this is a malignant/neoplastic process causing a grossly enlarged liver which is causing his dyspnea. His prognosis is poor regardless of the pathology. To complicate matters he lives with his who broke her hip in the last couple of days and is awaiting surgery at [facility] potentially today. They have a son who lives in [facility]. Review of Systems Ten Systems: 10 systems reviewed and negative Constitutional: reports: Reviewed and negative Throat: reports: Reviewed and negative Respiratory: reports: Dyspnea. denies: Cough PD PAST MEDICAL HISTORY - Past Medical History Cardiovascular: Hypertension, Murmur Respiratory: None Neuro: None Endocrine/Autoimmune: None GI: Diverticulitis, Other (Abdominal distension) : Benign prostate hypertrophy, Other HEENT: Chronic vision loss Psych: None Musculoskeletal: Other Derm: None - Past Surgical History Past Surgical History: Yes General: Bowel surgery, Colonoscopy, Other Ortho: Other (menisectomy) HEENT: Tonsil/Adenoidectomy - Present Medications Home Medications: Ambulatory Orders Medication Instructions Recorded Confirmed Doxazosin [Cardura] 4 mg PO QPM 05/20/22 05/21/22 Acetaminophen [Tylenol] 650 mg PO Q4HR PRN tab 05/24/22 oxyCODONE [Roxicodone] 5 mg PO Q4HR PRN #6 tab 05/24/22 - Allergies Allergies/Adverse Reactions: Allergies Allergy/AdvReac Type Severity Reaction Status Date / Time hydrochlorothiazide AdvReac lightheaded Verified 05/26/22 12:24 lisinopril AdvReac lightheaded Verified 05/26/22 12:24 lorazepam AdvReac Anxiety Verified 05/26/22 12:24 - Social History Does the pt smoke?: No Smoking Status: Former smoker Does the pt have substance abuse?: No - Immunizations Immunizations are current?: Yes - POLST Patient has POLST: No POLST Status: Full Code PD ED PE NORMAL - Vitals Vital signs reviewed: Yes - General General: Alert and oriented X 3, Other (This is a gaunt gentleman with an enlarged abdomen who is tachypneic) - HEENT HEENT: PERRL, EOMI - Neck Neck: Supple, no meningeal sign, No bony TTP - Cardiac Cardiac: RRR, No murmur - Respiratory Respiratory: Other (Tachypneic but clear lungs) - Abdomen Abdomen: Other (Massively enlarged abdomen with a very firm liver going basically down to the pelvis corroborated on bedside ultrasound. Really no free fluid per se.) - Back Back: No CVA TTP, No spinal TTP - Derm Derm: Normal color, Warm and dry - Extremities Extremities: Other (Moderate right and modest left pedal edema) - Neuro Neuro: Alert and oriented X 3, Normal speech Results - Vitals Vitals: Vital Signs - 24 hr 05/26/22 05/26/22 05/26/22 12:20 13:11 14:28 Temperature 35.6 C L Heart Rate 92 88 90 Respiratory 26 H 17 18 Rate Blood Pressure 114/58 L 114/62 101/41 L O2 Saturation 98 99 98 If not protocol 4 : Oxygen Flow, liters/minute 05/26/22 05/26/22 16:10 16:30 Temperature Heart Rate 90 87 Respiratory 22 26 H Rate Blood Pressure 117/58 L 110/61 O2 Saturation 98 94 If not protocol : Oxygen Flow, liters/minute Oxygen O2 Source Room air Oxygen Flow Rate 4 - Labs Labs: Laboratory Tests 05/26/22 05/26/22 05/26/22 12:42 12:42 12:42 WBC 10.9 H RBC 3.91 L Hgb 11.4 L Hct 34.5 L MCV 88.2 MCH 29.2 MCHC 33.0 RDW 15.5 H Plt Count 422 MPV 10.2 Neut # (Auto) Not Reportable Lymph # (Auto) Not Reportable [place] # (Auto) Not Reportable Eos # (Auto) Not Reportable Baso # (Auto) Not Reportable Absolute Nucleated RBC Not Reportable Total Counted 100 Band Neuts % (Manual) 9 Abnorm Lymph % (Manual) 0 Metamyelocytes % 1 H Nucleated RBC % Not Reportable Neutrophils # (Manual) 10.0 H Lymphocytes # (Manual) 0.4 L Monocytes # (Manual) 0.2 Eosinophils # (Manual) 0.1 Basophils # (Manual) 0.0 Differential Comment MANUAL DIFFERENTIAL Platelet Estimate NORMAL (130-450,000) Platelet Morphology NORMAL APPEARANCE RBC Morph Micro Appear NORMAL APPEARANCE PT 22.0 H INR 2.0 H VBG pH VBG pCO2 VBG pO2 VBG HCO3 VBG Total CO2 VBG O2 Saturation VBG Base Excess Sodium 134 L Potassium 5.7 H Chloride 105 Carbon Dioxide 11 L* Anion Gap 18.0 H BUN 87 H* Creatinine 5.4 H Estimated GFR (MDRD) 11 L Glucose 111 H Calcium 8.9 Total Bilirubin 2.0 H AST 505 H ALT 286 H Alkaline Phosphatase 483 H Ammonia Total Protein 5.4 L Albumin 2.4 L Globulin 3.0 Albumin/Globulin Ratio 0.8 L Lipase 43 SARS-CoV-2 (PCR) 05/26/22 05/26/22 05/26/22 12:59 13:34 13:34 WBC RBC Hgb Hct MCV MCH MCHC RDW Plt Count MPV Neut # (Auto) Lymph # (Auto) [place] # (Auto) Eos # (Auto) Baso # (Auto) Absolute Nucleated RBC Total Counted Band Neuts % (Manual) Abnorm Lymph % (Manual) Metamyelocytes % Nucleated RBC % Neutrophils # (Manual) Lymphocytes # (Manual) Monocytes # (Manual) Eosinophils # (Manual) Basophils # (Manual) Differential Comment Platelet Estimate Platelet Morphology RBC Morph Micro Appear PT INR VBG pH 7.192 L VBG pCO2 35.9 L VBG pO2 38.6 VBG HCO3 13.5 L VBG Total CO2 14.6 L VBG O2 Saturation 61.2 VBG Base Excess -13.7 L Sodium Potassium Chloride Carbon Dioxide Anion Gap BUN Creatinine Estimated GFR (MDRD) Glucose Calcium Total Bilirubin AST ALT Alkaline Phosphatase Ammonia 24.5 Total Protein Albumin Globulin Albumin/Globulin Ratio Lipase SARS-CoV-2 (PCR) NOT DETECTED PD MEDICAL DECISION MAKING - ED course ED course: 67-year-old gentleman who has a neoplastic process with massive enlargement of the liver presents with shortness of breath with tachypnea. He was feeling somewhat better after first dose of morphine but was still symptomatic so this was repeated. I discussed the case by phone with our surgeon, Dr. Main who is very well aware of his case. A couple of hours after his arrival in the emergency department doctor's office reach back out to me and had received initial pathology from his CT-guided liver biopsy which was notable for moderately differentiated adenocarcinoma with no further detail on primary yet but Lung primary is suspected. I discussed several times with the patient that definitive care for decreased tumor burden is not available at this critical access hospital. I [facility] with [facility] such as rapid initiation of chemotherapy, Mab therapy, or radiofrequency ablation. He has declined transfer, and given the likely underlying diagnosis his is imminent regardless. Offered to send him home with hospice, but he would like to stay in the hospital. I presented the case to Dr. Livingston at 1:28 PM who requests an ammonia level and a venous gas and will see the patient. I spoke with Dr. Livingston again approximately 1:45 PM and she had noted that the patient's pH is quite low and he is very acidemic. This may affect decisional capacity and asked me to reach out to his for input as to disposition. I spoke with his appx [phone], she is inpt at [facility] pending hip surgery about 1500; she is unsure about appropriate disposition and would like to consult other family. I also spoke with his son by phone who also plans on calling me back and subsequently the warehouse inventory clerk from [facility] called me wondering what she could do. She did they do have beds, and the feels like it would be ideal if they could be together before he dies and the nursing dials supervisor will look into the possibility of Michael transferring up to [facility] for comfort care so that he can be hit with his . His son, Gil, is available at [phone] ([facility]) He was accepted to [facility] at [address]hu Mcgrath per him the agreed to the plan and transport. Departure - Departure Disposition: 02 Transfer Acute Care Hosp Clinical Impression: Metastatic adenocarcinoma, Acidosis, ARF (acute renal failure)
[2022-05-26 12:48] LABS: BASOPHILS % (AUTO) 0.7 %; EOSINOPHILS % (AUTO) 1.4 %; HCT - HEMATOCRIT 34.5 % (42.0-52.0); HGB - HEMOGLOBIN 11.4 g/dL (14.0-18.0); LYMPHOCYTES % (AUTO) 4.4 %; MEAN CORPUSCULAR HEMOGLOBIN 29.2 pg (27.0-31.0); MEAN CORPUSCULAR VOLUME 88.2 fL (80.0-94.0); MEAN PLATELET VOLUME 10.2 fL (7.4-11.4); MONOCYTES % (AUTO) 5.7 %; NEUTROPHILS % (AUTO) 87.1 %; PLT - PLATELET COUNT 422 10^3/uL (130-450); RED BLOOD COUNT 3.91 10^6/uL (4.70-6.10); RED CELL DISTRIBUTION WIDTH 15.5 % (12.0-15.0); WHITE BLOOD COUNT 10.9 x10^3/uL (4.8-10.8)
[2022-05-26 13:05] LABS: ABNORMAL LYMPHS % (MANUAL) 0 %
[2022-05-26 13:08] LABS: BAND NEUTROPHILS % (MANUAL) 9 %; DIFFERENTIAL COMMENT MANUAL DIFFERENTIAL; EOSINOPHILS # (MANUAL) 0.1 10^3/uL (0-0.7); LYMPHOCYTES # (MANUAL) 0.4 10^3/uL (1.5-3.5); LYMPHOCYTES % (MANUAL) 4 %; METAMYELOCYTES % (MANUAL) 1 %; MONOCYTES # (MANUAL) 0.2 10^3/uL (0.0-1.0); PLATELET ESTIMATE, MANUAL NORMAL (130-450,000) (NORMAL); PLATELET MORPHOLOGY NORMAL APPEARANCE (NORMAL); RBC MORPHOLOGY (MULTIPLE) NORMAL APPEARANCE (NORMAL)
[2022-05-26 13:11] LABS: ALBUMIN 2.4 g/dL (3.2-5.5); ALBUMIN/GLOBULIN RATIO 0.8 (1.0-2.2); CALCIUM 8.9 mg/dL (8.5-10.3); CREATININE 5.4 mg/dL (0.6-1.2); POTASSIUM 5.7 mmol/L (3.5-5.0); TOTAL PROTEIN 5.4 g/dL (6.7-8.2)
[2022-05-26] MEDS ORDERED: MORPHINE 2 MG/ML CARPUJECT IVP STA (13:24)
[2022-05-26 13:40] LABS: VBG BASE EXCESS -13.7 mmol/L (-2 - +2); VBG HCO3 13.5 mmol/L (23-28); VBG OXYGEN SATURATION 61.2 % (60-80); VBG PCO2 35.9 mmHg (41-51); VBG PH 7.192 (7.31-7.41); VBG TOTAL CO2 14.6 mmol/L (24-29)
[2022-05-26 13:41] LABS: VBG PO2 38.6 mmHg (25-47)
[2022-05-26 17:36] VITALS: BP 116/55
== END 2022-05-26 18:05 | disposition short-term general hospital (02) ==
LOC: ED 12:14
DX: C78.7 Secondary malignant neoplasm of liver and intrahepatic bile duct (principal); C80.1 Malignant (primary) neoplasm, unspecified; E87.20 Acidosis, unspecified; N17.9 Acute kidney failure, unspecified; R06.82 Tachypnea, not elsewhere classified; I10 Essential (primary) hypertension; Z87.891 Personal history of nicotine dependence
CPT/HCPCS: 36415; 80053; 82140; 82803; 83690; 85025; 85610; 96374; 96376; 99285

== ENCOUNTER 2022-05-26 18:01 | Outpatient (CLI) | payer MEDICARE, BC | END 2022-05-26 18:02 | disposition short-term general hospital (02) | LOC: EMS 18:01 | PROVIDERS: ATTEND Emergency Medicine | DX: Z51.5 Encounter for palliative care (principal); R06.02 Shortness of breath; C80.1 Malignant (primary) neoplasm, unspecified | CPT/HCPCS: A0425 ×2 ==